=== PATIENT | female | born 1985 | race Caucasian/White ===

== ENCOUNTER 2023-04-22 10:44 | Emergency (ER) | payer SELFPAY ==
[2023-04-22 10:52] VITALS: BP 156/99; PULSE 72; RESP 20; TEMP 37.3; O2SAT 95; BMI 54.8
--- NOTE | 2023-04-22 13:04 | ED_ITS ---
HPI - General Adult General Chief complaint: Extremity Problem, Nontraumatic Stated complaint: SWELLING UPPER EXTREMITY Time Seen by Provider: 04/22/23 12:03 Source: patient Mode of arrival: walk-in History of Present Illness HPI narrative: Patient is a 37-year-old female who is presenting to the Emergency Room today with chief complaint of a small sore to her left distal forearm that is soft, fluctuant, sliightly tender to touch and she is concerned about deep vein thrombosis. Thhis is over the distal/lateral/posterior aspect of her left forearm. Patient has no unilateral swelling. Patient has no pain to the entire posterior aspect of her left upper extremity. Patient says that she accidentally hit her arm agaainst a hard object last week exactly where the swelling and pain is. Patient has a history of superficial thrombophlebitis to her left arm over and approximately close to the left radial artery were IV was placed previously. Patient some well-developed superficial thrombophlebitis from IV placement that progressed to the deep vein thrombosis system and patient was on blood thinners for 6 months. Patient also has a patient's that from blood clots. Patient has no chest pain or shortness of breath, no redness to the area, no red streaking, no signs of infection, no other acute complaints. Patient is here to rule out deep vein thrombosis. All systems are negative except as noted/marked. All systems reviewed and otherwise negative. Nurses note and vital signs reviewed and patient is not hypoxic. General: The patient appears well and in no apparent distress. Patient is resting comfortably on cart. Patient is not toxic, lethargic, or listless Skin: Warm, dry, no pallor noted. There is no rash noted. No petechiae, purpura. Head: Normocephalic, atraumatic Eye: Normal conjunctiva, no drainage, EOMI. PERRL Ears, Nose, Mouth, and Throat: oral mucosa is moist. Nares patent. Mouth without vesicles. Cardiovascular: Regular Rate and Rhythm, no murmur, gallop, rub Respiratory: Patient is in no distress, no accessory muscle use, lungs are clear to auscultation, no wheezing, rales or rhonchi Musculoskeletal: Patient has full range of motion of all of the extremities, no motor, sensory, or focal neurological deficits. Patient has no pain to the posterior aspectOf her left posterior upper extremityy from the shoulder to the wrist. Patient does have a 3 x 2 area that is soft, fluctuant, boggy, not mobile, mild tenderness to palpation, not red, no lymphangitis signs and not to the posterior aspect of the abdomen was suggest a deep vein thrombosis. No other pain to the posterior aspect of the left upper extremity. No signs of infection. Neurological: A&O x4, normal speech Psychiatric: Cooperative Related Data Home Medications Medication Instructions Recorded Confirmed sertraline 100 mg tablet mg 04/22/23 Allergies Allergy/AdvReac Type Severity Reaction Status Date / Time amoxicillin AdvReac Unknown Verified 04/22/23 10:52 hydromorphone [From Dilaudid] AdvReac Unknown Verified 04/22/23 10:52 Exam Constitutional Vital Signs, click to edit/add: Last Vital Signs Temp 99.1 F 04/22/23 10:52 Pulse 72 04/22/23 10:52 Resp 20 04/22/23 10:52 BP 156/99 H 04/22/23 10:52 Pulse Ox 95 04/22/23 10:52 Course Vital Signs Vital signs: Vital Signs Temperature 99.1 F 04/22/23 10:52 Pulse Rate 72 04/22/23 10:52 Respiratory Rate 20 04/22/23 10:52 Blood Pressure 156/99 H 04/22/23 10:52 Pulse Oximetry 95 04/22/23 10:52 Temperature 99.1 F 04/22/23 10:52 Pulse Rate 72 04/22/23 10:52 Respiratory Rate 20 04/22/23 10:52 Blood Pressure 156/99 H 04/22/23 10:52 Pulse Oximetry 95 04/22/23 10:52 Medical Decision Making [facility] Narrative Medical decision making narrative: Education was done at bedside for 10 minutes the patient. Patient has no signs or symptoms of deep vein thrombosis. I do understand patient's sensitivity to deep vein thrombosis secondary to her past of a superficial thrombophlebitis leading to deep vein thrombosis and on blood thinners for 6 months. Education reasons why to return to the Emergency Room for ultrasound discussed along with following up with PCP. Patient is given deep vein thrombosis education at discharge for education purposess only. Patient has no other acute concerns at this time, patient understands why this is most likely not a deep vein thrombosis and understands education at bedside and we did discuss. Discharge Plan Discharge Chief Complaint: Extremity Problem, Nontraumatic Clinical Impression: Hematoma, Deep venous thrombosis of upper extremity Patient Disposition: Home, Self-Care Time of Disposition Decision: 13:01 Condition: Fair Prescriptions / Home Meds: No Action sertraline 100 mg tablet Instructions: Contusion in Adults (ED), Bone Bruise (ED) Additional Instructions: Continue ice, use anti-inflammatories as needed. Education on DVT was given to you for educational purposes only; which I understand you have already had a DVT in the past and probably know this information as well. :) Follow-up with PCP if any other acute complaints Stand Alone Forms: Portal Instructions Referrals: Shaikh Mark MD [Primary Care Provider] - 1 week Discharge Date/Time: 04/22/23 13:07
== END 2023-04-22 13:07 | disposition home or self-care (01) ==
PROVIDERS: Emergency Provider Emergency Medicine; PCP Internal Medicine
DX: I82.622 Acute embolism and thrombosis of deep veins of left upper extremity (principal); Z86.72 Personal history of thrombophlebitis; S40.022A Contusion of left upper arm, initial encounter; W22.8XXA Striking against or struck by other objects, initial encounter
CPT/HCPCS: 99281

== ENCOUNTER 2023-07-16 11:03 | Outpatient (OUT) | payer BC, SELFPAY ==
--- OUTSIDE RECORDS SUMMARY | 2023-07-16 11:15 | XMS_ITS | CCD ---
Author Organization [facility] CliniSyor Care Team Providers Care Cereal Miller Name Role Phone DR STELLA LAN Consulting Unavailable EDYTA, DR STELLA Beal Attending Unavailable EDYTA, DR STELLA Beal Admitting Unavailable ROSS, RACHID LONNIE Primary Care Unavailable MAGDALENE, DR SINGH Consulting Unavailable CLEMENTINE JACK Consulting Unavailable ARIELLA FISCHER Consulting Unavailable ALBERTO FISCHER Consulting Unavailable RENATO, DR ISRAEL Hamm Consulting Unavailable FAWPAULA, HSU H Attending Unavailable FAWWAD, HSU H Admitting Unavailable ROSS, RACHID LONNIE Primary Care Unavailable CR REYES Consulting Unavailable MAGDALENE, DR SINGH Consulting Unavailable VINCENT, HSU H Consulting Unavailable HUSAM GARSIA Consulting Unavailable KAREN, DR NATHANIEL Loza Consulting Unavailable ROSS, RACHID LONNIE Primary Care Unavailable ROSS, RACHID LONNIE Attending Unavailable ROSS, RACHID LONNIE Admitting Unavailable ROSS, RACHID LONNIE Consulting Unavailable RENATO, DR ISRAEL Hamm Consulting Unavailable ROSS, RACHID LONNIE Primary Care Unavailable FAWWAD, HSU H Attending Unavailable FAWWAD, HSU H Admitting Unavailable FAWWAD, HSU H Consulting Unavailable ROSS, RACHID LONNIE Primary Care Unavailable FAWWAD, HSU H Attending Unavailable FAWWAD, HSU H Admitting Unavailable ROSS, RACHID LONNIE Primary Care Unavailable ROSS, RACHID LONNIE Attending Unavailable ROSS, RACHID LONNIE Admitting Unavailable DR ISRAEL GROSS Consulting Unavailable ALBERTO FISCHER Attending Unavailable ALBERTO FISCHER Admitting Unavailable ROSS, RACHID LONNIE Primary Care Unavailable ALBERTO FISCHER Consulting Unavailable CR CARIAS Consulting Unavailable ALBERTO FISCHER Attending Unavailable AMADO, ALBERTO Admitting Unavailable ROSS, RACHID LONNIE Primary Care Unavailable ROSALINO TRAN Consulting Unavailable Ross, Rachid E Primary Care Unavailable Ross, Rachid E Referring Unavailable Dewayne Calderon Admitting Unavailable Dewayne Calderon Attending Unavailable Unavailable Unavailable Unavailable Allergies Allergy Classification Reported Allergen(s) Allergy Type Date of Onset Reaction(s) Facility (3 sources) HYDROmorphone; Translations: [hydromorphone] Drug Allergy 1 Difficulty Breathing [facility] (3 sources) Penicillins; Translations: [Penicillins] Allergy to substance 1 Rash [facility] (2 sources) Amoxicillin Drug Allergy 7 [facility] (2 sources) HYDROmorphone Drug Allergy 7 [facility] Medications Current Medications Medication Drug Class(es) Dates Sig (Normalized) Sig (Original) cholecalciferol 400 unt oral capsule (2 sources) Vitamin D Start: 05-12-2020 take 1 capsule by mouth once daily Cholecalciferol (Vitamin D3) (Vitamin D3) 10 mcg (400 unit) Capsule Active 10 MCG PO Daily May 12, 2020 8:08am Multivitamin (Multiple Vitamin) Tablet (2 sources) Start: 05-12-2020 take 1 tablet by mouth once daily Multivitamin (Multiple Vitamin) Tablet Active 1 TAB PO Daily May 12, 2020 8:08am Start: 05-12-2020 take 1 tablet by jose th once daily Multivitamin (Multiple Vitamin) Tablet Active 1 TAB PO Daily May 12, 2020 12:00am omeprazole 40 mg delayed release oral capsule (2 sources) Proton Pump Inhibitor Start: 04-27-2020 take 40 mg by mouth once daily Omeprazole Active 40 MG PO Daily April 27, 2020 5:01pm valsartan 320 mg oral tablet (2 sources) Angiotensin 2 Receptor Dori Start: 04-27-2020 take 320 mg by mouth once daily Valsartan Active 320 MG PO Daily April 27, 2020 5:01pm Problems Active Problems Problem Classification Problem Date Documented Da te Episodic/Chronic Diseases of white blood cells (2 sources) Leukocytosis; Translations: [Elevated white blood cell count, unspecified] Onset: 1 05-12-2020 Chronic Essential hypertension (1 source) Essential (primary) hypertension; Translations: [ESSENTIAL PRIMARY HYPERTENSION] Onset: 1 Chronic Osteoarthritis (1 source) Unilateral primary osteoarthritis, left knee; Translations: [UNI PRIM OSTEOARTHRITIS LT KNEE] Onset: 2 Chronic Other connective tissue disease (4 sources) Pain in left leg; Translations: [PAIN IN LEFT LEG] Onset: 2 Episodic Other non-traumatic joint disorders (5 sources) Pain in left knee; Translations: [PAIN IN LEFT KNEE] Onset: 2 Episodic Other nutritional; endocrine; and metabolic disorders (1 source) Body mass index (BMI) 50.0-59.9, adult; Translations: [BODY MASS INDEX BMI 50.0-59.9 ADULT] Onset: 2 Chronic Other nutritional; endocrine; and metabolic disorders (1 source) Morbid (severe) obesity due to excess calories; Translations: [MORBID SEVERE OBES D/T EXCESS MANSI] Onset: 2 Chronic Phlebitis; thrombophlebitis and thromboembolism (3 sources) Phlebitis and thrombophlebitis of superficial vessels of left lower extremity; Translations: [Acute embolism and thrombosis of deep veins of left upper extremity] Onset: 2 Episodic Pneumonia (except that caused by tuberculosis or sexually transmitted disease) (1 source) Pneumonia (except that caused by tuberculosis or sexually transmitted disease); Translations: [PNEUMONIA D/T CORONAVIRUS DIS 2019] Onset: 1 Respiratory failure; insufficiency; arrest (adult) (1 source) Dependence on supplemental oxygen; Translations: [DEPENDENCE ON SUPPLEMENTAL OXYGEN] Onset: 1 Chronic Unclassified (1 source) PERSONAL HISTORY OF COVID-19; Translations: [PERSONAL HISTORY OF COVID-19] Onset: 1 Unclassified (1 source) CONTACT W/AND (SUSP) EXPOS COVID-19; Translations: [CONTACT W/AND (SUSP) EXPOS COVID-19] Onset: 1 Unclassified (2 sources) COUGH, UNSPECIFIED; Translations: [COUGH, UNSPECIFIED] Onset: 1 Viral infection (3 sources) COVID-19; Translations: [COVID-19] Onset: 1 Past or Other Problems Problem Classification Problem Date Documented Da te Episodic/Chronic Cardiac dysrhythmias (1 source) Bradycardia, unspecified; Translations: [BRADYCARDIA UNSPECIFIED] Onset: 02-12-2021 Episodic E Codes: Unspecified (1 source) Nosocomial condition; Translations: [NOSOCOMIAL CONDITION] Onset: 12-29-2021 Episodic Other aftercare (1 source) Other halfway (current) drug therapy; Translations: [OTH PARK GUIDE CURRENT DRUG THERAPY] Onset: 03-05-2021 Episodic Other connective tissue disease (3 sources) Other specified soft tissue disorders; Translations: [OTHER SPEC SOFT TISSUE DISORDERS] Onset: 03-02-2021 Episodic Other lower respiratory disease (1 source) Personal history of pneumonia (recurrent); Translations: [PERSONAL HX OF PNEUMONIA RECURRENT] Onset: 03-05-2021 Episodic Other lower respiratory disease (1 source) Shortness of breath; Translations: [SHORTNESS OF BREATH] Onset: 01-23-2021 Episodic Pneumonia (except that caused by tuberculosis or sexually transmitted disease) (5 sources) Pneumonia, unspecified organism; Translations: [Unspecified bacterial pneumonia] Onset: 02-12-2021 Episodic Residual codes; unclassified (1 source) Acquired absence of other specified parts of digestive tract; Translations: [ACQ ABSENCE OTH PART DIGESTV TRACT] Onset: 02-12-2021 Episodic Respiratory failure; insufficiency; arrest (adult) (1 source) Acute respiratory failure with hypoxia; Translations: [ACUTE RESPIRATORY FAIL W/HYPOXIA] Onset: 02-21-2021 Episodic Unclassified (1 source) COUGH, UNSPECIFIED; Translations: [COUGH, UNSPECIFIED] Onset: 01-21-2021 Results Test Name Value Interpretation Reference Range Facility LALY DOP LEG LTon 10-13-19 22 LALY DOP LEG LT EXAMINATION: LALY DOP LEG LT HISTORY: Pain in left leg ; left calf pain COMPARISON: No relevant comparison available. FINDINGS: REGION: Left lower extremity THROMBI: None. COMPRESSIBILITY: Normal compressibility. FLOW: Normal waveform and antegrade flow between 5 and 20 cm/s. OTHER: Thrombosis of a superficial varicose vein within the medial calf. IMPRESSION: 1. No deep vein thrombus within the lower extremity. 2. Focal area of superficial thrombophlebitis involving medial calf. Electronically authenticated by: ISRAEL GROSS Date: 2021-10-12 14:41 Normal [facility] CBC AUTO DIFFon 03-02-2021 BASO # 0.0 103/ul Normal 0.0-0.1 [facility] Comment on above: Performed By: #### C MP, HSTROPN #### [facility] [address] [address] [address] Carmel Tillman Basophils/100 WBC (Bld) 0.3 % Normal 0.2-2.0 [facility] Comment on above: Performed By: #### C MP, HSTROPN #### [facility] [address] [place] [address] Dr. Careml Tillman EO # 0.1 103/ul Normal 0.0-0.7 [facility] Comment on above: Performed By: #### C MP, HSTROPN #### [facility] [address] [place] [address] Dr. Carmel Tillman Eosinophils/100 WBC (Bld) 0.9 % Normal 0.9-7.0 [facility] Comment on above: Performed By: #### C FARAZ, HSTROPN #### [facility] [address] [place] [address] Dr. Carmel Tillman Erythrocyte distribution width (RBC) [Ratio] 19.7 % Critically high 11.0-15.0 [facility] Comment on above: Performed By: #### C FARAZ, HSTROPN #### [facility] [address] [place] [address] Dr. Carmel Tillman Hematocrit (Bld) [Volume fraction] 40.9 % Normal 36.0-48.0 [facility] Comment on above: Performed By: #### C FARAZ, HSTROPN #### [facility] [address] [place] [address] Dr. Carmel Tillman Hemoglobin (Bld) [Mass/Vol] 12.7 g/dL Normal 12.0-16.0 [facility] Comment on above: Performed By: #### C MP, HSTROPN #### [facility] [address] [place] [address] Dr. Carmel Tillman IG # 0.18 10e3/ul Critically high 0.00-0.03 [facility] Comment on above: Performed By: #### C MP, HSTROPN #### [facility] [address] [place] [address] Dr. Carmel Tillman IG % 1.7 % Critically high 0.0-0.5 [facility] Comment on above: Performed By: #### C MP, HSTROPN #### [facility] [address] [place] [address] Dr. Carmel Tillman LYMPH # 2.8 103/ul Normal 1.2-3.8 [facility] Comment on above: Performed By: #### C MP, HSTROPN #### [facility] [address] [place] [address] Dr. Carmel Tillman Lymphocytes/100 WBC (Bld) 25.6 % Normal 20.5-60.0 [facility] Comment on above: Performed By: #### C MP, HSTROPN #### [facility] [address] [place] [address] Dr. Carmel Tillman MANUAL DIFF REQ NO Normal [facility] Comment on above: Performed By: #### C MP, HSTROPN #### [facility] [address] [place] [address] Dr. Carmel Tillman MCH (RBC) [Entitic mass] 25.2 pg Critically low 26.7-34.0 [facility] Comment on above: Performed By: #### C MP, HSTROPN #### [facility] [address] [place] [address] Dr. Carmel Tillman MCHC (RBC) [Mass/Vol] 31.1 g/dL Normal 29.9-35.2 [facility] Comment on above: Performed By: #### C MP, HSTROPN #### [facility] [address] [place] [address] Dr. Carmel Tillman MCV (RBC) [Entitic vol] 81.2 fL Normal 81.0-99.0 [facility] Comment on above: Performed By: #### C MP, HSTROPN #### [facility] [address] [place] [address] Dr. Carmel Tillman MONO # 0.9 103/ul Critically high 0.3-0.8 [facility] Comment on above: Performed By: #### C MP, HSTROPN #### [facility] [address] [address] [address] Carmel Tillman Monocytes/100 WBC (Bld) 7.9 % Normal 1.7-12.0 [facility] Comment on above: Performed By: #### C MP, HSTROPN #### [facility] [address] [place] [address] Dr. Carmel Tillman NEUT # 6.9 103/ul Critically high 1.4-6.5 [facility] Comment on above: Performed By: #### C MP, HSTROPN #### [facility] [address] [place] [address] Dr. Carmel Tillman Neutrophils/100 WBC (Bld) 63.6 % Normal 43.0-75.0 [facility] Comment on above: Performed By: #### C MP, HSTROPN #### [facility] [address] [place] [address] Dr. Carmel Tillman Platelet mean volume (Bld) [Entitic vol] 9.5 fL Normal 9.5-13.5 [facility] Comment on above: Performed By: #### C MP, HSTROPN #### [facility] [address] [place] [address] Dr. Carmel Tillman PLT 350 103/ul Normal 150-450 [facility] Comment on above: Performed By: #### C MP, HSTROPN #### [facility] [address] [place] [address] Dr. Carmel Tillman RBC 5.04 106/ul Normal 4.20-5.40 [facility] Comment on above: Performed By: #### C MP, HSTROPN #### [facility] [address] [place] [address] Dr. Carmel Tillman WBC 10.8 103/ul Normal 4.0-11.0 [facility] Comment on above: Performed By: #### C MP, HSTROPN #### [facility] [address] [place] [address] Dr. Carmel Tillman PROF 14(COMP METB)on 022 Albumin [Mass/Vol] 2.9 g/dL Critically low 3.5-5.0 [facility] Comment on above: Performed By: #### C MP #### [facility] [address] [address] [address] Carmel Tillman Albumin/Globulin [Mass ratio] 0.7 {ratio} Normal [facility] Comment on above: Performed By: #### C MP #### [facility] [address] [address] [address] Carmel Tillman ALP [Catalytic activity/Vol] 50 U/L Normal 38-126 [facility] Comment on above: Performed By: #### C MP #### [facility] [address] [address] [address] Carmel Tillman ALT [Catalytic activity/Vol] 25 U/L Normal 9-52 [facility] Comment on above: Performed By: #### C MP #### [facility] [address] [place] [address] Dr. Carmel Tillman Anion gap [Moles/Vol] 11.3 mmol/L Normal [facility] Comment on above: Performed By: #### C MP #### [facility] [address] [place] [address] Dr. Carmel Tillman AST [Catalytic activity/Vol] 13 U/L Critically low 14-36 [facility] Comment on above: Performed By: #### C MP #### [facility] [address] [place] [address] Dr. Carmel Tillman Bilirubin [Mass/Vol] 0.6 mg/dL Normal 0.2-1.3 [facility] Comment on above: Performed By: #### C MP #### [facility] [address] [place] [address] Dr. Carmel Tillman Calcium [Mass/Vol] 9.3 mg/dL Normal 8.4-10.2 [facility] Comment on above: Performed By: #### C MP #### [facility] [address] [address] [address] Carmel Tillman Chloride [Moles/Vol] 106 mmol/L Normal 98-107 [facility] Comment on above: Performed By: #### C MP #### [facility] [address] [address] [address] Carmel Tillman CO2 [Moles/Vol] 27.0 mmol/L Normal 22.0-30.0 [facility] Comment on above: Performed By: #### C MP #### [facility] [address] [address] [address] Carmel Tillman Creatinine [Mass/Vol] 0.72 mg/dL Normal 0.52-1.04 [facility] Comment on above: Performed By: #### C MP #### [facility] [address] [address] [address] Carmel Tillman EGFR-AF BRAZILIAN >60 Normal >=60 [facility] Comment on above: Performed By: #### C MP #### [facility] [address] [place] [address] Dr. Carmel Tillman EGFR-NON AF BRAZILIAN >60 Normal >=60 [facility] Comment on above: Performed By: #### C MP #### [facility] [address] [place] [address] Dr. Carmel Tillman Globulin (S) [Mass/Vol] 4.0 g/dL Normal [facility] Comment on above: Performed By: #### C MP #### [facility] [address] [place] [address] Dr. Carmel Tillman Glucose [Mass/Vol] 112 mg/dL Critically high 74-106 T [facility] Comment on above: Performed By: #### C MP #### [facility] [address] [address] [address] Carmel Tillman Potassium [Moles/Vol] 4.3 mmol/L Normal 3.4-5.0 [facility] Comment on above: Performed By: #### C MP #### [facility] [address] [place] [address] Dr. Carmel Tillman Protein [Mass/Vol] 6.9 g/dL Normal 6.1-8.2 [facility] Comment on above: Performed By: #### C MP #### [facility] [address] [place] [address] Dr. Carmel Tillman Sodium [Moles/Vol] 140 mmol/L Normal 137-145 [facility] Comment on above: Performed By: #### C MP #### [facility] [address] [place] [address] Dr. Carmel Tillman Urea nitrogen [Mass/Vol] 20.0 mg/dL Critically high 7.0-17.0 [facility] Comment on above: Performed By: #### C MP #### [facility] [address] [place] [address] Dr. Carmel Tillman Urea nitrogen/Creatinin e [Mass ratio] 27.8 mg/mg Normal [facility] Comment on above: Performed By: #### C MP #### [facility] [address] [place] [address] Dr. Carmel Tillman PROTIMEon 03-02-2021 INR Coag (PPP) [Relative time] 0.95 {INR} Normal [facility] Comment on above: Performed By: #### P T, PTT #### [facility] [address] [place] [address] Dr. Carmel Tillman INR GUIDELINES SEE BELOW Normal [facility] Comment on above: Result Comment: CHRIS RED INR: 2.0 - 3.0 CONDITIONS NOT LISTED BELOW 2.5 - 3.5 FOR PROSTHETIC HEART VALVE REPLACEMENT 2.5 - 3.5 RECURRENT THROMBOSIS Performed By: #### P T, PTT #### [facility] [address] [place] [address] Dr. Carmel Tillman PT Coag (PPP) [Time] 10.3 s Normal 9.0-11.6 [facility] Comment on above: Performed By: #### P T, PTT #### [facility] [address] [place] [address] Dr. Carmel Tillman PTTon 03-02-2021 aPTT Coag (Bld) [Time] 22.8 s Normal 22.3-36.2 [facility] Comment on above: Performed By: #### P T, PTT #### [facility] [address] [place] [address] Dr. Carmel Tillman US VENOUS DOPPLER L Latrice US VENOUS DOPPLER L ARM EXAMINATION: US VENOUS DOPPLER L ARM HISTORY: Swelling , left arm pain COMPARISON: No relevant comparison available. FINDINGS: REGION: Left upper extremity THROMBI: Occlusive thrombus within the basilic vein. A varicose Vein off of the basilic which extends to the wrist is thrombosed. A short segment of the brachial vein is thrombosed. COMPRESSIBILITY: Noncompressible segments. FLOW: No flow within thrombosed segments. OTHER: None. IMPRESSION: 1. Deep vein thrombus within the left upper extremity involving the brachial vein. 2. The extent of thrombus within the basilic and its closeness to the deep system should also be considered for deep vein thrombus treatment. Electronically authenticated by: ISRAEL GROSS Date: 2021-03-02 12:07 Normal [facility] XR CHEST 2 Von 02-21-2021 XR CHEST 2 V EXAMINATION: XR CHES T 2 V HISTORY: Pneumonia COMPARISON: 02/12/2021 TECHNIQUE: PA and lateral FINDINGS: LUNGS: Low lung volumes. Moderate bilateral patchy parenchymal infiltrates, stable from the prior exam. VASCULATURE: No increased pulmonary vasculature. PLEURA: No pneumothorax. Slight elevation the right hemidiaphragm CARDIAC: No cardiomegaly or cardiac silhouette abnormality. MEDIASTINUM: No visible mass or adenopathy. BONES: No fracture or visible bone lesion. OTHER: Negative. IMPRESSION: Moderate bilateral patchy parenchymal infiltrates, grossly stable unknown etiology Electronically authenticated by: NATHANIEL JONES Date: 2021-02-21 07:51 Normal [facility] CBC AUTO DIFFon 02-15-2021 BASO # 0.0 103/ul Normal 0.0-0.1 [facility] Comment on above: Performed By: #### C MP #### [facility] [address] [address] [address] Carmel Tillman Basophils/100 WBC (Bld) 0.2 % Normal 0.2-2.0 [facility] Comment on above: Performed By: #### C MP #### [facility] [address] [address] [address] Carmel Tillman EO # 0.0 103/ul Normal 0.0-0.7 [facility] Comment on above: Performed By: #### C MP #### [facility] [address] [address] [address] Carmel Tillman Eosinophils/100 WBC (Bld) 0.2 % Critically low 0.9-7.0 [facility] Comment on above: Performed By: #### C MP #### [facility] [address] [place] [address] Dr. Carmel Tillman Erythrocyte distribution width (RBC) [Ratio] 18.1 % Critically high 11.0-15.0 [facility] Comment on above: Performed By: #### C MP #### [facility] [address] [place] [address] Dr. Carmel Tillman Hematocrit (Bld) [Volume fraction] 39.4 % Normal 36.0-48.0 [facility] Comment on above: Performed By: #### C MP #### [facility] [address] [place] [address] Dr. Carmel Tillman Hemoglobin (Bld) [Mass/Vol] 12.2 g/dL Normal 12.0-16.0 [facility] Comment on above: Performed By: #### C MP #### [facility] [address] [place] [address] Dr. Carmel Tillman IG # 0.35 10e3/ul Critically high 0.00-0.03 [facility] Comment on above: Performed By: #### C MP #### [facility] [address] [place] [address] Dr. Carmel Tillman IG % 2.3 % Critically high 0.0-0.5 [facility] Comment on above: Performed By: #### C MP #### [facility] [address] [place] [address] Dr. Carmel Tillman LYMPH # 3.7 103/ul Normal 1.2-3.8 [facility] Comment on above: Performed By: #### C MP #### [facility] [address] [place] [address] Dr. Carmel Tillman Lymphocytes/100 WBC (Bld) 24.4 % Normal 20.5-60.0 [facility] Comment on above: Performed By: #### C MP #### [facility] [address] [address] [address] Carmel Tillman MANUAL DIFF REQ NO Normal [facility] Comment on above: Performed By: #### C MP #### [facility] [address] [address] [address] Carmel Tillman MCH (RBC) [Entitic mass] 24.6 pg Critically low 26.7-34.0 [facility] Comment on above: Performed By: #### C MP #### [facility] [address] [place] [address] Dr. Carmel Tillman MCHC (RBC) [Mass/Vol] 31.0 g/dL Normal 29.9-35.2 [facility] Comment on above: Performed By: #### C MP #### [facility] [address] [place] [address] Dr. Carmel Tillman MCV (RBC) [Entitic vol] 79.6 fL Critically low 81.0-99.0 [facility] [facility] Comment on above: Performed By: #### C MP #### [facility] [address] [place] [address] Dr. Carmel Tillman MONO # 0.7 103/ul Normal 0.3-0.8 [facility] Comment on above: Performed By: #### C MP #### [facility] [address] [place] [address] Dr. Carmel Tillman Monocytes/100 WBC (Bld) 4.9 % Normal 1.7-12.0 [facility] Comment on above: Performed By: #### C MP #### [facility] [address] [place] [address] Dr. Carmel Tillman NEUT # 10.3 103/ul Critically high 1.4-6.5 [facility] Comment on above: Performed By: #### C MP #### [facility] [address] [place] [address] Dr. Carmel Tillman Neutrophils/100 WBC (Bld) 68.0 % Normal 43.0-75.0 [facility] Comment on above: Performed By: #### C MP #### [facility] [address] [address] [address] Carmel Tillman Platelet mean volume (Bld) [Entitic vol] 9.6 fL Normal 9.5-13.5 [facility] Comment on above: Performed By: #### C MP #### [facility] [address] [address] [address] Carmel Tillman PLT 151 103/ul Normal 150-450 [facility] Comment on above: Performed By: #### C MP #### [facility] [address] [address] [address] Carmel Tillman RBC 4.95 106/ul Normal 4.20-5.40 [facility] Comment on above: Performed By: #### C MP #### [facility] [address] [address] [address] Carmel Tillman WBC 15.2 103/ul Critically high 4.0-11.0 [facility] Comment on above: Performed By: #### C MP #### [facility] [address] [address] [address] Carmel Tillman POINT OF CARE GLUCOSEon 01-25 Glucose [Mass/Vol] 104 mg/dL Normal 74-106 [facility] Comment on above: Performed By: #### C FARAZ, HSTROPN #### [facility] [address] [address] [address] Carmel Tillman Glucose [Mass/Vol] 81 mg/dL Normal 74-106 [facility] Comment on above: Performed By: #### C MP #### [facility] [address] [place] [address] Dr. Carmel Tillman PROF CHEM 8 (BAS METB)on Anion gap [Moles/Vol] 13.7 mmol/L Normal [facility] Comment on above: Performed By: #### B MP #### [facility] [address] [place] [address] Dr. Carmel Tillman Calcium [Mass/Vol] 8.5 mg/dL Normal 8.4-10.2 [facility] Comment on above: Performed By: #### B MP #### [facility] [address] [address] [address] Carmel Tillman Chloride [Moles/Vol] 102 mmol/L Normal 98-107 [facility] Comment on above: Performed By: #### B MP #### [facility] [address] [address] [address] Carmel Tillman CO2 [Moles/Vol] 25.8 mmol/L Normal 22.0-30.0 [facility] Comment on above: Performed By: #### B MP #### [facility] [address] [address] [address] Carmel Tillman Creatinine [Mass/Vol] 1.06 mg/dL Critically high 0.52-1.04 [facility] Comment on above: Performed By: #### B MP #### [facility] [address] [address] [address] Carmel Tillman EGFR-AF BRAZILIAN >60 Normal >=60 [facility] Comment on above: Performed By: #### B MP #### [facility] [address] [address] [address] Carmel Tillman EGFR-NON AF BRAZILIAN 58 mL/min/1.73m2 Critically low >=60 [facility] Comment on above: Performed By: #### B MP #### [facility] [address] [address] [address] Carmel Tillman Glucose [Mass/Vol] 93 mg/dL Normal 74-106 [facility] Comment on above: Performed By: #### B MP #### [facility] [address] [address] [address] Carmel Tillman Potassium [Moles/Vol] 3.5 mmol/L Normal 3.4-5.0 [facility] Comment on above: Performed By: #### B MP #### [facility] [address] [address] [address] Carmel Tillman Sodium [Moles/Vol] 138 mmol/L Normal 137-145 [facility] Comment on above: Performed By: #### B MP #### [facility] [address] [address] [address] Carmel Tillman Urea nitrogen [Mass/Vol] 24.0 mg/dL Critically high 7.0-17.0 [facility] Comment on above: Performed By: #### B MP #### [facility] [address] [place] [address] Dr. Carmel Tillman Urea nitrogen/Creatinin e [Mass ratio] 22.6 mg/mg Normal [facility] Comment on above: Performed By: #### B MP #### [facility] [address] [address] [address] Carmel Tillman CBC W MANUAL DIFFon 02-15-20 21 ATYPICAL LYMPH # Normal [facility] Comment on above: Performed By: #### C MP #### [facility] [address] [place] [address] Dr. Carmel Tillman ATYPICAL LYMPH % Normal [facility] Comment on above: Performed By: #### C MP #### [facility] [address] [place] [address] Dr. Carmel Tillman BAND # 1.0 103/ul Critically high 0.0-0.3 [facility] Comment on above: Performed By: #### C MP #### [facility] [address] [place] [address] Dr. Carmel Tillman BAND % 6 % Critically high 0-5 [facility] Comment on above: Performed By: #### C MP #### [facility] [address] [place] [address] Dr. Carmel Tillman BASOM # 0.00 103/ul Normal 0.00-0.10 [facility] Comment on above: Performed By: #### C MP #### [facility] [address] [place] [address] Dr. Carmel Tillman BASOM % 0.0 % Critically low 0.2-2.[address] [facility] Comment on above: Performed By: #### C MP #### [facility] [address] [place] [address] Dr. Carmel Tillman BLAST # Normal [facility] Comment on above: Performed By: #### C MP #### [facility] [address] [address] [address] Carmel Tillman BLAST % Normal [facility] Comment on above: Performed By: #### C MP #### [facility] [address] [place] [address] Dr. Carmel Tillman CORRECTED WBC Normal 4.0-11.0 [facility] Comment on above: Performed By: #### C MP #### [facility] [address] [place] [address] Dr. Carmel Tillman EOS # 0.00 103/ul Normal 0.00-0.70 [facility] Comment on above: Performed By: #### C MP #### [facility] [address] [place] [address] Dr. Carmel Tillman EOS% 0.0 % Critically low 0.9-7.0 [facility] Comment on above: Performed By: #### C MP #### [facility] [address] [place] [address] Dr. Carmel Tillman HCT 39.5 % Normal 36.0-48.0 [facility] Comment on above: Performed By: #### C MP #### [facility] [address] [place] [address] Dr. Carmel Tillman HGB 12.4 g/dl Normal 12.0-16.0 [facility] Comment on above: Performed By: #### C MP #### [facility] [address] [place] [address] Dr. Carmel Tillman LYMPHM # 1.56 103/ul Normal 1.20-3.80 [facility] Comment on above: Performed By: #### C MP #### [facility] [address] [place] [address] Dr. Carmel Tillman LYMPHM% 9.0 % Critically low 20.5-60.[address] [facility] Comment on above: Performed By: #### C MP #### [facility] [address] [place] [address] Dr. Carmel Tillman MCH 24.8 pg Critically low 26.7-34.[address] [facility] Comment on above: Performed By: #### C MP #### [facility] [address] [address] [address] Carmel Tillman MCHC 31.4 g/dl Normal 29.9-35.2 [facility] Comment on above: Performed By: #### C MP #### [facility] [address] [place] [address] Dr. Carmel Tillman MCV 79.2 fL Critically low 81.0-99.0 [facility] Comment on above: Performed By: #### C MP #### [facility] [address] [place] [address] Dr. Carmel Tillman METAMYELOCYTE # Normal [facility] Comment on above: Performed By: #### C MP #### [facility] [address] [place] [address] Dr. Carmel Tillman METAMYELOCYTE % Normal [facility] Comment on above: Performed By: #### C MP #### [facility] [address] [place] [address] Dr. Carmel Tillman MONOM# 0.69 103/ul Normal 0.30-0.80 [facility] Comment on above: Performed By: #### C MP #### [facility] [address] [place] [address] Dr. Carmel Tillman MONOM% 4.0 % Normal 1.7-12.0 [facility] Comment on above: Performed By: #### C MP #### [facility] [address] [place] [address] Dr. Carmel Tillman MPV 9.7 fL Normal 9.5-13.5 [facility] Comment on above: Performed By: #### C MP #### [facility] [address] [place] [address] Dr. Carmel Tillman MYELOCYTE # Normal [facility] Comment on above: Performed By: #### C MP #### [facility] [address] [place] [address] Dr. Carmel Tillman MYELOCYTE % Normal [facility] Comment on above: Performed By: #### C MP #### [facility] [address] [place] [address] Dr. Carmel Tillman NRBC Normal [facility] Comment on above: Performed By: #### C MP #### [facility] [address] [address] [address] Carmel Tillman PLT 167 103/ul Normal 150-450 [facility] Comment on above: Performed By: #### C MP #### [facility] [address] [address] [address] Carmel Tillman RBC 4.99 106/ul Normal 4.20-5.40 [facility] Comment on above: Performed By: #### C MP #### [facility] [address] [address] [address] Carmel Tillman RDW 17.7 % Critically high 11.0-15.0 [facility] Comment on above: Performed By: #### C MP #### [facility] [address] [address] [address] Carmel Tillman SEG # 14.01 103/ul Critically high 1.40-6.50 [facility] Comment on above: Performed By: #### C MP #### [facility] [address] [address] [address] Carmel Tillman SEG % 81.0 % Critically high 43.0-75.0 [facility] Comment on above: Performed By: #### C MP #### [facility] [address] [address] [address] Carmel Tillman WBC 17.3 103/ul Critically high 4.0-11.0 [facility] Comment on above: Performed By: #### C MP #### [facility] [address] [address] [address] Carmel Tillman CULTURE SPUTUMon 02-14-2021 CULTURE SPUTUM Culture Observations : NORMAL RESPIRATORY OSWALD. Normal [facility] Comment on above: Performed By: #### P T, PTT #### [facility] [address] [address] [address] Carmel Tillman ECHOCARDIO M/2D COMPLETEon 1 04-17-2020 ECHOCARDIO M/2D COMPLETE Patient: MARTA MELGAR. Exam Date: 02/14/2021 : 1985 Gender:F Ordering : SHAIKH Eva KAUR . Admission #: [id number] Family : DR. RACHID SELLERS . Order #: [id number] CLICK HERE TO VIEW EXAM ECHOCARDIOGRAM REPORT PROCEDURE: CARDIO PULMONARY ECHOCARDIO M/2D COMP INDICATIONS: Shortness of breath, pneumonia, H/O covid (12/2020), hypertension COMPARISON: None. DESCRIPTION: COMPLETE ECHOCARDIOGRAM Real-time transthoracic echocardiography with 2D, M-mode, spectral and color flow Doppler performed. QUALITY: Technically difficult due to patient's condition. LEFT VENTRICLE: Normal chamber size. Thickened septal wall. No regional wall motion abnormalities. LV EF: Normal left ventricular ejection fraction, (>55%). DIASTOLIC: Normal diastolic function. ATRIAL SEPTUM: Visually appears intact. LEFT ATRIUM: Normal chamber size. RIGHT ATRIUM: Normal chamber size. RIGHT VENTRICLE: Normal chamber size. Normal systolic function. TRICUSPID VALVE: Normal mobility and thickness. No stenosis with no regurgitation. No evidence of pulmonary hypertension. MITRAL VALVE: Normal mobility and thickness. No evidence of mitral valve stenosis. There is no mitral annular calcification. No mitral regurgitation. AORTIC VALVE: Normal trileaflet appearance. Normal leaflet mobility. No evidence of aortic valve stenosis. No aortic regurgitation. AORTIC ROOT: Normal diameter and appearance. PULMONIC VALVE: Normal thickness and mobility. No stenosis. Trivial regurgitation. PERICARDIUM: No evidence of pericardial effusion. IVC: Not well visualized. PLEURA: CONCLUSION: 1. Normal ventricular function. 2. No valvular dysfunction. 3. No pericardial effusion. Adult Echocardiography Procedure Report Left Ventricle LVEDD (3.7 - 5.6 cm): 4.89 cm LVESD (2.2 - 4.0 cm): 3.23 cm LVIVS thickness (0.6 - 1.2 cm): 1.40 cm LVPW thickness (0.5 - 1.0 cm): 9.32 mm e': 7.35 cm/s E - e': 8.70 LVOT Area (cm2): 4.52 cm2 LVOT Diameter 2.40 cm Left Ventricular Ejection Fraction: 62.60 % Left Atrium LA Volume Index (2D A2C): 17.80 ml/m2 Left Atrium Systolic Dimension: 4.40 cm Left Atrium Systolic Area(A2C): 15.80 cm2 Left Atrium Systolic Area(A4C): 19.00 cm2 Left Atrium Systolic Volume(A2C): 39725 mm3 Left Atrium Systolic Volume(A4C): 10162 mm3 Mitral Valve MV E to A Ratio: 1.10 Mitral Valve A-Wave Peak Velocity: 59.20 cm/s Mitral Valve E-Wave Peak Velocity: 64.20 cm/s Deceleration Time: 254 ms Right Ventricle Aorta AO Root Diam: 3.70 cm Aortic Valve AoV Area (Peak Berto): 2.71 cm2 Peak Velocity(Antegrade Flow): 136.00 cm/s Peak Gradient(Antegrade Flow): 7 mm[Hg] Tricuspid Valve Pulmonic Valve Peak Velocity: 127.00 cm/s Peak Gradient: 6 mm[Hg] Right Atrium Dictated by: Milan Rios M.D. on 02/14/2021 at 18:36 Approved by: Milan Rios M.D. on 02/14/2021 at 18:38 Normal [facility] POINT OF CARE GLUCOSEon 01-25 Glucose [Mass/Vol] 105 mg/dL Normal 74-106 [facility] Comment on above: Performed By: #### P T, PTT #### [facility] [address] [address] [address] Carmel Tillman Glucose [Mass/Vol] 125 mg/dL Critically high 74-106 [facility] Comment on above: Performed By: #### P T, PTT #### [facility] [address] [address] [address] Carmel Tillman Glucose [Mass/Vol] 104 mg/dL Normal 74-106 [facility] Comment on above: Performed By: #### P T, PTT #### [facility] [address] [address] [address] Carmel Tillman Glucose [Mass/Vol] 109 mg/dL Critically high 74-106 [facility] Comment on above: Performed By: #### P T, PTT #### [facility] [address] [address] [address] Carmel Tillman PROF CHEM 8 (BAS METB)on Anion gap [Moles/Vol] 13.8 mmol/L [facility] Comment on above: Performed By: #### C MP, HSTROPN #### [facility] [address] [address] [address] Carmel Tillman Calcium [Mass/Vol] 8.6 mg/dL Normal 8.4-10.2 [facility] Comment on above: Performed By: #### C MP, HSTROPN #### [facility] [address] [address] [address] Carmel Tillman Chloride [Moles/Vol] 104 mmol/L Normal 98-107 [facility] Comment on above: Performed By: #### C MP, HSTROPN #### [facility] [address] [place] [address] Dr. Carmel Tillman CO2 [Moles/Vol] 24.3 mmol/L Normal 22.0-30.0 [facility] Comment on above: Performed By: #### C MP, HSTROPN #### [facility] [address] [place] [address] Dr. Carmel Tillman Creatinine [Mass/Vol] 0.84 mg/dL Normal 0.52-1.04 [facility] Comment on above: Performed By: #### C MP, HSTROPN #### [facility] [address] [place] [address] Dr. Carmel Tillman EGFR-AF BRAZILIAN >60 Normal >=60 [facility] Comment on above: Performed By: #### C MP, HSTROPN #### [facility] [address] [place] [address] Dr. Carmel Tillman EGFR-NON AF BRAZILIAN >60 Normal >=60 [facility] Comment on above: Performed By: #### C MP, HSTROPN #### [facility] [address] [address] [address] Carmel Tillman Glucose [Mass/Vol] 124 mg/dL Critically high 74-106 [facility] Comment on above: Performed By: #### C MP, HSTROPN #### [facility] [address] [address] [address] Carmel Tillman Potassium [Moles/Vol] 4.1 mmol/L Normal 3.4-5.0 [facility] Comment on above: Performed By: #### C MP, HSTROPN #### [facility] [address] [address] [address] Carmel Tillman Sodium [Moles/Vol] 138 mmol/L Normal 137-145 [facility] Comment on above: Performed By: #### C MP, HSTROPN #### [facility] [address] [address] [address] Carmel Tillman Urea nitrogen [Mass/Vol] 15.0 mg/dL Normal 7.0-17.0 [facility] Comment on above: Performed By: #### C FARAZ, HSTROPN #### [facility] [address] [place] [address] Dr. Carmel Tillman Urea nitrogen/Creatinin e [Mass ratio] 17.9 mg/mg Normal [facility] Comment on above: Performed By: #### C MP, HSTROPN #### [facility] [address] [place] [address] Dr. Carmel Tillman SPUTUM GRAM STAINon 02-15-20 COMMENTS NO ORGANISMS OBSERVED Normal [facility] Comment on above: Performed By: #### C FARAZ, HSTROPN #### [facility] [address] [place] [address] Dr. Carmel Tillman DIPHTHEROIDS Normal [facility] Comment on above: Performed By: #### C MP, HSTROPN #### [facility] [address] [address] [address] Carmel Tillman EPITHELIALS <25 Normal [facility] Comment on above: Performed By: #### C MP, HSTROPN #### [facility] [address] [address] [address] Carmel Tillman FUNGAL ELEMENTS Normal [facility] Comment on above: Performed By: #### C MP, HSTROPN #### [facility] [address] [place] [address] Dr. Carmel Tillman GRAM NEG BACILLI Normal [facility] Comment on above: Performed By: #### C MP, HSTROPN #### [facility] [address] [address] [address] Carmel Tillman GRAM NEG DIPPLOCOCCI Normal [facility] Comment on above: Performed By: #### C MP, HSTROPN #### [facility] [address] [address] [address] Carmel Tillman GRAM POS BACILLI Normal [facility] Comment on above: Performed By: #### C MP, HSTROPN #### [facility] [address] [address] [address] Carmel Tillman GRAM POSITIVE COCCI Normal [facility] Comment on above: Performed By: #### C MP, HSTROPN #### [facility] [address] [address] [address] Carmel Tillman WBC (Bld) [#/Vol] 10*3/uL Normal [facility] Comment on above: Performed By: #### C MP, HSTROPN #### [facility] [address] [address] [address] Carmel Tillman XR CHEST 2 Von 02-14-2021 XR CHEST 2 V EXAMINATION: XR CHES T 2 V HISTORY: SHORTNESS OF BREATH COMPARISON: CTA chest 02/11/2021, XR chest 01/13/2019 FINDINGS: LUNGS: Dense patchy opacities scattered throughout the lungs. VASCULATURE: No increased pulmonary vasculature. PLEURA: No pneumothorax, effusion, or pleural thickening. CARDIAC: No cardiomegaly or cardiac silhouette abnormality. MEDIASTINUM: No visible mass or adenopathy. BONES: No fracture or visible bone lesion. OTHER: Negative. IMPRESSION: 1. Marked bilateral pulmonary infiltrates suggestive of pneumonia; grossly stable compared to 02/11/2021 CTA chest allowing for differences in technique. Electronically authenticated by: ISRAEL GROSS Date: 2021-02-14 08:57 Normal [facility] CBC W MANUAL DIFFon 02-14-20 21 ATYPICAL LYMPH # Normal [facility] Comment on above: Performed By: #### P T, PTT #### [facility] [address] [address] [address] Carmel Tillman ATYPICAL LYMPH % Normal [facility] Comment on above: Performed By: #### P T, PTT #### [facility] [address] [address] [address] Carmel Tillman BAND # 0.4 103/ul Critically high 0.0-0.3 [facility] Comment on above: Performed By: #### P T, PTT #### [facility] [address] [place] [address] Dr. Carmel Tillman BAND % 2 % Normal 0-5 [facility] Comment on above: Performed By: #### P T, PTT #### [facility] [address] [place] [address] Dr. Carmel Tillman BASOM # 0.00 103/ul Normal 0.00-0.10 [facility] Comment on above: Performed By: #### P T, PTT #### [facility] [address] [place] [address] Dr. Carmel Tillman BASOM % 0.0 % Critically low 0.2-2.0 [facility] Comment on above: Performed By: #### P T, PTT #### [facility] [address] [place] [address] Dr. Carmel Tillman BLAST # Normal [facility] Comment on above: Performed By: #### P T, PTT #### [facility] [address] [place] [address] Dr. Carmel Tillman BLAST % Normal [facility] Comment on above: Performed By: #### P T, PTT #### [facility] [address] [place] [address] Dr. Carmel Tillman CORRECTED WBC Normal 4.0-11.0 [facility] Comment on above: Performed By: #### P T, PTT #### [facility] [address] [place] [address] Dr. Carmel Tillman EOS # 0.00 103/ul Normal 0.00-0.70 [facility] Comment on above: Performed By: #### P T, PTT #### [facility] [address] [place] [address] Dr. Carmel Tillman EOS% 0.0 % Critically low 0.9-7.0 [facility] Comment on above: Performed By: #### P T, PTT #### [facility] [address] [place] [address] Dr. Carmel Tillman HCT 37.9 % Normal 36.0-48.0 [facility] Comment on above: Performed By: #### P T, PTT #### [facility] [address] [address] [address] Carmel Tillman HGB 11.9 g/dl Critically low 12.0-16.0 [facility] [facility] Comment on above: Performed By: #### P T, PTT #### [facility] [address] [place] [address] Dr. Carmel Tillman LYMPHM # 1.23 103/ul Normal 1.20-3.80 [facility] Comment on above: Performed By: #### P T, PTT #### [facility] [address] [place] [address] Dr. Carmel Tillman LYMPHM% 7.0 % Critically low 20.5-60.0 [facility] Comment on above: Performed By: #### P T, PTT #### [facility] [address] [place] [address] Dr. Carmel Tillman MCH 25.0 pg Critically low 26.7-34.0 [facility] Comment on above: Performed By: #### P T, PTT #### [facility] [address] [place] [address] Dr. Carmel Tillman MCHC 31.4 g/dl Normal 29.9-35.2 [facility] Comment on above: Performed By: #### P T, PTT #### [facility] [address] [place] [address] Dr. Carmel Tillman MCV 79.6 fL Critically low 81.0-99.0 [facility] Comment on above: Performed By: #### P T, PTT #### [facility] [address] [place] [address] Dr. Carmel Tillman METAMYELOCYTE # Normal [facility] Comment on above: Performed By: #### P T, PTT #### [facility] [address] [place] [address] Dr. Carmel Tillman METAMYELOCYTE % Normal [facility] Comment on above: Performed By: #### P T, PTT #### [facility] [address] [place] [address] Dr. Carmel Tillman MONOM# 0.35 103/ul Normal 0.30-0.80 [facility] Comment on above: Performed By: #### P T, PTT #### [facility] [address] [place] [address] Dr. Carmel Tillman MONOM% 2.0 % Normal 1.7-12.0 [facility] Comment on above: Performed By: #### P T, PTT #### [facility] [address] [place] [address] Dr. Carmel Tillman MPV 10.2 fL Normal 9.5-13.5 [facility] Comment on above: Performed By: #### P T, PTT #### [facility] [address] [place] [address] Dr. Carmel Tillman MYELOCYTE # Normal [facility] Comment on above: Performed By: #### P T, PTT #### [facility] [address] [place] [address] Dr. Carmel Tillman MYELOCYTE % Normal [facility] Comment on above: Performed By: #### P T, PTT #### [facility] [address] [place] [address] Dr. Carmel Tillman NRBC Normal [facility] Comment on above: Performed By: #### P T, PTT #### [facility] [address] [place] [address] Dr. Carmel Tillman PLT 174 103/ul Normal 150-450 [facility] Comment on above: Performed By: #### P T, PTT #### [facility] [address] [place] [address] Dr. Carmel Tillman RBC 4.76 106/ul Normal 4.20-5.40 [facility] Comment on above: Performed By: #### P T, PTT #### [facility] [address] [address] [address] Carmel Tillman RDW 17.5 % Critically high 11.0-15.0 [facility] Comment on above: Performed By: #### P T, PTT #### [facility] [address] [address] [address] Carmel Tillman SEG # 15.66 103/ul Critically high 1.40-6.50 [facility] Comment on above: Performed By: #### P T, PTT #### [facility] [address] [address] [address] Carmel Tillman SEG % 89.0 % Critically high 43.0-75.0 [facility] Comment on above: Performed By: #### P T, PTT #### [facility] [address] [address] [address] Carmel Tillman WBC 17.6 103/ul Critically high 4.0-11.0 [facility] Comment on above: Performed By: #### P T, PTT #### [facility] [address] [address] [address] Carmel Tillman POINT OF CARE GLUCOSEon 01-25 Glucose [Mass/Vol] 104 mg/dL Normal 74-106 [facility] Comment on above: Performed By: #### P T, PTT #### [facility] [address] [address] [address] Carmel Tillman Glucose [Mass/Vol] 122 mg/dL Critically high 74-106 [facility] Comment on above: Performed By: #### C MP #### [facility] [address] [address] [address] Carmel Tillman Glucose [Mass/Vol] 122 mg/dL Critically high 74-106 [facility] Comment on above: Performed By: #### P T, PTT #### [facility] [address] [address] [address] Carmel Tillman PROF CHEM 8 (BAS METB)on Anion gap [Moles/Vol] 13.8 mmol/L Normal [facility] Comment on above: Performed By: #### B MP #### [facility] [address] [address] [address] Carmel Tillman Calcium [Mass/Vol] 8.2 mg/dL Critically low 8.4-10.2 [facility] Comment on above: Performed By: #### B MP #### [facility] [address] [address] [address] Carmel Tillman Chloride [Moles/Vol] 105 mmol/L Normal 98-107 [facility] Comment on above: Performed By: #### B MP #### [facility] [address] [address] [address] Carmel Tillman CO2 [Moles/Vol] 22.5 mmol/L Normal 22.0-30.0 [facility] Comment on above: Performed By: #### B MP #### [facility] [address] [place] [address] Dr. Carmel Tillman Creatinine [Mass/Vol] 0.81 mg/dL Normal 0.52-1.04 [facility] Comment on above: Performed By: #### B MP #### [facility] [address] [address] [address] Carmel Tillman EGFR-AF BRAZILIAN >60 Normal >=60 [facility] Comment on above: Performed By: #### B MP #### [facility] [address] [place] [address] Dr. Carmel Tillman EGFR-NON AF BRAZILIAN >60 Normal >=60 [facility] Comment on above: Performed By: #### B MP #### [facility] [address] [address] [address] Carmel Tillman Glucose [Mass/Vol] 128 mg/dL Critically high 74-106 [facility] Comment on above: Performed By: #### B MP #### [facility] [address] [address] [address] Carmel Tillman Potassium [Moles/Vol] 4.3 mmol/L Normal 3.4-5.0 [facility] Comment on above: Performed By: #### B MP #### [facility] [address] [place] [address] Dr. Carmel Tillman Sodium [Moles/Vol] 137 mmol/L Normal 137-145 [facility] Comment on above: Performed By: #### B MP #### [facility] [address] [place] [address] Dr. Carmel Tillman Urea nitrogen [Mass/Vol] 14.0 mg/dL Normal 7.0-17.0 [facility] Comment on above: Performed By: #### B MP #### [facility] [address] [place] [address] Dr. Carmel Tillman Urea nitrogen/Creatinin e [Mass ratio] 17.3 mg/mg Normal [facility] Comment on above: Performed By: #### B MP #### [facility] [address] [place] [address] Dr. Carmel Tillman CBC AUTO DIFFon 02-12-2021 BASO # 0.1 103/ul Normal 0.0-0.1 [facility] Comment on above: Performed By: #### P T, PTT #### [facility] [address] [place] [address] Dr. Carmel Tillman Basophils/100 WBC (Bld) 0.3 % Normal 0.2-2.0 [facility] Comment on above: Performed By: #### P T, PTT #### [facility] [address] [place] [address] Dr. Carmel Tillman EO # 0.0 103/ul Normal 0.0-0.7 [facility] Comment on above: Performed By: #### P T, PTT #### [facility] [address] [place] [address] Dr. Carmel Tillman Eosinophils/100 WBC (Bld) 0.0 % Critically low 0.9-7.0 [facility] Comment on above: Performed By: #### P T, PTT #### [facility] [address] [place] [address] Dr. Carmel Tillman Erythrocyte distribution width (RBC) [Ratio] 16.5 % Critically high 11.0-15.0 [facility] Comment on above: Performed By: #### P T, PTT #### [facility] [address] [place] [address] Dr. Carmel Tillman Hematocrit (Bld) [Volume fraction] 39.9 % Normal 36.0-48.0 [facility] Comment on above: Performed By: #### P T, PTT #### [facility] [address] [place] [address] Dr. Carmel Tillman Hemoglobin (Bld) [Mass/Vol] 12.7 g/dL Normal 12.0-16.0 [facility] Comment on above: Performed By: #### P T, PTT #### [facility] [address] [place] [address] Dr. Carmle Tillman IG # 0.42 10e3/ul Critically high 0.00-0.03 [facility] Comment on above: Performed By: #### P T, PTT #### [facility] [address] [place] [address] Dr. Carmel Tillman IG % 2.2 % Critically high 0.0-0.5 [facility] Comment on above: Performed By: #### P T, PTT #### [facility] [address] [place] [address] Dr. Carmel Tillman LYMPH # 1.4 103/ul Normal 1.2-3.8 [facility] Comment on above: Performed By: #### P T, PTT #### [facility] [address] [place] [address] Dr. Carmel Tillman Lymphocytes/100 WBC (Bld) 7.4 % Critically low 20.5-60.0 [facility] Comment on above: Performed By: #### P T, PTT #### [facility] [address] [place] [address] Dr. Carmel Tillman MANUAL DIFF REQ NO Normal [facility] Comment on above: Performed By: #### P T, PTT #### [facility] [address] [place] [address] Dr. Carmel Tillman MCH (RBC) [Entitic mass] 24.7 pg Critically low 26.7-34.0 [facility] Comment on above: Performed By: #### P T, PTT #### [facility] [address] [address] [address] Carmel Tillman MCHC (RBC) [Mass/Vol] 31.8 g/dL Normal 29.9-35.2 [facility] Comment on above: Performed By: #### P T, PTT #### [facility] [address] [place] [address] Dr. Carmel Tillman MCV (RBC) [Entitic vol] 77.5 fL Critically low 81.0-99.0 [facility] Comment on above: Performed By: #### P T, PTT #### [facility] [address] [place] [address] Dr. Carmel Tillman MONO # 0.4 103/ul Normal 0.3-0.8 [facility] Comment on above: Performed By: #### P T, PTT #### [facility] [address] [place] [address] Dr. Carmel Tillman Monocytes/100 WBC (Bld) 2.1 % Normal 1.7-12.0 [facility] Comment on above: Performed By: #### P T, PTT #### [facility] [address] [place] [address] Dr. Carmel Tillman NEUT # 16.8 103/ul Critically high 1.4-6.5 [facility] Comment on above: Performed By: #### P T, PTT #### [facility] [address] [place] [address] Dr. Carmel Tillman Neutrophils/100 WBC (Bld) 88.0 % Critically high 43.0-75.0 [facility] Comment on above: Performed By: #### P T, PTT #### [facility] [address] [place] [address] Dr. Carmel Tillman Platelet mean volume (Bld) [Entitic vol] 9.5 fL Normal 9.5-13.5 [facility] Comment on above: Performed By: #### P T, PTT #### [facility] [address] [place] [address] Dr. Carmel Tillman PLT 174 103/ul Normal 150-450 [facility] Comment on above: Performed By: #### P T, PTT #### [facility] [address] [address] [address] Carmel Tillman RBC 5.15 106/ul Normal 4.20-5.40 [facility] Comment on above: Performed By: #### P T, PTT #### [facility] [address] [address] [address] Carmel Tillman WBC 19.1 103/ul Critically high 4.0-11.0 [facility] Comment on above: Performed By: #### P T, PTT #### [facility] [address] [address] [address] Carmel Tillman POINT OF CARE GLUCOSEon 01-25 Glucose [Mass/Vol] 110 mg/dL Critically high 74-106 [facility] Comment on above: Performed By: #### C FARAZ, HSTROPN #### [facility] [address] [address] [address] Carmel Tillman Glucose [Mass/Vol] 99 mg/dL Normal 74-106 [facility] Comment on above: Performed By: #### C MP #### [facility] [address] [place] [address] Dr. Carmel Tillman Glucose [Mass/Vol] 97 mg/dL Normal 74-106 [facility] Comment on above: Performed By: #### P T, PTT #### [facility] [address] [address] [address] Carmel Tillman Glucose [Mass/Vol] 88 mg/dL Normal 74-106 [facility] Comment on above: Performed By: #### C MP, HSTROPN #### [facility] [address] [place] [address] Dr. Carmel Tillman PROF CHEM 8 (BAS METB)on Anion gap [Moles/Vol] 15.4 mmol/L Normal [facility] Comment on above: Performed By: #### B MP #### [facility] [address] [place] [address] Dr. Carmel Tillman Calcium [Mass/Vol] 8.0 mg/dL Critically low 8.4-10.2 [facility] Comment on above: Performed By: #### B MP #### [facility] [address] [place] [address] Dr. Carmel Tillman Chloride [Moles/Vol] 105 mmol/L Normal 98-107 [facility] Comment on above: Performed By: #### B MP #### [facility] [address] [place] [address] Dr. Carmel Tillman CO2 [Moles/Vol] 21.3 mmol/L Critically low 22.0-30.0 [facility] Comment on above: Performed By: #### B MP #### [facility] [address] [place] [address] Dr. Carmel Tillman Creatinine [Mass/Vol] 0.90 mg/dL Normal 0.52-1.04 [facility] Comment on above: Performed By: #### B MP #### [facility] [address] [place] [address] Dr. Carmel Tillman EGFR-AF BRAZILIAN >60 Normal >=60 [facility] Comment on above: Performed By: #### B MP #### [facility] [address] [place] [address] Dr. Carmel Tillman EGFR-NON AF BRAZILIAN >60 Normal >=60 [facility] Comment on above: Performed By: #### B MP #### [facility] [address] [address] [address] Carmel Tillman Glucose [Mass/Vol] 128 mg/dL Critically high 74-106 [facility] Comment on above: Performed By: #### B MP #### [facility] [address] [place] [address] Dr. Carmel Tillman Potassium [Moles/Vol] 3.7 mmol/L Normal 3.4-5.0 [facility] Comment on above: Performed By: #### B MP #### [facility] [address] [place] [address] Dr. Carmel Tillman Sodium [Moles/Vol] 138 mmol/L Normal 137-145 [facility] Comment on above: Performed By: #### B MP #### [facility] [address] [address] [address] Carmel Tillman Urea nitrogen [Mass/Vol] 17.0 mg/dL Normal 7.0-17.0 [facility] Comment on above: Performed By: #### B MP #### [facility] [address] [address] [address] Carmel Tillman Urea nitrogen/Creatinin e [Mass ratio] 18.9 mg/mg Normal [facility] Comment on above: Performed By: #### B MP #### [facility] [address] [address] [address] Carmel Tillman CBC W MANUAL DIFFon 02-12-20 ATYPICAL LYMPH # 0.18 103/ul Normal [facility] Comment on above: Performed By: #### C MP, HSTROPN #### [facility] [address] [place] [address] Dr. Carmel Tillman ATYPICAL LYMPH % 1 % Normal [facility] Comment on above: Performed By: #### C MP, HSTROPN #### [facility] [address] [place] [address] Dr. Carmel Tillman BAND # 0.0 103/ul Normal 0.0-0.3 [facility] Comment on above: Performed By: #### C MP, HSTROPN #### [facility] [address] [place] [address] Dr. Carmel Tillman BAND % 0 % Normal 0-5 [facility] Comment on above: Performed By: #### C MP, HSTROPN #### [facility] [address] [address] [address] Carmel Tillman BASOM # 0.00 103/ul Normal 0.00-0.10 [facility] Comment on above: Performed By: #### C MP, HSTROPN #### [facility] [address] [address] [address] Carmel Tillman BASOM % 0.0 % Critically low 0.2-2.[address] [facility] Comment on above: Performed By: #### C MP, HSTROPN #### [facility] [address] [place] [address] Dr. Carmel Tillman BLAST # Normal [facility] Comment on above: Performed By: #### C MP, HSTROPN #### [facility] [address] [place] [address] Dr. Carmel Tillman BLAST % Normal [facility] Comment on above: Performed By: #### C MP, HSTROPN #### [facility] [address] [address] [address] Carmel Tillman CORRECTED WBC Normal 4.0-11.0 [facility] Comment on above: Performed By: #### C FARAZ, HSTROPN #### [facility] [address] [place] [address] Dr. Carmel Tillman EOS # 0.00 103/ul Normal 0.00-0.70 [facility] Comment on above: Performed By: #### C FARAZ, HSTROPN #### [facility] [address] [place] [address] Dr. Carmel Tillman EOS% 0.0 % Critically low 0.9-7.0 [facility] Comment on above: Performed By: #### C FARAZ, HSTROPN #### [facility] [address] [place] [address] Dr. Carmel Tillman HCT 43.4 % Normal 36.0-48.0 [facility] Comment on above: Performed By: #### C FARAZ, HSTROPN #### [facility] [address] [place] [address] Dr. Carmel Tillman HGB 13.7 g/dl Normal 12.0-16.0 [facility] Comment on above: Performed By: #### C MP, HSTROPN #### [facility] [address] [place] [address] Dr. Carmel Tillman LYMPHM # 1.06 103/ul Critically low 1.20-3.80 [facility] Comment on above: Performed By: #### C MP, HSTROPN #### [facility] [address] [address] [address] Carmel Tillman LYMPHM% 6.0 % Critically low 20.5-60.0 [facility] Comment on above: Performed By: #### C MP, HSTROPN #### [facility] [address] [place] [address] Dr. Carmel Tillman MCH 24.6 pg Critically low 26.7-34.0 [facility] Comment on above: Performed By: #### C MP, HSTROPN #### [facility] [address] [place] [address] Dr. Carmel Tillman MCHC 31.6 g/dl Normal 29.9-35.2 [facility] Comment on above: Performed By: #### C MP, HSTROPN #### [facility] [address] [place] [address] Dr. Carmel Tillman MCV 77.9 fL Critically low 81.0-99.0 [facility] Comment on above: Performed By: #### C MP, HSTROPN #### [facility] [address] [place] [address] Dr. Carmel Tillman METAMYELOCYTE # Normal [facility] Comment on above: Performed By: #### C FARAZ, HSTROPN #### [facility] [address] [place] [address] Dr. Carmel Tillman METAMYELOCYTE % Normal [facility] Comment on above: Performed By: #### C MP, HSTROPN #### [facility] [address] [place] [address] Dr. Carmel Tillman MONOM# 0.53 103/ul Normal 0.30-0.80 [facility] Comment on above: Performed By: #### C MP, HSTROPN #### [facility] [address] [place] [address] Dr. Carmel Tillman MONOM% 3.0 % Normal 1.7-12.0 [facility] Comment on above: Performed By: #### C MP, HSTROPN #### [facility] [address] [place] [address] Dr. Yilan Tillman MPV 10.2 fL Normal 9.5-13.5 [facility] Comment on above: Performed By: #### C MP, HSTROPN #### [facility] [address] [address] [address] Carmel Tillman MYELOCYTE # Normal [facility] Comment on above: Performed By: #### C MP, HSTROPN #### [facility] [address] [address] [address] Carmel Tillman MYELOCYTE % Normal [facility] Comment on above: Performed By: #### C MP, HSTROPN #### [facility] [address] [address] [address] Carmel Tillman NRBC Normal [facility] Comment on above: Performed By: #### C MP, HSTROPN #### [facility] [address] [place] [address] Dr. Carmel Tillman PLT 213 103/ul Normal 150-450 [facility] Comment on above: Performed By: #### C MP, HSTROPN #### [facility] [address] [address] [address] Carmel Tillman RBC 5.57 106/ul Critically high 4.20-5.40 [facility] Comment on above: Performed By: #### C MP, HSTROPN #### [facility] [address] [place] [address] Dr. Carmel Tillman RDW 17.2 % Critically high 11.0-15.0 [facility] Comment on above: Performed By: #### C MP, HSTROPN #### [facility] [address] [address] [address] Carmel Tillman SEG # 15.84 103/ul Critically high 1.40-6.50 [facility] Comment on above: Performed By: #### C MP, HSTROPN #### [facility] [address] [address] [address] Carmel Tillman SEG % 90.0 % Critically high 43.0-75.0 [facility] Comment on above: Performed By: #### C MP, HSTROPN #### [facility] [address] [place], [place] [address] Dr. Carmel Tillman WBC 17.6 103/ul Critically high 4.0-11.0 [facility] Comment on above: Performed By: #### C FARAZ, HSTROPN #### [facility] [address] [place], [place] [address] Dr. Carmel Tillman CTA CHEST WO W CONon 021 CTA CHEST WO W CON EXAMINATION: CTA CHEST WO W CON HISTORY: Shortness of breath. COMPARISON: 01/27/2021. TECHNIQUE: CT angiography of the pulmonary arteries following the administration of intravenous contrast. Coronal and sagittal MIP (maximum intensity projection) images were performed. Dose reduction techniques were achieved by using automated exposure control and/or adjustment of mA and/or kV according to patient size and/or use of iterative reconstruction technique. FINDINGS: The heart size is within normal limits. There is no pericardial fluid or thickening. There is opacification of the pulmonary arteries. There is no pulmonary embolus. The thoracic and proximal abdominal aorta are unremarkable. The great vessels off the aortic arch are unremarkable. There are irregular patchy nodular densities suggesting infiltrates scattered throughout both lung eden and consolidation containing air bronchograms within the posterior medial aspect of the right lower chest and at both posterior costophrenic angles. There is no pleural effusion. There is no pneumothorax. Lung nodules cannot be assessed for on this examination. There are no pathologically enlarged axillary, mediastinal or hilar lymph nodes. The trachea is unremarkable. The esophagus is unremarkable. The visualized portions of the thyroid gland are unremarkable. There are no suspicious findings within the upper abdomen. There are endplate spurs throughout the visualized portions of the spine. IMPRESSION: There is no pulmonary embolus. There are irregular patchy nodular densities suggesting infiltrates scattered throughout both lung eden and consolidation containing air bronchograms within the posterior medial aspect of the right lower chest and at both posterior costophrenic angles. Follow-up chest radiographs are recommended to confirm complete resolution. Electronically authenticated by: HUSAM GARSIA Date: 2021-02-11 19:14 Normal [facility] CULTURE BLOODon 02-11-2021 Microscopic examination of blood, culture Culture Observations: NO GROWTH AT 5 DAYS. Normal [facility] Comment on above: Performed By: #### P T, PTT #### [facility] [address] [address] [address] Carmel Tillman Microscopic examination of blood, culture Culture Observations: NO GROWTH AT 5 DAYS. Normal [facility] Comment on above: Performed By: #### P T, PTT #### [facility] [address] [address] [address] Carmel Tillman [facility] SARS-CoV-2 (COVID-19) RNA EDILBERTO+probe Ql (Unsp spec) Not detected Normal NOT DETECTED [facility] Comment on above: Result Comment: This test is not yet approved or cleared by the [place] FDA. When there are no FDA-approved or cleared tests available, and other criteria are met, FDA can make tests available under an emergency access mechanism called an Emergency Use Authorization (EUA). The EUA for this test is supported by the [place] of Health and Human Service's (HHS's) declaration that circumstances exist to justify the emergency use of in vitro diagnostics for the detection and/or diagnosis of the virus that causes COVID-19. This EUA will remain in effect (meaning this test can be used) for the duration of the COVID-19 declaration justifying emergency of IVDs, unless it is terminated or revoked by FDA (after which the test may no longer be used). When diagnostic testing is negative, the possibility of a false negative should be considered in the context of a patient's recent exposures and the presence of clinical signs and symptoms consistent with SARS-CoV-2. Performed By: #### C MP #### [facility] [address] [address] [address] Carmel Tillman PROF 14(COMP METB)on 021 Albumin [Mass/Vol] 2.6 g/dL Critically low 3.5-5.0 Th [facility] Comment on above: Performed By: #### C JONNIE RUTHTROPN #### [facility] [address] [place] [address] Dr. Carmel Tillman Albumin/Globulin [Mass ratio] 0.7 {ratio} Normal [facility] Comment on above: Performed By: #### C MP, HSTROPN #### [facility] [address] [address] [address] Carmel Tillman ALP [Catalytic activity/Vol] 40 U/L Normal 38-126 [facility] Comment on above: Performed By: #### C MP, HSTROPN #### [facility] [address] [address] [address] Carmel Tillman ALT [Catalytic activity/Vol] 73 U/L Critically high 9-52 [facility] Comment on above: Performed By: #### C MP, HSTROPN #### [facility] [address] [address] [address] Carmel Tillman Anion gap [Moles/Vol] 14.4 mmol/L Normal [facility] Comment on above: Performed By: #### C MP, HSTROPN #### [facility] [address] [address] [address] Carmel Tillman AST [Catalytic activity/Vol] 19 U/L Normal 14-36 [facility] Comment on above: Performed By: #### C MP, HSTROPN #### [facility] [address] [address] [address] Carmel Tillman Bilirubin [Mass/Vol] 0.7 mg/dL Normal 0.2-1.3 [facility] Comment on above: Performed By: #### C MP, HSTROPN #### [facility] [address] [address] [address] Carmel Tillman Calcium [Mass/Vol] 8.3 mg/dL Critically low 8.4-10.2 Th [facility] Comment on above: Performed By: #### C MP, HSTROPN #### [facility] [address] [address] [address] Carmel Tillman Chloride [Moles/Vol] 106 mmol/L Normal 98-107 [facility] Comment on above: Performed By: #### C MP, HSTROPN #### [facility] [address] [address] [address] Carmel Tillman CO2 [Moles/Vol] 22.9 mmol/L Normal 22.0-30.0 [facility] Comment on above: Performed By: #### C MP, HSTROPN #### [facility] [address] [address] [address] Carmel Tillman Creatinine [Mass/Vol] 0.70 mg/dL Normal 0.52-1.04 [facility] Comment on above: Performed By: #### C MP, HSTROPN #### [facility] [address] [address] [address] Carmel Tillman EGFR-AF BRAZILIAN >60 Normal >=60 [facility] Comment on above: Performed By: #### C MP, HSTROPN #### [facility] [address] [address] [address] Carmel Tillman EGFR-NON AF BRAZILIAN >60 Normal >=60 [facility] Comment on above: Performed By: #### C MP, HSTROPN #### [facility] [address] [address] [address] Carmel Tillman Globulin (S) [Mass/Vol] 3.5 g/dL Normal [facility] Comment on above: Performed By: #### C MP, HSTROPN #### [facility] [address] [place] [address] Dr. Carmel Tillman Glucose [Mass/Vol] 98 mg/dL Normal 74-106 [facility] Comment on above: Performed By: #### C MP, HSTROPN #### [facility] [address] [address] [address] Carmel Tillman Potassium [Moles/Vol] 4.3 mmol/L Normal 3.4-5.0 [facility] Comment on above: Performed By: #### C MP, HSTROPN #### [facility] [address] [address] [address] Carmel Tillman Protein [Mass/Vol] 6.1 g/dL Normal 6.1-8.2 [facility] Comment on above: Performed By: #### C MP, HSTROPN #### [facility] [address] [place] [address] Dr. Carmel Tillman Sodium [Moles/Vol] 139 mmol/L Normal 137-145 [facility] Comment on above: Performed By: #### C FARAZ HSTROPN #### [facility] [address] [place] [address] Dr. Carmel Tillman Urea nitrogen [Mass/Vol] 21.0 mg/dL Critically high 7.0-17.0 [facility] Comment on above: Performed By: #### C FARAZ, HSTROPN #### [facility] [address] [place] [address] Dr. Carmel Tillman Urea nitrogen/Creatinin e [Mass ratio] 30.0 mg/mg Normal [facility] Comment on above: Performed By: #### C FARAZ HSTROPN #### [facility] [address] [place] [address] Dr. Carmel Tillman TROPONIN, HIGH SENSITIVITYon 02-11-2021 HSTROP 8.3 pg/mL Normal 4.0-35.5 [facility] Comment on above: Result Comment: CUT- OFF POINTS HAVE BEEN ESTABLISHED BASED ON THE FOURTH UNIVERSAL DEFINITIONS OF MYOCARDIAL INFARCTION. THE UPPER REFERENCE LIMIT (URL) OF TROPONIN, DEFINED THE 99TH PERCENTILE OF cTnI DISTRIBUTION IN A REFERENCE POPULATION, HAS BEEN CONFIRMED THE DECISION THRESHOLD FOR [place] DIAGNOSIS. Performed By: #### C FARAZ HSTROPN #### [facility] [address] [place] [address] Dr. Carmel Tillman CBC W MANUAL DIFFon 02-01-20 ATYPICAL LYMPH # 0.13 103/ul Normal [facility] Comment on above: Performed By: #### C MP #### [facility] [address] [place] [address] Dr. Carmel Tillman ATYPICAL LYMPH % 1 % Normal [facility] Comment on above: Performed By: #### C MP #### [facility] [address] [place] [address] Dr. Carmel Tillman BAND # 0.3 103/ul Normal 0.0-0.3 [facility] Comment on above: Performed By: #### C MP #### [facility] [address] [place] [address] Dr. Carmel Tillman BAND % 2 % Normal 0-5 [facility] Comment on above: Performed By: #### C MP #### [facility] [address] [place] [address] Dr. Carmel MENAOM # 0.00 103/ul Normal 0.00-0.10 [facility] Comment on above: Performed By: #### C MP #### [facility] [address] [place] [address] Dr. Carmel Tillman BASOM % 0.0 % Critically low 0.2-2.0 [facility] Comment on above: Performed By: #### C MP #### [facility] [address] [place] [address] Dr. Carmel Tillman BLAST # Normal [facility] Comment on above: Performed By: #### C MP #### [facility] [address] [place] [address] Dr. Carmel Tillman BLAST % Normal [facility] Comment on above: Performed By: #### C MP #### [facility] [address] [place] [address] Dr. Carmel Tillman CORRECTED WBC Normal 4.0-11.0 [facility] Comment on above: Performed By: #### C MP #### [facility] [address] [place] [address] Dr. Carmel Tillman EOS # 0.00 103/ul Normal 0.00-0.70 [facility] Comment on above: Performed By: #### C MP #### [facility] [address] [place] [address] Dr. Carmel Tillman EOS% 0.0 % Critically low 0.9-7.0 [facility] Comment on above: Performed By: #### C MP #### [facility] [address] [place] [address] Dr. Carmel Tillman HCT 41.0 % Normal 36.0-48.0 [facility] Comment on above: Performed By: #### C MP #### [facility] [address] [place] [address] Dr. Carmel Tillman HGB 12.8 g/dl Normal 12.0-16.0 [facility] Comment on above: Performed By: #### C MP #### [facility] [address] [address] [address] Carmel Tillman LYMPHM # 1.88 103/ul Normal 1.20-3.80 [facility] Comment on above: Performed By: #### C MP #### [facility] [address] [address] [address] Carmel Tillman LYMPHM% 15.0 % Critically low 20.5-60.0 [facility] Comment on above: Performed By: #### C MP #### [facility] [address] [place] [address] Dr. Carmel Tillman MCH 25.0 pg Critically low 26.7-34.0 [facility] Comment on above: Performed By: #### C MP #### [facility] [address] [place] [address] Dr. Carmel Tillman MCHC 31.2 g/dl Normal 29.9-35.2 [facility] Comment on above: Performed By: #### C MP #### [facility] [address] [place] [address] Dr. Carmel Tillman MCV 80.2 fL Critically low 81.0-99.0 [facility] Comment on above: Performed By: #### C MP #### [facility] [address] [place] [address] Dr. Carmel Tillman METAMYELOCYTE # Normal [facility] Comment on above: Performed By: #### C MP #### [facility] [address] [place] [address] Dr. Carmel Tillman METAMYELOCYTE % Normal [facility] Comment on above: Performed By: #### C MP #### [facility] [address] [place] [address] Dr. Carmel Tillman MONOM# 0.25 103/ul Critically low 0.30-0.80 [facility] Comment on above: Performed By: #### C MP #### [facility] [address] [place] [address] Dr. Carmel Tillman MONOM% 2.0 % Normal 1.7-12.0 [facility] Comment on above: Performed By: #### C MP #### [facility] [address] [address] [address] Carmel Tillman MPV 12.4 fL Normal 9.5-13.5 [facility] Comment on above: Performed By: #### C MP #### [facility] [address] [place] [address] Dr. Carmel Tillman MYELOCYTE # Normal [facility] Comment on above: Performed By: #### C MP #### [facility] [address] [address] [address] Carmel Tillman MYELOCYTE % Normal [facility] Comment on above: Performed By: #### C MP #### [facility] [address] [place] [address] Dr. Carmel Tillman NRBC Normal [facility] Comment on above: Performed By: #### C MP #### [facility] [address] [place] [address] Dr. Carmel Tillman PLT 209 103/ul Normal 150-450 [facility] Comment on above: Performed By: #### C MP #### [facility] [address] [place] [address] Dr. Carmel Tillman RBC 5.11 106/ul Normal 4.20-5.40 [facility] Comment on above: Performed By: #### C MP #### [facility] [address] [place] [address] Dr. Carmel Tillman RDW 16.9 % Critically high 11.0-15.0 [facility] Comment on above: Performed By: #### C MP #### [facility] [address] [place] [address] Dr. Carmel Tillman SEG # 10.00 103/ul Critically high 1.40-6.50 [facility] Comment on above: Performed By: #### C MP #### [facility] [address] [place] [address] Dr. Carmel Tillman SEG % 80.0 % Critically high 43.0-75.0 [facility] Comment on above: Performed By: #### C MP #### [facility] [address] [place] [address] Dr. Carmel Tillman WBC 12.5 103/ul Critically high 4.0-11.0 [facility] Comment on above: Performed By: #### C MP #### [facility] [address] [place] [address] Dr. Carmel Tillman MAGNESIUMon 01-31-2021 Magnesium [Mass/Vol] 2.7 mg/dL Critically high 1.6-2.3 [facility] Comment on above: Performed By: #### C MP #### [facility] [address] [place] [address] Dr. Carmel Tillman PROF CHEM 8 (BAS METB)on Anion gap [Moles/Vol] 16.6 mmol/L Normal [facility] Comment on above: Performed By: #### C MP #### [facility] [address] [place] [address] Dr. Carmel Tillman Calcium [Mass/Vol] 8.4 mg/dL Normal 8.4-10.2 [facility] Comment on above: Performed By: #### C MP #### [facility] [address] [place] [address] Dr. Carmel Tillman Chloride [Moles/Vol] 108 mmol/L Critically high 98-107 [facility] Comment on above: Performed By: #### C MP #### [facility] [address] [place] [address] Dr. Carmel Tillman CO2 [Moles/Vol] 20.9 mmol/L Critically low 22.0-30.0 [facility] Comment on above: Performed By: #### C MP #### [facility] [address] [place] [address] Dr. Carmel Tillman Creatinine [Mass/Vol] 0.91 mg/dL Normal 0.52-1.04 [facility] Comment on above: Performed By: #### C MP #### [facility] [address] [place] [address] Dr. Carmel Tillman EGFR-AF BRAZILIAN >60 Normal >=60 [facility] Comment on above: Performed By: #### C MP #### [facility] [address] [place] [address] Dr. Carmel Tillman EGFR-NON AF BRAZILIAN >60 Normal >=60 [facility] Comment on above: Performed By: #### C MP #### [facility] [address] [address] [address] Carmel Tillman Glucose [Mass/Vol] 132 mg/dL Critically high 74-106 [facility] Comment on above: Performed By: #### C MP #### [facility] [address] [place] [address] Dr. Carmel Tillman Potassium [Moles/Vol] 4.5 mmol/L Normal 3.4-5.0 [facility] Comment on above: Performed By: #### C MP #### [facility] [address] [place] [address] Dr. Carmel Tillman Sodium [Moles/Vol] 141 mmol/L Normal 137-145 [facility] Comment on above: Performed By: #### C MP #### [facility] [address] [place] [address] Dr. Carmel Tillman Urea nitrogen [Mass/Vol] 30.0 mg/dL Critically high 7.0-17.0 [facility] Comment on above: Performed By: #### C MP #### [facility] [address] [place] [address] Dr. Carmel Tillman Urea nitrogen/Creatinin e [Mass ratio] 33.0 mg/mg Normal [facility] Comment on above: Performed By: #### C MP #### [facility] [address] [place] [address] Dr. Carmel Tillman BNPon 01-27-2021 Natriuretic peptide B (Bld) [Mass/Vol] 38.0 pg/mL Normal <=450.0 [facility] Comment on above: Performed By: #### P T, PTT #### [facility] [address] [place] [address] Dr. Carmel Tillman CBC AUTO DIFFon 01-27-2021 BASO # 0.0 103/ul Normal 0.0-0.1 [facility] Comment on above: Performed By: #### C FARAZ, HSTROPN #### [facility] [address] [place] [address] Dr. Carmel Tillman Basophils/100 WBC (Bld) 0.3 % Normal 0.2-2.0 [facility] Comment on above: Performed By: #### C MP, HSTROPN #### [facility] [address] [place] [address] Dr. Carmel Tillman EO # 0.0 103/ul Normal 0.0-0.7 [facility] Comment on above: Performed By: #### C FARAZ, HSTROPN #### [facility] [address] [place] [address] Dr. Carmel Tillman Eosinophils/100 WBC (Bld) 0.0 % Critically low 0.9-7.0 [facility] Comment on above: Performed By: #### C FARAZ, HSTROPN #### [facility] [address] [place] [address] Dr. Carmel Tillman Erythrocyte distribution width (RBC) [Ratio] 17.3 % Critically high 11.0-15.0 [facility] Comment on above: Performed By: #### C FARAZ, HSTROPN #### [facility] [address] [place] [address] Dr. Carmel Tillman Hematocrit (Bld) [Volume fraction] 45.4 % Normal 36.0-48.0 [facility] Comment on above: Performed By: #### C MP, HSTROPN #### [facility] [address] [place] [address] Dr. Carmel Tillman Hemoglobin (Bld) [Mass/Vol] 14.3 g/dL Normal 12.0-16.0 [facility] Comment on above: Performed By: #### C MP, HSTROPN #### [facility] [address] [place] [address] Dr. Carmel Tillman IG # 0.07 10e3/ul Critically high 0.00-0.03 [facility] Comment on above: Performed By: #### C MP, HSTROPN #### [facility] [address] [address] [address] Carmel Tillman IG % 0.8 % Critically high 0.0-0.5 [facility] Comment on above: Performed By: #### C MP, HSTROPN #### [facility] [address] [place] [address] Dr. Carmel Tillman LYMPH # 2.2 103/ul Normal 1.2-3.8 [facility] Comment on above: Performed By: #### C MP, HSTROPN #### [facility] [address] [place] [address] Dr. Carmel Tillman Lymphocytes/100 WBC (Bld) 25.4 % Normal 20.5-60.0 [facility] Comment on above: Performed By: #### C MP, HSTROPN #### [facility] [address] [place] [address] Dr. Carmel Tillman MANUAL DIFF REQ NO Normal [facility] Comment on above: Performed By: #### C MP, HSTROPN #### [facility] [address] [place] [address] Dr. Carmel Tillman MCH (RBC) [Entitic mass] 24.7 pg Critically low 26.7-34.0 [facility] Comment on above: Performed By: #### C MP, HSTROPN #### [facility] [address] [place] [address] Dr. Carmel Tillman MCHC (RBC) [Mass/Vol] 31.5 g/dL Normal 29.9-35.2 [facility] Comment on above: Performed By: #### C MP, HSTROPN #### [facility] [address] [place] [address] Dr. Carmel Tillman MCV (RBC) [Entitic vol] 78.3 fL Critically low 81.0-99.0 [facility] Comment on above: Performed By: #### C MP, HSTROPN #### [facility] [address] [place], [place] [id number] Dr. Carmel Tillman MONO # 0.2 103/ul Critically low 0.3-0.[address] [facility] Comment on above: Performed By: #### C MP, HSTROPN #### [facility] [address] [place] [address] Dr. Carmel Tillman Monocytes/100 WBC (Bld) 2.6 % Normal 1.7-12.0 [facility] Comment on above: Performed By: #### C MP, HSTROPN #### [facility] [address] [place] [address] Dr. Carmel Tillman NEUT # 6.2 103/ul Normal 1.4-6.5 [facility] Comment on above: Performed By: #### C MP, HSTROPN #### [facility] [address] [place] [address] Dr. Carmel Tillman Neutrophils/100 WBC (Bld) 70.9 % Normal 43.0-75.0 [facility] Comment on above: Performed By: #### C MP, HSTROPN #### [facility] [address] [place] [address] Dr. Carmel Tillman Platelet mean volume (Bld) [Entitic vol] 10.2 fL Normal 9.5-13.5 [facility] Comment on above: Performed By: #### C MP, HSTROPN #### [facility] [address] [place] [address] Dr. Carmel Tillman PLT 219 103/ul Normal 150-450 [facility] Comment on above: Performed By: #### C MP, HSTROPN #### [facility] [address] [place] [address] Dr. Carmel Tillman RBC 5.80 106/ul Critically high 4.20-5.40 [facility] Comment on above: Performed By: #### C MP, HSTROPN #### [facility] [address] [place] [address] Dr. Carmel Tillman WBC 8.7 103/ul Normal 4.0-11.0 [facility] Comment on above: Performed By: #### C MP, HSTRN #### [facility] [address] [address] [address] Carmel Tillman CTA CHEST WO W CONon 021 CTA CHEST WO W CON EXAMINATION: CTA CHEST WO W CON HISTORY: Shortness of breath, Covid positive COMPARISON: 01/21/2021 TECHNIQUE: CT angiography of the pulmonary arteries following the administration of intravenous contrast. Coronal and sagittal MIP (maximum intensity projection) images were performed. Dose reduction techniques were achieved by using automated exposure control and/or adjustment of mA and/or kV according to patient size and/or use of iterative reconstruction technique. FINDINGS: Patient respiratory motion decreasing sensitivity of this examination. This limits segmental and subsegmental pulmonary artery assessment. Adequate opacification of pulmonary arterial system is noted. More central embolic disease is not evident. No right ventricular strain is evident. No pericardial effusion. Significant coronary calcification is not evident. Acute thoracic aortic pathology is not suspected. Hepatic steatosis is favored. No acute upper abdominal pathology is evident. A small hiatal hernia is considered. Esophagus unremarkable. There is pulmonary lymphadenopathy; 2.2 x 1.5 cm upper right paratracheal 1.8 x 1.1 cm lower right paratracheal 2.6 x 1.4 cm right hilar 2.2 x 1.3 cm subcarinal Additional subcentimeter mediastinal and hilar lymph nodes are noted. The thoracic inlet, chest wall, axillary regions are unremarkable. Lung volumes are decreased. Bronchial wall thickening is noted. There is progression of multifocal nodular areas of ground-glass and consolidative opacities throughout the chest. More confluent consolidation is present within the right lower lobe. Large pleural effusion or pneumothorax is not evident. No acute osseous abnormality is seen. Mild multilevel disc degeneration spondylosis is seen. Acute osseous pathology is not evident. IMPRESSION: 1. Severe patient motion, associated artifact renders assessment of distal segmental and subsegmental pulmonary arteries nondiagnostic for evaluation of embolic disease. More central pulmonary thromboembolic disease is not confirmed. No right ventricular strain. 2. No acute aortic pathology 3. Decreased lung volumes, progression of multisegmental nodular ground-glass and consolidative opacities throughout the chest. There is more confluent consolidation the right lower lobe. Imaging features can be seen with COVID-19 pneumonia, though are nonspecific and can occur with a variety of infectious and noninfectious processes. 4. No pleural effusion or pneumothorax 5. Worsening of pulmonary lymphadenopathy. Reactive lymph node prominence is favored. 6. Hepatic steatosis 7. Small hiatal hernia Electronically authenticated by: ARIELLA FISCHER Date: 2021-01-27 19:01 Normal [facility] Covid-19 PCR (CVDTB)on SARS-CoV-2 (COVID-19) RNA EDILBERTO+probe Ql (Unsp spec) Detected Critically abnormal NOT DETECTED [facility] Comment on above: Result Comment: This test is not yet approved or cleared by the [place] FDA. When there are no FDA-approved or cleared tests available, and other criteria are met, FDA can make tests available under an emergency access mechanism called an Emergency Use Authorization (EUA). The EUA for this test is supported by the Mail List Librarian of Health and Human Service's declaration that circumstances exist to justify the emergency use of in vitro diagnostics for the detection and/or diagnosis of the virus that causes COVID-19. This EUA will remain in effect for the duration of the COVID-19 declaration justifying emergency of IVDs, unless it is terminated or revoked by the FDA (after which the test may no longer be used). Performed By: #### C VDTBH #### [facility] [address] [place] [address] Dr. Carmel Tillman PROF 14(COMP METB)on 021 Albumin [Mass/Vol] 2.8 g/dL Critically low 3.5-5.0 Th e [facility] Comment on above: Performed By: #### P T, PTT #### [facility] [address] [place] [address] Dr. Carmel Tillman Albumin/Globulin [Mass ratio] 0.6 {ratio} Normal [facility] Comment on above: Performed By: #### P T, PTT #### [facility] [address] [place] [address] Dr. Carmel Tillman ALP [Catalytic activity/Vol] 55 U/L Normal 38-126 [facility] Comment on above: Performed By: #### P T, PTT #### [facility] [address] [place] [address] Dr. Carmel Tillman ALT [Catalytic activity/Vol] 69 U/L Critically high 9-52 [facility] Comment on above: Performed By: #### P T, PTT #### [facility] [address] [place] [address] Dr. Carmel Tillman Anion gap [Moles/Vol] 12.7 mmol/L Normal [facility] Comment on above: Performed By: #### P T, PTT #### [facility] [address] [place] [address] Dr. Carmel Tillman AST [Catalytic activity/Vol] 39 U/L Critically high 14-36 [facility] Comment on above: Performed By: #### P T, PTT #### [facility] [address] [place] [address] Dr. Carmel Tillman Bilirubin [Mass/Vol] 0.6 mg/dL Normal 0.2-1.3 [facility] Comment on above: Performed By: #### P T, PTT #### [facility] [address] [place] [address] Dr. Carmel Tillman Calcium [Mass/Vol] 8.5 mg/dL Normal 8.4-10.2 [facility] Comment on above: Performed By: #### P T, PTT #### [facility] [address] [place] [address] Dr. Carmel Tillman Chloride [Moles/Vol] 101 mmol/L Normal 98-107 [facility] Comment on above: Performed By: #### P T, PTT #### [facility] [address] [place] [address] Dr. Carmel Tillman CO2 [Moles/Vol] 26.9 mmol/L Normal 22.0-30.0 [facility] Comment on above: Performed By: #### P T, PTT #### [facility] [address] [place] [address] Dr. Carmel Tillman Creatinine [Mass/Vol] 1.05 mg/dL Critically high 0.52-1.04 [facility] Comment on above: Performed By: #### P T, PTT #### [facility] [address] [place] [address] Dr. Carmel Tillman EGFR-AF BRAZILIAN >60 Normal >=60 [facility] Comment on above: Performed By: #### P T, PTT #### [facility] [address] [place] [address] Dr. Carmel Tillman EGFR-NON AF BRAZILIAN 59 mL/min/1.73m2 Critically low >=60 [facility] Comment on above: Performed By: #### P T, PTT #### [facility] [address] [address] [address] Carmel Tillman Globulin (S) [Mass/Vol] 4.5 g/dL Normal [facility] Comment on above: Performed By: #### P T, PTT #### [facility] [address] [place] [address] Dr. Carmel Tillman Glucose [Mass/Vol] 90 mg/dL Normal 74-106 [facility] Comment on above: Performed By: #### P T, PTT #### [facility] [address] [place] [address] Dr. Carmel Tillman Potassium [Moles/Vol] 3.6 mmol/L Normal 3.4-5.0 [facility] Comment on above: Performed By: #### P T, PTT #### [facility] [address] [place] [address] Dr. Carmel Tillman Protein [Mass/Vol] 7.3 g/dL Normal 6.1-8.2 [facility] Comment on above: Performed By: #### P T, PTT #### [facility] [address] [place] [address] Dr. Carmel Tillman Sodium [Moles/Vol] 137 mmol/L Normal 137-145 [facility] Comment on above: Performed By: #### P T, PTT #### [facility] [address] [place] [address] Dr. Carmel Tillman Urea nitrogen [Mass/Vol] 14.0 mg/dL Normal 7.0-17.0 [facility] Comment on above: Performed By: #### P T, PTT #### [facility] [address] [place] [address] Dr. Carmel Tillman Urea nitrogen/Creatinin e [Mass ratio] 13.3 mg/mg Normal [facility] Comment on above: Performed By: #### P T, PTT #### [facility] [address] [place] [address] Dr. Carmel Tillman PROTIMEon 01-27-2021 INR Coag (PPP) [Relative time] 0.96 {INR} Normal [facility] Comment on above: Performed By: #### P T, PTT #### [facility] [address] [place] [address] Dr. Carmel Tillman INR GUIDELINES SEE BELOW Normal [facility] Comment on above: Result Comment: CHRIS RED INR: 2.0 - 3.0 CONDITIONS NOT LISTED BELOW 2.5 - 3.5 FOR PROSTHETIC HEART VALVE REPLACEMENT 2.5 - 3.5 RECURRENT THROMBOSIS Performed By: #### P T, PTT #### [facility] [address] [place] [address] Dr. Carmel Tillman PT Coag (PPP) [Time] 10.4 s Normal 9.0-11.6 [facility] Comment on above: Performed By: #### P T, PTT #### [facility] [address] [place] [address] Dr. Carmel Tillman PTTon 01-27-2021 aPTT Coag (Bld) [Time] 25.0 s Normal 22.3-36.2 [facility] Comment on above: Performed By: #### P T, PTT #### [facility] [address] [place] [address] Dr. Carmel Tillman TROPONIN, HIGH SENSITIVITYon 01-27-2021 HSTROP 6.6 pg/mL Normal 4.0-35.5 [facility] Comment on above: Result Comment: CUT- OFF POINTS HAVE BEEN ESTABLISHED BASED ON THE FOURTH UNIVERSAL DEFINITIONS OF MYOCARDIAL INFARCTION. THE UPPER REFERENCE LIMIT (URL) OF TROPONIN, DEFINED THE 99TH PERCENTILE OF cTnI DISTRIBUTION IN A REFERENCE POPULATION, HAS BEEN CONFIRMED THE DECISION THRESHOLD FOR [place] DIAGNOSIS. Performed By: #### P T, PTT #### [facility] [address] [place] [address] Dr. Carmel Tillman BNPon 01-21-2021 Natriuretic peptide B (Bld) [Mass/Vol] 50.0 pg/mL Normal <=450.0 [facility] Comment on above: Performed By: #### C MP, HSTROPN #### [facility] [address] [place] [address] Dr. Carmel Tillman CBC AUTO DIFFon 01-21-2021 BASO # 0.1 103/ul Normal 0.0-0.1 [facility] Comment on above: Performed By: #### C BC #### [facility] [address] [place] [address] Dr. Carmel Tillman Basophils/100 WBC (Bld) 0.4 % Normal 0.2-2.0 [facility] Comment on above: Performed By: #### C BC #### [facility] [address] [place] [address] Dr. Carmel Tillman EO # 0.1 103/ul Normal 0.0-0.7 [facility] Comment on above: Performed By: #### C BC #### [facility] [address] [place] [address] Dr. Carmel Tillman Eosinophils/100 WBC (Bld) 0.9 % Normal 0.9-7.0 [facility] Comment on above: Performed By: #### C BC #### [facility] [address] [place] [address] Dr. Carmel Tillman Erythrocyte distribution width (RBC) [Ratio] 16.5 % Critically high 11.0-15.0 [facility] Comment on above: Performed By: #### C BC #### [facility] [address] [place] [address] Dr. Carmel Tillman Hematocrit (Bld) [Volume fraction] 41.4 % Normal 36.0-48.0 [facility] Comment on above: Performed By: #### C BC #### [facility] [address] [place] [address] Dr. Carmel Tillman Hemoglobin (Bld) [Mass/Vol] 13.1 g/dL Normal 12.0-16.0 [facility] Comment on above: Performed By: #### C BC #### [facility] [address] [address] [address] Carmel Tillman IG # 0.23 10e3/ul Critically high 0.00-0.03 [facility] Comment on above: Performed By: #### C BC #### [facility] [address] [address] [address] Carmel Tillman IG % 2.0 % Critically high 0.0-0.5 [facility] Comment on above: Performed By: #### C BC #### [facility] [address] [address] [address] Carmel Tillman LYMPH # 3.6 103/ul Normal 1.2-3.8 [facility] Comment on above: Performed By: #### C BC #### [facility] [address] [place] [address] Dr. Carmel Tillman Lymphocytes/100 WBC (Bld) 30.8 % Normal 20.5-60.0 [facility] Comment on above: Performed By: #### C BC #### [facility] [address] [place] [address] Dr. Carmel Tillman MANUAL DIFF REQ NO Normal [facility] Comment on above: Performed By: #### C BC #### [facility] [address] [address] [address] Carmel Tillman MCH (RBC) [Entitic mass] 24.7 pg Critically low 26.7-34.0 [facility] Comment on above: Performed By: #### C BC #### [facility] [address] [address] [address] Carmel Tillman MCHC (RBC) [Mass/Vol] 31.6 g/dL Normal 29.9-35.2 [facility] Comment on above: Performed By: #### C BC #### [facility] [address] [address] [address] Carmel Tillman MCV (RBC) [Entitic vol] 78.1 fL Critically low 81.0-99.0 [facility] Comment on above: Performed By: #### C BC #### [facility] [address] [address] [address] Carmel Tillman MONO # 1.1 103/ul Critically high 0.3-0.8 [facility] Comment on above: Performed By: #### C BC #### [facility] [address] [place] [address] Dr. Carmel Tlilman Monocytes/100 WBC (Bld) 9.3 % Normal 1.7-12.0 [facility] Comment on above: Performed By: #### C BC #### [facility] [address] [place] [address] Dr. Carmel Tillman NEUT # 6.6 103/ul Critically high 1.4-6.5 [facility] Comment on above: Performed By: #### C BC #### [facility] [address] [place] [address] Dr. Carmel Tillman Neutrophils/100 WBC (Bld) 56.6 % Normal 43.0-75.0 [facility] Comment on above: Performed By: #### C BC #### [facility] [address] [place] [address] Dr. Carmel Tillman Platelet mean volume (Bld) [Entitic vol] 9.8 fL Normal 9.5-13.5 [facility] Comment on above: Performed By: #### C BC #### [facility] [address] [place] [address] Dr. Carmel Tillman PLT 319 103/ul Normal 150-450 [facility] Comment on above: Performed By: #### C BC #### [facility] [address] [place] [address] Dr. Carmel Tillman RBC 5.30 106/ul Normal 4.20-5.40 [facility] Comment on above: Performed By: #### C BC #### [facility] [address] [place] [address] Dr. Carmel Tillman WBC 11.6 103/ul Critically high 4.0-11.0 [facility] Comment on above: Performed By: #### C BC #### [facility] [address] [place] [address] Dr. Carmel Tillman CTA CHEST WO W CONon 11-28-2 021 CTA CHEST WO W CON EXAM: CTA CHEST WO W CON COMPARISON: None available. CLINICAL INDICATION: Pulmonary embolism TECHNIQUE: CT angiography of the pulmonary arteries following the administration of intravenous contrast. MIP (maximum intensity projection) images or 3D post processing was performed. Dose reduction techniques were achieved by using automated exposure control and/or adjustment of mA and/or kV according to patient size and/or use of iterative reconstruction technique. FINDINGS: LOWER NECK AND CHEST WALL: Unremarkable. MEDIASTINUM AND HERBERT: No mediastinal or hilar pathologic lymphadenopathy by CT size criteria. CARDIOVASCULAR: No definite evidence of acute pulmonary embolism. No evidence of pulmonary embolism from the level of the main pulmonary artery to the level of the lobar pulmonary arteries. Evaluation of the peripheral pulmonary arteries is limited by artifact. No pathologic dilatation of the main pulmonary artery. Normal heart size. No evidence of right heart strain. No pericardial effusion. No thoracic aortic aneurysm or evidence of dissection. LUNGS: There is a moderately sized focal consolidation within the right lower lobe as well as right peribronchial thickening. Otherwise the lungs appear clear. Respiratory motion noted. AIRWAYS: The central airways are patent. PLEURA: No pleural effusion or pneumothorax is seen. UPPER ABDOMEN: Hepatic steatosis. BONES: No suspicious or aggressive bone lesions are seen. No acute fractures are seen. IMPRESSION: Moderately sized focal consolidation within the right lower lobe with peribronchial thickening. Although the patient is Covid positive, imaging findings may favor a more typical and probable bacterial pneumonia although recommend clinical correlation. No evidence of pulmonary embolism from the level of the main pulmonary artery to the level of the lobar pulmonary arteries. Evaluation of the peripheral pulmonary arteries is limited by artifact. Electronically authenticated by: ROSALINO TRAN Date: 2021-01-21 20:49 Normal [facility] LACTATE/LACTIC ACIDon 2020 Lactate [Moles/Vol] 1.1 mmol/L Normal 0.7-2.0 [facility] Comment on above: Performed By: #### C MP #### [facility] [address] [address] [address] Carmel Tillman PH VENOUS BLOODon 01-21-2021 PCO2 VENOUS 35.9 mmHg Critically low 40.0-52.0 [facility] Comment on above: Performed By: #### P HVEN #### [facility] [address] [address] [address] Carmel Tillman pH VENOUS 7.46 Critically high 7.33-7.43 [facility] Comment on above: Performed By: #### P HVEN #### [facility] [address] [address] [address] Carmel Tillman PREG HCG QUALon 01-21-2021 , QUAL Negative Normal NEGATIVE [facility] Comment on above: Performed By: #### C MP, HSTROPN #### [facility] [address] [address] [address] Carmel Tillman PROF 14(COMP METB)on 021 Albumin [Mass/Vol] 2.8 g/dL Critically low 3.5-5.0 [facility] Comment on above: Performed By: #### C MP, HSTROPN #### [facility] [address] [address] [address] Carmel Tillman Albumin/Globulin [Mass ratio] 0.7 {ratio} Normal [facility] Comment on above: Performed By: #### C MP, HSTROPN #### [facility] [address] [address] [address] Carmel Tillman ALP [Catalytic activity/Vol] 58 U/L Normal 38-126 [facility] Comment on above: Performed By: #### C MP, HSTROPN #### [facility] [address] [address] [address] Carmel Tillman ALT [Catalytic activity/Vol] 39 U/L Normal 9-52 [facility] Comment on above: Performed By: #### C MP, HSTROPN #### [facility] [address] [address] [address] Carmel Tillman Anion gap [Moles/Vol] 13.8 mmol/L Normal [facility] Comment on above: Performed By: #### C MP, HSTROPN #### [facility] [address] [address] [address] Carmel Tillman AST [Catalytic activity/Vol] 34 U/L Normal 14-36 [facility] Comment on above: Performed By: #### C MP, HSTROPN #### [facility] [address] [address] [address] Carmel Tillman Bilirubin [Mass/Vol] 0.3 mg/dL Normal 0.2-1.3 [facility] Comment on above: Performed By: #### C MP, HSTROPN #### [facility] [address] [place] [address] Dr. Carmel Tillman Calcium [Mass/Vol] 8.0 mg/dL Critically low 8.4-10.2 [facility] Comment on above: Performed By: #### C MP, HSTROPN #### [facility] [address] [place] [address] Dr. Carmel Tillman Chloride [Moles/Vol] 103 mmol/L Normal 98-107 [facility] Comment on above: Performed By: #### C MP, HSTROPN #### [facility] [address] [place] [address] Dr. Carmel Tillman CO2 [Moles/Vol] 23.9 mmol/L Normal 22.0-30.0 [facility] Comment on above: Performed By: #### C MP, HSTROPN #### [facility] [address] [place] [address] Dr. Carmel Tillman Creatinine [Mass/Vol] 1.01 mg/dL Normal 0.52-1.04 [facility] Comment on above: Performed By: #### C MP, HSTROPN #### [facility] [address] [place] [address] Dr. Carmel Tillman EGFR-AF BRAZILIAN >60 Normal >=60 [facility] Comment on above: Performed By: #### C MP, HSTROPN #### [facility] [address] [place] [address] Dr. Carmel Tillman EGFR-NON AF BRAZILIAN >60 Normal >=60 [facility] Comment on above: Performed By: #### C MP, HSTROPN #### [facility] [address] [place] [address] Dr. Carmel Tillman Globulin (S) [Mass/Vol] 4.1 g/dL Normal [facility] Comment on above: Performed By: #### C FARAZ, HSTROPN #### [facility] [address] [address] [address] Carmel Tillman Glucose [Mass/Vol] 89 mg/dL Normal 74-106 [facility] Comment on above: Performed By: #### C FARAZ, HSTROPN #### [facility] [address] [place] [address] Dr. Carmel Tillman Potassium [Moles/Vol] 3.7 mmol/L Normal 3.4-5.0 [facility] Comment on above: Performed By: #### C FARAZ, HSTROPN #### [facility] [address] [place] [address] Dr. Carmel Tillman Protein [Mass/Vol] 6.9 g/dL Normal 6.1-8.2 [facility] Comment on above: Performed By: #### C FARAZ, HSTROPN #### [facility] [address] [place] [address] Dr. Carmel Tillman Sodium [Moles/Vol] 137 mmol/L Normal 137-145 [facility] Comment on above: Performed By: #### C FARAZ, HSTROPN #### [facility] [address] [place] [address] Dr. Carmel Tillman Urea nitrogen [Mass/Vol] 21.0 mg/dL Critically high 7.0-17.0 [facility] Comment on above: Performed By: #### C FARAZ, HSTROPN #### [facility] [address] [place] [address] Dr. Carmel Tillman Urea nitrogen/Creatinin e [Mass ratio] 20.8 mg/mg Normal [facility] Comment on above: Performed By: #### C FARAZ, HSTROPN #### [facility] [address] [place] [address] Dr. Carmel Tillman PROTIMEon 01-21-2021 INR Coag (PPP) [Relative time] 1.00 {INR} Normal [facility] Comment on above: Performed By: #### P T, PTT #### [facility] [address] [place] [address] Dr. Carmel Tillman INR GUIDELINES SEE BELOW Normal [facility] Comment on above: Result Comment: CHRIS RED INR: 2.0 - 3.0 CONDITIONS NOT LISTED BELOW 2.5 - 3.5 FOR PROSTHETIC HEART VALVE REPLACEMENT 2.5 - 3.5 RECURRENT THROMBOSIS Performed By: #### P T, PTT #### [facility] [address] [address] [address] Carmel Tillman PT Coag (PPP) [Time] 10.8 s Normal 9.0-11.6 [facility] Comment on above: Performed By: #### P T, PTT #### [facility] [address] [place] [address] Dr. Carmel Tillman PTTon 01-21-2021 aPTT Coag (Bld) [Time] 25.4 s Normal 22.3-36.2 [facility] Comment on above: Performed By: #### P T, PTT #### [facility] [address] [place] [address] Dr. Carmel Tillman TROPONIN, HIGH SENSITIVITYon 01-21-2021 HSTROP 4.7 pg/mL Normal 4.0-35.5 [facility] Comment on above: Result Comment: CUT- OFF POINTS HAVE BEEN ESTABLISHED BASED ON THE FOURTH UNIVERSAL DEFINITIONS OF MYOCARDIAL INFARCTION. THE UPPER REFERENCE LIMIT (URL) OF TROPONIN, DEFINED THE 99TH PERCENTILE OF cTnI DISTRIBUTION IN A REFERENCE POPULATION, HAS BEEN CONFIRMED THE DECISION THRESHOLD FOR VT DIAGNOSIS. Performed By: #### C MP, HSTROPN #### [facility] [address] [place] [address] Dr. Carmel Tillman Encounters Encounter Date Encounter Type Care Provider Facility Start: 10-26-2021 End: 11-01-2021 ambulatory RACHID SELLERS Facility:[facility] Start: 10-12-2021 End: 10-13-[address] ISRAEL GROSS Facility:[facility] Start: 03-02-2021 End: 03-02-[address] ISRAEL GROSS Facility:[facility] Start: 02-26-2021 ambulatory RACHID SELLERS Facilit y:[facility] Start: 02-21-2021 End: 02-22-[address] NATHANIEL JONES Facility:[facility] Start: 02-12-2021 End: 02-15-2021 Evaluation and management of inpatient DR ISRAEL GROSS Facility:[facility] Start: 01-27-2021 End: 02-07-2021 Evaluation and management of inpatient DR STELLA LAN Facility:[facility] Start: 01-21-2021 End: 01-21-2021 ambulatory CR CARIAS Facility:[facility] Start: 05-12-2020 End: 05-13-2020 ambulatory Rachid Candace Sellers Facility:[facility] Payers Date Payer Category Payer Unknown [id number] 2019 Unknown [id number] 1985 Unknown [id number] 2.16.84 [id number] 1983 Unknown [id number] 2.16.84 [id number] 1983 Unknown [id number] 2.16.84 [id number] 1983 Unknown [id number] 2.16.84 [id number] 1983 Unknown [id number] 2.16.84 [id number] 1983 Unknown [id number] 2.16.84 [id number] 1983 Unknown [id number] 2.16.84 [id number] 1983 Unknown [id number] 2.16.84 [id number] 1961 Self-pay [id number] 1961 Unknown [id number] Unknown [id number] 2.16.8 [id number] Social History Date Type Detail Facility Start: 05-12-2020 Tobacco smoking stat us NHIS Never smoked tobacco (finding) [facility] Start: 1985 Sex Assigned At Female F [facility] Goals Date Patient Goal Desired Activity /State Clinical Note 10-12-2021 Note Date & Type Note Facility 10-12-2021 Note PROCEDURE: XR KNEE L T 3V HISTORY: Pain of left knee joint , chronic COMPARISON: XR knee left 12/22/2013 FINDINGS: BONES:Mild narrowing medial joint space. Large degenerative osteophytes along the articular margins of all 3 compartments. Prominent degenerative osteophyte at the anterior margin of the tibial intercondylar spines. SOFT TISSUES:No visible soft tissue swelling. EFFUSION:None visible. OTHER: Negative. IMPRESSION: 1. No acute bone abnormality. 2. Moderate-marked degenerative joint disease, advanced for patient's age. Electronically authenticated by: ISRAEL GROSS Date: 2021-10-12 14:44 [facility] Evaluation note Note Date & Type Note Facility Evaluation note No assessment information availa ble [facility] Work Phone: Advance Directives No Advanced Directives Records Found Advance Directive Response Recorded Date/ Time Advance Directives No March 3:28pm Assessments No Assessments Information Available Family History No Family History Records Found Relationship Condition Age at Onset Recorded Date/T kamryn grandparent Malignant neoplasm Unknown grandparent Hypertension Unknown Summary Purpose Additional Source Comments INFORMATION SOURCE (unrecogn ized section and content) DATE CREATED AUTHOR 12/05/2021 [facility] DATE CREATED AUTHOR AUTHOR'S ORGANIZ ATION 10/26/2022 [facility] Goals (unrecognized section and content) Goals may be documented in a n alternate section FOR RECORDS PERTAINING TO PATIENTS WHO ARE OR HAVE BEEN ENROLLED IN A CHEMICAL DEPENDENCY/SUBSTANCEABUSE PROGRAM, SOME INFORMATION MAY BE OMITTED. This clinical summary was aggregated from multiple sources. Caution should be exercised in using it in the provision of clinical care. This summary normalizes information from multiple sources, and as a consequence, information in this document may materially change the coding, format and clinical context of patient data. In addition, data may be omitted in some cases. CLINICAL DECISIONS SHOULD BE BASED ON THE PRIMARY CLINICAL RECORDS. [employer] [facility]. provides no warranty or guarantee of the accuracy or completeness of information in this document.
[2023-07-16 11:32] LABS: Basophils Absolute Auto 0.1 10^3/uL (0.0-0.1); Basophils Percent Auto 0.5 % (0.2-2.0); Eosinophils Absolute Auto 0.3 10^3/uL (0.0-0.7); Eosinophils Percent Auto 1.9 % (0.9-7.0); Hematocrit 40.1 % (36.0-48.0); Hemoglobin 12.5 g/dL (12.0-16.0); Immature Granulocytes Abs Auto 0.05 10^3/uL (0.00-0.03); Immature Granulocytes Pct Auto 0.4 % (0.0-0.5); Lymphocytes Absolute Auto 4.4 10^3/uL (1.2-3.8); Lymphocytes Percent Auto 31.3 % (20.5-60.0); Mean Corpuscular HGB Conc 31.2 g/dL (29.9-35.2); Mean Corpuscular Hemoglobin 23.8 pg (26.7-34.0); Mean Corpuscular Volume 76.2 fL (81.0-99.0); Mean Platelet Volume 9.7 fL (9.5-13.5); Monocytes Absolute Auto 0.7 10^3/uL (0.3-0.8); Monocytes Percent Auto 5.2 % (1.7-12.0); Neutrophils Absolute Auto 8.5 10^3/uL (1.4-6.5); Neutrophils Percent Auto 60.7 % (43.0-75.0); Platelet Count 410 10^3/uL (150-450); Red Blood Count 5.26 10^6/uL (4.20-5.40); Red Cell Distribution Width 16.2 % (11.0-15.0)
[2023-07-16 12:01] LABS: Estimated Average Glucose 131 mg/dL; Glycohemoglobin A1C 6.2 % (4.5-6.2)
[2023-07-16 13:36] LABS: Alanine Aminotransferase 17 U/L (14-59); Albumin Globulin Ratio 0.8; Albumin Level 3.2 g/dL (3.4-5.0); Alkaline Phosphatase 64 U/L (46-116); Anion Gap 14.1; Aspartate Amino Transferase 16 U/L (15-37); BUN Creatinine Ratio 19.3; Bilirubin Total 0.6 mg/dL (0.2-1.0); Calcium 9.1 mg/dL (8.5-10.1); Carbon Dioxide 24.7 mmol/L (21.0-32.0); Chloride 103 mmol/L (98-107); Chol HDL Ratio 3.8; Cholesterol 189 mg/dL (<=200); Estimated GFR (African America >60 (>=60); Estimated GFR (Non-African Ame >60 (>=60); Globulin 4.1 g/dL; Glucose 91 mg/dL (74-106); HDL Cholesterol 50 mg/dL (40-60); Potassium 3.8 mmol/L (3.5-5.1); Sodium 138 mmol/L (136-145); TSH W/ REFLEX FT4 2.645 uIU/mL (0.358-3.740); Total Protein 7.3 g/dL (6.4-8.2); Triglycerides 164 mg/dL (<=150); VLDL CHOLESTEROL 32.8 mg/dL
== END 2023-07-16 11:04 | disposition home or self-care (01) ==
PROVIDERS: PCP Internal Medicine; Visit Provider Internal Medicine
DX: I10 Essential (primary) hypertension (principal); Z13.220 Encounter for screening for lipoid disorders; Z13.1 Encounter for screening for diabetes mellitus; F41.8 Other specified anxiety disorders
CPT/HCPCS: 36415; 80053; 80061; 83036; 84443; 85025

== ENCOUNTER 2023-12-18 19:52 | Emergency (ER) | payer BC, SELFPAY ==
--- OUTSIDE RECORDS SUMMARY | 2023-12-18 20:01 | XMS_ITS | CCD ---
Author Organization [facility] Care Team Providers Care Lecturer Of Portuguese Name Role Phone DR GILES LAN Consulting Unavailable EDYTA, DR GILES Beal Attending Unavailable EDYTA, DR GILES Beal Admitting Unavailable MARLO, RACHIDALESIA FLEMING Primary Care Unavailable AMGDALENE, DR SINGH Consulting Unavailable CLEMENTINE JACK Consulting Unavailable ARIELLA FISCHER Consulting Unavailable ALBERTO FISCHER Consulting Unavailable RENATO, DR ISRAEL Hamm Consulting Unavailable FAWWAD, HSU H Attending Unavailable VINCENT, HSU H Admitting Unavailable MARLO, RACHID LONNIE Primary Care Unavailable CR REYES Consulting Unavailable MAGDALENE, DR SINGH Consulting Unavailable FAAsaWAEdie, HSU H Consulting Unavailable HUSAM GARSIA Consulting Unavailable KAREN, DR NATHANIEL Loza Consulting Unavailable MARLO, RACHID LONNIE Primary Care Unavailable MARLO RACHID LONNIE Attending Unavailable MARLO, RACHID LONNIE Admitting Unavailable ROSS, RACHID LONNIE Consulting Unavailable DR ISRAEL GROSS Consulting Unavailable ROSS, RACHID LONNIE Primary Care Unavailable FAWWAD, HSU H Attending Unavailable FAWWAD, HSU H Admitting Unavailable FAWWAD, HSU H Consulting Unavailable ROSS, RACHID LONNIE Primary Care Unavailable FAWWAD, HSU H Attending Unavailable FAWWAD, HSU H Admitting Unavailable ROSS, RACHID LONNIE Primary Care Unavailable MARLO, RACHID LONNIE Attending Unavailable MARLO, RACHID LONNIE Admitting Unavailable DR ISRAEL GROSS Consulting Unavailable ALBERTO FISCHER Attending Unavailable ALBERTO FISCHER Admitting Unavailable ROSS, RACHID LONNIE Primary Care Unavailable ALBERTO FISCHER Consulting Unavailable CR CARIAS Consulting Unavailable ALBERTO FISCHER Attending Unavailable ALBERTO FISCHER Admitting Unavailable MARLO, RACHID LONNIE Primary Care Unavailable ROSALINO TRAN Consulting Unavailable Marlo Rachid E Primary Care Unavailable Rachid Sellers E Referring Unavailable Dewayne Calderon Admitting Unavailable Dewayne Calderon Attending Unavailable Giles Lan MD Primary Care Provider Geno BURRER MACHINE, Larissa Unavailable [phone] Unavailable Unavailable Unavailable Allergies Allergy Classification Reported Allergen(s) Allergy Type Date of Onset Reaction(s) Facility (6 sources) HYDROmorphone; Translations: [hydromorphone] Drug Allergy 0 Other, Shortness of breath [facility] (6 sources) Penicillins; Translations: [Penicillins] Allergy to substance 9 Hives, Itching, Rash [facility] (2 sources) Amoxicillin Drug Allergy 7 [facility] (2 sources) HYDROmorphone Drug Allergy 7 [facility] Medications Current Medications Medication Drug Class(es) Dates Sig (Normalized) Sig (Original) [id number] 200 actuat albuterol 0.09 mg/actuat metered dose inhaler (2 sources) beta2-Adrenergi c Agonist Start: 12-02-2023 End: 12-01-2024 take 2 puff(s) by inhalation every four hours for wheezing albuterol HFA (Ventolin HFA) 90 mcg/act inhaler Indications: Dyspnea on exertion Inhale 2 puffs every 4 (four) hours if needed for wheezing 18 g 11 12/02/2023 12/01/2024 Active cholecalciferol 400 unt oral capsule (2 sources) Vitamin D Start: 05-12-2020 take 1 capsule by mouth once daily Cholecalciferol (Vitamin D3) (Vitamin D3) 10 mcg (400 unit) Capsule Active 10 MCG PO Daily May 12, 2020 8:08am 24 hr metFORMIN hydrochloride 500 mg extended release oral tablet (2 sources) Biguanide Start: 12-02-2023 End: 12-01-2024 take 1 tablet by mouth every twenty-four hours at mealtime metFORMIN XR (Glucophage-XR) 500 MG 24 hr tablet Indications: Prediabetes Take 1 tablet (500 mg) by mouth in the evening. Take with meals Do not crush, chew, or split. 30 tablet 3 12/02/2023 12/01/2024 Active Multivitamin (Multiple Vitamin) Tablet (2 sources) Start: 05-12-2020 take 1 tablet by mouth once daily Multivitamin (Multiple Vitamin) Tablet Active 1 TAB PO Daily May 12, 2020 8:08am Start: 05-12-2020 take 1 tablet by jose th once daily Multivitamin (Multiple Vitamin) Tablet Active 1 TAB PO Daily May 12, 2020 12:00am omeprazole 40 mg delayed release oral capsule (5 sources) Proton Pump Inhibitor Start: 09-02-2023 End: 02-29-2024 take 1 capsule by mouth once daily omeprazole (PriLOSEC) [address] capsule Indications: Gastro-esophageal reflux disease without esophagitis , Esophageal reflux Take 1 capsule (40 mg) by mouth Daily 90 capsule 1 09/02/2023 02/29/2024 Active Start: 04-27-2020 take 40 mg by mouth once daily Omeprazole Active 40 MG PO Daily April 27, 2020 5:01pm sertraline 50 mg oral tablet (5 sources) Serotonin Reuptake Inhibitor Start: 12-02-2023 End: 12-30-2023 take 1 tablet by mouth once daily, then take 0.5 tablet by mouth once daily, then take 0.5 tablet by mouth every other day sertraline (Zoloft) 50 MG tablet Indications: Depression with anxiety Take 1 tablet (50 mg) by mouth Daily for 14 days, THEN 0.5 tablets (25 mg) Daily for 7 days, THEN 0.5 tablets (25 mg) every other day for 7 days. 25 tablet 12/02/2023 12/30/2023 Active Start: 09-02-2023 take 1 tablet by jose th in the morning sertraline (Zoloft) 100 MG tablet Indications: Recurrent major depressive disorder, in full remission (CMS/HCC) Take 1 tablet (100 mg) by mouth in the morning. 90 tablet 1 09/02/2023 Active valsartan 320 mg oral tablet (5 sources) Angiotensin 2 Receptor Dori Start: 09-02-2023 End: 02-29-2024 take 1 tablet by mouth once daily valsartan (Diovan) 320 MG tablet Indications: Primary hypertension (CMS/HCC) Take 1 tablet (320 mg) by mouth Daily 90 tablet 1 09/02/2023 02/29/2024 Active Start: 04-27-2020 take 320 mg by mouth once jon y Valsartan Active 320 MG PO Daily April 27, 2020 5:01pm Problems Active Problems Problem Classification Problem Date Documented Da te Episodic/Chronic Administrative/social admission (2 sources) First encounter by subject; Translations: [Persons encountering health services in other specified circumstances] Onset: 4 12-02-2023 Episodic Anxiety disorders (5 sources) Mixed anxiety and depressive disorder; Translations: [Other specified anxiety disorders] Onset: 4 07-15-2023 Chronic Diabetes mellitus without complication (5 sources) Prediabetes; Translations: [Prediabetes] Onset: 4 09-02-2023 Episodic Diseases of white blood cells (2 sources) Leukocytosis; Translations: [Elevated white blood cell count, unspecified] Onset: 1 05-12-2020 Chronic Essential hypertension (6 sources) Essential (primary) hypertension; Translations: [Essential hypertension] Onset: 1 07-15-2023 Chronic Osteoarthritis (1 source) Unilateral primary osteoarthritis, left knee; Translations: [UNI PRIM OSTEOARTHRITIS LT KNEE] Onset: 2 Chronic Other connective tissue disease (4 sources) Pain in left leg; Translations: [PAIN IN LEFT LEG] Onset: 2 Episodic Other lower respiratory disease (4 sources) Dyspnea on exertion; Translations: [Other forms of dyspnea] Onset: 4 12-02-2023 Episodic Other non-traumatic joint disorders (5 sources) [...] calories; Translations: [MORBID SEVERE OBES D/T EXCESS MANIS] Onset: 2 Chronic Other nutritional; endocrine; and metabolic disorders (5 sources) Morbid obesity; Translations: [Morbid (severe) obesity due to excess calories] Onset: 4 07-15-2023 Chronic Other nutritional; endocrine; and metabolic disorders (5 sources) Metabolic syndrome X; Translations: [Metabolic syndrome] Onset: 4 09-02-2023 Chronic Other screening for suspected conditions (not mental disorders or infectious disease) (14 sources) Patient encounter status; Translations: [Encounter for screening for lipoid disorders] Onset: 4 07-15-2023 Episodic Phlebitis; thrombophlebitis and thromboembolism (3 sources) Phlebitis [...] COUGH, UNSPECIFIED; Translations: [COUGH, UNSPECIFIED] Onset: 1 Unclassified (2 sources) Patient on antidepressant monitoring plan Onset: 4 12-02-2023 Viral infection (3 sources) COVID-19; Translations: [COVID-19] Onset: 1 Past or Other Problems Problem Classification Problem Date Documented Da te Episodic/Chronic Cardiac dysrhythmias (1 source) Bradycardia, unspecified; Translations: [BRADYCARDIA UNSPECIFIED] Onset: 02-12-2021 Episodic Disorders of teeth and jaw (3 sources) Torus palatinus; 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] Onset: 07-15-2023 07-15-2023 Episodic E Codes: Unspecified (1 source) Nosocomial condition; Translations: [NOSOCOMIAL CONDITION] Onset: 02-21-2021 Episodic Mood disorders (3 sources) Mood disorders Onset: 07-15-2023 07-15-2023 Other aftercare (1 source) Other senior living (current) drug therapy; Translations: [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 Carmel Tillman Basophils/100 WBC (Bld) 0.3 % Normal 0.2-2.0 [facility] Comment on above: Performed By: #### C MP, HSTROPN #### [facility] [address] [place] [address] Dr. Carmel Tillman EO # 0.1 103/ul Normal 0.0-0.7 [facility] Comment on above: Performed By: #### C MP, HSTROPN #### [facility] [address] [place] [address] Dr. Carmel Tillman Eosinophils/100 WBC (Bld) 0.9 % Normal 0.9-7.0 [facility] Comment on above: Performed By: #### C MP, HSTROPN #### [facility] [address] [place] [address] Dr. Carmel Tillman Erythrocyte distribution width (RBC) [Ratio] 19.7 % Critically high 11.0-15.0 [facility] Comment on above: Performed By: #### C MP, HSTROPN #### [facility] [address] [place] [address] Dr. Carmel Tillman Hematocrit (Bld) [Volume fraction] 40.9 % Normal 36.0-48.0 [facility] Comment on above: Performed By: #### C MP, HSTROPN #### [facility] [address] [place] [address] Dr. Carmel Tillman Hemoglobin (Bld) [Mass/Vol] 12.7 g/dL Normal 12.0-16.0 [facility] Comment on above: Performed By: #### C MP, HSTROPN #### [facility] [address] [place] [address] Dr. Carmel Tillman IG # 0.18 10e3/ul Critically high 0.00-0.03 [facility] Comment on above: Performed By: #### C MP, HSTROPN #### [facility] [address] [place] [address] Dr. Carmel Tillman IG % 1.7 % Critically high 0.0-0.5 [facility] Comment on above: Performed By: #### C MP, HSTROPN #### [facility] [address] [place] [address] Dr. Carmel Tillman LYMPH # 2.8 103/ul Normal 1.2-3.8 [facility] Comment on above: Performed By: #### C MP, HSTROPN #### [facility] [address] [place] [address] Dr. Carmel Tillman Lymphocytes/100 WBC (Bld) 25.6 % Normal 20.5-60.0 [facility] Comment on above: Performed By: #### C MP, HSTROPN #### [facility] [address] [place] [address] Dr. Carmel Tillman MANUAL DIFF REQ NO Normal [facility] Comment on above: Performed By: #### C MP, HSTROPN #### [facility] [address] [place] [address] Dr. Carmel Tillman MCH (RBC) [Entitic mass] 25.2 pg Critically low 26.7-34.0 [facility] Comment on above: Performed By: #### C MP, HSTROPN #### [facility] [address] [place] [address] Dr. Carmel Tillman MCHC (RBC) [Mass/Vol] 31.1 g/dL Normal 29.9-35.2 [facility] Comment on above: Performed By: #### C MP, HSTROPN #### [facility] [address] [place] [address] Dr. Carmel Tillman MCV (RBC) [Entitic vol] 81.2 fL Normal 81.0-99.0 [facility] Comment on above: Performed By: #### C MP, HSTROPN #### [facility] [address] [place] [address] Dr. Carmel Tillman MONO # 0.9 103/ul Critically high 0.3-0.8 [facility] Comment on above: Performed By: #### C MP, HSTROPN #### [facility] [address] [address] [address] Carmel Tillman Monocytes/100 WBC (Bld) 7.9 % Normal 1.7-12.0 [facility] Comment on above: Performed By: #### C MP, HSTROPN #### [facility] [address] [address] [address] Carmel Tillman NEUT # 6.9 103/ul Critically high 1.4-6.5 [facility] Comment on above: Performed By: #### C MP, HSTROPN #### [facility] [address] [address] [address] Carmel Tillman Neutrophils/100 WBC (Bld) 63.6 % Normal 43.0-75.0 [facility] Comment on above: Performed By: #### C MP, HSTROPN #### [facility] [address] [place] [address] Dr. Carmel Tillman Platelet mean volume (Bld) [Entitic vol] 9.5 fL Normal 9.5-13.5 [facility] Comment on above: Performed By: #### C MP, HSTROPN #### [facility] [address] [place] [address] Dr. Carmel Tillman PLT 350 103/ul Normal 150-450 [facility] Comment on above: Performed By: #### C MP, HSTROPN #### [facility] [address] [place] [address] Dr. Carmel Tillman RBC 5.04 106/ul Normal 4.20-5.40 [facility] Comment on above: Performed By: #### C MP, HSTROPN #### [facility] [address] [place] [address] Dr. Carmel Tillman WBC 10.8 103/ul Normal 4.0-11.0 [facility] Comment on above: Performed By: #### C MP, HSTROPN #### [facility] [address] [place] [address] Dr. Carmel Tillman PROF 14(COMP METB)on 022 Albumin [Mass/Vol] 2.9 g/dL Critically low 3.5-5.0 [facility] Comment on above: Performed By: #### C MP #### [facility] [address] [place] [address] Dr. Carmel Tillman Albumin/Globulin [Mass ratio] 0.7 {ratio} Normal [facility] Comment on above: Performed By: #### C MP #### [facility] [address] [address] [address] Carmel Tillman ALP [Catalytic activity/Vol] 50 U/L Normal 38-126 [facility] Comment on above: Performed By: #### C MP #### [facility] [address] [address] [address] Carmel Tillman ALT [Catalytic activity/Vol] 25 U/L Normal 9-52 [facility] Comment on above: Performed By: #### C MP #### [facility] [address] [place] [address] Dr. Carmel Tillman Anion gap [Moles/Vol] 11.3 mmol/L Normal [facility] Comment on above: Performed By: #### C MP #### [facility] [address] [place] [address] Dr. Carmel Tillman AST [Catalytic activity/Vol] 13 U/L Critically low 14-36 [facility] Comment on above: Performed By: #### C MP #### [facility] [address] [place] [address] Dr. Carmel Tillman Bilirubin [Mass/Vol] 0.6 mg/dL Normal 0.2-1.3 [facility] Comment on above: Performed By: #### C MP #### [facility] [address] [place] [address] Dr. Carmel Tillman Calcium [Mass/Vol] 9.3 mg/dL Normal 8.4-10.2 [facility] Comment on above: Performed By: #### C MP #### [facility] [address] [place] [address] Dr. Carmel Tillman Chloride [Moles/Vol] 106 mmol/L Normal 98-107 [facility] Comment on above: Performed By: #### C MP #### [facility] [address] [address] [address] Carmel Tillman CO2 [Moles/Vol] 27.0 mmol/L Normal 22.0-30.0 [facility] Comment on above: Performed By: #### C MP #### [facility] [address] [address] [address] Carmel Tillman Creatinine [Mass/Vol] 0.72 mg/dL Normal 0.52-1.04 [facility] Comment on above: Performed By: #### C MP #### [facility] [address] [place] [address] Dr. Carmel Tillman EGFR-AF SENEGALESE >60 Normal >=60 [facility] Comment on above: Performed By: #### C MP #### [facility] [address] [place] [address] Dr. Carmel Tillman EGFR-NON AF SENEGALESE >60 Normal >=60 [facility] Comment on above: Performed By: #### C MP #### [facility] [address] [place] [address] Dr. Carmel Tillman Globulin (S) [Mass/Vol] 4.0 g/dL Normal [facility] Comment on above: Performed By: #### C MP #### [facility] [address] [place] [address] Dr. Carmel Tillman Glucose [Mass/Vol] 112 mg/dL Critically high 74-106 [facility] Comment on above: Performed By: #### C MP #### [facility] [address] [place] [address] Dr. Carmel Tillman Potassium [Moles/Vol] 4.3 mmol/L Normal 3.4-5.0 [facility] Comment on above: Performed By: #### C MP #### [facility] [address] [place] [address] Dr. Carmel Tillman Protein [Mass/Vol] 6.9 g/dL Normal 6.1-8.2 [facility] Comment on above: Performed By: #### C MP #### [facility] [address] [place] [address] Dr. Carmel Tillman Sodium [Moles/Vol] 140 mmol/L Normal 137-145 [facility] Comment on above: Performed By: #### C MP #### [facility] [address] [address] [address] Carmel Tillman Urea nitrogen [Mass/Vol] 20.0 mg/dL Critically high 7.0-17.0 [facility] Comment on above: Performed By: #### C MP #### [facility] [address] [place] [address] Dr. Carmel Tillman Urea nitrogen/Creatinin e [Mass ratio] 27.8 mg/mg Normal [facility] Comment on above: Performed By: #### C MP #### [facility] [address] [place] [address] Dr. Carmel Tillman PROTIMEon 03-02-2021 INR Coag (PPP) [Relative time] 0.95 {INR} Normal [facility] Comment on above: Performed By: #### P T, PTT #### [facility] [address] [place] [address] Dr. Carmel Tillman INR GUIDELINES SEE BELOW Normal [facility] Comment on above: Result Comment: CHRIS RED INR: 2.0 - 3.0 CONDITIONS NOT LISTED BELOW 2.5 - 3.5 FOR PROSTHETIC HEART VALVE REPLACEMENT 2.5 - 3.5 RECURRENT THROMBOSIS Performed By: #### P T, PTT #### [facility] [address] [place] [address] Dr. Carmel Tillman PT Coag (PPP) [Time] 10.3 s Normal 9.0-11.6 [facility] Comment on above: Performed By: #### P T, PTT #### [facility] [address] [place] [address] Dr. Carmel Tillman PTTon 03-02-2021 aPTT Coag (Bld) [Time] 22.8 s Normal 22.3-36.2 [facility] Comment on above: Performed By: #### P T, PTT #### [facility] [address] [place] [address] Dr. Carmel Tillman US VENOUS DOPPLER L [...] ISRAEL GROSS Date: 2021-03-02 12:07 Normal [facility] XR CHEST 2 Von 02-21-2021 XR [...] NATHANIEL JONES Date: 2021-02-21 07:51 Normal [facility] CBC AUTO DIFFon 02-15-2021 BASO # 0.0 103/ul Normal 0.0-0.1 [facility] Comment on above: Performed By: #### C MP #### [facility] [address] [address] [address] Carmel Tillman Basophils/100 WBC (Bld) 0.2 % Normal 0.2-2.0 [facility] Comment on above: Performed By: #### C MP #### [facility] [address] [address] [address] Carmel Tillman EO # 0.0 103/ul Normal 0.0-0.7 [facility] Comment on above: Performed By: #### C MP #### [facility] [address] [address] [address] Carmel Tillman Eosinophils/100 WBC (Bld) 0.2 % Critically low 0.9-7.0 [facility] Comment on above: Performed By: #### C MP #### [facility] [address] [address] [address] Carmel Tillman Erythrocyte distribution width (RBC) [Ratio] 18.1 % Critically high 11.0-15.0 [facility] Comment on above: Performed By: #### C MP #### [facility] [address] [place] [address] Dr. Carmel Tillman Hematocrit (Bld) [Volume fraction] 39.4 % Normal 36.0-48.0 [facility] Comment on above: Performed By: #### C MP #### [facility] [address] [place] [address] Dr. Camrel Tillman Hemoglobin (Bld) [Mass/Vol] 12.2 g/dL Normal 12.0-16.0 [facility] Comment on above: Performed By: #### C MP #### [facility] [address] [place] [address] Dr. Carmel Tillman IG # 0.35 10e3/ul Critically high 0.00-0.03 [facility] Comment on above: Performed By: #### C MP #### [facility] [address] [place] [address] Dr. Carmel Tillman IG % 2.3 % Critically high 0.0-0.5 [facility] Comment on above: Performed By: #### C MP #### [facility] [address] [place] [address] Dr. Carmel Tillman LYMPH # 3.7 103/ul Normal 1.2-3.8 [facility] Comment on above: Performed By: #### C MP #### [facility] [address] [place] [address] Dr. Carmel Tillman Lymphocytes/100 WBC (Bld) 24.4 % Normal 20.5-60.0 [facility] Comment on above: Performed By: #### C MP #### [facility] [address] [address] [address] Carmel Tillman MANUAL DIFF REQ NO Normal [facility] Comment on above: Performed By: #### C MP #### [facility] [address] [place] [address] Dr. Carmel Tillman MCH (RBC) [Entitic mass] 24.6 pg Critically low 26.7-34.0 [facility] Comment on above: Performed By: #### C MP #### [facility] [address] [place] [address] Dr. Carmel Tillman MCHC (RBC) [Mass/Vol] 31.0 g/dL Normal 29.9-35.2 [facility] Comment on above: Performed By: #### C MP #### [facility] [address] [place] [address] Dr. Carmel Tillman MCV (RBC) [Entitic vol] 79.6 fL Critically low 81.0-99.0 [facility] Comment on above: Performed By: #### C MP #### [facility] [address] [place] [address] Dr. Carmel Tillman MONO # 0.7 103/ul Normal 0.3-0.8 [facility] Comment on above: Performed By: #### C MP #### [facility] [address] [place] [address] Dr. Carmel Tillman Monocytes/100 WBC (Bld) 4.9 % Normal 1.7-12.0 [facility] Comment on above: Performed By: #### C MP #### [facility] [address] [place] [address] Dr. Carmel Tillman NEUT # 10.3 103/ul Critically high 1.4-6.5 [facility] Comment on above: Performed By: #### C MP #### [facility] [address] [place] [address] Dr. Carmel Tillman Neutrophils/100 WBC (Bld) 68.0 % Normal 43.0-75.0 [facility] Comment on above: Performed By: #### C MP #### [facility] [address] [address] [address] Carmel Tillman Platelet mean volume (Bld) [Entitic vol] 9.6 fL Normal 9.5-13.5 [facility] Comment on above: Performed By: #### C MP #### [facility] [address] [address] [address] Carmel Tillman PLT 151 103/ul Normal 150-450 [facility] Comment on above: Performed By: #### C MP #### [facility] [address] [address] [address] Carmel Tillman RBC 4.95 106/ul Normal 4.20-5.40 [facility] Comment on above: Performed By: #### C MP #### [facility] [address] [address] [address] Carmel Tillman WBC 15.2 103/ul Critically high 4.0-11.0 [facility] Comment on above: Performed By: #### C MP #### [facility] [address] [address] [address] Carmel Tillman POINT OF CARE GLUCOSEon 01-25 Glucose [Mass/Vol] 104 mg/dL Normal 74-106 [facility] Comment on above: Performed By: #### C FARAZ, HSTROPN #### [facility] [address] [address] [address] Carmel Tillman Glucose [Mass/Vol] 81 mg/dL Normal 74-106 [facility] Comment on above: Performed By: #### C MP #### [facility] [address] [address] [address] Carmel Tillman PROF CHEM 8 (BAS METB)on Anion gap [Moles/Vol] 13.7 mmol/L Normal [facility] Comment on above: Performed By: #### B MP #### [facility] [address] [place] [address] Dr. Carmel Tillman Calcium [Mass/Vol] 8.5 mg/dL Normal 8.4-10.2 [facility] Comment on above: Performed By: #### B MP #### [facility] [address] [address] [address] Carmel Tillman Chloride [Moles/Vol] 102 mmol/L Normal 98-107 [facility] Comment on above: Performed By: #### B MP #### [facility] [address] [address] [address] Carmel Tillman CO2 [Moles/Vol] 25.8 mmol/L Normal 22.0-30.0 [facility] Comment on above: Performed By: #### B MP #### [facility] [address] [address] [address] Carmel Tillman Creatinine [Mass/Vol] 1.06 mg/dL Critically high 0.52-1.04 [facility] Comment on above: Performed By: #### B MP #### [facility] [address] [address] [address] Carmel Tillman EGFR-AF SENEGALESE >60 Normal >=60 [facility] Comment on above: Performed By: #### B MP #### [facility] [address] [address] [address] Carmel Tillman EGFR-NON AF SENEGALESE 58 mL/min/1.73m2 Critically low >=60 [facility] Comment on above: Performed By: #### B MP #### [facility] [address] [address] [address] Carmel Tillman Glucose [Mass/Vol] 93 mg/dL Normal 74-106 [facility] Comment on above: Performed By: #### B MP #### [facility] [address] [address] [address] Carmel Tillman Potassium [Moles/Vol] 3.5 mmol/L Normal 3.4-5.0 [facility] Comment on above: Performed By: #### B MP #### [facility] [address] [address] [address] Carmel Tillman Sodium [Moles/Vol] 138 mmol/L Normal 137-145 [facility] Comment on above: Performed By: #### B MP #### [facility] [address] [address] [address] Carmel Tillman Urea nitrogen [Mass/Vol] 24.0 mg/dL Critically high 7.0-17.0 [facility] Comment on above: Performed By: #### B MP #### [facility] [address] [place] [address] Dr. Carmel Tillman Urea nitrogen/Creatinin e [Mass ratio] 22.6 mg/mg Normal [facility] Comment on above: Performed By: #### B MP #### [facility] [address] [address] [address] Carmel Tillman CBC W MANUAL DIFFon 02-15-20 21 ATYPICAL LYMPH # Normal [facility] Comment on above: Performed By: #### C MP #### [facility] [address] [place] [address] Dr. Carmel Tillman ATYPICAL LYMPH % Normal [facility] Comment on above: Performed By: #### C MP #### [facility] [address] [place] [address] Dr. Carmel Tillman BAND # 1.0 103/ul Critically high 0.0-0.3 [facility] Comment on above: Performed By: #### C MP #### [facility] [address] [place] [address] Dr. Carmel Tillman BAND % 6 % Critically high 0-5 [facility] Comment on above: Performed By: #### C MP #### [facility] [address] [place] [address] Dr. Carmel Tillman BASOM # 0.00 103/ul Normal 0.00-0.10 [facility] Comment on above: Performed By: #### C MP #### [facility] [address] [place] [address] Dr. Carmel Tillman BASOM % 0.0 % Critically low 0.2-2.0 [facility] Comment on above: Performed By: #### C MP #### [facility] [address] [place] [address] Dr. Carmel Tillman BLAST # Normal [facility] Comment on above: Performed By: #### C MP #### [facility] [address] [place] [address] Dr. Carmel Tillman BLAST % Normal [facility] Comment on above: Performed By: #### C MP #### [facility] [address] [place] [address] Dr. Carmel Tillman CORRECTED WBC Normal 4.0-11.0 [facility] Comment on above: Performed By: #### C MP #### [facility] [address] [place] [address] Dr. Carmel Tillman EOS # 0.00 103/ul Normal 0.00-0.70 [facility] Comment on above: Performed By: #### C MP #### [facility] [address] [place] [address] Dr. Carmel Tillman EOS% 0.0 % Critically low 0.9-7.0 [facility] Comment on above: Performed By: #### C MP #### [facility] [address] [place] [address] Dr. Carmel Tillman HCT 39.5 % Normal 36.0-48.0 [facility] Comment on above: Performed By: #### C MP #### [facility] [address] [place] [address] Dr. Carmel Tillman HGB 12.4 g/dl Normal 12.0-16.0 [facility] Comment on above: Performed By: #### C MP #### [facility] [address] [place] [address] Dr. Carmel Tillman LYMPHM # 1.56 103/ul Normal 1.20-3.80 [facility] Comment on above: Performed By: #### C MP #### [facility] [address] [place] [address] Dr. Carmel Tillman LYMPHM% 9.0 % Critically low 20.5-60.0 [facility] Comment on above: Performed By: #### C MP #### [facility] [address] [place] [address] Dr. Carmel Tillman MCH 24.8 pg Critically low 26.7-34.0 [facility] Comment on above: Performed By: #### C MP #### [facility] [address] [address] [address] Carmel Tillman MCHC 31.4 g/dl Normal 29.9-35.2 [facility] Comment on above: Performed By: #### C MP #### [facility] [address] [address] [address] Carmel Tillman MCV 79.2 fL Critically low 81.0-99.0 [facility] Comment on above: Performed By: #### C MP #### [facility] [address] [place] [address] Dr. Carmel Tillman METAMYELOCYTE # Normal [facility] Comment on above: Performed By: #### C MP #### [facility] [address] [place] [address] Dr. Carmel Tillman METAMYELOCYTE % Normal [facility] Comment on above: Performed By: #### C MP #### [facility] [address] [place] [address] Dr. Carmel Tillman MONOM# 0.69 103/ul Normal 0.30-0.80 [facility] Comment on above: Performed By: #### C MP #### [facility] [address] [place] [address] Dr. Carmel Tillman MONOM% 4.0 % Normal 1.7-12.0 [facility] Comment on above: Performed By: #### C MP #### [facility] [address] [place] [address] Dr. Carmel Tillman MPV 9.7 fL Normal 9.5-13.5 [facility] Comment on above: Performed By: #### C MP #### [facility] [address] [place] [address] Dr. Carmel Tillman MYELOCYTE # Normal [facility] Comment on above: Performed By: #### C MP #### [facility] [address] [place] [address] Dr. Carmel Tillman MYELOCYTE % Normal [facility] Comment on above: Performed By: #### C MP #### [facility] [address] [place], [place] [id number] Dr. Carmel Tillman NRBC Normal [facility] Comment on above: Performed By: #### C MP #### [facility] [address] [address] [address] Carmel Tillman PLT 167 103/ul Normal 150-450 [facility] Comment on above: Performed By: #### C MP #### [facility] [address] [address] [address] Carmel Tillman RBC 4.99 106/ul Normal 4.20-5.40 [facility] Comment on above: Performed By: #### C MP #### [facility] [address] [address] [address] Carmel Tillman RDW 17.7 % Critically high 11.0-15.0 [facility] Comment on above: Performed By: #### C MP #### [facility] [address] [place] [address] Dr. Carmel Tillman SEG # 14.01 103/ul Critically high 1.40-6.50 [facility] Comment on above: Performed By: #### C MP #### [facility] [address] [address] [address] Carmel Tillman SEG % 81.0 % Critically high 43.0-75.0 [facility] Comment on above: Performed By: #### C MP #### [facility] [address] [address] [address] Carmel iTllman WBC 17.3 103/ul Critically high 4.0-11.0 [facility] Comment on above: Performed By: #### C MP #### [facility] [address] [address] [address] Carmel Tillman CULTURE SPUTUMon 02-14-2021 CULTURE SPUTUM Culture Observations : NORMAL RESPIRATORY OSWALD. Normal [facility] Comment on above: Performed By: #### P T, PTT #### [facility] [address] [address] [address] Carmel Tillman ECHOCARDIO M/2D COMPLETEon 1 04-17-2020 ECHOCARDIO M/2D COMPLETE Patient: MARTA MELGARHaris Exam Date: 02/14/2021 : 1985 Gender:F Ordering : SHAIKH Eva KAUR . Admission #: [id number] Family : DR. RACHID SELLERS . Order #: [id number] CLICK HERE TO VIEW EXAM ECHOCARDIOGRAM REPORT [...] Area(A4C): 19.00 cm2 Left Atrium Systolic Volume(A2C): 60451 mm3 Left Atrium Systolic Volume(A4C): 73138 mm3 Mitral Valve MV E to A [...] Rios M.D. on 02/14/2021 at 18:38 Normal [facility] POINT OF CARE GLUCOSEon 01-25 Glucose [Mass/Vol] 105 mg/dL Normal 74-106 [facility] Comment on above: Performed By: #### P T, PTT #### [facility] [address] [address] [address] Carmel Tillman Glucose [Mass/Vol] 125 mg/dL Critically high 74-106 [facility] Comment on above: Performed By: #### P T, PTT #### [facility] [address] [address] [address] Carmel Tillman Glucose [Mass/Vol] 104 mg/dL Normal 74-106 [facility] Comment on above: Performed By: #### P T, PTT #### [facility] [address] [address] [address] Carmel Tillman Glucose [Mass/Vol] 109 mg/dL Critically high 74-106 [facility] Comment on above: Performed By: #### P T, PTT #### [facility] [address] [address] [address] Carmel Tillman PROF CHEM 8 (BAS METB)on Anion gap [Moles/Vol] 13.8 mmol/L Normal [facility] Comment on above: Performed By: #### C MP, HSTROPN #### [facility] [address] [address] [address] Carmel Tillman Calcium [Mass/Vol] 8.6 mg/dL Normal 8.4-10.2 [facility] Comment on above: Performed By: #### C MP, HSTROPN #### [facility] [address] [place] [address] Dr. Carmel Tillman Chloride [Moles/Vol] 104 mmol/L Normal 98-107 [facility] Comment on above: Performed By: #### C MP, HSTROPN #### [facility] [address] [place] [address] Dr. Carmel Tillman CO2 [Moles/Vol] 24.3 mmol/L Normal 22.0-30.0 [facility] Comment on above: Performed By: #### C MP, HSTROPN #### [facility] [address] [place] [address] Dr. Carmel Tillman Creatinine [Mass/Vol] 0.84 mg/dL Normal 0.52-1.04 [facility] Comment on above: Performed By: #### C MP, HSTROPN #### [facility] [address] [place] [address] Dr. Carmel Tillman EGFR-AF SENEGALESE >60 Normal >=60 [facility] Comment on above: Performed By: #### C MP, HSTROPN #### [facility] [address] [place] [address] Dr. Carmel Tillman EGFR-NON AF SENEGALESE >60 Normal >=60 [facility] Comment on above: Performed By: #### C MP, HSTROPN #### [facility] [address] [place] [address] Dr. Carmel Tillman Glucose [Mass/Vol] 124 mg/dL Critically high 74-106 [facility] Comment on above: Performed By: #### C MP, HSTROPN #### [facility] [address] [place] [address] Dr. Carmel Tillman Potassium [Moles/Vol] 4.1 mmol/L Normal 3.4-5.0 [facility] Comment on above: Performed By: #### C FARAZ, HSTROPN #### [facility] [address] [address] [address] Carmel Tillman Sodium [Moles/Vol] 138 mmol/L Normal 137-145 [facility] Comment on above: Performed By: #### C FARAZ, HSTROPN #### [facility] [address] [address] [address] Carmel Tillman Urea nitrogen [Mass/Vol] 15.0 mg/dL Normal 7.0-17.0 [facility] Comment on above: Performed By: #### C FARAZ, HSTROPN #### [facility] [address] [place] [address] Dr. Carmel Tillman Urea nitrogen/Creatinin e [Mass ratio] 17.9 mg/mg Normal [facility] Comment on above: Performed By: #### C FARAZ HSTROPN #### [facility] [address] [place] [address] Dr. Carmel Tillman SPUTUM GRAM STAINon 02-15-20 COMMENTS NO ORGANISMS OBSERVED Normal [facility] Comment on above: Performed By: #### C FARAZ HSTROPN #### [facility] [address] [place] [address] Dr. Carmel Tillman DIPHTHEROIDS Normal [facility] Comment on above: Performed By: #### C FARAZ, HSTROPN #### [facility] [address] [address] [address] Carmel Tillman EPITHELIALS <25 Normal [facility] Comment on above: Performed By: #### C FARAZ, HSTROPN #### [facility] [address] [place] [address] Dr. Carmel Tillman FUNGAL ELEMENTS Normal [facility] Comment on above: Performed By: #### C FARAZ, HSTROPN #### [facility] [address] [place] [address] Dr. Carmel Tillman GRAM NEG BACILLI Normal [facility] Comment on above: Performed By: #### C MP, HSTROPN #### [facility] [address] [address] [address] Carmel Tillman GRAM NEG DIPPLOCOCCI Normal [facility] Comment on above: Performed By: #### C MP, HSTROPN #### [facility] [address] [address] [address] Carmel Tillman GRAM POS BACILLI Normal [facility] Comment on above: Performed By: #### C MP, HSTROPN #### [facility] [address] [address] [address] Carmel Tillman GRAM POSITIVE COCCI Normal [facility] Comment on above: Performed By: #### C MP, HSTROPN #### [facility] [address] [address] [address] Carmel Tillman WBC (Bld) [#/Vol] 10*3/uL Normal [facility] Comment on above: Performed By: #### C MP, HSTROPN #### [facility] [address] [address] [address] Carmel Tillman XR CHEST 2 Von [...] ISRAEL GROSS Date: 2021-02-14 08:57 Normal [facility] CBC W MANUAL DIFFon 02-14-20 21 ATYPICAL LYMPH # Normal [facility] Comment on above: Performed By: #### P T, PTT #### [facility] [address] [address] [address] Carmel Tillman ATYPICAL LYMPH % Normal [facility] Comment on above: Performed By: #### P T, PTT #### [facility] [address] [place] [address] Dr. Carmel Tillman BAND # 0.4 103/ul Critically high 0.0-0.3 [facility] Comment on above: Performed By: #### P T, PTT #### [facility] [address] [place] [address] Dr. Carmel Tillman BAND % 2 % Normal 0-5 [facility] Comment on above: Performed By: #### P T, PTT #### [facility] [address] [place] [address] Dr. Carmel Tillman BASOM # 0.00 103/ul Normal 0.00-0.10 [facility] Comment on above: Performed By: #### P T, PTT #### [facility] [address] [place] [address] Dr. Carmel Tillman BASOM % 0.0 % Critically low 0.2-2.0 [facility] Comment on above: Performed By: #### P T, PTT #### [facility] [address] [place] [address] Dr. Carmel Tillman BLAST # Normal [facility] Comment on above: Performed By: #### P T, PTT #### [facility] [address] [place] [address] Dr. Carmel Tillman BLAST % Normal [facility] Comment on above: Performed By: #### P T, PTT #### [facility] [address] [place] [address] Dr. Carmel Tillman CORRECTED WBC Normal 4.0-11.0 [facility] Comment on above: Performed By: #### P T, PTT #### [facility] [address] [place] [address] Dr. Carmel Tillman EOS # 0.00 103/ul Normal 0.00-0.70 [facility] Comment on above: Performed By: #### P T, PTT #### [facility] [address] [place] [address] Dr. Carmel Tillman EOS% 0.0 % Critically low 0.9-7.0 [facility] Comment on above: Performed By: #### P T, PTT #### [facility] [address] [place] [address] Dr. Carmel Tillman HCT 37.9 % Normal 36.0-48.0 [facility] Comment on above: Performed By: #### P T, PTT #### [facility] [address] [address] [address] Carmel Tillman HGB 11.9 g/dl Critically low 12.0-16.0 [facility] Comment on above: Performed By: #### P T, PTT #### [facility] [address] [place] [address] Dr. Carmel Tillman LYMPHM # 1.23 103/ul Normal 1.20-3.80 [facility] Comment on above: Performed By: #### P T, PTT #### [facility] [address] [place] [address] Dr. Carmel Tillman LYMPHM% 7.0 % Critically low 20.5-60.0 [facility] Comment on above: Performed By: #### P T, PTT #### [facility] [address] [place] [address] Dr. Camrel Tillman MCH 25.0 pg Critically low 26.7-34.0 [facility] Comment on above: Performed By: #### P T, PTT #### [facility] [address] [place] [address] Dr. Carmel Tillman MCHC 31.4 g/dl Normal 29.9-35.2 [facility] Comment on above: Performed By: #### P T, PTT #### [facility] [address] [place] [address] Dr. Carmel Tillman MCV 79.6 fL Critically low 81.0-99.0 [facility] Comment on above: Performed By: #### P T, PTT #### [facility] [address] [place] [address] Dr. Carmel Tillman METAMYELOCYTE # Normal [facility] Comment on above: Performed By: #### P T, PTT #### [facility] [address] [place] [address] Dr. Carmel Tillman METAMYELOCYTE % Normal [facility] Comment on above: Performed By: #### P T, PTT #### [facility] [address] [place] [address] Dr. Carmel Tillman MONOM# 0.35 103/ul Normal 0.30-0.80 [facility] Comment on above: Performed By: #### P T, PTT #### [facility] [address] [place] [address] Dr. Carmel Tillman MONOM% 2.0 % Normal 1.7-12.0 [facility] Comment on above: Performed By: #### P T, PTT #### [facility] [address] [place] [address] Dr. Carmel Tillman MPV 10.2 fL Normal 9.5-13.5 [facility] Comment on above: Performed By: #### P T, PTT #### [facility] [address] [place] [address] Dr. Carmel Tillman MYELOCYTE # Normal [facility] Comment on above: Performed By: #### P T, PTT #### [facility] [address] [place] [address] Dr. Carmel Tillman MYELOCYTE % Normal [facility] Comment on above: Performed By: #### P T, PTT #### [facility] [address] [place] [address] Dr. Carmel Tillman NRBC Normal [facility] Comment on above: Performed By: #### P T, PTT #### [facility] [address] [place] [address] Dr. Carmel Tillman PLT 174 103/ul Normal 150-450 [facility] Comment on above: Performed By: #### P T, PTT #### [facility] [address] [place] [address] Dr. Carmel Tillman RBC 4.76 106/ul Normal 4.20-5.40 [facility] Comment on above: Performed By: #### P T, PTT #### [facility] [address] [address] [address] Carmel Tillman RDW 17.5 % Critically high 11.0-15.0 [facility] Comment on above: Performed By: #### P T, PTT #### [facility] [address] [address] [address] Carmel Tillman SEG # 15.66 103/ul Critically high 1.40-6.50 [facility] Comment on above: Performed By: #### P T, PTT #### [facility] [address] [address] [address] Carmel Tillman SEG % 89.0 % Critically high 43.0-75.0 [facility] Comment on above: Performed By: #### P T, PTT #### [facility] [address] [address] [address] Carmel Tillman WBC 17.6 103/ul Critically high 4.0-11.0 [facility] Comment on above: Performed By: #### P T, PTT #### [facility] [address] [address] [address] Camrel Tillman POINT OF CARE GLUCOSEon 01-25 Glucose [Mass/Vol] 104 mg/dL Normal 74-106 [facility] Comment on above: Performed By: #### P T, PTT #### [facility] [address] [address] [address] Carmel Tillman Glucose [Mass/Vol] 122 mg/dL Critically high 74-106 [facility] Comment on above: Performed By: #### C MP #### [facility] [address] [address] [address] Carmel Tillman Glucose [Mass/Vol] 122 mg/dL Critically high 74-106 [facility] Comment on above: Performed By: #### P T, PTT #### [facility] [address] [address] [address] Carmel Tillman PROF CHEM 8 (BAS METB)on Anion gap [Moles/Vol] 13.8 mmol/L Normal [facility] Comment on above: Performed By: #### B MP #### [facility] [address] [address] [address] Carmel Tillman Calcium [Mass/Vol] 8.2 mg/dL Critically low 8.4-10.2 [facility] Comment on above: Performed By: #### B MP #### [facility] [address] [address] [address] Carmel Tillman Chloride [Moles/Vol] 105 mmol/L Normal 98-107 [facility] Comment on above: Performed By: #### B MP #### [facility] [address] [address] [address] Carmel Tillman CO2 [Moles/Vol] 22.5 mmol/L Normal 22.0-30.0 [facility] Comment on above: Performed By: #### B MP #### [facility] [address] [address] [address] Carmel Tillman Creatinine [Mass/Vol] 0.81 mg/dL Normal 0.52-1.04 [facility] Comment on above: Performed By: #### B MP #### [facility] [address] [address] [address] Carmel Tillman EGFR-AF SENEGALESE >60 Normal >=60 [facility] Comment on above: Performed By: #### B MP #### [facility] [address] [address] [address] Carmel Tillman EGFR-NON AF SENEGALESE >60 Normal >=60 [facility] Comment on above: Performed By: #### B MP #### [facility] [address] [address] [address] Carmel Tillman Glucose [Mass/Vol] 128 mg/dL Critically high 74-106 [facility] Comment on above: Performed By: #### B MP #### [facility] [address] [address] [address] Carmel Tillman Potassium [Moles/Vol] 4.3 mmol/L Normal 3.4-5.0 [facility] Comment on above: Performed By: #### B MP #### [facility] [address] [place] [address] Dr. Carmel Tillman Sodium [Moles/Vol] 137 mmol/L Normal 137-145 [facility] Comment on above: Performed By: #### B MP #### [facility] [address] [place] [address] Dr. Carmel Tillman Urea nitrogen [Mass/Vol] 14.0 mg/dL Normal 7.0-17.0 [facility] Comment on above: Performed By: #### B MP #### [facility] [address] [place] [address] Dr. Carmel Tillman Urea nitrogen/Creatinin e [Mass ratio] 17.3 mg/mg Normal [facility] Comment on above: Performed By: #### B MP #### [facility] [address] [place] [address] Dr. Carmel Tillman CBC AUTO DIFFon 02-12-2021 BASO # 0.1 103/ul Normal 0.0-0.1 [facility] Comment on above: Performed By: #### P T, PTT #### [facility] [address] [place] [address] Dr. Carmel Tillman Basophils/100 WBC (Bld) 0.3 % Normal 0.2-2.0 [facility] Comment on above: Performed By: #### P T, PTT #### [facility] [address] [place] [address] Dr. Carmel Tillman EO # 0.0 103/ul Normal 0.0-0.7 [facility] Comment on above: Performed By: #### P T, PTT #### [facility] [address] [place] [address] Dr. Carmel Tillman Eosinophils/100 WBC (Bld) 0.0 % Critically low 0.9-7.0 [facility] Comment on above: Performed By: #### P T, PTT #### [facility] [address] [place] [address] Dr. Carmel Tillman Erythrocyte distribution width (RBC) [Ratio] 16.5 % Critically high 11.0-15.0 [facility] Comment on above: Performed By: #### P T, PTT #### [facility] [address] [address] [address] Carmel Tillman Hematocrit (Bld) [Volume fraction] 39.9 % Normal 36.0-48.0 [facility] Comment on above: Performed By: #### P T, PTT #### [facility] [address] [place] [address] Dr. Carmel Tillman Hemoglobin (Bld) [Mass/Vol] 12.7 g/dL Normal 12.0-16.0 [facility] Comment on above: Performed By: #### P T, PTT #### [facility] [address] [place] [address] Dr. Carmel Tillman IG # 0.42 10e3/ul Critically high 0.00-0.03 [facility] Comment on above: Performed By: #### P T, PTT #### [facility] [address] [place] [address] Dr. Carmel Tillman IG % 2.2 % Critically high 0.0-0.5 [facility] Comment on above: Performed By: #### P T, PTT #### [facility] [address] [address] [address] Carmel Tillman LYMPH # 1.4 103/ul Normal 1.2-3.8 [facility] Comment on above: Performed By: #### P T, PTT #### [facility] [address] [place] [address] Dr. Carmel Tillman Lymphocytes/100 WBC (Bld) 7.4 % Critically low 20.5-60.0 [facility] Comment on above: Performed By: #### P T, PTT #### [facility] [address] [place] [address] Dr. Carmel Tillman MANUAL DIFF REQ NO Normal [facility] Comment on above: Performed By: #### P T, PTT #### [facility] [address] [place] [address] Dr. Carmel Tillman MCH (RBC) [Entitic mass] 24.7 pg Critically low 26.7-34.0 [facility] Comment on above: Performed By: #### P T, PTT #### [facility] [address] [place] [address] Dr. Carmel Tillman MCHC (RBC) [Mass/Vol] 31.8 g/dL Normal 29.9-35.2 [facility] Comment on above: Performed By: #### P T, PTT #### [facility] [address] [place] [address] Dr. Carmel Tillman MCV (RBC) [Entitic vol] 77.5 fL Critically low 81.0-99.0 [facility] Comment on above: Performed By: #### P T, PTT #### [facility] [address] [place] [address] Dr. Carmel Tillman MONO # 0.4 103/ul Normal 0.3-0.8 [facility] Comment on above: Performed By: #### P T, PTT #### [facility] [address] [place] [address] Dr. Carmel Tillman Monocytes/100 WBC (Bld) 2.1 % Normal 1.7-12.0 [facility] Comment on above: Performed By: #### P T, PTT #### [facility] [address] [place] [address] Dr. Carmel Tillman NEUT # 16.8 103/ul Critically high 1.4-6.5 [facility] Comment on above: Performed By: #### P T, PTT #### [facility] [address] [place] [address] Dr. Carmel Tillman Neutrophils/100 WBC (Bld) 88.0 % Critically high 43.0-75.0 [facility] Comment on above: Performed By: #### P T, PTT #### [facility] [address] [place] [address] Dr. Carmel Tillman Platelet mean volume (Bld) [Entitic vol] 9.5 fL Normal 9.5-13.5 [facility] Comment on above: Performed By: #### P T, PTT #### [facility] [address] [place] [address] Dr. Carmel Tillman PLT 174 103/ul Normal 150-450 [facility] Comment on above: Performed By: #### P T, PTT #### [facility] [address] [address] [address] Carmel Tillman RBC 5.15 106/ul Normal 4.20-5.40 [facility] Comment on above: Performed By: #### P T, PTT #### [facility] [address] [address] [address] Carmel Tillman WBC 19.1 103/ul Critically high 4.0-11.0 [facility] Comment on above: Performed By: #### P T, PTT #### [facility] [address] [address] [address] Carmel Tillman POINT OF CARE GLUCOSEon 01-25 Glucose [Mass/Vol] 110 mg/dL Critically high 74-106 [facility] Comment on above: Performed By: #### C FARAZ HSTROPN #### [facility] [address] [place] [address] Dr. Carmel Tillman Glucose [Mass/Vol] 99 mg/dL Normal 74-106 [facility] Comment on above: Performed By: #### C MP #### [facility] [address] [place] [address] Dr. Carmel Tillman Glucose [Mass/Vol] 97 mg/dL Normal 74-106 [facility] Comment on above: Performed By: #### P T, PTT #### [facility] [address] [address] [address] Carmel Tillman Glucose [Mass/Vol] 88 mg/dL Normal 74-106 [facility] Comment on above: Performed By: #### C FARAZ, HSTROPN #### [facility] [address] [address] [address] Carmel Tillman PROF CHEM 8 (BAS METB)on Anion gap [Moles/Vol] 15.4 mmol/L Normal [facility] Comment on above: Performed By: #### B MP #### [facility] [address] [place] [address] Dr. Carmel Tillman Calcium [Mass/Vol] 8.0 mg/dL Critically low 8.4-10.2 [facility] Comment on above: Performed By: #### B MP #### [facility] [address] [place] [address] Dr. Carmel Tillman Chloride [Moles/Vol] 105 mmol/L Normal 98-107 [facility] Comment on above: Performed By: #### B MP #### [facility] [address] [address] [address] Carmel Tillman CO2 [Moles/Vol] 21.3 mmol/L Critically low 22.0-30.0 [facility] Comment on above: Performed By: #### B MP #### [facility] [address] [place] [address] Dr. Carmel Tillman Creatinine [Mass/Vol] 0.90 mg/dL Normal 0.52-1.04 [facility] Comment on above: Performed By: #### B MP #### [facility] [address] [address] [address] Carmel Tillman EGFR-AF SENEGALESE >60 Normal >=60 [facility] Comment on above: Performed By: #### B MP #### [facility] [address] [place] [address] Dr. Carmel Tillman EGFR-NON AF SENEGALESE >60 Normal >=60 [facility] Comment on above: Performed By: #### B MP #### [facility] [address] [address] [address] Carmel Tillman Glucose [Mass/Vol] 128 mg/dL Critically high 74-106 [facility] Comment on above: Performed By: #### B MP #### [facility] [address] [address] [address] Carmel Tillman Potassium [Moles/Vol] 3.7 mmol/L Normal 3.4-5.0 [facility] Comment on above: Performed By: #### B MP #### [facility] [address] [place] [address] Dr. Carmel Tillman Sodium [Moles/Vol] 138 mmol/L Normal 137-145 [facility] Comment on above: Performed By: #### B MP #### [facility] [address] [address] [address] Carmel Tillman Urea nitrogen [Mass/Vol] 17.0 mg/dL Normal 7.0-17.0 [facility] Comment on above: Performed By: #### B MP #### [facility] [address] [address] [address] Carmel Tillman Urea nitrogen/Creatinin e [Mass ratio] 18.9 mg/mg Normal [facility] Comment on above: Performed By: #### B MP #### [facility] [address] [address] [address] Carmel Tillman CBC W MANUAL DIFFon 02-12-20 ATYPICAL LYMPH # 0.18 103/ul Normal [facility] Comment on above: Performed By: #### C MP, HSTROPN #### [facility] [address] [address] [address] Carmel Tillman ATYPICAL LYMPH % 1 % Normal [facility] Comment on above: Performed By: #### C MP, HSTROPN #### [facility] [address] [address] [address] Carmel Tillman BAND # 0.0 103/ul Normal 0.0-0.3 [facility] Comment on above: Performed By: #### C MP, HSTROPN #### [facility] [address] [address] [address] Carmel Tillman BAND % 0 % Normal 0-5 [facility] Comment on above: Performed By: #### C MP, HSTROPN #### [facility] [address] [address] [address] Carmel Tillman BASOM # 0.00 103/ul Normal 0.00-0.10 [facility] Comment on above: Performed By: #### C MP, HSTROPN #### [facility] [address] [address] [address] Carmel Tillman BASOM % 0.0 % Critically low 0.2-2.0 [facility] Comment on above: Performed By: #### C MP, HSTROPN #### [facility] [address] [place] [address] Dr. Carmel Tillman BLAST # Normal [facility] Comment on above: Performed By: #### C FARAZ, HSTROPN #### [facility] [address] [address] [address] Carmel Tillman BLAST % Normal [facility] Comment on above: Performed By: #### C MP, HSTROPN #### [facility] [address] [address] [address] Carmel Tillman CORRECTED WBC Normal 4.0-11.0 [facility] Comment on above: Performed By: #### C FARAZ, HSTROPN #### [facility] [address] [place] [address] Dr. Carmel Tillman EOS # 0.00 103/ul Normal 0.00-0.70 [facility] Comment on above: Performed By: #### C FARAZ, HSTROPN #### [facility] [address] [place] [address] Dr. Carmel Tillman EOS% 0.0 % Critically low 0.9-7.0 [facility] Comment on above: Performed By: #### C FARAZ, HSTROPN #### [facility] [address] [place] [address] Dr. Carmel Tillman HCT 43.4 % Normal 36.0-48.0 [facility] Comment on above: Performed By: #### C FARAZ, HSTROPN #### [facility] [address] [place] [address] Dr. Carmel Tillman HGB 13.7 g/dl Normal 12.0-16.0 [facility] Comment on above: Performed By: #### C MP, HSTROPN #### [facility] [address] [place] [address] Dr. Carmel Tillman LYMPHM # 1.06 103/ul Critically low 1.20-3.80 [facility] Comment on above: Performed By: #### C FARAZ, HSTROPN #### [facility] [address] [address] [address] Carmel Tillman LYMPHM% 6.0 % Critically low 20.5-60.0 [facility] Comment on above: Performed By: #### C MP, HSTROPN #### [facility] [address] [place] [address] Dr. Carmel Tillman MCH 24.6 pg Critically low 26.7-34.0 [facility] Comment on above: Performed By: #### C MP, HSTROPN #### [facility] [address] [place] [address] Dr. Carmel Tillman MCHC 31.6 g/dl Normal 29.9-35.2 [facility] Comment on above: Performed By: #### C MP, HSTROPN #### [facility] [address] [place] [address] Dr. Carmel Tillman MCV 77.9 fL Critically low 81.0-99.0 [facility] Comment on above: Performed By: #### C MP, HSTROPN #### [facility] [address] [place] [address] Dr. Carmel Tillman METAMYELOCYTE # Normal [facility] Comment on above: Performed By: #### C MP, HSTROPN #### [facility] [address] [place] [address] Dr. Carmel Tillman METAMYELOCYTE % Normal [facility] Comment on above: Performed By: #### C MP, HSTROPN #### [facility] [address] [address] [address] Carmel Tillman MONOM# 0.53 103/ul Normal 0.30-0.80 [facility] Comment on above: Performed By: #### C MP, HSTROPN #### [facility] [address] [place] [address] Dr. Carmel Tillman MONOM% 3.0 % Normal 1.7-12.0 [facility] Comment on above: Performed By: #### C MP, HSTROPN #### [facility] [address] [place] [address] Dr. Carmel Tillman MPV 10.2 fL Normal 9.5-13.5 [facility] Comment on above: Performed By: #### C MP, HSTROPN #### [facility] [address] [address] [address] Carmel Tillman MYELOCYTE # Normal [facility] Comment on above: Performed By: #### C MP, HSTROPN #### [facility] [address] [address] [address] Carmel Tillman MYELOCYTE % Normal [facility] Comment on above: Performed By: #### C MP, HSTROPN #### [facility] [address] [address] [address] Carmel Tillman NRBC Normal [facility] Comment on above: Performed By: #### C MP, HSTROPN #### [facility] [address] [place] [address] Dr. Carmel Tillman PLT 213 103/ul Normal 150-450 [facility] Comment on above: Performed By: #### C MP, HSTROPN #### [facility] [address] [address] [address] Carmel Tillman RBC 5.57 106/ul Critically high 4.20-5.40 [facility] Comment on above: Performed By: #### C MP, HSTROPN #### [facility] [address] [place] [address] Dr. Carmel Tillman RDW 17.2 % Critically high 11.0-15.0 [facility] Comment on above: Performed By: #### C MP, HSTROPN #### [facility] [address] [address] [address] Carmel Tillman SEG # 15.84 103/ul Critically high 1.40-6.50 [facility] Comment on above: Performed By: #### C MP, HSTROPN #### [facility] [address] [address] [address] Carmel Tillman SEG % 90.0 % Critically high 43.0-75.0 [facility] Comment on above: Performed By: #### C FARAZ HSTROPN #### [facility] [address] [place], [place] [address] Dr. Carmel Tillman WBC 17.6 103/ul Critically high 4.0-11.0 [facility] Comment on above: Performed By: #### C FARAZ HSTROPN #### [facility] [address] [place], [place] [address] Dr. Carmel Tillman CTA CHEST WO W [...] HUSAM GARSIA Date: 2021-02-11 19:14 Normal [facility] CULTURE BLOODon 02-11-2021 Microscopic examination of blood, culture Culture Observations: NO GROWTH AT 5 DAYS. Normal [facility] Comment on above: Performed By: #### P T, PTT #### [facility] [address] [address] [address] Cramel Tillman Microscopic examination of blood, culture Culture Observations: NO GROWTH AT 5 DAYS. Normal [facility] Comment on above: Performed By: #### P T, PTT #### [facility] [address] [address] [address] Carmel Tillman [facility]24 SARS-CoV-2 (COVID-19) RNA EDILBERTO+probe Ql (Unsp spec) Not detected Normal NOT DETECTED [facility] Comment on above: Result Comment: This test is not yet approved or cleared by the [place] FDA. When there are no FDA-approved or cleared tests available, and other criteria are met, FDA can make tests available under an emergency access mechanism called an Emergency Use Authorization (EUA). The EUA for this test is supported by the Safety And Skill Based Pay Manager of Health and Human Service's (HHS's) declaration [...] SARS-CoV-2. Performed By: #### C MP #### [facility] [address] [place] [address] Dr. Carmel Tillman PROF 14(COMP METB)on 021 Albumin [Mass/Vol] 2.6 g/dL Critically low 3.5-5.0 [facility] Comment on above: Performed By: #### C FARAZ HSTROPN #### [facility] [address] [place] [address] Dr. Carmel Tillman Albumin/Globulin [Mass ratio] 0.7 {ratio} Normal [facility] Comment on above: Performed By: #### C FARAZ HSTROPN #### [facility] [address] [address] [address] Carmel Tillman ALP [Catalytic activity/Vol] 40 U/L Normal 38-126 [facility] Comment on above: Performed By: #### C MP, HSTROPN #### [facility] [address] [address] [address] Carmel Tillman ALT [Catalytic activity/Vol] 73 U/L Critically high 9-52 [facility] Comment on above: Performed By: #### C MP, HSTROPN #### [facility] [address] [address] [address] Carmel Tillman Anion gap [Moles/Vol] 14.4 mmol/L Normal [facility] Comment on above: Performed By: #### C MP, HSTROPN #### [facility] [address] [place] [address] Dr. Carmel Tillman AST [Catalytic activity/Vol] 19 U/L Normal 14-36 [facility] Comment on above: Performed By: #### C MP, HSTROPN #### [facility] [address] [address] [address] Carmel Tillman Bilirubin [Mass/Vol] 0.7 mg/dL Normal 0.2-1.3 [facility] Comment on above: Performed By: #### C MP, HSTROPN #### [facility] [address] [address] [address] Carmel Tillman Calcium [Mass/Vol] 8.3 mg/dL Critically low 8.4-10.2 [facility] Comment on above: Performed By: #### C MP, HSTROPN #### [facility] [address] [address] [address] Carmel Tillman Chloride [Moles/Vol] 106 mmol/L Normal 98-107 [facility] Comment on above: Performed By: #### C MP, HSTROPN #### [facility] [address] [address] [address] Carmel Tillman CO2 [Moles/Vol] 22.9 mmol/L Normal 22.0-30.0 [facility] Comment on above: Performed By: #### C MP, HSTROPN #### [facility] [address] [address] [address] Carmel Tillman Creatinine [Mass/Vol] 0.70 mg/dL Normal 0.52-1.04 [facility] Comment on above: Performed By: #### C MP, HSTROPN #### [facility] [address] [place] [address] Dr. Carmel Tillman EGFR-AF SENEGALESE >60 Normal >=60 [facility] Comment on above: Performed By: #### C MP, HSTROPN #### [facility] [address] [place] [address] Dr. Carmel Tillman EGFR-NON AF SENEGALESE >60 Normal >=60 [facility] Comment on above: Performed By: #### C MP, HSTROPN #### [facility] [address] [place] [address] Dr. Carmel Tillman Globulin (S) [Mass/Vol] 3.5 g/dL Normal [facility] Comment on above: Performed By: #### C MP, HSTROPN #### [facility] [address] [place] [address] Dr. Carmel Tillman Glucose [Mass/Vol] 98 mg/dL Normal 74-106 [facility] Comment on above: Performed By: #### C MP, HSTROPN #### [facility] [address] [place] [address] Dr. Carmel Tillman Potassium [Moles/Vol] 4.3 mmol/L Normal 3.4-5.0 [facility] Comment on above: Performed By: #### C MP, HSTROPN #### [facility] [address] [place] [address] Dr. Carmel Tillman Protein [Mass/Vol] 6.1 g/dL Normal 6.1-8.2 [facility] Comment on above: Performed By: #### C MP, HSTROPN #### [facility] [address] [place] [address] Dr. Carmel Tillman Sodium [Moles/Vol] 139 mmol/L Normal 137-145 [facility] Comment on above: Performed By: #### C FARAZ HSTROPN #### [facility] [address] [place] [address] Dr. Carmel Tillman Urea nitrogen [Mass/Vol] 21.0 mg/dL Critically high 7.0-17.0 [facility] Comment on above: Performed By: #### C FARAZ, HSTROPN #### [facility] [address] [place] [address] Dr. Carmel Tillman Urea nitrogen/Creatinin e [Mass ratio] 30.0 mg/mg Normal [facility] Comment on above: Performed By: #### C FARAZ HSTROPN #### [facility] [address] [place] [address] Dr. Carmel Tillman TROPONIN, HIGH SENSITIVITYon 02-11-2021 HSTROP 8.3 pg/mL Normal 4.0-35.5 [facility] Comment on above: Result Comment: CUT- OFF POINTS HAVE BEEN ESTABLISHED BASED ON THE FOURTH UNIVERSAL DEFINITIONS OF MYOCARDIAL INFARCTION. THE UPPER REFERENCE LIMIT (URL) OF TROPONIN, DEFINED THE 99TH PERCENTILE OF cTnI DISTRIBUTION IN A REFERENCE POPULATION, HAS BEEN CONFIRMED THE DECISION THRESHOLD FOR [place] DIAGNOSIS. Performed By: #### C FARAZ HSTROPN #### [facility] [address] [place] [address] Dr. Carmel Tillman CBC W MANUAL DIFFon 02-01-20 ATYPICAL LYMPH # 0.13 103/ul Normal [facility] Comment on above: Performed By: #### C MP #### [facility] [address] [place] [address] Dr. Carmel Tillman ATYPICAL LYMPH % 1 % Normal [facility] Comment on above: Performed By: #### C MP #### [facility] [address] [place] [address] Dr. Carmel Tillman BAND # 0.3 103/ul Normal 0.0-0.3 [facility] Comment on above: Performed By: #### C MP #### [facility] [address] [place] [address] Dr. Carmel Tillman BAND % 2 % Normal 0-5 [facility] Comment on above: Performed By: #### C MP #### [facility] [address] [place] [address] Dr. Carmel Tillman BASOM # 0.00 103/ul Normal 0.00-0.10 [facility] Comment on above: Performed By: #### C MP #### [facility] [address] [place] [address] Dr. Carmel Tillman BASOM % 0.0 % Critically low 0.2-2.0 [facility] Comment on above: Performed By: #### C MP #### [facility] [address] [place] [address] Dr. Carmel Tillman BLAST # Normal [facility] Comment on above: Performed By: #### C MP #### [facility] [address] [place] [address] Dr. Carmel Tillman BLAST % Normal [facility] Comment on above: Performed By: #### C MP #### [facility] [address] [place] [address] Dr. Carmel Tillman CORRECTED WBC Normal 4.0-11.0 [facility] Comment on above: Performed By: #### C MP #### [facility] [address] [place] [address] Dr. Carmel Tillman EOS # 0.00 103/ul Normal 0.00-0.70 [facility] Comment on above: Performed By: #### C MP #### [facility] [address] [place] [address] Dr. Carmel Tillman EOS% 0.0 % Critically low 0.9-7.0 [facility] Comment on above: Performed By: #### C MP #### [facility] [address] [place] [address] Dr. Carmel Tillman HCT 41.0 % Normal 36.0-48.0 [facility] Comment on above: Performed By: #### C MP #### [facility] [address] [place] [address] Dr. Carmel Tillman HGB 12.8 g/dl Normal 12.0-16.0 [facility] Comment on above: Performed By: #### C MP #### [facility] [address] [place] [address] Dr. Carmel Tillman LYMPHM # 1.88 103/ul Normal 1.20-3.80 [facility] Comment on above: Performed By: #### C MP #### [facility] [address] [place] [address] Dr. Carmel Tillman LYMPHM% 15.0 % Critically low 20.5-60.0 [facility] Comment on above: Performed By: #### C MP #### [facility] [address] [place] [address] Dr. Carmel Tillman MCH 25.0 pg Critically low 26.7-34.0 [facility] Comment on above: Performed By: #### C MP #### [facility] [address] [place] [address] Dr. Carmel Tillman MCHC 31.2 g/dl Normal 29.9-35.2 [facility] Comment on above: Performed By: #### C MP #### [facility] [address] [place] [address] Dr. Carmel Tillman MCV 80.2 fL Critically low 81.0-99.0 [facility] Comment on above: Performed By: #### C MP #### [facility] [address] [place] [address] Dr. Carmel Tillman METAMYELOCYTE # Normal [facility] Comment on above: Performed By: #### C MP #### [facility] [address] [place] [address] Dr. Carmel Tillman METAMYELOCYTE % Normal [facility] Comment on above: Performed By: #### C MP #### [facility] [address] [place] [address] Dr. Carmel Tillman MONOM# 0.25 103/ul Critically low 0.30-0.80 [facility] Comment on above: Performed By: #### C MP #### [facility] [address] [place] [address] Dr. Carmel Tillman MONOM% 2.0 % Normal 1.7-12.0 [facility] Comment on above: Performed By: #### C MP #### [facility] [address] [address] [address] Carmel Tillman MPV 12.4 fL Normal 9.5-13.5 [facility] Comment on above: Performed By: #### C MP #### [facility] [address] [place] [address] Dr. Carmel Tillman MYELOCYTE # Normal [facility] Comment on above: Performed By: #### C MP #### [facility] [address] [place] [address] Dr. Carmel Tillman MYELOCYTE % Normal [facility] Comment on above: Performed By: #### C MP #### [facility] [address] [place] [address] Dr. Carmel Tillman NRBC Normal [facility] Comment on above: Performed By: #### C MP #### [facility] [address] [place] [address] Dr. Carmel Tillman PLT 209 103/ul Normal 150-450 [facility] Comment on above: Performed By: #### C MP #### [facility] [address] [place] [address] Dr. Carmel Tillman RBC 5.11 106/ul Normal 4.20-5.40 [facility] Comment on above: Performed By: #### C MP #### [facility] [address] [place] [address] Dr. Carmel Tillman RDW 16.9 % Critically high 11.0-15.0 [facility] Comment on above: Performed By: #### C MP #### [facility] [address] [place] [address] Dr. Carmel Tillman SEG # 10.00 103/ul Critically high 1.40-6.50 [facility] Comment on above: Performed By: #### C MP #### [facility] [address] [place] [address] Dr. Carmel Tillman SEG % 80.0 % Critically high 43.0-75.0 [facility] Comment on above: Performed By: #### C MP #### [facility] [address] [place] [address] Dr. Carmel Tillman WBC 12.5 103/ul Critically high 4.0-11.0 [facility] Comment on above: Performed By: #### C MP #### [facility] [address] [place] [address] Dr. Carmel Tillman MAGNESIUMon 01-31-2021 Magnesium [Mass/Vol] 2.7 mg/dL Critically high 1.6-2.3 [facility] Comment on above: Performed By: #### C MP #### [facility] [address] [place] [address] Dr. Carmel Tillman PROF CHEM 8 (BAS METB)on Anion gap [Moles/Vol] 16.6 mmol/L Normal [facility] Comment on above: Performed By: #### C MP #### [facility] [address] [place] [address] Dr. Carmel Tillman Calcium [Mass/Vol] 8.4 mg/dL Normal 8.4-10.2 [facility] Comment on above: Performed By: #### C MP #### [facility] [address] [place] [address] Dr. Carmel Tillman Chloride [Moles/Vol] 108 mmol/L Critically high 98-107 [facility] Comment on above: Performed By: #### C MP #### [facility] [address] [place] [address] Dr. Carmel Tillman CO2 [Moles/Vol] 20.9 mmol/L Critically low 22.0-30.0 [facility] Comment on above: Performed By: #### C MP #### [facility] [address] [place] [address] Dr. Carmel Tillman Creatinine [Mass/Vol] 0.91 mg/dL Normal 0.52-1.04 [facility] Comment on above: Performed By: #### C MP #### [facility] [address] [place] [address] Dr. Carmel Tillman EGFR-AF SENEGALESE >60 Normal >=60 [facility] Comment on above: Performed By: #### C MP #### [facility] [address] [place] [address] Dr. Carmel Tillman EGFR-NON AF SENEGALESE >60 Normal >=60 [facility] Comment on above: Performed By: #### C MP #### [facility] [address] [address] [address] Carmel Tillman Glucose [Mass/Vol] 132 mg/dL Critically high 74-106 [facility] Comment on above: Performed By: #### C MP #### [facility] [address] [place] [address] Dr. Carmel Tillman Potassium [Moles/Vol] 4.5 mmol/L Normal 3.4-5.0 [facility] Comment on above: Performed By: #### C MP #### [facility] [address] [place] [address] Dr. Carmel Tillman Sodium [Moles/Vol] 141 mmol/L Normal 137-145 [facility] Comment on above: Performed By: #### C MP #### [facility] [address] [place] [address] Dr. Carmel Tillman Urea nitrogen [Mass/Vol] 30.0 mg/dL Critically high 7.0-17.0 [facility] Comment on above: Performed By: #### C MP #### [facility] [address] [place] [address] Dr. Carmel Tillman Urea nitrogen/Creatinin e [Mass ratio] 33.0 mg/mg Normal [facility] Comment on above: Performed By: #### C MP #### [facility] [address] [place] [address] Dr. Carmel Tillman BNPon 01-27-2021 Natriuretic peptide B (Bld) [Mass/Vol] 38.0 pg/mL Normal <=450.0 [facility] Comment on above: Performed By: #### P T, PTT #### [facility] [address] [place] [address] Dr. Carmel Tillman CBC AUTO DIFFon 01-27-2021 BASO # 0.0 103/ul Normal 0.0-0.1 [facility] Comment on above: Performed By: #### C FARAZ, HSTROPN #### [facility] [address] [place] [address] Dr. Carmel Tillman Basophils/100 WBC (Bld) 0.3 % Normal 0.2-2.0 [facility] Comment on above: Performed By: #### C MP, HSTROPN #### [facility] [address] [place] [address] Dr. Carmel Tillman EO # 0.0 103/ul Normal 0.0-0.7 [facility] Comment on above: Performed By: #### C FARAZ, HSTROPN #### [facility] [address] [place] [address] Dr. Carmel Tillman Eosinophils/100 WBC (Bld) 0.0 % Critically low 0.9-7.0 [facility] Comment on above: Performed By: #### C FARAZ, HSTROPN #### [facility] [address] [place] [address] Dr. Carmel Tillman Erythrocyte distribution width (RBC) [Ratio] 17.3 % Critically high 11.0-15.0 [facility] Comment on above: Performed By: #### C FARAZ, HSTROPN #### [facility] [address] [place] [address] Dr. Carmel Tillman Hematocrit (Bld) [Volume fraction] 45.4 % Normal 36.0-48.0 [facility] Comment on above: Performed By: #### C MP, HSTROPN #### [facility] [address] [place] [address] Dr. Carmel Tillman Hemoglobin (Bld) [Mass/Vol] 14.3 g/dL Normal 12.0-16.0 [facility] Comment on above: Performed By: #### C MP, HSTROPN #### [facility] [address] [place] [address] Dr. Carmel Tillman IG # 0.07 10e3/ul Critically high 0.00-0.03 [facility] Comment on above: Performed By: #### C MP, HSTROPN #### [facility] [address] [place] [address] Dr. Carmel Tillman IG % 0.8 % Critically high 0.0-0.5 [facility] Comment on above: Performed By: #### C MP, HSTROPN #### [facility] [address] [place] [address] Dr. Carmel Tillman LYMPH # 2.2 103/ul Normal 1.2-3.8 [facility] Comment on above: Performed By: #### C MP, HSTROPN #### [facility] [address] [place] [address] Dr. Carmel Tillman Lymphocytes/100 WBC (Bld) 25.4 % Normal 20.5-60.0 [facility] Comment on above: Performed By: #### C MP, HSTROPN #### [facility] [address] [place] [address] Dr. Carmel Tillman MANUAL DIFF REQ NO Normal [facility] Comment on above: Performed By: #### C MP, HSTROPN #### [facility] [address] [place] [address] Dr. Carmel Tillman MCH (RBC) [Entitic mass] 24.7 pg Critically low 26.7-34.0 [facility] Comment on above: Performed By: #### C MP, HSTROPN #### [facility] [address] [place] [address] Dr. Carmel Tillman MCHC (RBC) [Mass/Vol] 31.5 g/dL Normal 29.9-35.2 [facility] Comment on above: Performed By: #### C MP, HSTROPN #### [facility] [address] [place] [address] Dr. Carmel Tillman MCV (RBC) [Entitic vol] 78.3 fL Critically low 81.0-99.0 [facility] Comment on above: Performed By: #### C MP, HSTROPN #### [facility] [address] [place] [address] Dr. Carmel Tillman MONO # 0.2 103/ul Critically low 0.3-0.8 [facility] Comment on above: Performed By: #### C MP, HSTROPN #### [facility] [address] [place] [address] Dr. Carmel Tillman Monocytes/100 WBC (Bld) 2.6 % Normal 1.7-12.0 [facility] Comment on above: Performed By: #### C MP, HSTROPN #### [facility] [address] [place] [address] Dr. Carmel Tillman NEUT # 6.2 103/ul Normal 1.4-6.5 [facility] Comment on above: Performed By: #### C MP, HSTROPN #### [facility] [address] [place] [address] Dr. Carmel Tillman Neutrophils/100 WBC (Bld) 70.9 % Normal 43.0-75.0 [facility] Comment on above: Performed By: #### C MP, HSTROPN #### [facility] [address] [place] [address] Dr. Carmel Tillman Platelet mean volume (Bld) [Entitic vol] 10.2 fL Normal 9.5-13.5 [facility] Comment on above: Performed By: #### C MP, HSTROPN #### [facility] [address] [place] [address] Dr. Carmel Tillman PLT 219 103/ul Normal 150-450 [facility] Comment on above: Performed By: #### C MP, HSTROPN #### [facility] [address] [place] [address] Dr. Carmel Tillman RBC 5.80 106/ul Critically high 4.20-5.40 [facility] Comment on above: Performed By: #### C MP, HSTROPN #### [facility] [address] [place] [address] Dr. Carmel Tillman WBC 8.7 103/ul Normal 4.0-11.0 [facility] Comment on above: Performed By: #### C MP, TROPN #### [facility] [address] [address] [address] Carmel Tillman CTA CHEST WO W [...] ARIELLA FISCHER Date: 2021-01-27 19:01 Normal [facility] Covid-19 PCR (CVDTB)on SARS-CoV-2 (COVID-19) RNA EDILBERTO+probe Ql (Unsp spec) Detected Critically abnormal NOT DETECTED [facility] Comment on above: Result Comment: This test is not yet approved or cleared by the [place] FDA. When there are no FDA-approved or cleared tests available, and other criteria are met, FDA can make tests available under an emergency access mechanism called an Emergency Use Authorization (EUA). The EUA for this test is supported by the [place] of Health and Human Service's declaration that [...] used). Performed By: #### C VDTBH #### [facility] [address] [place] [address] Dr. Carmel Tillman PROF 14(COMP METB)on 021 Albumin [Mass/Vol] 2.8 g/dL Critically low 3.5-5.0 [facility] Comment on above: Performed By: #### P T, PTT #### [facility] [address] [place] [address] Dr. Carmel Tillman Albumin/Globulin [Mass ratio] 0.6 {ratio} Normal [facility] Comment on above: Performed By: #### P T, PTT #### [facility] [address] [place] [address] Dr. Carmel Tillman ALP [Catalytic activity/Vol] 55 U/L Normal 38-126 [facility] Comment on above: Performed By: #### P T, PTT #### [facility] [address] [place] [address] Dr. Carmel Tillman ALT [Catalytic activity/Vol] 69 U/L Critically high 9-52 [facility] Comment on above: Performed By: #### P T, PTT #### [facility] [address] [address] [address] Carmel Tillman Anion gap [Moles/Vol] 12.7 mmol/L Normal [facility] Comment on above: Performed By: #### P T, PTT #### [facility] [address] [address] [address] Carmel Tillman AST [Catalytic activity/Vol] 39 U/L Critically high 14-36 [facility] Comment on above: Performed By: #### P T, PTT #### [facility] [address] [place] [address] Dr. Carmel Tillman Bilirubin [Mass/Vol] 0.6 mg/dL Normal 0.2-1.3 [facility] Comment on above: Performed By: #### P T, PTT #### [facility] [address] [place] [address] Dr. Carmel Tillman Calcium [Mass/Vol] 8.5 mg/dL Normal 8.4-10.2 [facility] Comment on above: Performed By: #### P T, PTT #### [facility] [address] [place] [address] Dr. Carmel Tillman Chloride [Moles/Vol] 101 mmol/L Normal 98-107 [facility] Comment on above: Performed By: #### P T, PTT #### [facility] [address] [place] [address] Dr. Carmel Tillman CO2 [Moles/Vol] 26.9 mmol/L Normal 22.0-30.0 [facility] Comment on above: Performed By: #### P T, PTT #### [facility] [address] [place] [address] Dr. Carmel Tillman Creatinine [Mass/Vol] 1.05 mg/dL Critically high 0.52-1.04 [facility] Comment on above: Performed By: #### P T, PTT #### [facility] [address] [place] [address] Dr. Carmel Tillman EGFR-AF SENEGALESE >60 Normal >=60 [facility] Comment on above: Performed By: #### P T, PTT #### [facility] [address] [address] [address] Carmel Tillman EGFR-NON AF SENEGALESE 59 mL/min/1.73m2 Critically low >=60 [facility] Comment on above: Performed By: #### P T, PTT #### [facility] [address] [address] [address] Carmel Tillman Globulin (S) [Mass/Vol] 4.5 g/dL Normal [facility] Comment on above: Performed By: #### P T, PTT #### [facility] [address] [place] [address] Dr. Carmel Tillman Glucose [Mass/Vol] 90 mg/dL Normal 74-106 [facility] Comment on above: Performed By: #### P T, PTT #### [facility] [address] [place] [address] Dr. Carmel Tillman Potassium [Moles/Vol] 3.6 mmol/L Normal 3.4-5.0 [facility] Comment on above: Performed By: #### P T, PTT #### [facility] [address] [place] [address] Dr. Carmel Tillman Protein [Mass/Vol] 7.3 g/dL Normal 6.1-8.2 [facility] Comment on above: Performed By: #### P T, PTT #### [facility] [address] [place] [address] Dr. Carmel Tillman Sodium [Moles/Vol] 137 mmol/L Normal 137-145 [facility] Comment on above: Performed By: #### P T, PTT #### [facility] [address] [place] [address] Dr. Carmel Tillman Urea nitrogen [Mass/Vol] 14.0 mg/dL Normal 7.0-17.0 [facility] Comment on above: Performed By: #### P T, PTT #### [facility] [address] [place] [address] Dr. Carmel Tillman Urea nitrogen/Creatinin e [Mass ratio] 13.3 mg/mg Normal [facility] Comment on above: Performed By: #### P T, PTT #### [facility] [address] [place] [address] Dr. Carmel Tillman PROTIMEon 01-27-2021 INR Coag (PPP) [Relative time] 0.96 {INR} Normal [facility] Comment on above: Performed By: #### P T, PTT #### [facility] [address] [place] [address] Dr. Carmel Tillman INR GUIDELINES SEE BELOW Normal [facility] Comment on above: Result Comment: CHRIS RED INR: 2.0 - 3.0 CONDITIONS NOT LISTED BELOW 2.5 - 3.5 FOR PROSTHETIC HEART VALVE REPLACEMENT 2.5 - 3.5 RECURRENT THROMBOSIS Performed By: #### P T, PTT #### [facility] [address] [place] [address] Dr. Carmel Tillman PT Coag (PPP) [Time] 10.4 s Normal 9.0-11.6 [facility] Comment on above: Performed By: #### P T, PTT #### [facility] [address] [place] [address] Dr. Carmel Tillman PTTon 01-27-2021 aPTT Coag (Bld) [Time] 25.0 s Normal 22.3-36.2 [facility] Comment on above: Performed By: #### P T, PTT #### [facility] [address] [place] [address] Dr. Carmel Tillman TROPONIN, HIGH SENSITIVITYon 01-27-2021 HSTROP 6.6 pg/mL Normal 4.0-35.5 [facility] Comment on above: Result Comment: CUT- OFF POINTS HAVE BEEN ESTABLISHED BASED ON THE FOURTH UNIVERSAL DEFINITIONS OF MYOCARDIAL INFARCTION. THE UPPER REFERENCE LIMIT (URL) OF TROPONIN, DEFINED THE 99TH PERCENTILE OF cTnI DISTRIBUTION IN A REFERENCE POPULATION, HAS BEEN CONFIRMED THE DECISION THRESHOLD FOR [place] DIAGNOSIS. Performed By: #### P T, PTT #### [facility] [address] [place] [address] Dr. Carmel Tillman BNPon 01-21-2021 Natriuretic peptide B (Bld) [Mass/Vol] 50.0 pg/mL Normal <=450.0 [facility] Comment on above: Performed By: #### C MP, HSTROPN #### [facility] [address] [place] [address] Dr. Carmel Tillman CBC AUTO DIFFon 01-21-2021 BASO # 0.1 103/ul Normal 0.0-0.1 [facility] Comment on above: Performed By: #### C BC #### [facility] [address] [place] [address] Dr. Carmel Tillman Basophils/100 WBC (Bld) 0.4 % Normal 0.2-2.0 [facility] Comment on above: Performed By: #### C BC #### [facility] [address] [place] [address] Dr. Carmel Tillman EO # 0.1 103/ul Normal 0.0-0.7 [facility] Comment on above: Performed By: #### C BC #### [facility] [address] [place] [address] Dr. Carmel Tillman Eosinophils/100 WBC (Bld) 0.9 % Normal 0.9-7.0 [facility] Comment on above: Performed By: #### C BC #### [facility] [address] [place] [address] Dr. Carmel Tillman Erythrocyte distribution width (RBC) [Ratio] 16.5 % Critically high 11.0-15.0 [facility] Comment on above: Performed By: #### C BC #### [facility] [address] [place] [address] Dr. Carmel Tillman Hematocrit (Bld) [Volume fraction] 41.4 % Normal 36.0-48.0 [facility] Comment on above: Performed By: #### C BC #### [facility] [address] [place] [address] Dr. Carmel Tillman Hemoglobin (Bld) [Mass/Vol] 13.1 g/dL Normal 12.0-16.0 [facility] Comment on above: Performed By: #### C BC #### [facility] [address] [address] [address] Carmel Tillman IG # 0.23 10e3/ul Critically high 0.00-0.03 [facility] Comment on above: Performed By: #### C BC #### [facility] [address] [address] [address] Carmel Tillman IG % 2.0 % Critically high 0.0-0.5 [facility] Comment on above: Performed By: #### C BC #### [facility] [address] [address] [address] Carmel Tillman LYMPH # 3.6 103/ul Normal 1.2-3.8 [facility] Comment on above: Performed By: #### C BC #### [facility] [address] [place] [address] Dr. Carmel Tillman Lymphocytes/100 WBC (Bld) 30.8 % Normal 20.5-60.0 [facility] Comment on above: Performed By: #### C BC #### [facility] [address] [place] [address] Dr. aCrmel Tillman MANUAL DIFF REQ NO Normal [facility] Comment on above: Performed By: #### C BC #### [facility] [address] [place] [address] Dr. Carmel Tillman MCH (RBC) [Entitic mass] 24.7 pg Critically low 26.7-34.0 [facility] Comment on above: Performed By: #### C BC #### [facility] [address] [place] [address] Dr. Carmel Tillman MCHC (RBC) [Mass/Vol] 31.6 g/dL Normal 29.9-35.2 [facility] Comment on above: Performed By: #### C BC #### [facility] [address] [place] [address] Dr. Carmel Tillman MCV (RBC) [Entitic vol] 78.1 fL Critically low 81.0-99.0 [facility] Comment on above: Performed By: #### C BC #### [facility] [address] [place] [address] Dr. Carmel Tillman MONO # 1.1 103/ul Critically high 0.3-0.8 [facility] Comment on above: Performed By: #### C BC #### [facility] [address] [place] [address] Dr. Carmel Tillman Monocytes/100 WBC (Bld) 9.3 % Normal 1.7-12.0 [facility] Comment on above: Performed By: #### C BC #### [facility] [address] [place] [address] Dr. Carmel Tillman NEUT # 6.6 103/ul Critically high 1.4-6.5 [facility] Comment on above: Performed By: #### C BC #### [facility] [address] [place] [address] Dr. Carmel Tillman Neutrophils/100 WBC (Bld) 56.6 % Normal 43.0-75.0 [facility] Comment on above: Performed By: #### C BC #### [facility] [address] [place] [address] Dr. Carmel Tillman Platelet mean volume (Bld) [Entitic vol] 9.8 fL Normal 9.5-13.5 [facility] Comment on above: Performed By: #### C BC #### [facility] [address] [place] [address] Dr. Carmel Tillman PLT 319 103/ul Normal 150-450 [facility] Comment on above: Performed By: #### C BC #### [facility] [address] [place] [address] Dr. Carmel Tillman RBC 5.30 106/ul Normal 4.20-5.40 [facility] Comment on above: Performed By: #### C BC #### [facility] [address] [place], [place] [id number] Dr. Carmel Tillman WBC 11.6 103/ul Critically high 4.0-11.0 [facility] Comment on above: Performed By: #### C BC #### [facility] [address] [place] [address] Dr. Carmel Tillman CTA CHEST WO W CONon 021 CTA CHEST WO W CON EXAM: [...] ROSALINO TRAN Date: 2021-01-21 20:49 Normal [facility] LACTATE/LACTIC ACIDon 2020 Lactate [Moles/Vol] 1.1 mmol/L Normal 0.7-2.0 [facility] Comment on above: Performed By: #### C MP #### [facility] [address] [address] [address] Carmel Tillman PH VENOUS BLOODon 01-21-2021 PCO2 VENOUS 35.9 mmHg Critically low 40.0-52.0 [facility] Comment on above: Performed By: #### P HVEN #### [facility] [address] [address] [address] Carmel Tillman pH VENOUS 7.46 Critically high 7.33-7.43 [facility] Comment on above: Performed By: #### P HVEN #### [facility] [address] [place] [address] Dr[address] Carmel Tillman PREG HCG QUALon 01-21-2021 , QUAL Negative Normal NEGATIVE [facility] Comment on above: Performed By: #### C MP, HSTROPN #### [facility] [address] [place] [address] Dr. Carmel Tillman PROF 14(COMP METB)on 021 Albumin [Mass/Vol] 2.8 g/dL Critically low 3.5-5.0 [facility] Comment on above: Performed By: #### C MP, HSTROPN #### [facility] [address] [place] [address] Dr. Carmel Tillman Albumin/Globulin [Mass ratio] 0.7 {ratio} Normal [facility] Comment on above: Performed By: #### C MP, HSTROPN #### [facility] [address] [address] [address] Carmel Tillman ALP [Catalytic activity/Vol] 58 U/L Normal 38-126 [facility] Comment on above: Performed By: #### C MP, HSTROPN #### [facility] [address] [address] [address] Carmel Tillman ALT [Catalytic activity/Vol] 39 U/L Normal 9-52 [facility] Comment on above: Performed By: #### C MP, HSTROPN #### [facility] [address] [address] [address] Carmel Tillman Anion gap [Moles/Vol] 13.8 mmol/L Normal [facility] Comment on above: Performed By: #### C MP, HSTROPN #### [facility] [address] [address] [address] Carmel Tillman AST [Catalytic activity/Vol] 34 U/L Normal 14-36 [facility] Comment on above: Performed By: #### C MP, HSTROPN #### [facility] [address] [address] [address] Carmel Tillman Bilirubin [Mass/Vol] 0.3 mg/dL Normal 0.2-1.3 [facility] Comment on above: Performed By: #### C MP, HSTROPN #### [facility] [address] [place] [address] Dr. Carmel Tillman Calcium [Mass/Vol] 8.0 mg/dL Critically low 8.4-10.2 Th [facility] Comment on above: Performed By: #### C MP, HSTROPN #### [facility] [address] [place] [address] Dr. Carmel Tillman Chloride [Moles/Vol] 103 mmol/L Normal 98-107 [facility] Comment on above: Performed By: #### C MP, HSTROPN #### [facility] [address] [place] [address] Dr. Carmel Tillman CO2 [Moles/Vol] 23.9 mmol/L Normal 22.0-30.0 [facility] Comment on above: Performed By: #### C MP, HSTROPN #### [facility] [address] [place] [address] Dr. Carmel Tillman Creatinine [Mass/Vol] 1.01 mg/dL Normal 0.52-1.04 [facility] Comment on above: Performed By: #### C MP, HSTROPN #### [facility] [address] [place] [address] Dr. Carmel Tillman EGFR-AF SENEGALESE >60 Normal >=60 [facility] Comment on above: Performed By: #### C MP, HSTROPN #### [facility] [address] [place] [address] Dr. Carmel Tillman EGFR-NON AF SENEGALESE >60 Normal >=60 [facility] Comment on above: Performed By: #### C MP, HSTROPN #### [facility] [address] [place] [address] Dr. Carmel Tillman Globulin (S) [Mass/Vol] 4.1 g/dL Normal [facility] Comment on above: Performed By: #### C FARAZ, HSTROPN #### [facility] [address] [address] [address] Carmel Tillman Glucose [Mass/Vol] 89 mg/dL Normal 74-106 [facility] Comment on above: Performed By: #### C FARAZ, HSTROPN #### [facility] [address] [place] [address] Dr. Carmel Tillman Potassium [Moles/Vol] 3.7 mmol/L Normal 3.4-5.0 [facility] Comment on above: Performed By: #### C FARAZ, HSTROPN #### [facility] [address] [place] [address] Dr. Carmel Tillman Protein [Mass/Vol] 6.9 g/dL Normal 6.1-8.2 [facility] Comment on above: Performed By: #### C FARAZ, HSTROPN #### [facility] [address] [place] [address] Dr. Carmel Tillman Sodium [Moles/Vol] 137 mmol/L Normal 137-145 [facility] Comment on above: Performed By: #### C FARAZ, HSTROPN #### [facility] [address] [place] [address] Dr. Carmel Tillman Urea nitrogen [Mass/Vol] 21.0 mg/dL Critically high 7.0-17.0 [facility] Comment on above: Performed By: #### C FARAZ, HSTROPN #### [facility] [address] [place] [address] Dr. Carmel Tillman Urea nitrogen/Creatinin e [Mass ratio] 20.8 mg/mg Normal [facility] Comment on above: Performed By: #### C FARAZ, HSTROPN #### [facility] [address] [place] [address] Dr. Carmel Tillman PROTIMEon 01-21-2021 INR Coag (PPP) [Relative time] 1.00 {INR} Normal [facility] Comment on above: Performed By: #### P T, PTT #### [facility] [address] [place] [address] Dr. Carmel Tillman INR GUIDELINES SEE BELOW Normal [facility] Comment on above: Result Comment: CHRIS RED INR: 2.0 - 3.0 CONDITIONS NOT LISTED BELOW 2.5 - 3.5 FOR PROSTHETIC HEART VALVE REPLACEMENT 2.5 - 3.5 RECURRENT THROMBOSIS Performed By: #### P T, PTT #### [facility] [address] [place] [address] Dr. Carmel Tillman PT Coag (PPP) [Time] 10.8 s Normal 9.0-11.6 [facility] Comment on above: Performed By: #### P T, PTT #### [facility] [address] [place] [address] Dr. Carmel Tillman PTTon 01-21-2021 aPTT Coag (Bld) [Time] 25.4 s Normal 22.3-36.2 [facility] Comment on above: Performed By: #### P T, PTT #### [facility] [address] [place] [address] Dr. Carmel Tillman TROPONIN, HIGH SENSITIVITYon 01-21-2021 HSTROP 4.7 pg/mL Normal 4.0-35.5 [facility] Comment on above: Result Comment: CUT- OFF POINTS HAVE BEEN ESTABLISHED BASED ON THE FOURTH UNIVERSAL DEFINITIONS OF MYOCARDIAL INFARCTION. THE UPPER REFERENCE LIMIT (URL) OF TROPONIN, DEFINED THE 99TH PERCENTILE OF cTnI DISTRIBUTION IN A REFERENCE POPULATION, HAS BEEN CONFIRMED THE DECISION THRESHOLD FOR [place] DIAGNOSIS. Performed By: #### C MP, HSTROPN #### [facility] [address] [place] [address] Dr. Carmel Tillman Vital Signs Date Time Vital Sign Value Performing Clinician Marthai lity 12-02-2023 14:03-0400 Body mass index (BMI) [Ratio] 58.11 kg/m2 Larissa Lora [employer] MACHINE Work Phone: [facility] 12-02-2023 14:03-0400 Body temperature 97.3 [degF] Larissa Lora [employer] MACHINE Work Phone: [facility] 12-02-2023 14:03-0400 Body weight 168.28 kg Larissa Sosak [employer]ACHINE Work Phone: [facility] 12-02-2023 14:03-0400 Diastolic blood pressure 72 mm[Hg] Larissa Vogttrick [employer] MACHINE Work Phone: [facility] 12-02-2023 14:03-0400 Heart rate 74 /min Larissa Sosak [employer] MACHINE Work Phone: [facility] 12-02-2023 14:03-0400 SaO2% (BldA) [Mass fraction] 95 % Larissa Sosak [employer] MACHINE Work Phone: [facility] 12-02-2023 14:03-0400 Systolic blood pressure 128 mm[Hg] Larissa Vogttrick BURRER MACHINE Work Phone: [facility] Healthcare Encounters Encounter Date Encounter Type Care Provider Facility Start: 12-02-2023 End: 12-02-2023 Bamboo flowsheet Larissa Ssoak [employer] MACHINE Work Phone: [facility] Start: 12-02-2023 End: 12-02-2023 Bamboo flowsheet Larissa Vogttrick BURRER MACHINE Work Phone: [facility] Start: 12-02-2023 End: 12-02-2023 Office outpatient visit 15 minutes Larissa Sosak B[employer]RER MACHINE Work Phone: [facility] Comment on above: Primary hypertension (CMS/HCC) (Primary Dx); Morbid obesity (CMS/HCC); Depression with anxiety; Prediabetes; Metabolic syndrome; Screening for cervical cancer; Encounter for screening mammogram for malignant neoplasm of breast; Dyspnea on exertion Start: 10-26-2021 End: 11-01-2021 ambulatory RACHID SELLERS Facility:[facility] Start: 10-12-2021 End: 10-13-[address] IRSAEL GROSS Facility:[facility] Start: 03-02-2021 End: 01-07-[address] ISRAEL GROSS Facility:[facility] Start: 02-26-2021 ambulatory RACHID Johns y:[facility] Start: 02-21-2021 End: 02-22-[address] NATHANIEL JONES Facility:[facility] Start: 02-12-2021 End: 02-15-2021 Evaluation and management of inpatient DR ISRAEL GROSS Facility:[facility] Start: 01-27-2021 End: 02-07-2021 Evaluation and management of inpatient DR GILES LAN Facility:[facility] Start: 01-21-2021 End: 01-21-2021 ambulatory CR CARIAS Facility:[facility] Start: 05-12-2020 End: 05-13-2020 ambulatory Rachid Sellers Facility:[facility] Plan of Treatment Date Care Activity Detail Author Start: 01-01-2024 End: 01-01-2024 Patient encounter procedure 01/01/2024 2:30 PM EST Office Visit [facility] [address] [place] [id number] Larissa Lora NP [address] [place] [phone] [facility] Start: 12-02-2023 End: 01-31-2025 MG Breast - bilateral Screening Bilateral screening mammogram Imaging Routine Encounter for screening mammogram for malignant neoplasm of breast Expected: 12/02/2023, Expires: [facility]: Comment on above: Expected: 12/02/2023 , Expires: 01/31/2025 Start: 12-02-2023 End: 12-02-2023 Patient encounter procedure 12/02/2023 2:00 PM EDT Office Visit [facility] [address] [place] [id number] Larissa Lora NP [address] [place] [phone] Arrived [facility] Comment on above: Arrived Start: 12-02-2023 End: 12-01-2024 Pulmonary function report Pulmonary Function Test Imaging Routine Dyspnea on exertion Expected: 12/02/2023, Expires: 12/01/2024 [facility] Comment on above: Expected: 12/02/2023 , Expires: 12/01/2024 Start: 10-26-2023 Influenza vaccination Influenz a Vaccine (#1) [facility] Start: 2023 Screening for malign ant neoplasm of breast Mammogram [facility] Start: 08-21-2013 Screening for malign ant neoplasm of cervix [facility] Start: 08-21-2004 Screening for malign ant neoplasm of cervix Pap Smear [facility] Immunizations Immunization Date Immunization Notes Care Provider Best steven 11-24-2020 influenza virus vaccine, unspecified formulation Larissa Lora NP Work Phone: [facility] Payers Date Payer Category Payer Unknown BCBS BCBS [id number] [id number] 2023-Present [phone] [address] [place] [address] [id number] 2020 Unknown [id number] 2019 Unknown [id number] 1985 Unknown [id number] 1985 Unknown [id number] 1983 Unknown [id number] 1983 Unknown [id number] 1983 Unknown [id number] 1983 Unknown [id number] 1983 Unknown [id number] 1983 Unknown [id number] 1961 Self-pay [id number] 1961 Unknown [id number] Unknown [id number] Social History Date Type Detail Facility Start: 05-12-2020 End: 07-15-2023 Tobacco smoking status OKIS Never smoked tobacco (finding) [facility] Start: 1985 Sex Assigned At Female F [facility] Start: 07-15-2023 Tobacco use and exposure Smokeless tobacco non-user [facility] Start: 10-01-2023 Alcoholic beverage intake Lifetime non-drinker (finding) [facility] Start: 09-02-2023 End: 12-01-2023 History of Social function [facility] Start: 09-02-2023 End: 12-01-2023 [id number] Health Literacy [facility] How often do you nee d to have someone help you when you read instructions, pamphlets, or other written material from your doctor or pharmacy [SILS] Never [facility] Do you belong to any clubs or organizations such as sabianism groups, unions, fraternal or athletic groups, or school groups? No [facility] Are you now , , , , never or living with a partner? [facility] How often to you hav e a drink containing alcohol? Never [facility] How hard is it for y ou to pay for the very basics like food, housing, medical care, and heating Somewhat hard [facility] Do you feel stress - tense, restless, nervous, or anxious, or unable to sleep at night because your mind is troubled all the time - these days [OSQ] Very much [facility] (I/We) worried wheth er (my/our) food would run out before (I/we) got money to buy more. Never true [facility] In the past 12 month s, was there a time when you were not able to pay the mortgage or rent on time? Yes [facility] Start: 07-15-2023 Gender identity Identifies as female gender (finding) [facility] NEGATED: Highlighted rowStart: TICOF History of tobacco use Passive smoker [facility] Goals Date Patient Goal Desired Activity /State Personal health goal History of Present illness Narrative 12-02-2023 Larissa Lora NP - 12/02/2023 3:19 PM EDMarjorie Lora, LINDSEY - 12/02/2023 3:18 PM Ramon Lora, LINDSEY - 12/02/2023 3:18 PM Ramon Lora NP - 12/02/2023 2:00 PM EDT Note Date & Type Note Facility 12-02-2023 History of Presen t illness Narrative Associated Problem(s): Depression with anxiety Currently taking Sertraline 100mg; Would like to wean off medication. Feels she no longer needs medication. Life stressors have improved./ Will order sertraline taper today. Associated Problem(s): Morbid obesity (CMS/HCC) Is interested in weight loss. Initiated metformin today based on A1C. Discussed with patient their BMI (actual, verses recommended). We have also discussed lifestyle modifications: attempts to perform physical activity as chronic conditions allow, also to monitor dietary intake: increasing protein/fruits/veggies and lowering carb intake (unless contraindicated). Limit sodas, juices, and sugary drinks. Also discussed oral medications that can be utilized for weight loss, as well as surgical options for weight loss. Associated Problem(s): Prediabetes 6.2 last A1C Insurance denied Wegovy 3 months ago. Prt is agreeable today to trial Metformin 500 XL; Subjective Patient ID: Marta Melgar is a 38 y.o. female who presents for Follow-up (Wants to wean off her anti depressants and wants to talk about weight loss). HPI HTN: Currently taking Valsartan 320mg Does not check BP at home. Denies orthostatic changes, dizziness, cough, shortness of breath, swelling in extremities. Continue current regimen. Given BP log, advised pt to record BP and bring log back with them to next visit.] Depression and Anxiety: Currently taking Sertraline 100mg; Would like to wean off medication. Feels she no longer needs medication. Life stressors have improved./ Will order sertraline taper today. Prediabetes: 6.2 last A1C Insurance denied Wegovy 3 months ago. Prt is agreeable today to trial Metformin 500 XL; Morbid Obesity: Is interested in weight loss. Initiated metformin today, will discuss Adipex at next OV. Pending on how pt tolerates metformin. Review of Systems Constitutional: Negative for activity change, appetite change, chills, diaphoresis, fatigue, fever and unexpected weight change. HENT: Negative for congestion, ear pain, rhinorrhea, sinus pressure, sinus pain, sneezing, sore throat, trouble swallowing and voice change. Eyes: Negative for visual disturbance. Respiratory: Negative for cough, chest tightness, shortness of breath and wheezing. Cardiovascular: Negative for chest pain, palpitations and leg swelling. Gastrointestinal: Negative for abdominal distention, abdominal pain, blood in stool, constipation, diarrhea and vomiting. Genitourinary: Negative for decreased urine volume, dysuria, flank pain, frequency, hematuria and urgency. Musculoskeletal: Negative for arthralgias, gait problem, joint swelling and myalgias. Skin: Negative for rash. Neurological: Negative for dizziness, tremors, syncope, weakness, light-headedness and headaches. Psychiatric/Behavioral: Negative for decreased concentration and suicidal ideas. The patient is not nervous/anxious. Hematological: Does not bruise/bleed easily. Endocrine: Negative for cold intolerance, heat intolerance, polydipsia, polyphagia and polyuria. Objective Physical Exam Vitals reviewed. Constitutional: Appearance: Normal appearance. HENT: Head: Normocephalic and atraumatic. Right Ear: Tympanic membrane normal. Left Ear: Tympanic membrane normal. Nose: Nose normal. Mouth/Throat: Mouth: Mucous membranes are moist. Pharynx: Oropharynx is clear. Eyes: Pupils: Pupils are equal, round, and reactive to light. Cardiovascular: Rate and Rhythm: Normal rate and regular rhythm. Pulses: Normal pulses. Heart sounds: Normal heart sounds. Pulmonary: Effort: Pulmonary effort is normal. Breath sounds: Normal breath sounds. Abdominal: General: Abdomen is flat. Bowel sounds are normal. Palpations: Abdomen is soft. Musculoskeletal: General: Normal range of motion. Cervical back: Normal range of motion. Skin: General: Skin is warm and dry. Capillary Refill: Capillary refill takes less than 2 seconds. Neurological: General: No focal deficit present. Mental Status: She is alert and oriented to person, place, and time. Psychiatric: Mood and Affect: Mood normal. Behavior: Behavior normal. Assessment/Plan Problem List Items Addressed This Visit Primary hypertension ([facility]/HCC) - Primary Morbid obesity ([facility]) Is interested in weight loss. Initiated metformin today based on A1C. Discussed with patient their BMI (actual, verses recommended). We have also discussed lifestyle modifications: attempts to perform physical activity as chronic conditions allow, also to monitor dietary intake: increasing protein/fruits/veggies and lowering carb intake (unless contraindicated). Limit sodas, juices, and sugary drinks. Also discussed oral medications that can be utilized for weight loss, as well as surgical options for weight loss. Depression with anxiety Currently taking Sertraline 100mg; Would like to wean off medication. Feels she no longer needs medication. Life stressors have improved./ Will order sertraline taper today. Relevant Medications sertraline (Zoloft) 50 MG tablet Prediabetes 6.2 last A1C Insurance denied Wegovy 3 months ago. Prt is agreeable today to trial Metformin 500 XL; Relevant Medications metFORMIN XR (Glucophage-XR) 500 MG 24 hr tablet Metabolic syndrome Screening for cervical cancer Relevant Orders Ambulatory referral to Obstetrics / Gynecology Encounter for screening mammogram for malignant neoplasm of breast Relevant Orders Ambulatory referral to Obstetrics / Gynecology Bilateral screening mammogram Dyspnea on exertion Relevant Medications albuterol HFA (Ventolin HFA) 90 mcg/act inhaler Other Relevant Orders Pulmonary Function Test documented in this encounter [facility] Instructions 12-02-2023 Patient Instructions Note Date & Type Note Facility 12-02-2023 Instructions Larissa Lora NP - 12/02/2023 2:00 PM EDT Start metformin once daily. Have mammogram and pulmonary function testing completed. I will call with results. Referral sent to [facility] to establish care. If you do not hear from them by next week call my office for contact info. documented in this encounter [facility] Clinical Note 10-12-2021 Note Date & Type [...] by: ISRAEL GROSS Date: 2021-10-12 14:44 [facility] Evaluation note Note Date & Type Note Facility Evaluation note [facility] Evaluation note Note Date & Type Note Facility Evaluation note Diagnosis Primary hypertension (CMS/HCC)- Primary Unspecified essential hypertension Morbid obesity (CMS/HCC) Morbid obesity Depression with anxiety Dysthymic disorder Prediabetes Other abnormal glucose Metabolic syndrome Dysmetabolic Syndrome X Screening for cervical cancer Screening for malignant neoplasm of the cervix Encounter for screening mammogram for malignant neoplasm of breast Dyspnea on exertion Other dyspnea and respiratory abnormality documented in this encounter [facility] Advance Directives Advance Directive Response Recorded Date/ Time Advance Directives No March 3:28pm Assessments No Assessments Information Available Family History Relationship Condition Age at Onset Recorded Date/T kamryn grandparent Malignant neoplasm Unknown grandparent Hypertension Unknown Summary Purpose Reason for Referral Specialty Diagnoses / Procedures Referred By Contac t Referred To Contact Diagnoses Dyspnea on exertion Larissa Lora NP [address] [place] [address] Referral ID Status Reason Start Date Expiration Date V isits Requested Visits Authorized [id number] Pending Review 12/02/2023 05/30/2024 1 1 Specialty Diagnoses / Procedures Referred By Contac t Referred To Contact Obstetrics and Gynecology Diagnoses Screening for cervical cancer Encounter for screening mammogram for malignant neoplasm of breast Procedures ID OFFICE/OUTPATIENT NEW HIGH MDM 60 MINUTES Larissa Lora NP [address] [place] [address] Chata Chavez, DO [address] [place] [address] Referral ID Status Reason Start Date Expiration Date Visits Requested Visits Authorized [id number] Pending Review Specialty Services Required 12/02/2023 05/30/2024 1 1 Additional Source Comments INFORMATION SOURCE (unrecogn ized section and content) DATE CREATED AUTHOR 12/05/2021 [facility] DATE CREATED AUTHOR AUTHOR'S ORGANIZ ATION 10/26/2022 [facility] Goals (unrecognized section and content) Goals may be documented in a n alternate section Care Teams (unrecognized sec tion and content) Lecturer Of Portuguese Relationship Specialty Start Date End Date Giles Lan MD [address] [place] [phone] PCP - General Family Medicine 10/07/23 Larissa Lora NP [address] [place] [address] Nurse Practitioner Family Medicine 10/07/23 Lecturer Of Portuguese Relationship Specialty Start Date End Date Giles Lan MD [address] [place] [address] PCP - General Family Medicine 10/07/23 Larissa Lora NP [address] [address] Nurse Practitioner Family Medicine 10/07/23 Reason for Visit (unrecogniz ed section and content) Reason Comments Follow-up Wants to wean off he r anti depressants and wants to talk about weight loss FOR RECORDS PERTAINING TO PATIENTS WHO ARE [...] BE BASED ON THE PRIMARY CLINICAL RECORDS. [employer] provides no warranty or guarantee of the accuracy or completeness of information in this document.
[2023-12-18 20:06] VITALS: BP 148/98; PULSE 90; TEMP 36.7; O2SAT 97; BMI 57.9
[2023-12-18 20:39] LABS: Influenza Virus A Antigen Negative; Influenza Virus B Antigen Negative; Internal Control Within Normal Limits; SARS-CoV-2 Ag NEGATIVE (NEGATIVE)
--- NOTE | 2023-12-18 21:33 | XR_ITS ---
The [address] [address] Patient Name: MJ SHAH MRN: [id number] date: 1985 Sex: F Assigned Patient Location: ER Current Patient Location: ED.MAIN Accession/Order Number: [id number] Exam Date: 12/18/2023 21:45 Report Date: 12/18/2023 22:56 At the request of: JIM OVALLES Procedure: XR chest 2V CHEST X-RAY. INDICATION: Cough. COMPARISON: There are no previous studies available for comparison. TECHNIQUE: Frontal and lateral chest radiographs. FINDINGS: TUBES AND LINES: None. LUNGS: There are mild opacities in the inferior lingula. PLEURA: No effusions or pneumothorax. HEART AND MEDIASTINUM: Within normal limits. OSSEOUS STRUCTURES: No acute abnormality. XR/XR chest 2V IMPRESSION: Mild opacities in the inferior lingula. Correlate for pneumonia. Electronically authenticated by: OLIVIA MAURO Date: 12/18/2023 22:56
--- NOTE | 2023-12-18 21:35 | ED_ITS ---
HPI - URI/Sore Throat General Chief Complaint: Upper Respiratory Infection Stated Complaint: DIFF BREATHING, FEELS LIKE PASSING OUT Time Seen by Provider: 12/18/23 21:29 Source: patient History of Present Illness HPI Narrative: cough past 3 days. Describes injury to her lungs from COVID19 in the past. Whenever she get URI she is concerned about her lungs and comes in. Mild dyspnea. Today dizzy episode with room spinning. Mild headache. No fever or chills . No chest or abdominal pain states she is borderline diabetic Related Data Home Medications ?Medication ?Instructions ?Recorded ?Confirmed sertraline 100 mg tablet mg 04/22/23 Allergies Allergy/AdvReac Type Severity Reaction Status Date / Time amoxicillin AdvReac Unknown Verified 04/22/23 10:52 hydromorphone (From Dilaudid) AdvReac Unknown Verified 04/22/23 10:52 Review of Systems ROS Status of ROS 10 or more systems reviewed and unremark able except as noted in history and below PFSH PFSH Social History Little interest or pleasure in doing things: not at all Feeling down, depressed, or hopeless: not at all Exam Constitutional Vital Signs, click to edit/add: Last Vital Signs Temp 98.1 F 12/18/23 20:06 Pulse 90 12/18/23 20:06 Resp 20 12/18/23 21:34 BP 148/98 H 12/18/23 20:06 Pulse Ox 97 12/18/23 20:06 O2 Del Method Room Air 12/18/23 21:34 Common normals: no apparent distress, oriented x3, healthy appearing, alert and well nourished [facility] Common normals: normocephalic and head/scalp atraumatic Eye Common normals: PERRL and EOMs intact bilaterally Respiratory Common normals: normal respiratory effort, no retractions, no use of accessory muscles and clear to auscultation bilaterally Cardio Common normals: regular rate, regular rhythm, S1 normal heart sound and S2 normal heart sound GI Common normals: Normal to inspection, nondistended, normoactive bowel sounds present and soft to palpation Extremity Common normals: normal to inspection and full ROM Neuro Common normals: oriented x3, CN's II-XII intact bilaterally, moves all extremities and no focal motor deficits Psych Appearance: grossly normal Course Vital Signs Vital signs: Vital Signs Temperature 98.1 F 12/18/23 20:06 Pulse Rate 90 12/18/23 20:06 Respiratory Rate 18 12/18/23 20:06 Blood Pressure 148/98 H 12/18/23 20:06 Pulse Oximetry 97 12/18/23 20:06 Oxygen Delivery Method Room Air 12/18/23 20:06 Temperature 98.1 F 12/18/23 20:06 Pulse Rate 90 12/18/23 20:06 Respiratory Rate 20 12/18/23 21:34 Blood Pressure 148/98 H 12/18/23 20:06 Pulse Oximetry 97 12/18/23 20:06 Oxygen Delivery Method Room Air 12/18/23 21:34 MDM - URI/Sore Throat MDM Narrative Medical decision making narrative: patient presents complaining of cough and sensation of shortness of breath that is mild. RA pulse ox 97% and RR 20 also complaining of dizziness and mild headache. dizziness described as room spinning. TMs clear. No nystagmus. WBC elevated at 21.5. Patient states she has a known history of leukocytosis without clear cause despite workup at [facility]. States 21,000 WBC is not unusual for her. She is afebrile. Treated for her vertigo with solumedrol and antivert and this improved. Cxray with possible left lingular infiltrate. Patient discharged home with zpak and antivert and advised to follow up with her doctor for recheck early next week Lab Data Labs: Lab Results 12/18/23 12/18/23 12/18/23 Range/Units 20:11 22:06 22:43 WBC 21.5 H (4.0-11.0) 10^3/uL RBC 5.52 H (4.20-5.40) 10^6/uL Hgb 13.1 (12.0-16.0) g/dL Hct 42.3 (36.0-48.0) % MCV 76.6 L (81.0-99.0) fL MCH 23.7 L (26.7-34.0) pg MCHC 31.0 (29.9-35.2) g/dL RDW 15.8 H (11.0-15.0) % Plt Count 410 (150-450) 10^3/uL MPV 9.8 (9.5-13.5) fL Neut % (Auto) 71.7 (43.0-75.0) % Lymph % (Auto) 21.1 (20.5-60.0) % [place] % (Auto) 4.8 (1.7-12.0) % Eos % (Auto) 1.5 (0.9-7.0) % Baso % (Auto) 0.4 (0.2-2.0) % Neut # (Auto) 15.4 H (1.4-6.5) 10^3/uL Lymph # (Auto) 4.6 H (1.2-3.8) 10^3/uL [place] # (Auto) 1.0 H (0.3-0.8) 10^3/uL Eos # (Auto) 0.3 (0.0-0.7) 10^3/uL Baso # (Auto) 0.1 (0.0-0.1) 10^3/uL Abs Immat Gran (auto) 0.11 H (0.00-0.03) 10^3/uL Imm/Tot Granulo (auto) 0.5 (0.0-0.5) % Sodium 137 (136-145) mmol/L Potassium 5.1 (3.5-5.1) mmol/L Chloride 103 (98-107) mmol/L Carbon Dioxide 24.7 (21.0-32.0) mmol/L Anion Gap 14.4 BUN 14.0 (7.0-18.0) mg/dL Creatinine 0.81 (0.55-1.02) mg/dL Est GFR ( Amer) >60 (>=60 mL/min/1.73m^2) Est GFR (Non-Af Amer) >60 (>=60 mL/min/1.73m^2) BUN/Creatinine Ratio 17.3 Glucose 87 (74-106) mg/dL Calcium 9.4 (8.5-10.1) mg/dL Influenza Type A Ag Negative Influenza Type B Ag Negative SARS-CoV-2 Ag (CV2AG) Negative (NEGATIVE) Discharge Plan Discharge Chief Complaint: Upper Respiratory Infection Clinical Impression: Vertigo, Leukocytosis, Pneumonia involving left lung Patient Disposition: Home, Self-Care Prescriptions / Home Meds: No Action sertraline 100 mg tablet Print Language: [place] Instructions: Vertigo (ED), Community Acquired Pneumonia (ED), Leukocytosis (ED) Additional Instructions: follow up with your doctor next week for recheck Referrals: Physician,Non-Staff, MD [Primary Care Provider] - 1 week
[2023-12-18] MEDS: METHYLPREDNISOLONE SOD SUCC PF 125 MG/2 ML VIAL IM (22:08)
[2023-12-18] MEDS: MECLIZINE HCL 12.5 MG TABLET 25 MG PO ×2 (22:08→23:47)
[2023-12-18 22:44] LABS: Anion Gap 14.4; BUN Creatinine Ratio 17.3; Calcium 9.4 mg/dL (8.5-10.1); Carbon Dioxide 24.7 mmol/L (21.0-32.0); Chloride 103 mmol/L (98-107); Estimated GFR (African America >60 (>=60 mL/min/1.73m^2); Estimated GFR (Non-African Ame >60 (>=60 mL/min/1.73m^2); Glucose 87 mg/dL (74-106); Potassium 5.1 mmol/L (3.5-5.1); Sodium 137 mmol/L (136-145)
[2023-12-18 22:50] LABS: Basophils Absolute Auto 0.1 10^3/uL (0.0-0.1); Basophils Percent Auto 0.4 % (0.2-2.0); Eosinophils Absolute Auto 0.3 10^3/uL (0.0-0.7); Eosinophils Percent Auto 1.5 % (0.9-7.0); Hematocrit 42.3 % (36.0-48.0); Hemoglobin 13.1 g/dL (12.0-16.0); Immature Granulocytes Abs Auto 0.11 10^3/uL (0.00-0.03); Immature Granulocytes Pct Auto 0.5 % (0.0-0.5); Lymphocytes Absolute Auto 4.6 10^3/uL (1.2-3.8); Lymphocytes Percent Auto 21.1 % (20.5-60.0); Mean Corpuscular Hemoglobin 23.7 pg (26.7-34.0); Mean Corpuscular Volume 76.6 fL (81.0-99.0); Mean Platelet Volume 9.8 fL (9.5-13.5); Monocytes Percent Auto 4.8 % (1.7-12.0); Neutrophils Absolute Auto 15.4 10^3/uL (1.4-6.5); Neutrophils Percent Auto 71.7 % (43.0-75.0); Platelet Count 410 10^3/uL (150-450); Red Blood Count 5.52 10^6/uL (4.20-5.40); Red Cell Distribution Width 15.8 % (11.0-15.0); White Blood Count 21.5 10^3/uL (4.0-11.0)
[2023-12-18] MEDS: AZITHROMYCIN 250 MG TABLET 500 MG PO (23:48)
[2023-12-18 23:52] VITALS: BP 142/88; PULSE 88; O2SAT 98
== END 2023-12-18 23:53 | disposition home or self-care (01) ==
PROVIDERS: Emergency Provider Internal Medicine
DX: J18.9 Pneumonia, unspecified organism (principal); R42 Dizziness and giddiness; D72.829 Elevated white blood cell count, unspecified; Z20.822 Contact with and (suspected) exposure to COVID-19
CPT/HCPCS: 36415; 71046; 80048; 85025; 87804; 87811; 96372; 99284; J2919

== ENCOUNTER 2024-01-06 11:33 | Outpatient (OUT) | payer BC, SELFPAY ==
--- OUTSIDE RECORDS SUMMARY | 2024-01-06 11:38 | XMS_ITS | CCD ---
Author Organization [facility] [place] [facility] Care Team Providers Care Orchestrator Name Role Phone DR GILES LAN Consulting Unavailable EDYTA, DR GILES Beal Attending Unavailable EDYTA, DR GILES Beal Admitting Unavailable MARLO, RACHIDALESIA FLEMING Primary Care Unavailable MAGDALENE, DR SINGH Consulting Unavailable CLEMENTINE JACK Consulting Unavailable ARIELLA FISCHER Consulting Unavailable ALBERTO FISCHER Consulting Unavailable RENATO, DR ISRAEL Hamm Consulting Unavailable FAWWAD, HSU H Attending Unavailable VINCENT, HSU H Admitting Unavailable MARLO, RACHID LONNIE Primary Care Unavailable CR REYES Consulting Unavailable MAGDALENE, DR SINGH Consulting Unavailable KATHYWAEdie, HSU H Consulting Unavailable HUSAM GARSIA Consulting [...] Giles Lan MD Primary Care Provider Geno CELL OPERATOR, Larissa Unavailable Unavailable Unavailable Unavailable Allergies Allergy Classification Reported Allergen(s) Allergy Type Date of Onset Reaction(s) Facility (7 sources) HYDROmorphone; Translations: [hydromorphone] Drug Allergy 0 Other, Shortness of breath [facility] (7 sources) Penicillins; Translations: [Penicillins] Allergy to substance 9 Hives, Itching, Rash [facility] (2 sources) Amoxicillin Drug Allergy 7 [facility] (2 sources) HYDROmorphone Drug Allergy 7 [facility] Medications Current Medications Medication Drug Class(es) Dates Sig (Normalized) Sig (Original) [id number] 200 actuat albuterol 0.09 mg/actuat metered dose inhaler (3 sources) beta2-Adrenergi c Agonist Start: 12-02-2023 End: [...] hydrochloride 500 mg extended release oral tablet (3 sources) Biguanide Start: 12-02-2023 End: 12-01-2024 take [...] omeprazole 40 mg delayed release oral capsule (6 sources) Proton Pump Inhibitor Start: 09-02-2023 End: [...] 2020 5:01pm sertraline 50 mg oral tablet (7 sources) Serotonin Reuptake Inhibitor Start: 12-02-2023 End: [...] day for 7 days. 25 tablet 12/02/2023 Active Start: 09-02-2023 take 1 tablet by jose th in the morning sertraline (Zoloft) 100 MG tablet Indications: Recurrent major depressive disorder, in full remission (CMS/HCC) Take 1 tablet (100 mg) by mouth in the morning. 90 tablet 1 09/02/2023 Active valsartan 320 mg oral tablet (6 sources) Angiotensin 2 Receptor Dori Start: 09-02-2023 [...] Date Documented Da te Episodic/Chronic Administrative/social admission (3 sources) First encounter by subject; Translations: [Persons encountering health services in other specified circumstances] Onset: 4 12-02-2023 Episodic Anxiety disorders (6 sources) Mixed anxiety and depressive disorder; Translations: [Other specified anxiety disorders] Onset: 4 07-15-2023 Chronic Diseases of white blood cells (2 sources) Leukocytosis; Translations: [Elevated white blood cell count, unspecified] Onset: 1 05-12-2020 Chronic Essential hypertension (7 sources) Essential (primary) hypertension; Translations: [Essential hypertension] Onset: 1 07-15-2023 Chronic Osteoarthritis (1 source) Unilateral primary osteoarthritis, left knee; Translations: [UNI PRIM OSTEOARTHRITIS LT KNEE] Onset: 2 Chronic Other connective tissue disease (4 sources) Pain in left leg; Translations: [PAIN IN LEFT LEG] Onset: 2 Episodic Other lower respiratory disease (5 sources) Dyspnea on exertion; Translations: [Other forms [...] OBES D/T EXCESS MANSI] Onset: 2 Chronic Other nutritional; endocrine; and metabolic disorders (6 sources) Morbid obesity; Translations: [Morbid (severe) obesity due to excess calories] Onset: 4 07-15-2023 Chronic Other nutritional; endocrine; and metabolic disorders (6 sources) Metabolic syndrome X; Translations: [Metabolic syndrome] Onset: 4 09-02-2023 Chronic Other screening for suspected conditions (not mental disorders or infectious disease) (18 sources) Patient encounter status; Translations: [Encounter for [...] UNSPECIFIED; Translations: [COUGH, UNSPECIFIED] Onset: 1 Unclassified (3 sources) Patient on antidepressant monitoring plan Onset: 4 12-02-2023 Viral infection (3 sources) COVID-19; Translations: [COVID-19] Onset: 1 Past or Other Problems Problem Classification Problem Date Documented Da te Episodic/Chronic Cardiac dysrhythmias (1 source) Bradycardia, unspecified; Translations: [BRADYCARDIA UNSPECIFIED] Onset: 02-12-2021 Episodic Diabetes mellitus without complication (6 sources) Prediabetes; Translations: [Prediabetes] Onset: 09-02-2023 09-02-2023 Episodic Disorders of teeth and jaw (4 sources) Torus palatinus; 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] Onset: 07-15-2023 07-15-2023 Episodic E Codes: Unspecified (1 source) Nosocomial condition; Translations: [NOSOCOMIAL CONDITION] Onset: 02-21-2021 Episodic Mood disorders (4 sources) Mood disorders Onset: 07-15-2023 07-15-2023 Other aftercare (1 source) Other exterminator termite (current) drug therapy; Translations: [OTH INSTRUMENT TESTER CURRENT DRUG THERAPY] Onset: 03-05-2021 Episodic Other [...] ISRAEL GROSS Date: 2021-10-12 14:41 Normal [facility] CBC AUTO DIFFon 03-02-2021 BASO # 0.0 103/ul Normal 0.0-0.1 [facility] Comment on above: Performed By: #### C FARAZ, HSTROPN #### [facility] [address] [place] [address] Dr. Carmel Tillman Basophils/100 WBC (Bld) 0.3 % Normal 0.2-2.0 [facility] Comment on above: Performed By: #### C MP, HSTROPN #### [facility] [address] [place] [address] Dr. Carmel Tillman EO # 0.1 103/ul Normal 0.0-0.7 [facility] Comment on above: Performed By: #### C MP, HSTROPN #### [facility] [address] [place] [address] Dr. Carmel Tillman Eosinophils/100 WBC (Bld) 0.9 % Normal 0.9-7.0 [facility] Comment on above: Performed By: #### C FARAZ, HSTROPN #### [facility] [address] [place] [address] Dr. Carmel Tillman Erythrocyte distribution width (RBC) [Ratio] 19.7 % Critically high 11.0-15.0 [facility] Comment on above: Performed By: #### C MP, HSTROPN #### [facility] [address] [place] [address] Dr. Carmel Tillman Hematocrit (Bld) [Volume fraction] 40.9 % Normal 36.0-48.0 [facility] Comment on above: Performed By: #### C MP, HSTROPN #### [facility] [address] [place] [address] Dr. Carmel Tillman Hemoglobin (Bld) [Mass/Vol] 12.7 g/dL Normal 12.0-16.0 [facility] Comment on above: Performed By: #### C MP, HSTROPN #### [facility] [address] [address] [address] Carmel Tillmna IG # 0.18 10e3/ul Critically high 0.00-0.03 [facility] Comment on above: Performed By: #### C MP, HSTROPN #### [facility] [address] [place] [address] Dr. Carmel Tillman IG % 1.7 % Critically high 0.0-0.5 [facility] Comment on above: Performed By: #### C MP, HSTROPN #### [facility] [address] [place] [address] Dr. Carmel Tillman LYMPH # 2.8 103/ul Normal 1.2-3.8 [facility] Comment on above: Performed By: #### C MP, HSTROPN #### [facility] [address] [place] [address] Dr. Carmel Tillman Lymphocytes/100 WBC (Bld) 25.6 % Normal 20.5-60.0 [facility] Comment on above: Performed By: #### C MP, HSTROPN #### [facility] [address] [place] [address] Dr. Carmel Tillman MANUAL DIFF REQ NO Normal [facility] Comment on above: Performed By: #### C MP, HSTROPN #### [facility] [address] [place] [address] Dr. Carmel Tillman MCH (RBC) [Entitic mass] 25.2 pg Critically low 26.7-34.0 [facility] Comment on above: Performed By: #### C MP, HSTROPN #### [facility] [address] [place] [address] Dr. Carmel Tillman MCHC (RBC) [Mass/Vol] 31.1 g/dL Normal 29.9-35.2 [facility] Comment on above: Performed By: #### C MP, HSTROPN #### [facility] [address] [place] [address] Dr. Carmel Tillman MCV (RBC) [Entitic vol] 81.2 fL Normal 81.0-99.0 [facility] Comment on above: Performed By: #### C MP, HSTROPN #### [facility] [address] [place] [address] Dr. Carmel Tillman MONO # 0.9 103/ul Critically high 0.3-0.8 [facility] Comment on above: Performed By: #### C MP, HSTROPN #### [facility] [address] [address] [address] Carmel Tillman Monocytes/100 WBC (Bld) 7.9 % Normal 1.7-12.0 [facility] Comment on above: Performed By: #### C MP, HSTROPN #### [facility] [address] [place] [address] Dr. Carmel Tillman NEUT # 6.9 103/ul Critically high 1.4-6.5 [facility] Comment on above: Performed By: #### C MP, HSTROPN #### [facility] [address] [place] [address] Dr. Carmel Tillman Neutrophils/100 WBC (Bld) 63.6 % Normal 43.0-75.0 [facility] Comment on above: Performed By: #### C MP, HSTROPN #### [facility] [address] [place] [address] Dr. Carmel Tillman Platelet mean volume (Bld) [Entitic vol] 9.5 fL Normal 9.5-13.5 [facility] Comment on above: Performed By: #### C MP, HSTROPN #### [facility] [address] [place] [address] Dr. Carmel Tillman PLT 350 103/ul Normal 150-450 [facility] Comment on above: Performed By: #### C MP, HSTROPN #### [facility] [address] [place] [address] Dr. Carmel Tillman RBC 5.04 106/ul Normal 4.20-5.40 [facility] Comment on above: Performed By: #### C MP, HSTROPN #### [facility] [address] [place] [address] Dr. Carmel Tillman WBC 10.8 103/ul Normal 4.0-11.0 [facility] Comment on above: Performed By: #### C MP, HSTROPN #### [facility] [address] [place] [address] Dr. Carmel Tillman PROF 14(COMP METB)on 022 Albumin [Mass/Vol] 2.9 g/dL Critically low 3.5-5.0 [facility] Comment on above: Performed By: #### C MP #### [facility] [address] [address] [address] Carmel Tillman Albumin/Globulin [Mass ratio] 0.7 {ratio} Normal [facility] Comment on above: Performed By: #### C MP #### [facility] [address] [address] [address] Carmel Tillman ALP [Catalytic activity/Vol] 50 U/L Normal 38-126 [facility] Comment on above: Performed By: #### C MP #### [facility] [address] [address] [address] Carmel Tillman ALT [Catalytic activity/Vol] 25 U/L Normal 9-52 [facility] Comment on above: Performed By: #### C MP #### [facility] [address] [place] [address] Dr. Carmel Tillman Anion gap [Moles/Vol] 11.3 mmol/L Normal [facility] Comment on above: Performed By: #### C MP #### [facility] [address] [place] [address] Dr. Carmel Tillman AST [Catalytic activity/Vol] 13 U/L Critically low 14-36 [facility] Comment on above: Performed By: #### C MP #### [facility] [address] [place] [address] Dr. Carmel Tillman Bilirubin [Mass/Vol] 0.6 mg/dL Normal 0.2-1.3 [facility] Comment on above: Performed By: #### C MP #### [facility] [address] [place] [address] Dr. Carmel Tillman Calcium [Mass/Vol] 9.3 mg/dL Normal 8.4-10.2 [facility] Comment on above: Performed By: #### C MP #### [facility] [address] [place] [address] Dr. Carmel Tillman Chloride [Moles/Vol] 106 mmol/L Normal 98-107 [facility] Comment on above: Performed By: #### C MP #### [facility] [address] [address] [address] Carmel Tillman CO2 [Moles/Vol] 27.0 mmol/L Normal 22.0-30.0 [facility] Comment on above: Performed By: #### C MP #### [facility] [address] [address] [address] Carmel Tillman Creatinine [Mass/Vol] 0.72 mg/dL Normal 0.52-1.04 [facility] Comment on above: Performed By: #### C MP #### [facility] [address] [address] [address] Carmel Tillman EGFR-AF [place]IZ[place] >60 Normal >=60 [facility] Comment on above: Performed By: #### C MP #### [facility] [address] [place] [address] Dr. Carmel Tillman EGFR-NON AF CITIZ[place] >60 Normal >=60 [facility] Comment on above: Performed By: #### C MP #### [facility] [address] [place] [address] Dr. Carmel Tillman Globulin (S) [Mass/Vol] 4.0 g/dL Normal [facility] Comment on above: Performed By: #### C MP #### [facility] [address] [place] [address] Dr. Carmel Tillman Glucose [Mass/Vol] 112 mg/dL Critically high 74-106 [facility] Comment on above: Performed By: #### C MP #### [facility] [address] [address] [address] Carmel Tillman Potassium [Moles/Vol] 4.3 mmol/L Normal 3.4-5.0 [facility] Comment on above: Performed By: #### C MP #### [facility] [address] [place] [address] Dr. Carmel Tillman Protein [Mass/Vol] 6.9 g/dL Normal 6.1-8.2 [facility] Comment on above: Performed By: #### C MP #### [facility] [address] [place] [address] Dr. Carmel Tillman Sodium [Moles/Vol] 140 mmol/L Normal 137-145 [facility] Comment on above: Performed By: #### C MP #### [facility] [address] [place] [address] Dr. Carmel Tillman Urea nitrogen [Mass/Vol] 20.0 mg/dL Critically high 7.0-17.0 [facility] Comment on above: Performed By: #### C MP #### [facility] [address] [place] [address] Dr. Carmel Tillman Urea nitrogen/Creatinin e [Mass ratio] 27.8 mg/mg Normal [facility] Comment on above: Performed By: #### C MP #### [facility] [address] [place] [address] Dr. Carmel Tillman PROTIMEon 03-02-2021 INR Coag (PPP) [Relative time] 0.95 {INR} Normal [facility] Comment on above: Performed By: #### P T, PTT #### [facility] [address] [place] [address] Dr. Carmel Tillman INR GUIDELINES SEE BELOW Normal [facility] Comment on above: Result Comment: CHRIS RED INR: 2.0 - 3.0 CONDITIONS NOT LISTED BELOW 2.5 - 3.5 FOR PROSTHETIC HEART VALVE REPLACEMENT 2.5 - 3.5 RECURRENT THROMBOSIS Performed By: #### P T, PTT #### [facility] [address] [place] [address] Dr. Carmel Tillman PT Coag (PPP) [Time] 10.3 s Normal 9.0-11.6 [facility] Comment on above: Performed By: #### P T, PTT #### [facility] [address] [place] [address] Dr. Carmel Tillman PTTon 03-02-2021 aPTT Coag (Bld) [Time] 22.8 s Normal 22.3-36.2 [facility] Comment on above: Performed By: #### P T, PTT #### [facility] [address] [place] [address] Dr. Carmel Tillman US VENOUS DOPPLER L [...] ISRAEL GROSS Date: 2021-03-02 12:07 Normal [facility] XR CHEST 2 Von 02-21-2021 XR [...] NATHANIEL JONES Date: 2021-02-21 07:51 Normal [facility] CBC AUTO DIFFon 02-15-2021 BASO # 0.0 103/ul Normal 0.0-0.1 [facility] Comment on above: Performed By: #### C MP #### [facility] [address] [address] [address] Carmel Tillman Basophils/100 WBC (Bld) 0.2 % Normal 0.2-2.0 [facility] Comment on above: Performed By: #### C MP #### [facility] [address] [address] [address] Carmel Tillman EO # 0.0 103/ul Normal 0.0-0.7 [facility] Comment on above: Performed By: #### C MP #### [facility] [address] [address] [address] Carmel Tillman Eosinophils/100 WBC (Bld) 0.2 % Critically low 0.9-7.0 [facility] Comment on above: Performed By: #### C MP #### [facility] [address] [address] [address] Carmel Tillman Erythrocyte distribution width (RBC) [Ratio] 18.1 % Critically high 11.0-15.0 [facility] Comment on above: Performed By: #### C MP #### [facility] [address] [place] [address] Dr. Carmel Tillman Hematocrit (Bld) [Volume fraction] 39.4 % Normal 36.0-48.0 [facility] Comment on above: Performed By: #### C MP #### [facility] [address] [place] [address] Dr. Carmel Tillman Hemoglobin (Bld) [Mass/Vol] 12.2 g/dL Normal 12.0-16.0 [facility] Comment on above: Performed By: #### C MP #### [facility] [address] [place] [address] Dr. Carmel Tillman IG # 0.35 10e3/ul Critically high 0.00-0.03 [facility] Comment on above: Performed By: #### C MP #### [facility] [address] [place] [address] Dr. Carmel Tillman IG % 2.3 % Critically high 0.0-0.5 [facility] Comment on above: Performed By: #### C MP #### [facility] [address] [place] [address] Dr. Carmel Tillman LYMPH # 3.7 103/ul Normal 1.2-3.8 [facility] Comment on above: Performed By: #### C MP #### [facility] [address] [place] [address] Dr. Carmel Tillman Lymphocytes/100 WBC (Bld) 24.4 % Normal 20.5-60.0 [facility] Comment on above: Performed By: #### C MP #### [facility] [address] [address] [address] Carmel Tillman MANUAL DIFF REQ NO Normal [facility] Comment on above: Performed By: #### C MP #### [facility] [address] [address] [address] Carmel Tillman MCH (RBC) [Entitic mass] 24.6 pg Critically low 26.7-34.0 [facility] Comment on above: Performed By: #### C MP #### [facility] [address] [address] [address] Carmel Tillman MCHC (RBC) [Mass/Vol] 31.0 g/dL Normal 29.9-35.2 [facility] Comment on above: Performed By: #### C MP #### [facility] [address] [place] [address] Dr. Carmel Tillman MCV (RBC) [Entitic vol] 79.6 fL Critically low 81.0-99.0 [facility] Comment on above: Performed By: #### C MP #### [facility] [address] [place] [address] Dr. Carmel Tillman MONO # 0.7 103/ul Normal 0.3-0.8 [facility] Comment on above: Performed By: #### C MP #### [facility] [address] [place] [address] Dr. Carmel Tillman Monocytes/100 WBC (Bld) 4.9 % Normal 1.7-12.0 [facility] Comment on above: Performed By: #### C MP #### [facility] [address] [place] [address] Dr. Carmel Tillman NEUT # 10.3 103/ul Critically high 1.4-6.5 [facility] Comment on above: Performed By: #### C MP #### [facility] [address] [place] [address] Dr. Carmel Tillman Neutrophils/100 WBC (Bld) 68.0 % Normal 43.0-75.0 [facility] Comment on above: Performed By: #### C MP #### [facility] [address] [address] [address] Carmel Tillman Platelet mean volume (Bld) [Entitic vol] 9.6 fL Normal 9.5-13.5 [facility] Comment on above: Performed By: #### C MP #### [facility] [address] [place] [address] Dr. Carmel Tillman PLT 151 103/ul Normal 150-450 [facility] Comment on above: Performed By: #### C MP #### [facility] [address] [address] [address] Carmel Tillman RBC 4.95 106/ul Normal 4.20-5.40 [facility] Comment on above: Performed By: #### C MP #### [facility] [address] [place] [address] Dr. Carmel Tillman WBC 15.2 103/ul Critically high 4.0-11.0 [facility] Comment on above: Performed By: #### C MP #### [facility] [address] [place] [address] Dr. Carmel Tillman POINT OF CARE GLUCOSEon 01-25 Glucose [Mass/Vol] 104 mg/dL Normal 74-106 [facility] Comment on above: Performed By: #### C FARAZ, HSTROPN #### [facility] [address] [place] [address] Dr. Carmel Tillman Glucose [Mass/Vol] 81 mg/dL Normal 74-106 [facility] Comment on above: Performed By: #### C MP #### [facility] [address] [place] [address] Dr. Carmel Tillman PROF CHEM 8 (BAS METB)on Anion gap [Moles/Vol] 13.7 mmol/L Normal [facility] Comment on above: Performed By: #### B MP #### [facility] [address] [place] [address] Dr. Carmel Tillman Calcium [Mass/Vol] 8.5 mg/dL Normal 8.4-10.2 [facility] Comment on above: Performed By: #### B MP #### [facility] [address] [address] [address] Carmel Tillman Chloride [Moles/Vol] 102 mmol/L Normal 98-107 [facility] Comment on above: Performed By: #### B MP #### [facility] [address] [address] [address] Carmel Tillman CO2 [Moles/Vol] 25.8 mmol/L Normal 22.0-30.0 [facility] Comment on above: Performed By: #### B MP #### [facility] [address] [address] [address] Carmel Tillman Creatinine [Mass/Vol] 1.06 mg/dL Critically high 0.52-1.04 [facility] Comment on above: Performed By: #### B MP #### [facility] [address] [address] [address] Carmel Tillman EGFR-AF [place]IZ[place] >60 Normal >=60 [facility] Comment on above: Performed By: #### B MP #### [facility] [address] [address] [address] Carmel Tillman EGFR-NON AF [place]IZ[place] 58 mL/min/1.73m2 Critically low >=60 [facility] Comment on above: Performed By: #### B MP #### [facility] [address] [address] [address] Carmel Tillman Glucose [Mass/Vol] 93 mg/dL Normal 74-106 [facility] Comment on above: Performed By: #### B MP #### [facility] [address] [address] [address] Carmel Tillman Potassium [Moles/Vol] 3.5 mmol/L Normal 3.4-5.0 [facility] Comment on above: Performed By: #### B MP #### [facility] [address] [address] [address] Carmel Tillman Sodium [Moles/Vol] 138 mmol/L Normal 137-145 [facility] Comment on above: Performed By: #### B MP #### [facility] [address] [address] [address] Carmel Tillman Urea nitrogen [Mass/Vol] 24.0 mg/dL Critically high 7.0-17.0 [facility] Comment on above: Performed By: #### B MP #### [facility] [address] [address] [address] Carmel Tillman Urea nitrogen/Creatinin e [Mass ratio] 22.6 mg/mg Normal [facility] Comment on above: Performed By: #### B MP #### [facility] [address] [address] [address] Carmel Tillman CBC W MANUAL DIFFon 02-15-20 21 ATYPICAL LYMPH # Normal [facility] Comment on above: Performed By: #### C MP #### [facility] [address] [place] [address] Dr. Carmel Tillman ATYPICAL LYMPH % Normal [facility] Comment on above: Performed By: #### C MP #### [facility] [address] [address] [address] Carmel Tillman BAND # 1.0 103/ul Critically high 0.0-0.3 [facility] Comment on above: Performed By: #### C MP #### [facility] [address] [address] [address] Carmel Tillman BAND % 6 % Critically high 0-5 [facility] Comment on above: Performed By: #### C MP #### [facility] [address] [place] [address] Dr. Carmel Tillman BASOM # 0.00 103/ul Normal 0.00-0.10 [facility] [facility] Comment on above: Performed By: #### C MP #### [facility] [address] [place] [address] Dr. Carmel Tillman BASOM % 0.0 % Critically low 0.2-2.0 [facility] Comment on above: Performed By: #### C MP #### [facility] [address] [place] [address] Dr. Carmel Tillman BLAST # Normal [facility] Comment on above: Performed By: #### C MP #### [facility] [address] [place] [address] Dr. Carmel Tillman BLAST % Normal [facility] Comment on above: Performed By: #### C MP #### [facility] [address] [address] [address] Carmel Tillman CORRECTED WBC Normal 4.0-11.0 [facility] Comment on above: Performed By: #### C MP #### [facility] [address] [address] [address] Carmel Tillman EOS # 0.00 103/ul Normal 0.00-0.70 [facility] Comment on above: Performed By: #### C MP #### [facility] [address] [address] [address] Carmel Tillman EOS% 0.0 % Critically low 0.9-7.0 [facility] Comment on above: Performed By: #### C MP #### [facility] [address] [address] [address] Carmel Tillman HCT 39.5 % Normal 36.0-48.0 [facility] Comment on above: Performed By: #### C MP #### [facility] [address] [address] [address] Carmel Tillman HGB 12.4 g/dl Normal 12.0-16.0 [facility] Comment on above: Performed By: #### C MP #### [facility] [address] [address] [address] Carmel Tillman LYMPHM # 1.56 103/ul Normal 1.20-3.80 [facility] Comment on above: Performed By: #### C MP #### [facility] [address] [address] [address] Carmel Tillman LYMPHM% 9.0 % Critically low 20.5-60.0 [facility] Comment on above: Performed By: #### C MP #### [facility] [address] [address] [address] Carmel Tillman MCH 24.8 pg Critically low 26.7-34.0 [facility] Comment on above: Performed By: #### C MP #### [facility] [address] [place] [address] Dr. Carmel Tillman MCHC 31.4 g/dl Normal 29.9-35.2 [facility] Comment on above: Performed By: #### C MP #### [facility] [address] [place] [address] Dr. Carmel Tillman MCV 79.2 fL Critically low 81.0-99.0 [facility] Comment on above: Performed By: #### C MP #### [facility] [address] [place] [address] Dr. Carmel Tillman METAMYELOCYTE # Normal [facility] Comment on above: Performed By: #### C MP #### [facility] [address] [place] [address] Dr. Carmel Tillman METAMYELOCYTE % Normal [facility] Comment on above: Performed By: #### C MP #### [facility] [address] [place] [address] Dr. Carmel Tillman MONOM# 0.69 103/ul Normal 0.30-0.80 [facility] Comment on above: Performed By: #### C MP #### [facility] [address] [place] [address] Dr. Carmel Tillman MONOM% 4.0 % Normal 1.7-12.0 [facility] Comment on above: Performed By: #### C MP #### [facility] [address] [place] [address] Dr. Carmel Tillman MPV 9.7 fL Normal 9.5-13.5 [facility] Comment on above: Performed By: #### C MP #### [facility] [address] [place] [address] Dr. Carmel Tillman MYELOCYTE # Normal [facility] Comment on above: Performed By: #### C MP #### [facility] [address] [place] [address] Dr. Carmel Tillman MYELOCYTE % Normal [facility] Comment on above: Performed By: #### C MP #### [facility] [address] [place] [address] Dr. Carmel Tillman NR Normal [facility] Comment on above: Performed By: #### C MP #### [facility] [address] [address] [address] Carmel Tillman PLT 167 103/ul Normal 150-450 [facility] Comment on above: Performed By: #### C MP #### [facility] [address] [address] [address] Carmel Tillman RBC 4.99 106/ul Normal 4.20-5.40 [facility] Comment on above: Performed By: #### C MP #### [facility] [address] [address] [address] Carmel Tillman RDW 17.7 % Critically high 11.0-15.0 [facility] Comment on above: Performed By: #### C MP #### [facility] [address] [address] [address] Carmel Tillman SEG # 14.01 103/ul Critically high 1.40-6.50 [facility] Comment on above: Performed By: #### C MP #### [facility] [address] [address] [address] Carmel Tillman SEG % 81.0 % Critically high 43.0-75.0 [facility] Comment on above: Performed By: #### C MP #### [facility] [address] [address] [address] Carmel Tillman WBC 17.3 103/ul Critically high 4.0-11.0 [facility] Comment on above: Performed By: #### C MP #### [facility] [address] [address] [address] Carmel Tillman CULTURE SPUTUMon 02-14-2021 CULTURE SPUTUM Culture Observations : NORMAL RESPIRATORY OSWALD. Normal [facility] Comment on above: Performed By: #### P T, PTT #### [facility] [address] [address] [address] Carmel Tillman ECHOCARDIO M/2D COMPLETEon 1 04-17-2020 ECHOCARDIO M/2D COMPLETE Patient: MARTA MELGAR Exam Date: 02/14/2021 : 1985 Gender:F Ordering : SHAIKH Eva KAUR . Admission #: [id number] Family : DR. RACHID Camarena MARLO . Order #: [id number] CLICK HERE TO VIEW EXAM ECHOCARDIOGRAM REPORT [...] Area(A4C): 19.00 cm2 Left Atrium Systolic Volume(A2C): 84659 mm3 Left Atrium Systolic Volume(A4C): 23481 mm3 Mitral Valve MV E to A [...] M.D. on 02/14/2021 at 18:38 Normal [facility] POINT OF CARE GLUCOSEon 01-25 Glucose [Mass/Vol] 105 mg/dL Normal 74-106 [facility] Comment on above: Performed By: #### P T, PTT #### [facility] [address] [address] [address] Carmel Tillman Glucose [Mass/Vol] 125 mg/dL Critically high 74-106 [facility] Comment on above: Performed By: #### P T, PTT #### [facility] [address] [address] [address] Carmel Tillman Glucose [Mass/Vol] 104 mg/dL Normal 74-106 [facility] Comment on above: Performed By: #### P T, PTT #### [facility] [address] [address] [address] Carmel Tillman Glucose [Mass/Vol] 109 mg/dL Critically high 74-106 [facility] Comment on above: Performed By: #### P T, PTT #### [facility] [address] [address] [address] Carmel Tillman PROF CHEM 8 (BAS METB)on Anion gap [Moles/Vol] 13.8 mmol/L [facility] Comment on above: Performed By: #### C MP, HSTROPN #### [facility] [address] [address] [address] Carmel Tillman Calcium [Mass/Vol] 8.6 mg/dL Normal 8.4-10.2 [facility] Comment on above: Performed By: #### C MP, HSTROPN #### [facility] [address] [address] [address] Carmel Tillman Chloride [Moles/Vol] 104 mmol/L Normal 98-107 [facility] Comment on above: Performed By: #### C MP, HSTROPN #### [facility] [address] [address] [address] Carmel Tillman CO2 [Moles/Vol] 24.3 mmol/L Normal 22.0-30.0 [facility] Comment on above: Performed By: #### C MP, HSTROPN #### [facility] [address] [address] [address] Carmel Tillman Creatinine [Mass/Vol] 0.84 mg/dL Normal 0.52-1.04 [facility] Comment on above: Performed By: #### C MP, HSTROPN #### [facility] [address] [address] [address] Carmel Tillman EGFR-AF [place]IZ[place] >60 Normal >=60 [facility] Comment on above: Performed By: #### C MP, HSTROPN #### [facility] [address] [address] [address] Carmel Tillman EGFR-NON AF CITIZEN [place] >60 Normal >=60 [facility] Comment on above: Performed By: #### C MP, HSTROPN #### [facility] [address] [address] [address] Carmel Tillman Glucose [Mass/Vol] 124 mg/dL Critically high 74-106 [facility] Comment on above: Performed By: #### C MP, HSTROPN #### [facility] [address] [address] [address] Carmel Tillman Potassium [Moles/Vol] 4.1 mmol/L Normal 3.4-5.0 [facility] Comment on above: Performed By: #### C MP, HSTROPN #### [facility] [address] [address] [address] Carmel Tillman Sodium [Moles/Vol] 138 mmol/L Normal 137-145 [facility] Comment on above: Performed By: #### C MP, HSTROPN #### [facility] [address] [address] [address] Carmel Tillman Urea nitrogen [Mass/Vol] 15.0 mg/dL Normal 7.0-17.0 [facility] Comment on above: Performed By: #### C MP, HSTROPN #### [facility] [address] [place] [address] Dr. Carmel Tillman Urea nitrogen/Creatinin e [Mass ratio] 17.9 mg/mg Normal [facility] Comment on above: Performed By: #### C MP, HSTROPN #### [facility] [address] [place] [address] Dr. Carmel Tillman SPUTUM GRAM STAINon 02-15-20 COMMENTS NO ORGANISMS OBSERVED Normal [facility] Comment on above: Performed By: #### C MP, HSTROPN #### [facility] [address] [place] [address] Dr. Carmel Tillman DIPHTHEROIDS Normal [facility] Comment on above: Performed By: #### C MP, HSTROPN #### [facility] [address] [address] [address] Carmel Tillman EPITHELIALS <25 Normal [facility] Comment on above: Performed By: #### C MP, HSTROPN #### [facility] [address] [address] [address] Carmel Tillman FUNGAL ELEMENTS Normal [facility] Comment on above: Performed By: #### C MP, HSTROPN #### [facility] [address] [place] [address] Dr. Carmel Tillman GRAM NEG BACILLI Normal [facility] Comment on above: Performed By: #### C MP, HSTROPN #### [facility] [address] [address] [address] Carmel Tillman GRAM NEG DIPPLOCOCCI Normal [facility] Comment on above: Performed By: #### C MP, HSTROPN #### [facility] [address] [address] [address] Carmel Tillman GRAM POS BACILLI Normal [facility] Comment on above: Performed By: #### C MP, HSTROPN #### [facility] [address] [address] [address] Carmel Tillman GRAM POSITIVE COCCI Normal [facility] Comment on above: Performed By: #### C MP, HSTROPN #### [facility] [address] [address] [address] Carmel Tillman WBC (Bld) [#/Vol] 10*3/uL Normal [facility] Comment on above: Performed By: #### C MP, HSTROPN #### [facility] [address] [address] [address] Carmel Tillman XR CHEST 2 Von [...] ISRAEL GROSS Date: 2021-02-14 08:57 Normal [facility] CBC W MANUAL DIFFon 02-14-20 21 ATYPICAL LYMPH # Normal [facility] Comment on above: Performed By: #### P T, PTT #### [facility] [address] [address] [address] Carmel Tillman ATYPICAL LYMPH % Normal [facility] Comment on above: Performed By: #### P T, PTT #### [facility] [address] [place] [address] Dr. Carmel Tillman BAND # 0.4 103/ul Critically high 0.0-0.3 [facility] Comment on above: Performed By: #### P T, PTT #### [facility] [address] [place] [address] Dr. Carmel Tillman BAND % 2 % Normal 0-5 [facility] Comment on above: Performed By: #### P T, PTT #### [facility] [address] [place] [address] Dr. Carmel Tillmna BASOM # 0.00 103/ul Normal 0.00-0.10 [facility] Comment on above: Performed By: #### P T, PTT #### [facility] [address] [place] [address] Dr. Carmel Tillmna BASOM % 0.0 % Critically low 0.2-2.0 [facility] Comment on above: Performed By: #### P T, PTT #### [facility] [address] [place] [address] Dr. Carmel Tillman BLAST # Normal [facility] Comment on above: Performed By: #### P T, PTT #### [facility] [address] [place] [address] Dr. Carmel Tillman BLAST % Normal [facility] Comment on above: Performed By: #### P T, PTT #### [facility] [address] [place] [address] Dr. Carmel Tillman CORRECTED WBC Normal 4.0-11.0 [facility] Comment on above: Performed By: #### P T, PTT #### [facility] [address] [place] [address] Dr. Carmel Tillman EOS # 0.00 103/ul Normal 0.00-0.70 [facility] Comment on above: Performed By: #### P T, PTT #### [facility] [address] [place] [address] Dr. Carmel Tillman EOS% 0.0 % Critically low 0.9-7.0 [facility] Comment on above: Performed By: #### P T, PTT #### [facility] [address] [address] [address] Carmel Tillman HCT 37.9 % Normal 36.0-48.0 [facility] Comment on above: Performed By: #### P T, PTT #### [facility] [address] [address] [address] Carmel Tillman HGB 11.9 g/dl Critically low 12.0-16.0 [facility] Comment on above: Performed By: #### P T, PTT #### [facility] [address] [address] [address] Carmel Tillman LYMPHM # 1.23 103/ul Normal 1.20-3.80 [facility] Comment on above: Performed By: #### P T, PTT #### [facility] [address] [address] [address] Carmel Tillman LYMPHM% 7.0 % Critically low 20.5-60.0 [facility] Comment on above: Performed By: #### P T, PTT #### [facility] [address] [address] [address] Carmel Tillman MCH 25.0 pg Critically low 26.7-34.0 [facility] Comment on above: Performed By: #### P T, PTT #### [facility] [address] [address] [address] Carmel Tillman MCHC 31.4 g/dl Normal 29.9-35.2 [facility] Comment on above: Performed By: #### P T, PTT #### [facility] [address] [address] [address] Carmel Tillman MCV 79.6 fL Critically low 81.0-99.0 [facility] Comment on above: Performed By: #### P T, PTT #### [facility] [address] [address] [address] Carmel Tillman METAMYELOCYTE # Normal [facility] Comment on above: Performed By: #### P T, PTT #### [facility] [address] [place] [address] Dr. Carmel Tillman METAMYELOCYTE % Normal [facility] Comment on above: Performed By: #### P T, PTT #### [facility] [address] [place] [address] Dr. Carmel Tillman MONOM# 0.35 103/ul Normal 0.30-0.80 [facility] Comment on above: Performed By: #### P T, PTT #### [facility] [address] [place] [address] Dr. Carmel Tillman MONOM% 2.0 % Normal 1.7-12.0 [facility] Comment on above: Performed By: #### P T, PTT #### [facility] [address] [place] [address] Dr. Carmel Tillman MPV 10.2 fL Normal 9.5-13.5 [facility] Comment on above: Performed By: #### P T, PTT #### [facility] [address] [place] [address] Dr. Carmel Tillman MYELOCYTE # Normal [facility] Comment on above: Performed By: #### P T, PTT #### [facility] [address] [place] [address] Dr. Carmel Tillman MYELOCYTE % Normal [facility] Comment on above: Performed By: #### P T, PTT #### [facility] [address] [place] [address] Dr. Carmel Tillman NRBC Normal [facility] Comment on above: Performed By: #### P T, PTT #### [facility] [address] [place] [address] Dr. Carmel Tillman PLT 174 103/ul Normal 150-450 [facility] Comment on above: Performed By: #### P T, PTT #### [facility] [address] [place] [address] Dr. Carmel Tillman RBC 4.76 106/ul Normal 4.20-5.40 [facility] Comment on above: Performed By: #### P T, PTT #### [facility] [address] [address] [address] Carmel Tillman RDW 17.5 % Critically high 11.0-15.0 [facility] Comment on above: Performed By: #### P T, PTT #### [facility] [address] [address] [address] Carmel Tillman SEG # 15.66 103/ul Critically high 1.40-6.50 [facility] Comment on above: Performed By: #### P T, PTT #### [facility] [address] [address] [address] Carmel Tillman SEG % 89.0 % Critically high 43.0-75.0 [facility] Comment on above: Performed By: #### P T, PTT #### [facility] [address] [address] [address] Carmel Tillman WBC 17.6 103/ul Critically high 4.0-11.0 [facility] Comment on above: Performed By: #### P T, PTT #### [facility] [address] [address] [address] Carmel Tillman POINT OF CARE GLUCOSEon 01-25 Glucose [Mass/Vol] 104 mg/dL Normal 74-106 [facility] Comment on above: Performed By: #### P T, PTT #### [facility] [address] [address] [address] Carmel Tillman Glucose [Mass/Vol] 122 mg/dL Critically high 74-106 [facility] Comment on above: Performed By: #### C MP #### [facility] [address] [address] [address] Carmel Tillman Glucose [Mass/Vol] 122 mg/dL Critically high 74-106 [facility] Comment on above: Performed By: #### P T, PTT #### [facility] [address] [address] [address] Carmel Tillman PROF CHEM 8 (BAS METB)on Anion gap [Moles/Vol] 13.8 mmol/L Normal [facility] Comment on above: Performed By: #### B MP #### [facility] [address] [address] [address] Carmel Tillman Calcium [Mass/Vol] 8.2 mg/dL Critically low 8.4-10.2 [facility] Comment on above: Performed By: #### B MP #### [facility] [address] [address] [address] Carmel Tlilman Chloride [Moles/Vol] 105 mmol/L Normal 98-107 [facility] Comment on above: Performed By: #### B MP #### [facility] [address] [address] [address] Carmel Tillman CO2 [Moles/Vol] 22.5 mmol/L Normal 22.0-30.0 [facility] Comment on above: Performed By: #### B MP #### [facility] [address] [address] [address] Carmel Tillman Creatinine [Mass/Vol] 0.81 mg/dL Normal 0.52-1.04 [facility] Comment on above: Performed By: #### B MP #### [facility] [address] [address] [address] Carmel Tillman EGFR-AF [place]IZ[place] >60 Normal >=60 [facility] Comment on above: Performed By: #### B MP #### [facility] [address] [address] [address] Carmel Tillman EGFR-NON AF [place]IZ[place] >60 Normal >=60 [facility] Comment on above: Performed By: #### B MP #### [facility] [address] [address] [address] Carmel Tillman Glucose [Mass/Vol] 128 mg/dL Critically high 74-106 [facility] Comment on above: Performed By: #### B MP #### [facility] [address] [address] [address] Carmel Tillman Potassium [Moles/Vol] 4.3 mmol/L Normal 3.4-5.0 [facility] Comment on above: Performed By: #### B MP #### [facility] [address] [address] [address] Carmel Tillman Sodium [Moles/Vol] 137 mmol/L Normal 137-145 [facility] Comment on above: Performed By: #### B MP #### [facility] [address] [place] [address] Dr. Carmel Tillman Urea nitrogen [Mass/Vol] 14.0 mg/dL Normal 7.0-17.0 [facility] Comment on above: Performed By: #### B MP #### [facility] [address] [place] [address] Dr. Carmel Tillman Urea nitrogen/Creatinin e [Mass ratio] 17.3 mg/mg Normal [facility] Comment on above: Performed By: #### B MP #### [facility] [address] [place] [address] Dr. Carmel Tillman CBC AUTO DIFFon 02-12-2021 BASO # 0.1 103/ul Normal 0.0-0.1 [facility] Comment on above: Performed By: #### P T, PTT #### [facility] [address] [place] [address] Dr. Carmel Tillman Basophils/100 WBC (Bld) 0.3 % Normal 0.2-2.0 [facility] Comment on above: Performed By: #### P T, PTT #### [facility] [address] [place] [address] Dr. Carmel Tillman EO # 0.0 103/ul Normal 0.0-0.7 [facility] Comment on above: Performed By: #### P T, PTT #### [facility] [address] [place] [address] Dr. Carmel Tillman Eosinophils/100 WBC (Bld) 0.0 % Critically low 0.9-7.0 [facility] Comment on above: Performed By: #### P T, PTT #### [facility] [address] [place] [address] Dr. Carmel Tillman Erythrocyte distribution width (RBC) [Ratio] 16.5 % Critically high 11.0-15.0 [facility] Comment on above: Performed By: #### P T, PTT #### [facility] [address] [place] [address] Dr. Carmel Tillman Hematocrit (Bld) [Volume fraction] 39.9 % Normal 36.0-48.0 [facility] Comment on above: Performed By: #### P T, PTT #### [facility] [address] [place] [address] Dr. Carmel Tillman Hemoglobin (Bld) [Mass/Vol] 12.7 g/dL Normal 12.0-16.0 [facility] Comment on above: Performed By: #### P T, PTT #### [facility] [address] [place] [address] Dr. Carmel Tillman IG # 0.42 10e3/ul Critically high 0.00-0.03 [facility] Comment on above: Performed By: #### P T, PTT #### [facility] [address] [place] [address] Dr. Carmel Tillman IG % 2.2 % Critically high 0.0-0.5 [facility] Comment on above: Performed By: #### P T, PTT #### [facility] [address] [place] [address] Dr. Carmel Tillman LYMPH # 1.4 103/ul Normal 1.2-3.8 [facility] Comment on above: Performed By: #### P T, PTT #### [facility] [address] [place] [address] Dr. Carmel Tillman Lymphocytes/100 WBC (Bld) 7.4 % Critically low 20.5-60.0 [facility] Comment on above: Performed By: #### P T, PTT #### [facility] [address] [place] [address] Dr. Carmel Tillman MANUAL DIFF REQ NO Normal [facility] Comment on above: Performed By: #### P T, PTT #### [facility] [address] [place] [address] Dr. Carmel Tillman MCH (RBC) [Entitic mass] 24.7 pg Critically low 26.7-34.0 [facility] Comment on above: Performed By: #### P T, PTT #### [facility] [address] [address] [address] Carmel Tillman MCHC (RBC) [Mass/Vol] 31.8 g/dL Normal 29.9-35.2 [facility] Comment on above: Performed By: #### P T, PTT #### [facility] [address] [place] [address] Dr. Carmel Tillman MCV (RBC) [Entitic vol] 77.5 fL Critically low 81.0-99.0 [facility] Comment on above: Performed By: #### P T, PTT #### [facility] [address] [place] [address] Dr. Carmel Tillman MONO # 0.4 103/ul Normal 0.3-0.8 [facility] Comment on above: Performed By: #### P T, PTT #### [facility] [address] [place] [address] Dr. Carmel Tillman Monocytes/100 WBC (Bld) 2.1 % Normal 1.7-12.0 [facility] Comment on above: Performed By: #### P T, PTT #### [facility] [address] [place] [address] Dr. Carmel Tillman NEUT # 16.8 103/ul Critically high 1.4-6.5 [facility] Comment on above: Performed By: #### P T, PTT #### [facility] [address] [place] [address] Dr. Carmel Tillman Neutrophils/100 WBC (Bld) 88.0 % Critically high 43.0-75.0 [facility] Comment on above: Performed By: #### P T, PTT #### [facility] [address] [place] [address] Dr. Carmel Tillman Platelet mean volume (Bld) [Entitic vol] 9.5 fL Normal 9.5-13.5 [facility] Comment on above: Performed By: #### P T, PTT #### [facility] [address] [place] [address] Dr. Carmel Tillman PLT 174 103/ul Normal 150-450 [facility] Comment on above: Performed By: #### P T, PTT #### [facility] [address] [address] [address] Carmel Tillman RBC 5.15 106/ul Normal 4.20-5.40 [facility] Comment on above: Performed By: #### P T, PTT #### [facility] [address] [address] [address] Carmel Tillman WBC 19.1 103/ul Critically high 4.0-11.0 [facility] Comment on above: Performed By: #### P T, PTT #### [facility] [address] [address] [address] Carmel Tillman POINT OF CARE GLUCOSEon 01-25 Glucose [Mass/Vol] 110 mg/dL Critically high 74-106 [facility] Comment on above: Performed By: #### C FARAZ, HSTROPN #### [facility] [address] [address] [address] Carmel Tillman Glucose [Mass/Vol] 99 mg/dL Normal 74-106 [facility] Comment on above: Performed By: #### C MP #### [facility] [address] [address] [address] Carmel Tillman Glucose [Mass/Vol] 97 mg/dL Normal 74-106 [facility] Comment on above: Performed By: #### P T, PTT #### [facility] [address] [address] [address] Carmel Tillman Glucose [Mass/Vol] 88 mg/dL Normal 74-106 [facility] Comment on above: Performed By: #### C MP, HSTROPN #### [facility] [address] [address] [address] Carmel Tillman PROF CHEM 8 (BAS METB)on Anion gap [Moles/Vol] 15.4 mmol/L Normal [facility] Comment on above: Performed By: #### B MP #### [facility] [address] [place] [address] Dr. Carmel Tillman Calcium [Mass/Vol] 8.0 mg/dL Critically low 8.4-10.2 [facility] Comment on above: Performed By: #### B MP #### [facility] [address] [place] [address] Dr. Carmel Tillman Chloride [Moles/Vol] 105 mmol/L Normal 98-107 [facility] Comment on above: Performed By: #### B MP #### [facility] [address] [address] [address] Carmel Tillman CO2 [Moles/Vol] 21.3 mmol/L Critically low 22.0-30.0 [facility] Comment on above: Performed By: #### B MP #### [facility] [address] [place] [address] Dr. Carmel Tillman Creatinine [Mass/Vol] 0.90 mg/dL Normal 0.52-1.04 [facility] Comment on above: Performed By: #### B MP #### [facility] [address] [place] [address] Dr. Carmel Tillman EGFR-AF [place]IZ[place] >60 Normal >=60 [facility] Comment on above: Performed By: #### B MP #### [facility] [address] [place] [address] Dr. Carmel Tillman EGFR-NON AF CITIZEN OF [place] >60 Normal >=60 [facility] Comment on above: Performed By: #### B MP #### [facility] [address] [place] [address] Dr. Carmel Tillman Glucose [Mass/Vol] 128 mg/dL Critically high 74-106 [facility] Comment on above: Performed By: #### B MP #### [facility] [address] [place] [address] Dr. Carmel Tillman Potassium [Moles/Vol] 3.7 mmol/L Normal 3.4-5.0 [facility] Comment on above: Performed By: #### B MP #### [facility] [address] [place] [address] Dr. Carmel Tillman Sodium [Moles/Vol] 138 mmol/L Normal 137-145 [facility] Comment on above: Performed By: #### B MP #### [facility] [address] [address] [address] Carmel Tillman Urea nitrogen [Mass/Vol] 17.0 mg/dL Normal 7.0-17.0 [facility] Comment on above: Performed By: #### B MP #### [facility] [address] [place] [address] Dr. Carmel Tillman Urea nitrogen/Creatinin e [Mass ratio] 18.9 mg/mg Normal [facility] Comment on above: Performed By: #### B MP #### [facility] [address] [place] [address] Dr. Carmel Tillman CBC W MANUAL DIFFon 02-12-20 ATYPICAL LYMPH # 0.18 103/ul Normal [facility] Comment on above: Performed By: #### C FARAZ, HSTROPN #### [facility] [address] [place] [address] Dr. Carmel Tillman ATYPICAL LYMPH % 1 % Normal [facility] [place] [facility] Comment on above: Performed By: #### C MP, HSTROPN #### [facility] [address] [place] [address] Dr. Carmel Tillman BAND # 0.0 103/ul Normal 0.0-0.3 [facility] Comment on above: Performed By: #### C MP, HSTROPN #### [facility] [address] [place] [address] Dr. Carmel Tillman BAND % 0 % Normal 0-5 [facility] Comment on above: Performed By: #### C MP, HSTROPN #### [facility] [address] [place] [address] Dr. Carmel Tillman BASOM # 0.00 103/ul Normal 0.00-0.10 [facility] Comment on above: Performed By: #### C MP, HSTROPN #### [facility] [address] [place] [address] Dr. Carmel Tillman BASOM % 0.0 % Critically low 0.2-2.0 [facility] Comment on above: Performed By: #### C MP, HSTROPN #### [facility] [address] [place] [address] Dr. Carmel Tillman BLAST # Normal [facility] Comment on above: Performed By: #### C MP, HSTROPN #### [facility] [address] [place] [address] Dr. Carmel Tillman BLAST % Normal [facility] Comment on above: Performed By: #### C MP, HSTROPN #### [facility] [address] [address] [address] Carmel Tillman CORRECTED WBC Normal 4.0-11.0 [facility] Comment on above: Performed By: #### C FARAZ, HSTROPN #### [facility] [address] [place] [address] Dr. Carmel Tillman EOS # 0.00 103/ul Normal 0.00-0.70 [facility] Comment on above: Performed By: #### C FARAZ, HSTROPN #### [facility] [address] [place] [address] Dr. Carmel Tillman EOS% 0.0 % Critically low 0.9-7.0 [facility] Comment on above: Performed By: #### C FARAZ, HSTROPN #### [facility] [address] [place] [address] Dr. Carmel Tillman HCT 43.4 % Normal 36.0-48.0 [facility] Comment on above: Performed By: #### C FARAZ, HSTROPN #### [facility] [address] [place] [address] Dr. Carmel Tillman HGB 13.7 g/dl Normal 12.0-16.0 [facility] Comment on above: Performed By: #### C MP, HSTROPN #### [facility] [address] [place] [address] Dr. Carmel Tillman LYMPHM # 1.06 103/ul Critically low 1.20-3.80 [facility] Comment on above: Performed By: #### C MP, HSTROPN #### [facility] [address] [place] [address] Dr. Carmel Tillman LYMPHM% 6.0 % Critically low 20.5-60.0 [facility] Comment on above: Performed By: #### C MP, HSTROPN #### [facility] [address] [place] [address] Dr. Carmel Tillman MCH 24.6 pg Critically low 26.7-34.0 [facility] Comment on above: Performed By: #### C MP, HSTROPN #### [facility] [address] [place] [address] Dr. Carmel Tillman MCHC 31.6 g/dl Normal 29.9-35.2 [facility] Comment on above: Performed By: #### C FARAZ, HSTROPN #### [facility] [address] [place] [address] Dr. Carmel Tillman MCV 77.9 fL Critically low 81.0-99.0 [facility] Comment on above: Performed By: #### C MP, HSTROPN #### [facility] [address] [place] [address] Dr. Carmel Tillman METAMYELOCYTE # Normal [facility] Comment on above: Performed By: #### C FARAZ, HSTROPN #### [facility] [address] [place] [address] Dr. Carmel Tillman METAMYELOCYTE % Normal [facility] Comment on above: Performed By: #### C MP, HSTROPN #### [facility] [address] [place] [address] Dr. Carmel Tillman MONOM# 0.53 103/ul Normal 0.30-0.80 [facility] Comment on above: Performed By: #### C MP, HSTROPN #### [facility] [address] [place] [address] Dr. Carmel Tillman MONOM% 3.0 % Normal 1.7-12.0 [facility] Comment on above: Performed By: #### C MP, HSTROPN #### [facility] [address] [place] [address] Dr. Carmel Tillman MPV 10.2 fL Normal 9.5-13.5 [facility] Comment on above: Performed By: #### C MP, HSTROPN #### [facility] [address] [address] [address] Carmel Tillman MYELOCYTE # Normal [facility] Comment on above: Performed By: #### C MP, HSTROPN #### [facility] [address] [address] [address] Carmel Tillman MYELOCYTE % Normal [facility] Comment on above: Performed By: #### C MP, HSTROPN #### [facility] [address] [address] [address] Carmel Tillman NRBC Normal [facility] Comment on above: Performed By: #### C MP, HSTROPN #### [facility] [address] [place] [address] Dr. Carmel Tillman PLT 213 103/ul Normal 150-450 [facility] Comment on above: Performed By: #### C MP, HSTROPN #### [facility] [address] [address] [address] Carmel Tillman RBC 5.57 106/ul Critically high 4.20-5.40 [facility] Comment on above: Performed By: #### C MP, HSTROPN #### [facility] [address] [address] [address] Carmel Tillman RDW 17.2 % Critically high 11.0-15.0 [facility] Comment on above: Performed By: #### C MP, HSTROPN #### [facility] [address] [address] [address] Carmel Tillman SEG # 15.84 103/ul Critically high 1.40-6.50 [facility] Comment on above: Performed By: #### C MP, HSTROPN #### [facility] [address] [address] [address] Carmel Tillman SEG % 90.0 % Critically high 43.0-75.0 [facility] Comment on above: Performed By: #### C MP, HSTROPN #### [facility] [address] [place], [place] [address] Dr. Carmel Tillman WBC 17.6 103/ul Critically high 4.0-11.0 [facility] Comment on above: Performed By: #### C MP, HSTROPN #### [facility] [address] [place], [place] [address] Dr. Carmel Tillman CTA CHEST WO W [...] HUSAM GARSIA Date: 2021-02-11 19:14 Normal [facility] CULTURE BLOODon 02-11-2021 Microscopic examination of blood, culture Culture Observations: NO GROWTH AT 5 DAYS. Normal [facility] Comment on above: Performed By: #### P T, PTT #### [facility] [address] [address] [address] Carmel Tillman Microscopic examination of blood, culture Culture Observations: NO GROWTH AT 5 DAYS. Normal [facility] Comment on above: Performed By: #### P T, PTT #### [facility] [address] [place], [place] [address] Dr. Carmel Tillman Covid-19 PCR ([facility])on 01-24 SARS-CoV-2 (COVID-19) RNA EDILBERTO+probe Ql (Unsp spec) Not detected Normal NOT DETECTED [facility] Comment on above: Result Comment: This test is not yet approved or cleared by the [place] FDA. When there are no FDA-approved or cleared tests available, and other criteria are met, FDA can make tests available under an emergency access mechanism called an Emergency Use Authorization (EUA). The EUA for this test is supported by the Radiographer Technologist of Health and Human Service's (HHS's) declaration [...] SARS-CoV-2. Performed By: #### C MP #### [facility] [address] [place] [address] Dr. Carmel Tillman PROF 14(COMP METB)on 021 Albumin [Mass/Vol] 2.6 g/dL Critically low 3.5-5.0 Th [facility] Comment on above: Performed By: #### C FARAZ HSTROPN #### [facility] [address] [address] [address] Carmel Tillman Albumin/Globulin [Mass ratio] 0.7 {ratio} Normal [facility] Comment on above: Performed By: #### C FARAZ HSTROPN #### [facility] [address] [address] [address] Carmel Tillman ALP [Catalytic activity/Vol] 40 U/L Normal 38-126 [facility] Comment on above: Performed By: #### C MP, HSTROPN #### [facility] [address] [address] [address] Carmel Tillman ALT [Catalytic activity/Vol] 73 U/L Critically high 9-52 [facility] Comment on above: Performed By: #### C MP, HSTROPN #### [facility] [address] [place] [address] Dr. Carmel Tillman Anion gap [Moles/Vol] 14.4 mmol/L Normal [facility] Comment on above: Performed By: #### C MP, HSTROPN #### [facility] [address] [place] [address] Dr. Carmel Tillman AST [Catalytic activity/Vol] 19 U/L Normal 14-36 [facility] Comment on above: Performed By: #### C MP, HSTROPN #### [facility] [address] [place] [address] Dr. Carmel Tillman Bilirubin [Mass/Vol] 0.7 mg/dL Normal 0.2-1.3 [facility] Comment on above: Performed By: #### C MP, HSTROPN #### [facility] [address] [place] [address] Dr. Carmel Tillman Calcium [Mass/Vol] 8.3 mg/dL Critically low 8.4-10.2 Th [facility] Comment on above: Performed By: #### C MP, HSTROPN #### [facility] [address] [place] [address] Dr. Carmel Tillman Chloride [Moles/Vol] 106 mmol/L Normal 98-107 [facility] Comment on above: Performed By: #### C MP, HSTROPN #### [facility] [address] [place] [address] Dr. Carmel Tillman CO2 [Moles/Vol] 22.9 mmol/L Normal 22.0-30.0 [facility] Comment on above: Performed By: #### C MP, HSTROPN #### [facility] [address] [address] [address] Carmel Tillman Creatinine [Mass/Vol] 0.70 mg/dL Normal 0.52-1.04 [facility] Comment on above: Performed By: #### C MP, HSTROPN #### [facility] [address] [address] [address] Carmel Tillman EGFR-AF [place]IZ[place] >60 Normal >=60 [facility] Comment on above: Performed By: #### C MP, HSTROPN #### [facility] [address] [address] [address] Carmel Tillman EGFR-NON AF [place]IZ[place] >60 Normal >=60 [facility] Comment on above: Performed By: #### C MP, HSTROPN #### [facility] [address] [address] [address] Carmel Tillman Globulin (S) [Mass/Vol] 3.5 g/dL Normal [facility] Comment on above: Performed By: #### C MP, HSTROPN #### [facility] [address] [address] [address] Carmel Tillman Glucose [Mass/Vol] 98 mg/dL Normal 74-106 [facility] Comment on above: Performed By: #### C MP, HSTROPN #### [facility] [address] [address] [address] Cramel Tillman Potassium [Moles/Vol] 4.3 mmol/L Normal 3.4-5.0 [facility] Comment on above: Performed By: #### C MP, HSTROPN #### [facility] [address] [address] [address] Carmel Tillman Protein [Mass/Vol] 6.1 g/dL Normal 6.1-8.2 [facility] Comment on above: Performed By: #### C MP, HSTROPN #### [facility] [address] [address] [address] Carmel Tillman Sodium [Moles/Vol] 139 mmol/L Normal 137-145 [facility] Comment on above: Performed By: #### C FARAZ HSTROPN #### [facility] [address] [place] [address] Dr. Carmel Tillman Urea nitrogen [Mass/Vol] 21.0 mg/dL Critically high 7.0-17.0 [facility] Comment on above: Performed By: #### C FARAZ HSTROPN #### [facility] [address] [place] [address] Dr. Carmel Tillman Urea nitrogen/Creatinin e [Mass ratio] 30.0 mg/mg Normal [facility] Comment on above: Performed By: #### C FARAZ HSTROPN #### [facility] [address] [place] [address] Dr. Carmel Tillman TROPONIN, HIGH SENSITIVITYon 02-11-2021 HSTROP 8.3 pg/mL Normal 4.0-35.5 [facility] Comment on above: Result Comment: CUT- OFF POINTS HAVE BEEN ESTABLISHED BASED ON THE FOURTH UNIVERSAL DEFINITIONS OF MYOCARDIAL INFARCTION. THE UPPER REFERENCE LIMIT (URL) OF TROPONIN, DEFINED THE 99TH PERCENTILE OF cTnI DISTRIBUTION IN A REFERENCE POPULATION, HAS BEEN CONFIRMED THE DECISION THRESHOLD FOR DC DIAGNOSIS. Performed By: #### C FARAZ HSTROPN #### [facility] [address] [place] [address] Dr. Carmel Tillman CBC W MANUAL DIFFon 02-01-20 ATYPICAL LYMPH # 0.13 103/ul Normal [facility] Comment on above: Performed By: #### C MP #### [facility] [address] [place] [address] Dr. Carmel Tillman ATYPICAL LYMPH % 1 % Normal [facility] Comment on above: Performed By: #### C MP #### [facility] [address] [place] [address] Dr. Carmel Tillman BAND # 0.3 103/ul Normal 0.0-0.3 [facility] Comment on above: Performed By: #### C MP #### [facility] [address] [place] [address] Dr. Carmel Tillman BAND % 2 % Normal 0-5 [facility] Comment on above: Performed By: #### C MP #### [facility] [address] [address] [address] Carmel Tillman BASOM # 0.00 103/ul Normal 0.00-0.10 [facility] Comment on above: Performed By: #### C MP #### [facility] [address] [place] [address] Dr. Carmel Tillman BASOM % 0.0 % Critically low 0.2-2.0 [facility] Comment on above: Performed By: #### C MP #### [facility] [address] [place] [address] Dr. Carmel Tillman BLAST # Normal [facility] Comment on above: Performed By: #### C MP #### [facility] [address] [place] [address] Dr. Carmel Tillman BLAST % Normal [facility] Comment on above: Performed By: #### C MP #### [facility] [address] [place] [address] Dr. Carmel Tillman CORRECTED WBC Normal 4.0-11.0 [facility] Comment on above: Performed By: #### C MP #### [facility] [address] [place] [address] Dr. Carmel Tillman EOS # 0.00 103/ul Normal 0.00-0.70 [facility] Comment on above: Performed By: #### C MP #### [facility] [address] [place] [address] Dr. Carmel Tillman EOS% 0.0 % Critically low 0.9-7.0 [facility] Comment on above: Performed By: #### C MP #### [facility] [address] [place] [address] Dr. Carmel Tillman HCT 41.0 % Normal 36.0-48.0 [facility] Comment on above: Performed By: #### C MP #### [facility] [address] [place] [address] Dr. Carmel Tillman HGB 12.8 g/dl Normal 12.0-16.0 [facility] Comment on above: Performed By: #### C MP #### [facility] [address] [address] [address] Carmel Tillman LYMPHM # 1.88 103/ul Normal 1.20-3.80 [facility] Comment on above: Performed By: #### C MP #### [facility] [address] [address] [address] Carmel Tillman LYMPHM% 15.0 % Critically low 20.5-60.0 [facility] Comment on above: Performed By: #### C MP #### [facility] [address] [place] [address] Dr. Carmel Tillman MCH 25.0 pg Critically low 26.7-34.0 [facility] Comment on above: Performed By: #### C MP #### [facility] [address] [place] [address] Dr. Carmel Tillman MCHC 31.2 g/dl Normal 29.9-35.2 [facility] Comment on above: Performed By: #### C MP #### [facility] [address] [place] [address] Dr. Carmel Tillman MCV 80.2 fL Critically low 81.0-99.0 [facility] Comment on above: Performed By: #### C MP #### [facility] [address] [place] [address] Dr. Carmel Tillman METAMYELOCYTE # Normal [facility] Comment on above: Performed By: #### C MP #### [facility] [address] [place] [address] Dr. Carmel Tillman METAMYELOCYTE % Normal [facility] Comment on above: Performed By: #### C MP #### [facility] [address] [place] [address] Dr. Carmel Tillman MONOM# 0.25 103/ul Critically low 0.30-0.80 [facility] Comment on above: Performed By: #### C MP #### [facility] [address] [place] [address] Dr. Carmel Tillman MONOM% 2.0 % Normal 1.7-12.0 [facility] Comment on above: Performed By: #### C MP #### [facility] [address] [place] [address] Dr. Carmel Tillman MPV 12.4 fL Normal 9.5-13.5 [facility] Comment on above: Performed By: #### C MP #### [facility] [address] [place] [address] Dr. Carmel Tillman MYELOCYTE # Normal [facility] Comment on above: Performed By: #### C MP #### [facility] [address] [place] [address] Dr. Carmel Tillman MYELOCYTE % Normal [facility] Comment on above: Performed By: #### C MP #### [facility] [address] [place] [address] Dr. Carmel Tillman NRBC Normal [facility] Comment on above: Performed By: #### C MP #### [facility] [address] [place] [address] Dr. Carmel Tillman PLT 209 103/ul Normal 150-450 [facility] Comment on above: Performed By: #### C MP #### [facility] [address] [place] [address] Dr. Carmel Tillman RBC 5.11 106/ul Normal 4.20-5.40 [facility] Comment on above: Performed By: #### C MP #### [facility] [address] [place] [address] Dr. Carmel Tillman RDW 16.9 % Critically high 11.0-15.0 [facility] Comment on above: Performed By: #### C MP #### [facility] [address] [place] [address] Dr. Carmel Tillman SEG # 10.00 103/ul Critically high 1.40-6.50 [facility] Comment on above: Performed By: #### C MP #### [facility] [address] [place] [address] Dr. Carmel Tillman SEG % 80.0 % Critically high 43.0-75.0 [facility] Comment on above: Performed By: #### C MP #### [facility] [address] [address] [address] Carmel Tillman WBC 12.5 103/ul Critically high 4.0-11.0 [facility] Comment on above: Performed By: #### C MP #### [facility] [address] [place] [address] Dr. Carmel Tillman MAGNESIUMon 01-31-2021 Magnesium [Mass/Vol] 2.7 mg/dL Critically high 1.6-2.3 [facility] Comment on above: Performed By: #### C MP #### [facility] [address] [place] [address] Dr. Carmel Tillman PROF CHEM 8 (BAS METB)on Anion gap [Moles/Vol] 16.6 mmol/L Normal [facility] Comment on above: Performed By: #### C MP #### [facility] [address] [place] [address] Dr. Carmel Tillman Calcium [Mass/Vol] 8.4 mg/dL Normal 8.4-10.2 [facility] Comment on above: Performed By: #### C MP #### [facility] [address] [place] [address] Dr. Carmel Tillman Chloride [Moles/Vol] 108 mmol/L Critically high 98-107 [facility] Comment on above: Performed By: #### C MP #### [facility] [address] [place] [address] Dr. Carmel Tillman CO2 [Moles/Vol] 20.9 mmol/L Critically low 22.0-30.0 [facility] Comment on above: Performed By: #### C MP #### [facility] [address] [place] [address] Dr. Carmel Tillman Creatinine [Mass/Vol] 0.91 mg/dL Normal 0.52-1.04 [facility] Comment on above: Performed By: #### C MP #### [facility] [address] [place] [address] Dr. Carmel Tillman EGFR-AF [place]IZ[place] >60 Normal >=60 [facility] Comment on above: Performed By: #### C MP #### [facility] [address] [place] [address] Dr. Carmel Tillman EGFR-NON AF CITIZEN [place] >60 Normal >=60 [facility] Comment on above: Performed By: #### C MP #### [facility] [address] [address] [address] Carmel Tillman Glucose [Mass/Vol] 132 mg/dL Critically high 74-106 [facility] Comment on above: Performed By: #### C MP #### [facility] [address] [address] [address] Carmel Tillman Potassium [Moles/Vol] 4.5 mmol/L Normal 3.4-5.0 [facility] Comment on above: Performed By: #### C MP #### [facility] [address] [address] [address] Carmel Tillman Sodium [Moles/Vol] 141 mmol/L Normal 137-145 [facility] Comment on above: Performed By: #### C MP #### [facility] [address] [address] [address] Carmel Tillman Urea nitrogen [Mass/Vol] 30.0 mg/dL Critically high 7.0-17.0 [facility] Comment on above: Performed By: #### C MP #### [facility] [address] [address] [address] Carmel Tillman Urea nitrogen/Creatinin e [Mass ratio] 33.0 mg/mg Normal [facility] Comment on above: Performed By: #### C MP #### [facility] [address] [address] [address] Carmel Tillman BNPon 01-27-2021 Natriuretic peptide B (Bld) [Mass/Vol] 38.0 pg/mL Normal <=450.0 [facility] Comment on above: Performed By: #### P T, PTT #### [facility] [address] [address] [address] Carmel Tillman CBC AUTO DIFFon 01-27-2021 BASO # 0.0 103/ul Normal 0.0-0.1 [facility] Comment on above: Performed By: #### C FARAZ, HSTROPN #### [facility] [address] [place] [address] Dr. Carmel Tillman Basophils/100 WBC (Bld) 0.3 % Normal 0.2-2.0 [facility] Comment on above: Performed By: #### C MP, HSTROPN #### [facility] [address] [place] [address] Dr. Carmel Tillman EO # 0.0 103/ul Normal 0.0-0.7 [facility] Comment on above: Performed By: #### C FARAZ, HSTROPN #### [facility] [address] [place] [address] Dr. Carmel Tillman Eosinophils/100 WBC (Bld) 0.0 % Critically low 0.9-7.0 [facility] Comment on above: Performed By: #### C FARAZ, HSTROPN #### [facility] [address] [place] [address] Dr. Carmel Tillman Erythrocyte distribution width (RBC) [Ratio] 17.3 % Critically high 11.0-15.0 [facility] Comment on above: Performed By: #### C FARAZ, HSTROPN #### [facility] [address] [place] [address] Dr. Carmel Tillman Hematocrit (Bld) [Volume fraction] 45.4 % Normal 36.0-48.0 [facility] Comment on above: Performed By: #### C FARAZ, HSTROPN #### [facility] [address] [place] [address] Dr. Carmel Tillman Hemoglobin (Bld) [Mass/Vol] 14.3 g/dL Normal 12.0-16.0 [facility] Comment on above: Performed By: #### C MP, HSTROPN #### [facility] [address] [place] [address] Dr. Carmel Tillman IG # 0.07 10e3/ul Critically high 0.00-0.03 [facility] Comment on above: Performed By: #### C MP, HSTROPN #### [facility] [address] [address] [address] Carmel Tillman IG % 0.8 % Critically high 0.0-0.5 [facility] Comment on above: Performed By: #### C MP, HSTROPN #### [facility] [address] [place] [address] Dr. Carmel Tillman LYMPH # 2.2 103/ul Normal 1.2-3.8 [facility] Comment on above: Performed By: #### C MP, HSTROPN #### [facility] [address] [place] [address] Dr. Carmel Tillman Lymphocytes/100 WBC (Bld) 25.4 % Normal 20.5-60.0 [facility] Comment on above: Performed By: #### C MP, HSTROPN #### [facility] [address] [place] [address] Dr. Carmel Tillman MANUAL DIFF REQ NO Normal [facility] Comment on above: Performed By: #### C MP, HSTROPN #### [facility] [address] [place] [address] Dr. Carmel Tillman MCH (RBC) [Entitic mass] 24.7 pg Critically low 26.7-34.0 [facility] Comment on above: Performed By: #### C MP, HSTROPN #### [facility] [address] [place] [address] Dr. Carmel Tillman MCHC (RBC) [Mass/Vol] 31.5 g/dL Normal 29.9-35.2 [facility] Comment on above: Performed By: #### C MP, HSTROPN #### [facility] [address] [place] [address] Dr. Carmel Tillman MCV (RBC) [Entitic vol] 78.3 fL Critically low 81.0-99.0 [facility] Comment on above: Performed By: #### C MP, HSTROPN #### [facility] [address] [place] [address] Dr. Carmel Tillman MONO # 0.2 103/ul Critically low 0.3-0.8 [facility] Comment on above: Performed By: #### C MP, HSTROPN #### [facility] [address] [place] [address] Dr. Carmel Tillman Monocytes/100 WBC (Bld) 2.6 % Normal 1.7-12.0 [facility] Comment on above: Performed By: #### C MP, HSTROPN #### [facility] [address] [place] [address] Dr. Carmel Tillman NEUT # 6.2 103/ul Normal 1.4-6.5 [facility] Comment on above: Performed By: #### C FARAZ, HSTROPN #### [facility] [address] [place] [address] Dr. Carmel Tillman Neutrophils/100 WBC (Bld) 70.9 % Normal 43.0-75.0 [facility] Comment on above: Performed By: #### C FARAZ, HSTROPN #### [facility] [address] [place] [address] Dr. Carmel Tillman Platelet mean volume (Bld) [Entitic vol] 10.2 fL Normal 9.5-13.5 [facility] Comment on above: Performed By: #### C FARAZ, HSTROPN #### [facility] [address] [place] [address] Dr. Carmel Tillman PLT 219 103/ul Normal 150-450 [facility] Comment on above: Performed By: #### C MP, HSTROPN #### [facility] [address] [place] [address] Dr. Carmel Tillman RBC 5.80 106/ul Critically high 4.20-5.40 [facility] [place] [facility] Comment on above: Performed By: #### C MP, HSTROPN #### [facility] [address] [place] [address] Dr. Carmel Tillman WBC 8.7 103/ul Normal 4.0-11.0 [facility] Comment on above: Performed By: #### C MP, HSTROPN #### [facility] [address] [address] [address] Carmel Tillman CTA CHEST WO W CONon 12-04-2 021 CTA CHEST WO W CON EXAMINATION: [...] ARIELLA FISCHER Date: 2021-01-27 19:01 Normal [facility] Covid-19 PCR (CVDTB)on SARS-CoV-2 (COVID-19) RNA EDILBERTO+probe Ql (Unsp spec) Detected Critically abnormal NOT DETECTED [facility] Comment on above: Result Comment: This test is not yet approved or cleared by the [place] FDA. When there are no FDA-approved or cleared tests available, and other criteria are met, FDA can make tests available under an emergency access mechanism called an Emergency Use Authorization (EUA). The EUA for this test is supported by the [place] of Health and Human Service's declaration that [...] used). Performed By: #### C VDTBH #### [facility] [address] [place] [address] Dr. Carmel Tillman PROF 14(COMP METB)on 021 Albumin [Mass/Vol] 2.8 g/dL Critically low 3.5-5.0 [facility] Comment on above: Performed By: #### P T, PTT #### [facility] [address] [place] [address] Dr. Carmel Tillman Albumin/Globulin [Mass ratio] 0.6 {ratio} Normal [facility] Comment on above: Performed By: #### P T, PTT #### [facility] [address] [place] [address] Dr. Carmel Tillman ALP [Catalytic activity/Vol] 55 U/L Normal 38-126 [facility] Comment on above: Performed By: #### P T, PTT #### [facility] [address] [place] [address] Dr. Carmel Tillman ALT [Catalytic activity/Vol] 69 U/L Critically high 9-52 [facility] Comment on above: Performed By: #### P T, PTT #### [facility] [address] [address] [address] Carmel Tillman Anion gap [Moles/Vol] 12.7 mmol/L Normal [facility] Comment on above: Performed By: #### P T, PTT #### [facility] [address] [address] [address] Carmel Tillman AST [Catalytic activity/Vol] 39 U/L Critically high 14-36 [facility] Comment on above: Performed By: #### P T, PTT #### [facility] [address] [address] [address] Carmel Tillman Bilirubin [Mass/Vol] 0.6 mg/dL Normal 0.2-1.3 [facility] Comment on above: Performed By: #### P T, PTT #### [facility] [address] [place] [address] Dr. Carmel Tillman Calcium [Mass/Vol] 8.5 mg/dL Normal 8.4-10.2 [facility] Comment on above: Performed By: #### P T, PTT #### [facility] [address] [place] [address] Dr. Carmel Tillman Chloride [Moles/Vol] 101 mmol/L Normal 98-107 [facility] Comment on above: Performed By: #### P T, PTT #### [facility] [address] [place] [address] Dr. Carmel Tillman CO2 [Moles/Vol] 26.9 mmol/L Normal 22.0-30.0 [facility] Comment on above: Performed By: #### P T, PTT #### [facility] [address] [place] [address] Dr. Carmel Tillman Creatinine [Mass/Vol] 1.05 mg/dL Critically high 0.52-1.04 [facility] Comment on above: Performed By: #### P T, PTT #### [facility] [address] [place] [address] Dr. Carmel Tillman EGFR-AF [place] >60 Normal >=60 [facility] Comment on above: Performed By: #### P T, PTT #### [facility] [address] [address] [address] Carmel Tillman EGFR-NON AF [place]IZ[place] 59 mL/min/1.73m2 Critically low >=60 [facility] Comment on above: Performed By: #### P T, PTT #### [facility] [address] [address] [address] Carmel Tillman Globulin (S) [Mass/Vol] 4.5 g/dL Normal [facility] Comment on above: Performed By: #### P T, PTT #### [facility] [address] [address] [address] Carmel Tilmlan Glucose [Mass/Vol] 90 mg/dL Normal 74-106 [facility] Comment on above: Performed By: #### P T, PTT #### [facility] [address] [address] [address] Carmel Tillman Potassium [Moles/Vol] 3.6 mmol/L Normal 3.4-5.0 [facility] Comment on above: Performed By: #### P T, PTT #### [facility] [address] [place] [address] Dr. Carmel Tillman Protein [Mass/Vol] 7.3 g/dL Normal 6.1-8.2 [facility] Comment on above: Performed By: #### P T, PTT #### [facility] [address] [place] [address] Dr. Carmel Tillman Sodium [Moles/Vol] 137 mmol/L Normal 137-145 [facility] Comment on above: Performed By: #### P T, PTT #### [facility] [address] [place] [address] Dr. Carmel Tillman Urea nitrogen [Mass/Vol] 14.0 mg/dL Normal 7.0-17.0 [facility] Comment on above: Performed By: #### P T, PTT #### [facility] [address] [address] [address] Carmel Tillman Urea nitrogen/Creatinin e [Mass ratio] 13.3 mg/mg Normal [facility] Comment on above: Performed By: #### P T, PTT #### [facility] [address] [place] [address] Dr. Carmel Tillman PROTIMEon 01-27-2021 INR Coag (PPP) [Relative time] 0.96 {INR} Normal [facility] Comment on above: Performed By: #### P T, PTT #### [facility] [address] [place] [address] Dr. Carmel Tillman INR GUIDELINES SEE BELOW Normal [facility] Comment on above: Result Comment: CHRIS RED INR: 2.0 - 3.0 CONDITIONS NOT LISTED BELOW 2.5 - 3.5 FOR PROSTHETIC HEART VALVE REPLACEMENT 2.5 - 3.5 RECURRENT THROMBOSIS Performed By: #### P T, PTT #### [facility] [address] [place] [address] Dr. Carmel Tillman PT Coag (PPP) [Time] 10.4 s Normal 9.0-11.6 [facility] Comment on above: Performed By: #### P T, PTT #### [facility] [address] [place] [address] Dr. Carmel Tillman PTTon 01-27-2021 aPTT Coag (Bld) [Time] 25.0 s Normal 22.3-36.2 [facility] Comment on above: Performed By: #### P T, PTT #### [facility] [address] [place] [address] Dr. Carmel Tillman TROPONIN, HIGH SENSITIVITYon 01-27-2021 HSTROP 6.6 pg/mL Normal 4.0-35.5 [facility] Comment on above: Result Comment: CUT- OFF POINTS HAVE BEEN ESTABLISHED BASED ON THE FOURTH UNIVERSAL DEFINITIONS OF MYOCARDIAL INFARCTION. THE UPPER REFERENCE LIMIT (URL) OF TROPONIN, DEFINED THE 99TH PERCENTILE OF cTnI DISTRIBUTION IN A REFERENCE POPULATION, HAS BEEN CONFIRMED THE DECISION THRESHOLD FOR DC DIAGNOSIS. Performed By: #### P T, PTT #### [facility] [address] [place] [address] Dr. Carmel Tillman BNPon 01-21-2021 Natriuretic peptide B (Bld) [Mass/Vol] 50.0 pg/mL Normal <=450.0 [facility] Comment on above: Performed By: #### C MP, HSTROPN #### [facility] [address] [place] [address] Dr. Carmel Tillman CBC AUTO DIFFon 01-21-2021 BASO # 0.1 103/ul Normal 0.0-0.1 [facility] Comment on above: Performed By: #### C BC #### [facility] [address] [place] [address] Dr. Carmel Tillman Basophils/100 WBC (Bld) 0.4 % Normal 0.2-2.0 [facility] Comment on above: Performed By: #### C BC #### [facility] [address] [place] [address] Dr. Carmel Tillman EO # 0.1 103/ul Normal 0.0-0.7 [facility] Comment on above: Performed By: #### C BC #### [facility] [address] [place] [address] Dr. Carmel Tillman Eosinophils/100 WBC (Bld) 0.9 % Normal 0.9-7.0 [facility] Comment on above: Performed By: #### C BC #### [facility] [address] [place] [address] Dr. Carmel Tillman Erythrocyte distribution width (RBC) [Ratio] 16.5 % Critically high 11.0-15.0 [facility] Comment on above: Performed By: #### C BC #### [facility] [address] [place] [address] Dr. Carmel Tillman Hematocrit (Bld) [Volume fraction] 41.4 % Normal 36.0-48.0 [facility] Comment on above: Performed By: #### C BC #### [facility] [address] [place] [address] Dr. Carmel Tillman Hemoglobin (Bld) [Mass/Vol] 13.1 g/dL Normal 12.0-16.0 [facility] Comment on above: Performed By: #### C BC #### [facility] [address] [address] [address] Carmel Tillman IG # 0.23 10e3/ul Critically high 0.00-0.03 [facility] Comment on above: Performed By: #### C BC #### [facility] [address] [address] [address] Carmel Tillman IG % 2.0 % Critically high 0.0-0.5 [facility] Comment on above: Performed By: #### C BC #### [facility] [address] [place] [address] Dr. Carmel Tillman LYMPH # 3.6 103/ul Normal 1.2-3.8 [facility] Comment on above: Performed By: #### C BC #### [facility] [address] [place] [address] Dr. Carmel Tillman Lymphocytes/100 WBC (Bld) 30.8 % Normal 20.5-60.0 [facility] Comment on above: Performed By: #### C BC #### [facility] [address] [place] [address] Dr. Carmel Tillman MANUAL DIFF REQ NO Normal [facility] Comment on above: Performed By: #### C BC #### [facility] [address] [place] [address] Dr. Carmel Tillman MCH (RBC) [Entitic mass] 24.7 pg Critically low 26.7-34.0 [facility] Comment on above: Performed By: #### C BC #### [facility] [address] [address] [address] Carmel Tillman MCHC (RBC) [Mass/Vol] 31.6 g/dL Normal 29.9-35.2 [facility] Comment on above: Performed By: #### C BC #### [facility] [address] [place] [address] Dr. Carmel Tillman MCV (RBC) [Entitic vol] 78.1 fL Critically low 81.0-99.0 [facility] Comment on above: Performed By: #### C BC #### [facility] [address] [place] [address] Dr. Carmel Tillman MONO # 1.1 103/ul Critically high 0.3-0.8 [facility] Comment on above: Performed By: #### C BC #### [facility] [address] [address] [address] Carmel Tillman Monocytes/100 WBC (Bld) 9.3 % Normal 1.7-12.0 [facility] Comment on above: Performed By: #### C BC #### [facility] [address] [address] [address] Carmel Tillman NEUT # 6.6 103/ul Critically high 1.4-6.5 [facility] Comment on above: Performed By: #### C BC #### [facility] [address] [place] [address] Dr. Carmel Tillman Neutrophils/100 WBC (Bld) 56.6 % Normal 43.0-75.0 [facility] Comment on above: Performed By: #### C BC #### [facility] [address] [place] [address] Dr. Carmel Tillman Platelet mean volume (Bld) [Entitic vol] 9.8 fL Normal 9.5-13.5 [facility] Comment on above: Performed By: #### C BC #### [facility] [address] [place] [address] Dr. Carmel Tillman PLT 319 103/ul Normal 150-450 [facility] Comment on above: Performed By: #### C BC #### [facility] [address] [address] [address] Carmel Tillman RBC 5.30 106/ul Normal 4.20-5.40 [facility] Comment on above: Performed By: #### C BC #### [facility] [address] [place] [address] Dr. Carmel Tillman WBC 11.6 103/ul Critically high 4.0-11.0 [facility] Comment on above: Performed By: #### C BC #### [facility] [address] [place] [address] Dr. Carmel Tillman CTA CHEST WO W [...] ROSALINO TRAN Date: 2021-01-21 20:49 Normal [facility] LACTATE/LACTIC ACIDon 2020 Lactate [Moles/Vol] 1.1 mmol/L Normal 0.7-2.0 [facility] Comment on above: Performed By: #### C MP #### [facility] [address] [place], [place] [address] Dr. Carmel Tillman PH VENOUS BLOODon 01-21-2021 PCO2 VENOUS 35.9 mmHg Critically low 40.0-52.0 [facility] Comment on above: Performed By: #### P HVEN #### [facility] [address] [address] [address] Carmel Tillman pH VENOUS 7.46 Critically high 7.33-7.43 [facility] Comment on above: Performed By: #### P HVEN #### [facility] [address] [address] [address] Carmel Tillman PREG HCG QUALon 01-21-2021 , QUAL Negative Normal NEGATIVE [facility] Comment on above: Performed By: #### C MP, HSTROPN #### [facility] [address] [place] [address] Dr. Carmel Tillman PROF 14(COMP METB)on 021 Albumin [Mass/Vol] 2.8 g/dL Critically low 3.5-5.0 Th [facility] Comment on above: Performed By: #### C MP, HSTROPN #### [facility] [address] [place] [address] Dr. Carmel Tillman Albumin/Globulin [Mass ratio] 0.7 {ratio} Normal [facility] Comment on above: Performed By: #### C MP, HSTROPN #### [facility] [address] [place] [address] Dr. Carmel Tillman ALP [Catalytic activity/Vol] 58 U/L Normal 38-126 [facility] Comment on above: Performed By: #### C MP, HSTROPN #### [facility] [address] [place] [address] Dr. Carmel Tillman ALT [Catalytic activity/Vol] 39 U/L Normal 9-52 [facility] Comment on above: Performed By: #### C MP, HSTROPN #### [facility] [address] [place] [address] Dr. Carmel Tillman Anion gap [Moles/Vol] 13.8 mmol/L Normal [facility] Comment on above: Performed By: #### C MP, HSTROPN #### [facility] [address] [address] [address] Carmel Tillman AST [Catalytic activity/Vol] 34 U/L Normal 14-36 [facility] Comment on above: Performed By: #### C MP, HSTROPN #### [facility] [address] [place] [address] Dr. Carmel Tillman Bilirubin [Mass/Vol] 0.3 mg/dL Normal 0.2-1.3 [facility] Comment on above: Performed By: #### C MP, HSTROPN #### [facility] [address] [place] [address] Dr. Carmel Tillman Calcium [Mass/Vol] 8.0 mg/dL Critically low 8.4-10.2 Th [facility] Comment on above: Performed By: #### C MP, HSTROPN #### [facility] [address] [place] [address] Dr. Carmel Tillman Chloride [Moles/Vol] 103 mmol/L Normal 98-107 [facility] Comment on above: Performed By: #### C MP, HSTROPN #### [facility] [address] [place] [address] Dr. Carmel Tillman CO2 [Moles/Vol] 23.9 mmol/L Normal 22.0-30.0 [facility] Comment on above: Performed By: #### C MP, HSTROPN #### [facility] [address] [place] [address] Dr. Carmel Tillman Creatinine [Mass/Vol] 1.01 mg/dL Normal 0.52-1.04 [facility] Comment on above: Performed By: #### C MP, HSTROPN #### [facility] [address] [place] [address] Dr. Carmel Tillman EGFR-AF [place]IZ[place] >60 Normal >=60 [facility] [place] [facility] Comment on above: Performed By: #### C MP, HSTROPN #### [facility] [address] [place] [address] Dr. Carmel Tillman EGFR-NON AF CITIZEN [place] >60 Normal >=60 [facility] Comment on above: Performed By: #### C MP, HSTROPN #### [facility] [address] [place] [address] Dr. Carmel Tillman Globulin (S) [Mass/Vol] 4.1 g/dL Normal [facility] Comment on above: Performed By: #### C FARAZ, HSTROPN #### [facility] [address] [place] [address] Dr. Carmel Tillman Glucose [Mass/Vol] 89 mg/dL Normal 74-106 [facility] Comment on above: Performed By: #### C FARAZ, HSTROPN #### [facility] [address] [place] [address] Dr. Carmel Tillman Potassium [Moles/Vol] 3.7 mmol/L Normal 3.4-5.0 [facility] Comment on above: Performed By: #### C FARAZ, HSTROPN #### [facility] [address] [place] [address] Dr. Carmel Tillman Protein [Mass/Vol] 6.9 g/dL Normal 6.1-8.2 [facility] Comment on above: Performed By: #### C FARAZ, HSTROPN #### [facility] [address] [place] [address] Dr. Carmel Tillman Sodium [Moles/Vol] 137 mmol/L Normal 137-145 [facility] Comment on above: Performed By: #### C FARAZ, HSTROPN #### [facility] [address] [place] [address] Dr. Carmel Tillman Urea nitrogen [Mass/Vol] 21.0 mg/dL Critically high 7.0-17.0 [facility] Comment on above: Performed By: #### C FARAZ, HSTROPN #### [facility] [address] [place] [address] Dr. Carmel Tillman Urea nitrogen/Creatinin e [Mass ratio] 20.8 mg/mg Normal [facility] Comment on above: Performed By: #### C FARAZ, HSTROPN #### [facility] [address] [place] [address] Dr. Carmel Tillman PROTIMEon 01-21-2021 INR Coag (PPP) [Relative time] 1.00 {INR} Normal [facility] Comment on above: Performed By: #### P T, PTT #### [facility] [address] [place] [address] Dr. Carmel Tillman INR GUIDELINES SEE BELOW Normal [facility] Comment on above: Result Comment: CHRIS RED INR: 2.0 - 3.0 CONDITIONS NOT LISTED BELOW 2.5 - 3.5 FOR PROSTHETIC HEART VALVE REPLACEMENT 2.5 - 3.5 RECURRENT THROMBOSIS Performed By: #### P T, PTT #### [facility] [address] [place] [address] Dr. Carmel Tillman PT Coag (PPP) [Time] 10.8 s Normal 9.0-11.6 [facility] Comment on above: Performed By: #### P T, PTT #### [facility] [address] [place] [address] Dr. Carmel Tillman PTTon 01-21-2021 aPTT Coag (Bld) [Time] 25.4 s Normal 22.3-36.2 [facility] Comment on above: Performed By: #### P T, PTT #### [facility] [address] [place] [address] Dr. Carmel Tillman TROPONIN, HIGH SENSITIVITYon 01-21-2021 HSTROP 4.7 pg/mL Normal 4.0-35.5 [facility] Comment on above: Result Comment: CUT- OFF POINTS HAVE BEEN ESTABLISHED BASED ON THE FOURTH UNIVERSAL DEFINITIONS OF MYOCARDIAL INFARCTION. THE UPPER REFERENCE LIMIT (URL) OF TROPONIN, DEFINED THE 99TH PERCENTILE OF cTnI DISTRIBUTION IN A REFERENCE POPULATION, HAS BEEN CONFIRMED THE DECISION THRESHOLD FOR DC DIAGNOSIS. Performed By: #### C MP, HSTROPN #### [facility] [address] [place] [address] Dr. Carmel Tillman Vital Signs Date Time Vital Sign Value Performing Clinician Valeria terry 12-02-2023 14:03-0400 Body mass index (BMI) [Ratio] 58.11 kg/m2 Larissa Lora CELL OPERATOR Work Phone: [facility] 12-02-2023 14:03-0400 Body temperature 97.3 [degF] Larissa Lora CELL OPERATOR Work Phone: [facility] 12-02-2023 14:03-0400 Body weight 168.28 kg Larissa Vogttrick CELL OPERATOR Work Phone: [facility] 12-02-2023 14:03-0400 Diastolic blood pressure 72 mm[Hg] Larissa Valverdepatrick CELL OPERATOR Work Phone: [facility] 12-02-2023 14:03-0400 Heart rate 74 /min Larissa Vogttrick CELL OPERATOR Work Phone: [facility] 12-02-2023 14:03-0400 SaO2% (BldA) [Mass fraction] 95 % Larissa Vogttrick CELL OPERATOR Work Phone: [facility] 12-02-2023 14:03-0400 Systolic blood pressure 128 mm[Hg] Larissa Valverdepatrick CELL OPERATOR Work Phone: [facility] Healthcare Encounters Encounter Date Encounter Type Care Provider Facility Start: 01-01-2024 End: 01-01-2024 Bamboo flowsheet Larissa Valverdepatrick CELL OPERATOR Work Phone: [facility] Start: 01-01-2024 End: 01-01-2024 Bamboo flowsheet Larissa Delaneyzpatrick CELL OPERATOR Work Phone: [facility] Start: 12-02-2023 End: 12-02-2023 Bamboo flowsheet Larissa Delaneyzpatrick CELL OPERATOR Work Phone: [facility] Start: 12-02-2023 End: 12-02-2023 Bamboo flowsheet Larissa Lora CELL OPERATOR Work Phone: [facility] Start: 12-02-2023 End: 12-02-2023 Office outpatient visit 15 minutes Larissa Sosak CELL OPERATOR Work Phone: [facility] Comment on above: Primary hypertension [...] Start: 05-12-2020 End: 05-13-2020 ambulatory Rachid Sellers Facility:[facility] Procedures Date Procedure Procedure Detail Performing Clinician Start: 12-30-2023 Mammography Larissa navas CELL OPERATOR Work Phone: Plan of Treatment Date Care Activity Detail Author Start: 12-29-2024 Screening for malign ant neoplasm of breast Mammogram [facility] Start: 01-01-2024 End: 01-01-2024 Patient encounter procedure [facility] Comment on above: Arrived Start: 12-02-2023 End: 01-31-2025 MG Breast - bilateral Screening Bilateral screening mammogram Imaging Routine Encounter for screening mammogram for malignant neoplasm of breast Expected: 12/02/2023, Expires: 01/31/2025 [facility] Work Phone: Comment on above: Expected: 12/02/2023 , Expires: 01/31/2025 Start: 12-02-2023 End: 12-02-2023 Patient encounter procedure 12/02/2023 2:00 PM EDT Office Visit [facility] [address] [place] [address] Larissa Lora NP [address] [facility] [place] [address] Arrived [facility] Comment on above: Arrived Start: 12-02-2023 End: 12-01-2024 Pulmonary function report Pulmonary Function Test Imaging Routine Dyspnea on exertion Expected: 12/02/2023, Expires: 12/01/2024 [facility] Comment on above: Expected: 12/02/2023 , Expires: 12/01/2024 Start: 10-26-2023 Influenza vaccination Influenz a Vaccine (#1) [facility] Start: 2023 Screening for malign ant neoplasm of breast Mammogram [facility] Start: 08-21-2013 Screening for malign ant neoplasm of cervix [facility] Start: 08-21-2004 Screening for malign ant neoplasm of cervix Pap Smear [facility] Immunizations Immunization Date Immunization Notes Care Provider Fa cility 11-24-2020 influenza virus vaccine, unspecified formulation Larissa Lora NP Work Phone: [facility] Payers Date Payer Category Payer [facility] [id number] 2023 Unknown [id number] 2023-Present [phone] [address] [place] [address] [id number] 2020 Unknown [id number] 2019 Unknown [id number] 1985 Unknown [id number]. 2.593 1983 Unknown [id number] [id number]. 2.593 1983 Unknown [id number] [id number]. 2.593 1983 Unknown [id number] [id number]. 2.593 1983 Unknown [id number] [id number]. 2.593 1983 Unknown [id number] [id number]. 2.593 1983 Unknown [id number] [id number]. 2.593 1983 Unknown [id number] [id number]. 2.593 1961 Self-pay [id number] 1961 Unknown [id number] Unknown [id number]. [id number] Social History Date Type Detail Facility Start: 05-12-2020 End: 07-15-2023 Tobacco smoking status MSIS Never smoked tobacco (finding) [facility] Start: 1985 Sex Assigned At Female [facility] Start: 07-15-2023 Tobacco use and exposure Smokeless tobacco non-user [facility] Start: 10-01-2023 Alcoholic beverage intake Lifetime non-drinker (finding) [facility] Start: 09-02-2023 End: 12-01-2023 History of Social function [facility] Start: 09-02-2023 End: 12-01-2023 [id number] Health Literacy [facility] How often do you nee d to have someone help you when you read instructions, pamphlets, or other written material from your doctor or pharmacy [SILS] Never [facility] Do you belong to any clubs or organizations such as moravian groups, unions, fraternal or athletic groups, or [...] History of Present illness Narrative 12-02-2023 Larissa Lora, LINDSEY - 12/02/2023 3:19 PM Ramon Lora, LINDSEY - 12/02/2023 3:18 PM Ramon Lora, LINDSEY - 12/02/2023 3:18 PM Ramon Lora, LINDSEY - 12/02/2023 2:00 PM EDT Note Date [...] List Items Addressed This Visit Primary hypertension (CMS/HCC) - Primary Morbid obesity (CMS/HCC) Is interested in weight [...] Pulmonary Function Test documented in this encounter [facility] Instructions 12-02-2023 Patient Instructions Note Date & Type Note Facility 12-02-2023 Instructions Larissa Lora NP - 12/02/2023 2:00 PM EDT Start metformin once daily. Have mammogram and pulmonary function testing completed. I will call with results. Referral sent to OB GYN PHYSICIAN ASSISTANT to establish care. If you do not hear from them by next week call my office for contact info. documented in this encounter [facility] Clinical Note 10-12-2021 Note Date [...] by: ISRAEL GROSS Date: 2021-10-12 14:44 [facility] Evaluation note Note Date & Type Note Facility Evaluation note No assessment information [facility] Work Phone: Evaluation note Note Date & [...] and respiratory abnormality documented in this encounter [facility] Advance Directives Advance Directive Response Recorded Date/ Time Advance Directives No March 3:28pm Assessments No Assessments Information Available Family History Relationship Condition Age at Onset Recorded Date/T kamryn grandparent Malignant neoplasm Unknown grandparent Hypertension Unknown Summary Purpose Reason for Referral Specialty Diagnoses / Procedures Referred By Radha hoover Referred To Contact Diagnoses Dyspnea on exertion Larissa Lora NP [address] [place] [address] Referral ID Status Reason Start Date Expiration Date V isits Requested Visits Authorized [id number] Pending Review 12/02/2023 05/30/2024 1 1 Specialty Diagnoses / Procedures Referred By Radha hoover Referred To Contact Obstetrics and Gynecology Diagnoses Screening for cervical cancer Encounter for screening mammogram for malignant neoplasm of breast Procedures OK OFFICE/OUTPATIENT NEW HIGH MDM 60 MINUTES Larissa Lora NP [address] [place] [address] Chata Chavez, DO [address] [place] [address] Referral ID Status Reason Start Date Expiration Date Visits Requested Visits Authorized [id number] Pending Review Specialty Services Required 12/02/2023 05/30/2024 1 1 Additional Source Comments INFORMATION SOURCE (unrecogn ized section and content) DATE CREATED AUTHOR 12/05/2021 [facility] DATE CREATED AUTHOR AUTHOR'S ORGANIZ ATION 10/26/2022 [facility] Goals (unrecognized section and content) Goals may be documented in a n alternate section Care Teams (unrecognized sec tion and content) Orchestrator Relationship Specialty Start Date End Date Giles Lan MD [address] [place] [phone] PCP - General Family Medicine 10/07/23 Larissa Lora NP [address] [place] [address] Nurse Practitioner Family Medicine 10/07/23 Orchestrator Relationship Specialty Start Date End Date Giles Lan MD [address] [place] [phone] PCP - General Family Medicine 10/07/23 Larissa Lora NP [address] [place] [phone] Nurse Practitioner Family Medicine 10/07/23 Orchestrator Relationship Specialty Start Date End Date Giles Lan MD [address] [place] [phone] PCP - General Family Medicine 10/07/23 Larissa Lora NP [address] [place] [phone] Nurse Practitioner Family Medicine 10/07/23 Reason for [...] BE BASED ON THE PRIMARY CLINICAL RECORDS. [facility] [employer] [facility]. provides no warranty or guarantee of the accuracy or completeness of information in this document.
--- NOTE | 2024-01-06 11:52 | XR_ITS ---
The [address] [address] Patient Name: MJ SHAH MRN: [id number] date: 1985 Sex: F Assigned Patient Location: LAB Current Patient Location: LAB Accession/Order Number: [id number] Exam Date: 01/06/2024 11:55 Report Date: 01/09/2024 15:31 At the request of: ZENAIDA HERNANDEZ Procedure: XR chest 1V EXAMINATION: XR chest 1V HISTORY: Community Acquired Pneumonia COMPARISON: XR chest 12/18/2023 FINDINGS: LUNGS: Mild stranding within left lung base. Right lung base is clear. VASCULATURE: No increased pulmonary vasculature. PLEURA: No pneumothorax, effusion, or pleural thickening. CARDIAC: No cardiomegaly or cardiac silhouette abnormality. MEDIASTINUM: No visible mass or adenopathy. BONES: No fracture or visible bone lesion. OTHER: Negative. XR/XR chest 1V IMPRESSION: 1. Evaluation is slightly limited by patient body habitus. 2. Suspect mild left basilar infiltrates. Electronically authenticated by: ISRAEL GROSS Date: 01/09/2024 15:31
[2024-01-06 11:53] LABS: Hematocrit 43.6 % (36.0-48.0); Hemoglobin 13.5 g/dL (12.0-16.0); Mean Corpuscular Hemoglobin 23.8 pg (26.7-34.0); Mean Corpuscular Volume 76.8 fL (81.0-99.0); Mean Platelet Volume 9.7 fL (9.5-13.5); Platelet Count 438 10^3/uL (150-450); Red Blood Count 5.68 10^6/uL (4.20-5.40); Red Cell Distribution Width 15.9 % (11.0-15.0); White Blood Count 15.2 10^3/uL (4.0-11.0)
[2024-01-06 12:36] LABS: Lymphocytes Absolute Manual 5.47 10^3/uL (1.20-3.80); Monocytes Absolute Manual 0.45 10^3/uL (0.30-0.80); Segmented Neut Absolute Manual 8.96 10^3/uL (1.4-6.5)
== END 2024-01-06 11:34 | disposition home or self-care (01) ==
LOC: LAB 11:35
DX: J18.9 Pneumonia, unspecified organism (principal); R73.03 Prediabetes
CPT/HCPCS: 36415; 71045; 85007; 85027

== ENCOUNTER 2024-02-12 08:58 | Emergency (ER) | payer BC, SELFPAY ==
[2024-02-12 09:02] VITALS: BP 163/101; PULSE 93; TEMP 37.1; O2SAT 95; BMI 59.7
--- NOTE | 2024-02-12 09:08 | XR_ITS ---
The [address] [address] Patient Name: MJ SHAH MRN: [id number] date: 1985 Sex: F Assigned Patient Location: ER Current Patient Location: ER Accession/Order Number: [id number] Exam Date: 02/12/2024 09:19 Report Date: 02/12/2024 09:30 At the request of: EMILIE GUZMAN Procedure: XR chest 1V EXAM: XR chest 1V HISTORY: . sob hx of pneumonia . COMPARISON: 01/06/2024 TECHNIQUE: Single view of the chest. FINDINGS: This is an expiratory and underpenetrated chest. Heart and vascularity are unremarkable. There is slight increased density in the right lung base. No consolidation is noted. Left lung is unremarkable. XR/XR chest 1V Impression: 1. Underpenetrated expiratory chest. 2. Slight increased density in the right lung base. Findings could be due to the expiratory nature the film. Atelectasis or less likely an early infiltrate cannot be excluded. Clinical correlation is suggested. Electronically authenticated by: NATHANIEL PEREZ Date: 02/12/2024 09:30
[2024-02-12 09:14] VITALS: O2SAT 95
--- OUTSIDE RECORDS SUMMARY | 2024-02-12 09:23 | XMS_ITS | CCD ---
Author Organization [facility] Care Team Providers Care Executive Business Coach Name Role Phone DR GILES LAN Consulting Unavailable EDYTA, DR GILES Beal Attending Unavailable EDYTA, DR GILES Beal Admitting Unavailable MARLO, RACHIDALESIA FLEMING Primary Care Unavailable MAGDALENE, DR SINGH Consulting Unavailable CLEMENTINE JACK Consulting Unavailable ARIELLA FISCHER Consulting Unavailable ALBERTO FISCHER Consulting Unavailable RENATO, DR ISRAEL Hamm Consulting Unavailable FAWWAD, HSU H Attending Unavailable FAJOSE MANUEL, HSU H Admitting Unavailable MARLO, RACHID LONNIE Primary Care Unavailable CR REYES Consulting Unavailable MAGDALENE, DR SINGH Consulting Unavailable FAAsaWAD, HSU H Consulting Unavailable HUSAM GARSIA Consulting [...] Unavailable Giles Lan MD Primary Care Provider [phone] Geno KNITTING MACHINE FIXER HEAD, Larissa Unavailable Unavailable Unavailable Unavailable Allergies Allergy Classification Reported Allergen(s) Allergy Type Date of Onset Reaction(s) Facility (11 sources) HYDROmorphone; Translations: [hydromorphone] Drug Allergy 0 Other, Shortness of breath [facility] (11 sources) Penicillins; Translations: [Penicillins] Allergy to substance 9 Hives, Itching, Rash [facility] (2 sources) Amoxicillin Drug Allergy 7 [facility] (2 sources) HYDROmorphone Drug Allergy 7 [facility] Medications Current Medications Medication Drug Class(es) Dates Sig (Normalized) Sig (Original) [id number] 200 actuat albuterol 0.09 mg/actuat metered dose inhaler (7 sources) beta2-Adrenergic Agonist Start: 12-02-2023 End: 12-01-2024 take 2 puff(s) by inhalation every four hours for wheezing albuterol HFA (Ventolin HFA) 90 mcg/act inhaler Indications: Dyspnea on exertion Inhale 2 puffs every 4 (four) hours if needed for wheezing 18 g 11 12/02/2023 12/01/2024 Active cetirizine hydrochloride 10 mg oral tablet (1 source) Histamine-1 Receptor Antagonist take 1 tablet by mouth once daily cetirizine (ZyrTEC) 10 MG tablet Take 10 mg by mouth Daily Active cholecalciferol 400 unt oral capsule (2 sources) Vitamin D Start: 05-12-2020 take 1 capsule by mouth once daily Cholecalciferol (Vitamin D3) (Vitamin D3) 10 mcg (400 unit) Capsule Active 10 MCG PO Daily May 12, 2020 8:08am fluticasone propionate 0.05 mg/actuat metered dose nasal spray (5 sources) Corticosteroid Start: 01-26-2024 take 2 spray(s) nasal route once daily fluticasone (Flonase) 50 MCG/ACT nasal spray Indications: Acute rhinitis USE 2 SPRAYS IN EACH NOSTRIL ONCE A DAY *AFTER USE CLEAN TIP AND REPLACE CAP* 48 mL 1 01/26/2024 Active Start: 11-07-2024 End: 12-31-2024 take 2 spray(s) nasal route once daily fluticasone (Flonase) 50 MCG/ACT nasal spray Indications: Acute rhinitis Administer 2 sprays into each nostril Daily Shake gently. Before first use, prime pump. After use, clean tip and replace cap. 16 g 2 01/01/2024 01/26/2024 Discontinued 24 hr metFORMIN hydrochloride 500 mg extended release oral tablet (7 sources) Biguanide Start: 12-02-2023 End: 12-01-2024 take [...] omeprazole 40 mg delayed release oral capsule (10 sources) Proton Pump Inhibitor Start: 09-02-2023 End: [...] 2020 5:01pm valsartan 320 mg oral tablet (10 sources) Angiotensin 2 Receptor Dori Start: 09-02-2023 End: 02-29-2024 take 1 tablet by mouth once daily valsartan (Diovan) 320 MG tablet Indications: Primary hypertension (CMS/HCC) Take 1 tablet (320 mg) by mouth Daily 90 tablet 1 09/02/2023 02/29/2024 Active Start: 04-27-2020 take 320 mg by mouth once jon y Valsartan Active 320 MG PO Daily April 27, 2020 5:01pm Completed/Discontinued Medications Medication Drug Class(es) Dates Sig (Normalized) Sig (Original) benzonatate 100 mg oral capsule (3 sources) Non-narcotic Antitussive Start: 01-01-2024 End: 01-08-2024 take 1 capsule by mouth three times daily as needed for cough benzonatate (Tessalon Perles) 100 MG capsule Indications: Community acquired pneumonia, unspecified laterality Take 1 capsule (100 mg) by mouth 3 (three) times a day as needed for cough for up to 7 days Do not crush or chew. 20 capsule 01/01/2024 01/08/2024 sertraline 50 mg oral tablet (11 sources) Serotonin Reuptake Inhibitor Start: 12-02-2023 End: 01-01-2024 take 1 tablet by mouth once daily, [...] day for 7 days. 25 tablet 12/02/2023 01/01/2024 Discontinued (Therapy completed) Start: 09-02-2023 End: 01-01-2024 take 1 tablet by mouth in the morning sertraline (Zoloft) 100 MG tablet Indications: Recurrent major depressive disorder, in full remission (CMS/HCC) Take 1 tablet (100 mg) by mouth in the morning. 90 tablet 1 09/02/2023 01/01/2024 Discontinued (Therapy completed) Problems Active Problems Problem Classification Problem Date Documented Da te Episodic/Chronic Administrative/social admission (7 sources) First encounter by subject; Translations: [Persons encountering health services in other specified circumstances] Onset: 4 12-02-2023 Episodic Anxiety disorders (10 sources) Mixed anxiety and depressive disorder; Translations: [Other specified anxiety disorders] Onset: 4 07-15-2023 Chronic Diseases of white blood cells (2 sources) Leukocytosis; Translations: [Elevated white blood cell count, unspecified] Onset: 1 05-12-2020 Chronic Essential hypertension (11 sources) Essential (primary) hypertension; Translations: [Essential hypertension] Onset: 1 07-15-2023 Chronic Osteoarthritis (1 source) Unilateral primary osteoarthritis, left knee; Translations: [UNI PRIM OSTEOARTHRITIS LT KNEE] Onset: 2 Chronic Other connective tissue disease (4 sources) Pain in left leg; Translations: [PAIN IN LEFT LEG] Onset: 2 Episodic Other lower respiratory disease (9 sources) Dyspnea on exertion; Translations: [Other forms [...] Chronic Other nutritional; endocrine; and metabolic disorders (10 sources) Morbid obesity; Translations: [Morbid (severe) obesity due to excess calories] Onset: 4 07-15-2023 Chronic Other nutritional; endocrine; and metabolic disorders (10 sources) Metabolic syndrome X; Translations: [Metabolic syndrome] Onset: 4 09-02-2023 Chronic Other screening for suspected conditions (not mental disorders or infectious disease) (20 sources) Patient encounter status; Translations: [Encounter for screening for lipoid disorders] Onset: 4 07-15-2023 Episodic Other upper respiratory disease (4 sources) Rhinitis; Translations: [Chronic rhinitis] Onset: 4 01-01-2024 Chronic Other upper respiratory infections (3 sources) Rhinitis; Translations: [Acute nasopharyngitis [common cold]] 01-01-2024 Episodic Phlebitis; thrombophlebitis and thromboembolism (3 sources) Phlebitis and thrombophlebitis of superficial vessels of left lower extremity; Translations: [Acute embolism and thrombosis of deep veins of left upper extremity] Onset: 2 Episodic Pneumonia (except that caused by tuberculosis or sexually transmitted disease) (11 sources) Pneumonia, unspecified organism; Translations: [Unspecified bacterial pneumonia] Onset: 1 Episodic Pneumonia (except that caused by tuberculosis [...] Onset: 02-12-2021 Episodic Diabetes mellitus without complication (12 sources) Prediabetes; Translations: [Prediabetes] Onset: 09-02-2023 09-02-2023 Episodic Disorders of teeth and jaw (8 sources) Torus palatinus; 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] Onset: 07-15-2023 07-15-2023 Episodic E Codes: Unspecified (1 source) Nosocomial condition; Translations: [NOSOCOMIAL CONDITION] Onset: 02-21-2021 Episodic Mood disorders (8 sources) Mood disorders Onset: 07-15-2023 07-15-2023 Other aftercare (1 source) Other correction (current) drug therapy; Translations: [OTH CRUTCHING CONTRACTOR CURRENT DRUG THERAPY] Onset: 03-05-2021 Episodic Other connective tissue disease (3 sources) Other specified soft tissue disorders; Translations: [OTHER SPEC SOFT TISSUE DISORDERS] Onset: 03-02-2021 Episodic Other lower respiratory disease (1 source) Personal history of pneumonia (recurrent); Translations: [PERSONAL HX OF PNEUMONIA RECURRENT] Onset: 03-05-2021 Episodic Other lower respiratory disease (1 source) Shortness of breath; Translations: [SHORTNESS OF BREATH] Onset: 01-23-2021 Episodic Residual codes; unclassified (1 source) Acquired absence of other specified parts of digestive tract; Translations: [ACQ ABSENCE OTH PART DIGESTV TRACT] Onset: 02-12-2021 Episodic Respiratory failure; insufficiency; arrest (adult) (1 source) Acute respiratory failure with hypoxia; Translations: [ACUTE RESPIRATORY FAIL W/HYPOXIA] Onset: 02-21-2021 Episodic Unclassified (1 source) COUGH, UNSPECIFIED; Translations: [COUGH, UNSPECIFIED] Onset: 01-21-2021 Results Test Name Value Interpretation Reference Range Facility ALL CBC WITH AUTO DIFFon Erythrocyte distribution width (RBC) [Ratio] 15.9 % High 11.0 - 15.0 % [facility] Hematocrit (Bld) [Volume fraction] 43.6 % 36.0 - 48.0 % [facility] Hemoglobin (Bld) [Mass/Vol] 13.5 g/dL 12.0 - 16.0 g/dL [facility] MCH (RBC) [Entitic mass] 23.8 pg Low 26.7 - 34.0 pg [facility] MCHC (RBC) [Mass/Vol] 31 g/dL 29.9 - 35.2 g/dL [facility] MCV (RBC) [Entitic vol] 76.8 fL Low 81.0 - 99.0 fL [facility] Platelet mean volume (Bld) [Entitic vol] 9.7 fL 9.5 - 13.5 fL [facility] TB PLT 438 [facility] TB RBC 5.68 High [facility] WBC 15.2 High [facility] MHPT DIFFERENTIALon 01-06-20 24 BAND NEUTROPHILS ABSOLUTE 0 [facility] BASOPHILS ABS MANUAL 0 [facility] BASOPHILS PERCENT MANUAL 0 % Low 0.2 - 2.0 % [facility] Eosinophils (Bld) [#/Vol] 0.3 10*3/uL [facility] EOSINOPHILS PERCENT MANUAL 2 % 0.9 - 7.0 % [facility] Lymphocytes (Bld) [#/Vol] 5.47 10*3/uL High [facility] LYMPHOCYTES PERCENT MANUAL 36 % 20.5 - 60.0 % [facility] Monocytes (Bld) [#/Vol] 0.45 10*3/uL [facility] MONOCYTES PERCENT MANUAL 3 % 1.7 - 12.0 % [facility] SEGMENTED NEUT ABSOLUTE MANUAL 8.96 High [facility] SEGMENTED NEUTROPHILS % MANUAL 59 43.0 - 75.0 [facility] No Panel Informationon 01-05 Interpretation and review of laboratory results Abnormal [facility] US LALY DOP LEG LTon 10-13-19 US LALY DOP LEG LT EXAMINATION: US LALY DOP LEG LT HISTORY: Pain in [...] ISRAEL GROSS Date: 2021-10-12 14:41 Normal [facility] CBC AUTO DIFFon 03-02-2021 BASO # 0.0 103/ul Normal 0.0-0.1 [facility] Comment on above: Performed By: #### C JONNIE RUTHTRNIKKIN #### [facility] [address] [address] [address] Carmel Tillman Basophils/100 WBC (Bld) 0.3 % Normal 0.2-2.0 [facility] Comment on above: Performed By: #### C JONNIE RUTHTROPN #### [facility] [address] [address] [address] Carmel Tillman EO # 0.1 103/ul Normal 0.0-0.7 [facility] Comment on above: Performed By: #### C JONNIE RUTHTROPN #### [facility] [address] [address] [address] Carmel Tillman Eosinophils/100 WBC (Bld) 0.9 % Normal 0.9-7.0 [facility] Comment on above: Performed By: #### C MP, HSTROPN #### [facility] [address] [place] [address] Dr. Carmel Tillman Erythrocyte distribution width (RBC) [Ratio] 19.7 % Critically high 11.0-15.0 [facility] Comment on above: Performed By: #### C MP, HSTROPN #### [facility] [address] [place] [address] Dr. Carmel Tillman Hematocrit (Bld) [Volume fraction] 40.9 % Normal 36.0-48.0 [facility] Comment on above: Performed By: #### C MP, HSTROPN #### [facility] [address] [place] [address] Dr. Carmel Tillman Hemoglobin (Bld) [Mass/Vol] 12.7 g/dL Normal 12.0-16.0 [facility] Comment on above: Performed By: #### C MP, HSTROPN #### [facility] [address] [place] [address] Dr. Carmel Tillman IG # 0.18 10e3/ul Critically high 0.00-0.03 [facility] Comment on above: Performed By: #### C MP, HSTROPN #### [facility] [address] [place] [address] Dr. Carmel Tillman IG % 1.7 % Critically high 0.0-0.5 [facility] Comment on above: Performed By: #### C MP, HSTROPN #### [facility] [address] [place] [address] Dr. Carmel Tillman LYMPH # 2.8 103/ul Normal 1.2-3.8 [facility] Comment on above: Performed By: #### C MP, HSTROPN #### [facility] [address] [place] [address] Dr. Carmel Tillman Lymphocytes/100 WBC (Bld) 25.6 % Normal 20.5-60.0 [facility] Comment on above: Performed By: #### C MP, HSTROPN #### [facility] [address] [place] [address] Dr. Carmel Tillman MANUAL DIFF REQ NO Normal [facility] Comment on above: Performed By: #### C MP, HSTROPN #### [facility] [address] [place] [address] Dr. Carmel Tillman MCH (RBC) [Entitic mass] 25.2 pg Critically low 26.7-34.0 [facility] Comment on above: Performed By: #### C MP, HSTROPN #### [facility] [address] [place] [address] Dr. Carmel Tillman MCHC (RBC) [Mass/Vol] 31.1 g/dL Normal 29.9-35.2 [facility] Comment on above: Performed By: #### C MP, HSTROPN #### [facility] [address] [place] [address] Dr. Carmel Tillman MCV (RBC) [Entitic vol] 81.2 fL Normal 81.0-99.0 [facility] Comment on above: Performed By: #### C MP, HSTROPN #### [facility] [address] [place] [address] Dr. Carmel Tillman MONO # 0.9 103/ul Critically high 0.3-0.8 [facility] Comment on above: Performed By: #### C MP, HSTROPN #### [facility] [address] [place] [address] Dr. Carmel Tillman Monocytes/100 WBC (Bld) 7.9 % Normal 1.7-12.0 [facility] Comment on above: Performed By: #### C MP, HSTROPN #### [facility] [address] [place] [address] Dr. Carmel Tillman NEUT # 6.9 103/ul Critically high 1.4-6.5 [facility] Comment on above: Performed By: #### C MP, HSTROPN #### [facility] [address] [address] [address] Carmel Tillman Neutrophils/100 WBC (Bld) 63.6 % Normal 43.0-75.0 [facility] Comment on above: Performed By: #### C MP, HSTROPN #### [facility] [address] [place] [address] Dr. Carmel Tillman Platelet mean volume (Bld) [Entitic vol] 9.5 fL Normal 9.5-13.5 [facility] Comment on above: Performed By: #### C MP, HSTROPN #### [facility] [address] [place] [address] Dr. Carmel Tillman PLT 350 103/ul Normal 150-450 [facility] Comment on above: Performed By: #### C MP, HSTROPN #### [facility] [address] [place] [address] Dr. Carmel Tillman RBC 5.04 106/ul Normal 4.20-5.40 [facility] Comment on above: Performed By: #### C MP, HSTROPN #### [facility] [address] [place] [address] Dr. Carmel Tillman WBC 10.8 103/ul Normal 4.0-11.0 [facility] Comment on above: Performed By: #### C MP, HSTROPN #### [facility] [address] [place] [address] Dr. Carmel Tillman PROF 14(COMP METB)on 022 Albumin [Mass/Vol] 2.9 g/dL Critically low 3.5-5.0 [facility] Comment on above: Performed By: #### C MP #### [facility] [address] [place] [address] Dr. Carmel Tillman Albumin/Globulin [Mass ratio] 0.7 {ratio} Normal [facility] Comment on above: Performed By: #### C MP #### [facility] [address] [place] [address] Dr. Carmel Tillman ALP [Catalytic activity/Vol] 50 U/L Normal 38-126 [facility] Comment on above: Performed By: #### C MP #### [facility] [address] [address] [address] Carmel Tillman ALT [Catalytic activity/Vol] 25 U/L Normal 9-52 [facility] Comment on above: Performed By: #### C MP #### [facility] [address] [address] [address] Carmel Tillman Anion gap [Moles/Vol] 11.3 mmol/L Normal [facility] Comment on above: Performed By: #### C MP #### [facility] [address] [address] [address] Carmel Tillman AST [Catalytic activity/Vol] 13 U/L Critically low 14-36 [facility] Comment on above: Performed By: #### C MP #### [facility] [address] [place] [address] Dr. Carmel Tillman Bilirubin [Mass/Vol] 0.6 mg/dL Normal 0.2-1.3 [facility] Comment on above: Performed By: #### C MP #### [facility] [address] [address] [address] Carmel Tillman Calcium [Mass/Vol] 9.3 mg/dL Normal 8.4-10.2 [facility] Comment on above: Performed By: #### C MP #### [facility] [address] [address] [address] Carmel Tillman Chloride [Moles/Vol] 106 mmol/L Normal 98-107 [facility] Comment on above: Performed By: #### C MP #### [facility] [address] [address] [address] Carmel Tillman CO2 [Moles/Vol] 27.0 mmol/L Normal 22.0-30.0 [facility] Comment on above: Performed By: #### C MP #### [facility] [address] [address] [address] Carmel Tillman Creatinine [Mass/Vol] 0.72 mg/dL Normal 0.52-1.04 [facility] Comment on above: Performed By: #### C MP #### [facility] [address] [address] [address] Carmel Tillman EGFR-AF PUERTO RICAN >60 Normal >=60 [facility] Comment on above: Performed By: #### C MP #### [facility] [address] [place] [address] Dr. Carmel Tillman EGFR-NON AF PUERTO RICAN >60 Normal >=60 [facility] Comment on above: Performed By: #### C MP #### [facility] [address] [address] [address] Carmel Tillman Globulin (S) [Mass/Vol] 4.0 g/dL Normal [facility] Comment on above: Performed By: #### C MP #### [facility] [address] [place] [address] Dr. Carmel Tillman Glucose [Mass/Vol] 112 mg/dL Critically high 74-106 [facility] Comment on above: Performed By: #### C MP #### [facility] [address] [place] [address] Dr. Carmel Tillman Potassium [Moles/Vol] 4.3 mmol/L Normal 3.4-5.0 [facility] Comment on above: Performed By: #### C MP #### [facility] [address] [place] [address] Dr. Carmel Tillman Protein [Mass/Vol] 6.9 g/dL Normal 6.1-8.2 [facility] Comment on above: Performed By: #### C MP #### [facility] [address] [address] [address] Carmel Tillman Sodium [Moles/Vol] 140 mmol/L Normal 137-145 [facility] Comment on above: Performed By: #### C MP #### [facility] [address] [place] [address] Dr. Carmel Tillman Urea nitrogen [Mass/Vol] 20.0 mg/dL Critically high 7.0-17.0 [facility] Comment on above: Performed By: #### C MP #### [facility] [address] [place] [address] Dr. Carmel Tillman Urea nitrogen/Creatinine [Mass ratio] 27.8 mg/mg Normal [facility] Comment on above: Performed By: #### C MP #### [facility] [address] [place] [address] Dr. Carmel Tillman PROTIMEon 03-02-2021 INR Coag (PPP) [Relative time] 0.95 {INR} Normal [facility] Comment on above: Performed By: #### P T, PTT #### [facility] [address] [place] [address] Dr. Carmel Tillman INR GUIDELINES SEE BELOW Normal [facility] Comment on above: Result Comment: CHRIS RED INR: 2.0 - 3.0 CONDITIONS NOT LISTED BELOW 2.5 - 3.5 FOR PROSTHETIC HEART VALVE REPLACEMENT 2.5 - 3.5 RECURRENT THROMBOSIS Performed By: #### P T, PTT #### [facility] [address] [place] [address] Dr. Carmel Tillman PT Coag (PPP) [Time] 10.3 s Normal 9.0-11.6 [facility] Comment on above: Performed By: #### P T, PTT #### [facility] [address] [place] [address] Dr. Carmel Tillman PTTon 03-02-2021 aPTT Coag (Bld) [Time] 22.8 s Normal 22.3-36.2 [facility] Comment on above: Performed By: #### P T, PTT #### [facility] [address] [place] [address] Dr. Carmel Tillman US VENOUS DOPPLER L [...] ISRAEL GROSS Date: 2021-03-02 12:07 Normal [facility] XR CHEST 2 Von 02-21-2021 XR [...] NATHANIEL JONES Date: 2021-02-21 07:51 Normal [facility] CBC AUTO DIFFon 02-15-2021 BASO # 0.0 103/ul Normal 0.0-0.1 [facility] Comment on above: Performed By: #### C MP #### [facility] [address] [place] [address] Dr. Carmel Tillman Basophils/100 WBC (Bld) 0.2 % Normal 0.2-2.0 [facility] Comment on above: Performed By: #### C MP #### [facility] [address] [place] [address] Dr. Carmel Tillman EO # 0.0 103/ul Normal 0.0-0.7 [facility] Comment on above: Performed By: #### C MP #### [facility] [address] [place] [address] Dr. Carmel Tillman Eosinophils/100 WBC (Bld) 0.2 % Critically low 0.9-7.0 [facility] Comment on above: Performed By: #### C MP #### [facility] [address] [place] [address] Dr. Carmel Tillman Erythrocyte distribution width (RBC) [Ratio] 18.1 % Critically high 11.0-15.0 [facility] Comment on above: Performed By: #### C MP #### [facility] [address] [address] [address] Carmel Tillman Hematocrit (Bld) [Volume fraction] 39.4 % Normal 36.0-48.0 [facility] Comment on above: Performed By: #### C MP #### [facility] [address] [address] [address] Carmel Tillman Hemoglobin (Bld) [Mass/Vol] 12.2 g/dL Normal 12.0-16.0 [facility] Comment on above: Performed By: #### C MP #### [facility] [address] [address] [address] Carmel Tillman IG # 0.35 10e3/ul Critically high 0.00-0.03 [facility] Comment on above: Performed By: #### C MP #### [facility] [address] [place] [address] Dr. Carmel Tillman IG % 2.3 % Critically high 0.0-0.[address] [facility] Comment on above: Performed By: #### C MP #### [facility] [address] [place] [address] Dr. Carmel Tillman LYMPH # 3.7 103/ul Normal 1.2-3.8 [facility] Comment on above: Performed By: #### C MP #### [facility] [address] [place] [address] Dr. Carmel Tillman Lymphocytes/100 WBC (Bld) 24.4 % Normal 20.5-60.0 [facility] Comment on above: Performed By: #### C MP #### [facility] [address] [place] [address] Dr. Carmel Tillman MANUAL DIFF REQ NO Normal [facility] Comment on above: Performed By: #### C MP #### [facility] [address] [place] [address] Dr. Carmel Tillman MCH (RBC) [Entitic mass] 24.6 pg Critically low 26.7-34.0 [facility] Comment on above: Performed By: #### C MP #### [facility] [address] [place] [address] Dr. Carmel Tillman MCHC (RBC) [Mass/Vol] 31.0 g/dL Normal 29.9-35.2 [facility] Comment on above: Performed By: #### C MP #### [facility] [address] [address] [address] Carmel Tillman MCV (RBC) [Entitic vol] 79.6 fL Critically low 81.0-99.0 [facility] Comment on above: Performed By: #### C MP #### [facility] [address] [place] [address] Dr. Carmel Tillman MONO # 0.7 103/ul Normal 0.3-0.8 [facility] Comment on above: Performed By: #### C MP #### [facility] [address] [place] [address] Dr. Carmel Tillman Monocytes/100 WBC (Bld) 4.9 % Normal 1.7-12.0 [facility] Comment on above: Performed By: #### C MP #### [facility] [address] [place] [address] Dr. Carmel Tillman NEUT # 10.3 103/ul Critically high 1.4-6.5 [facility] Comment on above: Performed By: #### C MP #### [facility] [address] [place] [address] Dr. Carmel Tillman Neutrophils/100 WBC (Bld) 68.0 % Normal 43.0-75.0 [facility] Comment on above: Performed By: #### C MP #### [facility] [address] [place] [address] Dr. Carmel Tillman Platelet mean volume (Bld) [Entitic vol] 9.6 fL Normal 9.5-13.5 [facility] Comment on above: Performed By: #### C MP #### [facility] [address] [place] [address] Dr. Carmel Tillman PLT 151 103/ul Normal 150-450 [facility] Comment on above: Performed By: #### C MP #### [facility] [address] [place] [address] Dr. Carmel Tillman RBC 4.95 106/ul Normal 4.20-5.40 [facility] Comment on above: Performed By: #### C MP #### [facility] [address] [place] [address] Dr. Carmel Tillman WBC 15.2 103/ul Critically high 4.0-11.0 [facility] Comment on above: Performed By: #### C MP #### [facility] [address] [place] [address] Dr. Carmel Tillman POINT OF CARE GLUCOSEon 01-25 Glucose [Mass/Vol] 104 mg/dL Normal 74-106 [facility] Comment on above: Performed By: #### C MP, HSTROPN #### [facility] [address] [place] [address] Dr. Carmel Tillman Glucose [Mass/Vol] 81 mg/dL Normal 74-106 [facility] Comment on above: Performed By: #### C MP #### [facility] [address] [place] [address] Dr. Carmel Tillman PROF CHEM 8 (BAS METB)on Anion gap [Moles/Vol] 13.7 mmol/L Normal [facility] Comment on above: Performed By: #### B MP #### [facility] [address] [place] [address] Dr. Carmel Tillman Calcium [Mass/Vol] 8.5 mg/dL Normal 8.4-10.2 [facility] Comment on above: Performed By: #### B MP #### [facility] [address] [place] [address] Dr. Carmel Tillman Chloride [Moles/Vol] 102 mmol/L Normal 98-107 [facility] Comment on above: Performed By: #### B MP #### [facility] [address] [place] [address] Dr. Carmel Tillman CO2 [Moles/Vol] 25.8 mmol/L Normal 22.0-30.0 [facility] Comment on above: Performed By: #### B MP #### [facility] [address] [place], [place] [id number] Dr. Carmel Tillman Creatinine [Mass/Vol] 1.06 mg/dL Critically high 0.52-1.04 [facility] Comment on above: Performed By: #### B MP #### [facility] [address] [place] [address] Dr. Carmel Tillman EGFR-AF PUERTO RICAN >60 Normal >=60 [facility] Comment on above: Performed By: #### B MP #### [facility] [address] [address] [address] Carmle Tillman EGFR-NON AF PUERTO RICAN 58 mL/min/1.73m2 Critically low >=60 [facility] Comment on above: Performed By: #### B MP #### [facility] [address] [address] [address] Carmel Tillman Glucose [Mass/Vol] 93 mg/dL Normal 74-106 [facility] Comment on above: Performed By: #### B MP #### [facility] [address] [place] [address] Dr. Carmle Tillman Potassium [Moles/Vol] 3.5 mmol/L Normal 3.4-5.0 [facility] Comment on above: Performed By: #### B MP #### [facility] [address] [address] [address] Carmel Tillman Sodium [Moles/Vol] 138 mmol/L Normal 137-145 [facility] Comment on above: Performed By: #### B MP #### [facility] [address] [address] [address] Carmel Tillman Urea nitrogen [Mass/Vol] 24.0 mg/dL Critically high 7.0-17.0 [facility] Comment on above: Performed By: #### B MP #### [facility] [address] [place] [address] Dr. Carmel Tillman Urea nitrogen/Creatinine [Mass ratio] 22.6 mg/mg Normal [facility] Comment on above: Performed By: #### B MP #### [facility] [address] [place] [address] Dr. Carmel Tillman CBC W MANUAL DIFFon 12-22-20 21 ATYPICAL LYMPH # Normal [facility] Comment on above: Performed By: #### C MP #### [facility] [address] [place] [address] Dr. Carmel Tillman ATYPICAL LYMPH % Normal [facility] Comment on above: Performed By: #### C MP #### [facility] [address] [place] [address] Dr. Carmel Tillman BAND # 1.0 103/ul Critically high 0.0-0.3 [facility] Comment on above: Performed By: #### C MP #### [facility] [address] [place] [address] Dr. Carmel Tillman BAND % 6 % Critically high 0-[address] [facility] Comment on above: Performed By: #### C MP #### [facility] [address] [place] [address] Dr. Carmel Tillman BASOM # 0.00 103/ul Normal 0.00-0.10 [facility] Comment on above: Performed By: #### C MP #### [facility] [address] [place] [address] Dr. Carmel Tillman BASOM % 0.0 % Critically low 0.2-2.0 [facility] Comment on above: Performed By: #### C MP #### [facility] [address] [place] [address] Dr. Carmel Tillman BLAST # Normal [facility] Comment on above: Performed By: #### C MP #### [facility] [address] [place] [address] Dr. Carmel Tillman BLAST % Normal [facility] Comment on above: Performed By: #### C MP #### [facility] [address] [place] [address] Dr. Carmel Tillman CORRECTED WBC Normal 4.0-11.0 [facility] Comment on above: Performed By: #### C MP #### [facility] [address] [place] [address] Dr. Carmel Tillman EOS # 0.00 103/ul Normal 0.00-0.70 [facility] Comment on above: Performed By: #### C MP #### [facility] [address] [address] [address] Carmel Tillman EOS% 0.0 % Critically low 0.9-7.0 [facility] Comment on above: Performed By: #### C MP #### [facility] [address] [address] [address] Carmel Tillman HCT 39.5 % Normal 36.0-48.0 [facility] Comment on above: Performed By: #### C MP #### [facility] [address] [address] [address] Carmel Tillman HGB 12.4 g/dl Normal 12.0-16.0 [facility] Comment on above: Performed By: #### C MP #### [facility] [address] [place] [address] Dr. Carmel Tillman LYMPHM # 1.56 103/ul Normal 1.20-3.80 [facility] Comment on above: Performed By: #### C MP #### [facility] [address] [place] [address] Dr. Carmel Tillman LYMPHM% 9.0 % Critically low 20.5-60.0 [facility] Comment on above: Performed By: #### C MP #### [facility] [address] [place] [address] Dr. Carmel Tillman MCH 24.8 pg Critically low 26.7-34.0 [facility] Comment on above: Performed By: #### C MP #### [facility] [address] [place] [address] Dr. Carmel Tillman MCHC 31.4 g/dl Normal 29.9-35.2 [facility] Comment on above: Performed By: #### C MP #### [facility] [address] [place] [address] Dr. Carmel Tillman MCV 79.2 fL Critically low 81.0-99.0 [facility] Comment on above: Performed By: #### C MP #### [facility] [address] [place] [address] Dr. Carmel Tillman METAMYELOCYTE # Normal [facility] Comment on above: Performed By: #### C MP #### [facility] [address] [place] [address] Dr. Carmel Tillman METAMYELOCYTE % Normal [facility] Comment on above: Performed By: #### C MP #### [facility] [address] [address] [address] Carmel Tillman MONOM# 0.69 103/ul Normal 0.30-0.80 [facility] Comment on above: Performed By: #### C MP #### [facility] [address] [place] [address] Dr. Carmel Tillman MONOM% 4.0 % Normal 1.7-12.0 [facility] Comment on above: Performed By: #### C MP #### [facility] [address] [place] [address] Dr. Carmel Tillman MPV 9.7 fL Normal 9.5-13.5 [facility] Comment on above: Performed By: #### C MP #### [facility] [address] [place] [address] Dr. Carmel Tillman MYELOCYTE # Normal [facility] Comment on above: Performed By: #### C MP #### [facility] [address] [place] [address] Dr. Carmel Tillman MYELOCYTE % Normal [facility] Comment on above: Performed By: #### C MP #### [facility] [address] [place] [address] Dr. Carmel Tillman NRBC Normal [facility] Comment on above: Performed By: #### C MP #### [facility] [address] [address] [address] Carmel Tillman PLT 167 103/ul Normal 150-450 [facility] Comment on above: Performed By: #### C MP #### [facility] [address] [place] [address] Dr. Carmel Tillman RBC 4.99 106/ul Normal 4.20-5.40 [facility] Comment on above: Performed By: #### C MP #### [facility] [address] [address] [address] Carmel Tillman RDW 17.7 % Critically high 11.0-15.[address] [facility] Comment on above: Performed By: #### C MP #### [facility] [address] [place], [place] [address] [address]. Carmel Tillman SEG # 14.01 103/ul Critically high 1.40-6.50 [facility] Comment on above: Performed By: #### C MP #### [facility] [address] [address] [address] Carmel Tillman SEG % 81.0 % Critically high 43.0-75.[address] [facility] Comment on above: Performed By: #### C MP #### [facility] [address] [address] [address] Carmel Tillman WBC 17.3 103/ul Critically high 4.0-11.0 [facility] Comment on above: Performed By: #### C MP #### [facility] [address] [address] [address] Carmel Tillman CULTURE SPUTUMon 02-14-2021 CULTURE SPUTUM Culture Observations : NORMAL RESPIRATORY OSWALD. Normal [facility] Comment on above: Performed By: #### P T, PTT #### [facility] [address] [address] [address] Carmel Tillman ECHOCARDIO M/2D COMPLETEon 1 04-17-2020 ECHOCARDIO M/2D COMPLETE Patient: MARTA MELGAR Exam Date: 02/14/2021 : 1985 Gender:F Ordering : SHAIKH Eva KAUR . Admission #: [id number] Family : DR. RACHID SELLERS . Order #: [id number] CLICK HERE TO VIEW EXAM ECHOCARDIOGRAM REPORT [...] Area(A4C): 19.00 cm2 Left Atrium Systolic Volume(A2C): 47073 mm3 Left Atrium Systolic Volume(A4C): 87459 mm3 Mitral Valve MV E to A [...] M.D. on 02/14/2021 at 18:38 Normal [facility] POINT OF CARE GLUCOSEon 01-25 Glucose [Mass/Vol] 105 mg/dL Normal 74-106 [facility] Comment on above: Performed By: #### P T, PTT #### [facility] [address] [address] [address] Carmel Tillman Glucose [Mass/Vol] 125 mg/dL Critically high 74-106 [facility] Comment on above: Performed By: #### P T, PTT #### [facility] [address] [place] [address] Dr. Carmel Tillman Glucose [Mass/Vol] 104 mg/dL Normal 74-106 [facility] Comment on above: Performed By: #### P T, PTT #### [facility] [address] [address] [address] Carmel Tillman Glucose [Mass/Vol] 109 mg/dL Critically high 74-106 [facility] Comment on above: Performed By: #### P T, PTT #### [facility] [address] [address] [address] Carmel Tillman PROF CHEM 8 (BAS METB)on Anion gap [Moles/Vol] 13.8 mmol/L Normal [facility] Comment on above: Performed By: #### C MP, HSTROPN #### [facility] [address] [address] [address] Carmel Tillman Calcium [Mass/Vol] 8.6 mg/dL Normal 8.4-10.2 [facility] Comment on above: Performed By: #### C MP, HSTROPN #### [facility] [address] [address] [address] Carmel Tillman Chloride [Moles/Vol] 104 mmol/L Normal 98-107 [facility] Comment on above: Performed By: #### C MP, HSTROPN #### [facility] [address] [address] [address] Carmel Tillman CO2 [Moles/Vol] 24.3 mmol/L Normal 22.0-30.0 [facility] Comment on above: Performed By: #### C MP, HSTROPN #### [facility] [address] [address] [address] Carmel Tillman Creatinine [Mass/Vol] 0.84 mg/dL Normal 0.52-1.04 [facility] Comment on above: Performed By: #### C MP, HSTROPN #### [facility] [address] [place] [address] Dr. Carmel Tillman EGFR-AF PUERTO RICAN >60 Normal >=60 [facility] Comment on above: Performed By: #### C MP, HSTROPN #### [facility] [address] [address] [address] Carmel Tillman EGFR-NON AF PUERTO RICAN >60 Normal >=60 [facility] Comment on above: Performed By: #### C MP, HSTROPN #### [facility] [address] [address] [address] Carmel Tillman Glucose [Mass/Vol] 124 mg/dL Critically high 74-106 [facility] Comment on above: Performed By: #### C MP, HSTROPN #### [facility] [address] [address] [address] Carmel Tillman Potassium [Moles/Vol] 4.1 mmol/L Normal 3.4-5.0 [facility] Comment on above: Performed By: #### C MP, HSTROPN #### [facility] [address] [address] [address] Carmel Tillman Sodium [Moles/Vol] 138 mmol/L Normal 137-145 [facility] Comment on above: Performed By: #### C MP, HSTROPN #### [facility] [address] [address] [address] Carmel Tillman Urea nitrogen [Mass/Vol] 15.0 mg/dL Normal 7.0-17.0 [facility] Comment on above: Performed By: #### C MP, HSTROPN #### [facility] [address] [address] [address] Carmel Tillman Urea nitrogen/Creatinine [Mass ratio] 17.9 mg/mg Normal [facility] Comment on above: Performed By: #### C MP, HSTROPN #### [facility] [address] [address] [address] Carmel Tillman SPUTUM GRAM STAINon 02-15-20 COMMENTS NO ORGANISMS OBSERVED Normal [facility] Comment on above: Performed By: #### C MP, HSTROPN #### [facility] [address] [address] [address] Carmel Tillman DIPHTHEROIDS Normal [facility] Comment on above: Performed By: #### C MP, HSTROPN #### [facility] [address] [place] [address] Dr. Carmel Tillman EPITHELIALS <25 Normal [facility] Comment on above: Performed By: #### C MP, HSTROPN #### [facility] [address] [address] [address] Carmel Tillman FUNGAL ELEMENTS Normal [facility] Comment on above: Performed By: #### C MP, HSTROPN #### [facility] [address] [place] [address] Dr. Carmel ASCENCIO NEG BACILLI Normal [facility] Comment on above: Performed By: #### C MP, HSTROPN #### [facility] [address] [address] [address] Carmel ASCENCIO NEG DIPPLOCOCCI Normal [facility] Comment on above: Performed By: #### C MP, HSTROPN #### [facility] [address] [place] [address] Dr. Carmel ASCENICO POS BACILLI Normal [facility] Comment on above: Performed By: #### C MP, HSTROPN #### [facility] [address] [place] [address] Dr. Carmel Tillman GRAM POSITIVE COCCI Normal [facility] Comment on above: Performed By: #### C FARAZ HSTROPN #### [facility] [address] [address] [address] Carmel Tillman WBC (Bld) [#/Vol] 10*3/uL Normal [facility] Comment on above: Performed By: #### C FARAZ, HSTROPN #### [facility] [address] [address] [address] Carmel Tillman XR CHEST 2 Von [...] ISRAEL GROSS Date: 2021-02-14 08:57 Normal [facility] CBC W MANUAL DIFFon 02-14-20 21 ATYPICAL LYMPH # Normal [facility] Comment on above: Performed By: #### P T, PTT #### [facility] [address] [place] [address] Dr. Carmel Tillman ATYPICAL LYMPH % Normal [facility] Comment on above: Performed By: #### P T, PTT #### [facility] [address] [address] [address] Carmel Tillman BAND # 0.4 103/ul Critically high 0.0-0.3 [facility] Comment on above: Performed By: #### P T, PTT #### [facility] [address] [address] [address] Carmel Tillman BAND % 2 % Normal 0-5 [facility] Comment on above: Performed By: #### P T, PTT #### [facility] [address] [address] [address] Carmel Tillman BASOM # 0.00 103/ul Normal 0.00-0.10 [facility] Comment on above: Performed By: #### P T, PTT #### [facility] [address] [place] [address] Dr. Carmel Tillman BASOM % 0.0 % Critically low 0.2-2.0 [facility] Comment on above: Performed By: #### P T, PTT #### [facility] [address] [place] [address] Dr. Carmel Tillman BLAST # Normal [facility] Comment on above: Performed By: #### P T, PTT #### [facility] [address] [place] [address] Dr. Carmel Tillman BLAST % Normal [facility] Comment on above: Performed By: #### P T, PTT #### [facility] [address] [place] [address] Dr. Carmel Tillman CORRECTED WBC Normal 4.0-11.0 [facility] Comment on above: Performed By: #### P T, PTT #### [facility] [address] [place] [address] Dr. Carmel Tillman EOS # 0.00 103/ul Normal 0.00-0.70 [facility] Comment on above: Performed By: #### P T, PTT #### [facility] [address] [place] [address] Dr. Carmel Tillman EOS% 0.0 % Critically low 0.9-7.0 [facility] Comment on above: Performed By: #### P T, PTT #### [facility] [address] [place] [address] Dr. Carmel Tillman HCT 37.9 % Normal 36.0-48.0 [facility] Comment on above: Performed By: #### P T, PTT #### [facility] [address] [place] [address] Dr. Carmel Tillman HGB 11.9 g/dl Critically low 12.0-16.0 [facility] Comment on above: Performed By: #### P T, PTT #### [facility] [address] [address] [address] Carmel Tillman LYMPHM # 1.23 103/ul Normal 1.20-3.80 [facility] Comment on above: Performed By: #### P T, PTT #### [facility] [address] [address] [address] Carmel Tillman LYMPHM% 7.0 % Critically low 20.5-60.0 [facility] Comment on above: Performed By: #### P T, PTT #### [facility] [address] [address] [address] Carmel Tillman MCH 25.0 pg Critically low 26.7-34.0 [facility] Comment on above: Performed By: #### P T, PTT #### [facility] [address] [place] [address] Dr. Carmel Tillman MCHC 31.4 g/dl Normal 29.9-35.2 [facility] Comment on above: Performed By: #### P T, PTT #### [facility] [address] [address] [address] Carmel Tillman MCV 79.6 fL Critically low 81.0-99.0 [facility] Comment on above: Performed By: #### P T, PTT #### [facility] [address] [place] [address] Dr. Carmel Tillman METAMYELOCYTE # Normal [facility] Comment on above: Performed By: #### P T, PTT #### [facility] [address] [address] [address] Carmel Tillman METAMYELOCYTE % Normal [facility] Comment on above: Performed By: #### P T, PTT #### [facility] [address] [address] [address] Carmel Tillman MONOM# 0.35 103/ul Normal 0.30-0.80 [facility] Comment on above: Performed By: #### P T, PTT #### [facility] [address] [place] [address] Dr. Carmel Tillman MONOM% 2.0 % Normal 1.7-12.0 [facility] Comment on above: Performed By: #### P T, PTT #### [facility] [address] [place] [address] Dr. Carmel Tillman MPV 10.2 fL Normal 9.5-13.5 [facility] Comment on above: Performed By: #### P T, PTT #### [facility] [address] [place] [address] Dr. Carmel Tillman MYELOCYTE # Normal [facility] Comment on above: Performed By: #### P T, PTT #### [facility] [address] [place] [address] Dr. Carmel Tillman MYELOCYTE % Normal [facility] Comment on above: Performed By: #### P T, PTT #### [facility] [address] [place] [address] Dr. Carmel Tillman NRBC Normal [facility] Comment on above: Performed By: #### P T, PTT #### [facility] [address] [place] [address] Dr. Carmel Tillman PLT 174 103/ul Normal 150-450 [facility] Comment on above: Performed By: #### P T, PTT #### [facility] [address] [place] [address] Dr. Carmel Tillman RBC 4.76 106/ul Normal 4.20-5.40 [facility] Comment on above: Performed By: #### P T, PTT #### [facility] [address] [place] [address] Dr. Carmel Tillman RDW 17.5 % Critically high 11.0-15.[address] [facility] Comment on above: Performed By: #### P T, PTT #### [facility] [address] [place] [address] Dr. Carmel Tillman SEG # 15.66 103/ul Critically high 1.40-6.50 [facility] Comment on above: Performed By: #### P T, PTT #### [facility] [address] [place] [address] Dr. Carmel Tillman SEG % 89.0 % Critically high 43.0-75.[address] [facility] Comment on above: Performed By: #### P T, PTT #### [facility] [address] [address] [address] Carmel Tillman WBC 17.6 103/ul Critically high 4.0-11.0 [facility] Comment on above: Performed By: #### P T, PTT #### [facility] [address] [address] [address] Carmel Tillman POINT OF CARE GLUCOSEon 12-2 Glucose [Mass/Vol] 104 mg/dL Normal 74-106 [facility] Comment on above: Performed By: #### P T, PTT #### [facility] [address] [address] [address] Carmel Tillman Glucose [Mass/Vol] 122 mg/dL Critically high 74-106 [facility] Comment on above: Performed By: #### C MP #### [facility] [address] [address] [address] Carmel Tillman Glucose [Mass/Vol] 122 mg/dL Critically high 74-106 [facility] Comment on above: Performed By: #### P T, PTT #### [facility] [address] [address] [address] Carmel Tillman PROF CHEM 8 (BAS METB)on Anion gap [Moles/Vol] 13.8 mmol/L Normal [facility] Comment on above: Performed By: #### B MP #### [facility] [address] [address] [address] Carmel Tillman Calcium [Mass/Vol] 8.2 mg/dL Critically low 8.4-10.2 [facility] Comment on above: Performed By: #### B MP #### [facility] [address] [address] [address] Carmel Tillman Chloride [Moles/Vol] 105 mmol/L Normal 98-107 [facility] Comment on above: Performed By: #### B MP #### [facility] [address] [address] [address] Carmel Tillman CO2 [Moles/Vol] 22.5 mmol/L Normal 22.0-30.0 [facility] Comment on above: Performed By: #### B MP #### [facility] [address] [address] [address] Carmel Tillman Creatinine [Mass/Vol] 0.81 mg/dL Normal 0.52-1.04 [facility] Comment on above: Performed By: #### B MP #### [facility] [address] [address] [address] Carmel Tillman EGFR-AF PUERTO RICAN >60 Normal >=60 [facility] Comment on above: Performed By: #### B MP #### [facility] [address] [place] [address] Dr. Carmel Tillman EGFR-NON AF PUERTO RICAN >60 Normal >=60 [facility] Comment on above: Performed By: #### B MP #### [facility] [address] [address] [address] Carmel Tillman Glucose [Mass/Vol] 128 mg/dL Critically high 74-106 [facility] Comment on above: Performed By: #### B MP #### [facility] [address] [address] [address] Carmel Tillman Potassium [Moles/Vol] 4.3 mmol/L Normal 3.4-5.0 [facility] Comment on above: Performed By: #### B MP #### [facility] [address] [address] [address] Carmel Tillman Sodium [Moles/Vol] 137 mmol/L Normal 137-145 [facility] Comment on above: Performed By: #### B MP #### [facility] [address] [place] [address] Dr. Carmel Tillman Urea nitrogen [Mass/Vol] 14.0 mg/dL Normal 7.0-17.0 [facility] Comment on above: Performed By: #### B MP #### [facility] [address] [place] [address] Dr. Carmel Tillman Urea nitrogen/Creatinine [Mass ratio] 17.3 mg/mg Normal [facility] Comment on above: Performed By: #### B MP #### [facility] [address] [place] [address] Dr. Carmel Tillman CBC AUTO DIFFon 02-12-2021 BASO # 0.1 103/ul Normal 0.0-0.1 [facility] Comment on above: Performed By: #### P T, PTT #### [facility] [address] [place] [address] Dr. Carmel Tillman Basophils/100 WBC (Bld) 0.3 % Normal 0.2-2.0 [facility] Comment on above: Performed By: #### P T, PTT #### [facility] [address] [place] [address] Dr. Carmel Tillman EO # 0.0 103/ul Normal 0.0-0.7 [facility] Comment on above: Performed By: #### P T, PTT #### [facility] [address] [place] [address] Dr. Carmel Tillman Eosinophils/100 WBC (Bld) 0.0 % Critically low 0.9-7.0 [facility] Comment on above: Performed By: #### P T, PTT #### [facility] [address] [place] [address] Dr. Carmel Tillman Erythrocyte distribution width (RBC) [Ratio] 16.5 % Critically high 11.0-15.0 [facility] Comment on above: Performed By: #### P T, PTT #### [facility] [address] [place] [address] Dr. Carmel Tillman Hematocrit (Bld) [Volume fraction] 39.9 % Normal 36.0-48.0 [facility] Comment on above: Performed By: #### P T, PTT #### [facility] [address] [place] [address] Dr. Carmel Tillman Hemoglobin (Bld) [Mass/Vol] 12.7 g/dL Normal 12.0-16.0 [facility] Comment on above: Performed By: #### P T, PTT #### [facility] [address] [address] [address] Carmel Tillman IG # 0.42 10e3/ul Critically high 0.00-0.03 [facility] Comment on above: Performed By: #### P T, PTT #### [facility] [address] [address] [address] Carmel Tillman IG % 2.2 % Critically high 0.0-0.[address] [facility] Comment on above: Performed By: #### P T, PTT #### [facility] [address] [address] [address] Carmel Tillman LYMPH # 1.4 103/ul Normal 1.2-3.8 [facility] Comment on above: Performed By: #### P T, PTT #### [facility] [address] [place] [address] Dr. Carmel Tillman Lymphocytes/100 WBC (Bld) 7.4 % Critically low 20.5-60.0 [facility] Comment on above: Performed By: #### P T, PTT #### [facility] [address] [address] [address] Carmel Tillman MANUAL DIFF REQ NO Normal [facility] Comment on above: Performed By: #### P T, PTT #### [facility] [address] [place] [address] Dr. Carmel Tillman MCH (RBC) [Entitic mass] 24.7 pg Critically low 26.7-34.0 [facility] Comment on above: Performed By: #### P T, PTT #### [facility] [address] [address] [address] Carmel Tillman MCHC (RBC) [Mass/Vol] 31.8 g/dL Normal 29.9-35.2 [facility] Comment on above: Performed By: #### P T, PTT #### [facility] [address] [address] [address] Carmel Tillman MCV (RBC) [Entitic vol] 77.5 fL Critically low 81.0-99.0 [facility] Comment on above: Performed By: #### P T, PTT #### [facility] [address] [place] [address] Dr. Carmel Tillman MONO # 0.4 103/ul Normal 0.3-0.8 [facility] Comment on above: Performed By: #### P T, PTT #### [facility] [address] [place] [address] Dr. Carmel Tillman Monocytes/100 WBC (Bld) 2.1 % Normal 1.7-12.0 [facility] Comment on above: Performed By: #### P T, PTT #### [facility] [address] [place] [address] Dr. Carmel Tillman NEUT # 16.8 103/ul Critically high 1.4-6.5 [facility] Comment on above: Performed By: #### P T, PTT #### [facility] [address] [place] [address] Dr. Carmel Tillman Neutrophils/100 WBC (Bld) 88.0 % Critically high 43.0-75.0 [facility] Comment on above: Performed By: #### P T, PTT #### [facility] [address] [place] [address] Dr. Carmel Tillman Platelet mean volume (Bld) [Entitic vol] 9.5 fL Normal 9.5-13.5 [facility] Comment on above: Performed By: #### P T, PTT #### [facility] [address] [place] [address] Dr. Carmel Tillman PLT 174 103/ul Normal 150-450 [facility] Comment on above: Performed By: #### P T, PTT #### [facility] [address] [place] [address] Dr. Carmel Tillman RBC 5.15 106/ul Normal 4.20-5.40 [facility] Comment on above: Performed By: #### P T, PTT #### [facility] [address] [place] [address] Dr. Carmel Tillman WBC 19.1 103/ul Critically high 4.0-11.0 [facility] Comment on above: Performed By: #### P T, PTT #### [facility] [address] [address] [address] Carmel Tillman POINT OF CARE GLUCOSEon 01-25 Glucose [Mass/Vol] 110 mg/dL Critically high 74-106 [facility] Comment on above: Performed By: #### C MP, HSTROPN #### [facility] [address] [address] [address] Carmel Tillman Glucose [Mass/Vol] 99 mg/dL Normal 74-106 [facility] Comment on above: Performed By: #### C MP #### [facility] [address] [address] [address] Carmel Tillman Glucose [Mass/Vol] 97 mg/dL Normal 74-106 [facility] Comment on above: Performed By: #### P T, PTT #### [facility] [address] [address] [address] Carmel Tillman Glucose [Mass/Vol] 88 mg/dL Normal 74-106 [facility] Comment on above: Performed By: #### C MP, HSTROPN #### [facility] [address] [address] [address] Carmel Tillman PROF CHEM 8 (BAS METB)on Anion gap [Moles/Vol] 15.4 mmol/L Normal [facility] Comment on above: Performed By: #### B MP #### [facility] [address] [address] [address] Carmel Tillman Calcium [Mass/Vol] 8.0 mg/dL Critically low 8.4-10.[address] [facility] Comment on above: Performed By: #### B MP #### [facility] [address] [address] [address] Carmel Tillman Chloride [Moles/Vol] 105 mmol/L Normal 98-107 [facility] Comment on above: Performed By: #### B MP #### [facility] [address] [address] [address] Carmel Tillman CO2 [Moles/Vol] 21.3 mmol/L Critically low 22.0-30.0 [facility] Comment on above: Performed By: #### B MP #### [facility] [address] [address] [address] Carmel Tillman Creatinine [Mass/Vol] 0.90 mg/dL Normal 0.52-1.04 [facility] Comment on above: Performed By: #### B MP #### [facility] [address] [address] [address] Carmel Tillman EGFR-AF PUERTO RICAN >60 Normal >=60 [facility] Comment on above: Performed By: #### B MP #### [facility] [address] [address] [address] Carmel Tillman EGFR-NON AF PUERTO RICAN >60 Normal >=60 [facility] Comment on above: Performed By: #### B MP #### [facility] [address] [place] [address] Dr. Carmel Tillman Glucose [Mass/Vol] 128 mg/dL Critically high 74-106 [facility] Comment on above: Performed By: #### B MP #### [facility] [address] [place] [address] Dr. Carmel Tillman Potassium [Moles/Vol] 3.7 mmol/L Normal 3.4-5.0 [facility] Comment on above: Performed By: #### B MP #### [facility] [address] [place] [address] Dr. Carmel Tillman Sodium [Moles/Vol] 138 mmol/L Normal 137-145 [facility] Comment on above: Performed By: #### B MP #### [facility] [address] [address] [address] Carmel Tillman Urea nitrogen [Mass/Vol] 17.0 mg/dL Normal 7.0-17.0 [facility] Comment on above: Performed By: #### B MP #### [facility] [address] [place] [address] Dr. Carmel Tillman Urea nitrogen/Creatinine [Mass ratio] 18.9 mg/mg Normal [facility] Comment on above: Performed By: #### B MP #### [facility] [address] [address] [address] Carmel Tillman CBC W MANUAL DIFFon 02-12-20 ATYPICAL LYMPH # 0.18 103/ul Normal [facility] Comment on above: Performed By: #### C MP, HSTROPN #### [facility] [address] [address] [address] Carmel Tillman ATYPICAL LYMPH % 1 % Normal [facility] Comment on above: Performed By: #### C MP, HSTROPN #### [facility] [address] [place] [address] Dr. Carmel Tillman BAND # 0.0 103/ul Normal 0.0-0.3 [facility] Comment on above: Performed By: #### C MP, HSTROPN #### [facility] [address] [place] [address] Dr. Carmel Tillman BAND % 0 % Normal 0-5 [facility] Comment on above: Performed By: #### C MP, HSTROPN #### [facility] [address] [place] [address] Dr. Carmel Tillman BASOM # 0.00 103/ul Normal 0.00-0.10 [facility] Comment on above: Performed By: #### C MP, HSTROPN #### [facility] [address] [place] [address] Dr. Carmel Tillman BASOM % 0.0 % Critically low 0.2-2.0 [facility] Comment on above: Performed By: #### C MP, HSTROPN #### [facility] [address] [place] [address] Dr. Carmel Tillman BLAST # Normal [facility] Comment on above: Performed By: #### C MP, HSTROPN #### [facility] [address] [place] [address] Dr. Carmel Tillman BLAST % Normal [facility] Comment on above: Performed By: #### C MP, HSTROPN #### [facility] [address] [place] [address] Dr. Carmel Tillman CORRECTED WBC Normal 4.0-11.0 [facility] Comment on above: Performed By: #### C MP, HSTROPN #### [facility] [address] [place] [address] Dr. Carmel Tillman EOS # 0.00 103/ul Normal 0.00-0.70 [facility] Comment on above: Performed By: #### C MP, HSTROPN #### [facility] [address] [place] [address] Dr. Carmel Tillman EOS% 0.0 % Critically low 0.9-7.0 [facility] Comment on above: Performed By: #### C MP, HSTROPN #### [facility] [address] [place] [address] Dr. Carmel Tillman HCT 43.4 % Normal 36.0-48.0 [facility] Comment on above: Performed By: #### C MP, HSTROPN #### [facility] [address] [place] [address] Dr. Carmel Tillman HGB 13.7 g/dl Normal 12.0-16.0 [facility] Comment on above: Performed By: #### C MP, HSTROPN #### [facility] [address] [place] [address] Dr. Carmel Tillman LYMPHM # 1.06 103/ul Critically low 1.20-3.[address] [facility] Comment on above: Performed By: #### C MP, HSTROPN #### [facility] [address] [place] [address] Dr. Carmel Tillman LYMPHM% 6.0 % Critically low 20.5-60.0 [facility] Comment on above: Performed By: #### C MP, HSTROPN #### [facility] [address] [place] [address] Dr. Carmel Tillman MCH 24.6 pg Critically low 26.7-34.0 [facility] Comment on above: Performed By: #### C MP, HSTROPN #### [facility] [address] [place] [address] Dr. Carmel Tillman MCHC 31.6 g/dl Normal 29.9-35.2 [facility] Comment on above: Performed By: #### C MP, HSTROPN #### [facility] [address] [place] [address] Dr. Carmel Tillman MCV 77.9 fL Critically low 81.0-99.0 [facility] Comment on above: Performed By: #### C MP, HSTROPN #### [facility] [address] [address] [address] Carmel Tillman METAMYELOCYTE # Normal [facility] Comment on above: Performed By: #### C MP, HSTROPN #### [facility] [address] [place] [address] Dr. Carmel Tillman METAMYELOCYTE % Normal [facility] Comment on above: Performed By: #### C MP, HSTROPN #### [facility] [address] [place] [address] Dr. Carmel Tillman MONOM# 0.53 103/ul Normal 0.30-0.80 [facility] Comment on above: Performed By: #### C MP, HSTROPN #### [facility] [address] [place] [address] Dr. Carmel Tillman MONOM% 3.0 % Normal 1.7-12.0 The [facility] Comment on above: Performed By: #### C MP, HSTROPN #### [facility] [address] [place] [address] Dr. Carmel Tillman MPV 10.2 fL Normal 9.5-13.5 [facility] Comment on above: Performed By: #### C MP, HSTROPN #### [facility] [address] [place] [address] Dr. Carmel Tillman MYELOCYTE # Normal [facility] Comment on above: Performed By: #### C MP, HSTROPN #### [facility] [address] [place] [address] Dr. Carmel Tillman MYELOCYTE % Normal [facility] Comment on above: Performed By: #### C MP, HSTROPN #### [facility] [address] [address] [address] Carmel Tillman NRBC Normal [facility] Comment on above: Performed By: #### C MP, HSTROPN #### [facility] [address] [address] [address] Carmel Tillman PLT 213 103/ul Normal 150-450 [facility] Comment on above: Performed By: #### C MP, HSTROPN #### [facility] [address] [address] [address] Carmel Tillman RBC 5.57 106/ul Critically high 4.20-5.40 [facility] Comment on above: Performed By: #### C MP, HSTROPN #### [facility] [address] [address] [address] Carmel Tillman RDW 17.2 % Critically high 11.0-15.0 [facility] Comment on above: Performed By: #### C MP, HSTROPN #### [facility] [address] [address] [address] Carmel Tillman SEG # 15.84 103/ul Critically high 1.40-6.50 [facility] Comment on above: Performed By: #### C MP, HSTROPN #### [facility] [address] [address] [address] Carmel Tillman SEG % 90.0 % Critically high 43.0-75.0 [facility] Comment on above: Performed By: #### C MP, HSTROPN #### [facility] [address] [address] [address] Carmel Tillman WBC 17.6 103/ul Critically high 4.0-11.0 [facility] Comment on above: Performed By: #### C MP, HSTROPN #### [facility] [address] [address] [address] Carmel Tillman CTA CHEST WO W [...] HUSAM GARSIA Date: 2021-02-11 19:14 Normal [facility] CULTURE BLOODon 02-11-2021 Microscopic examination of blood, culture Culture Observations: NO GROWTH AT 5 DAYS. Normal [facility] Comment on above: Performed By: #### P T, PTT #### [facility] [address] [address] [address] Carmel Tillman Microscopic examination of blood, culture Culture Observations: NO GROWTH AT 5 DAYS. Normal [facility] Comment on above: Performed By: #### P T, PTT #### [facility] [address] [address] [address] Carmel Tillman [facility] SARS-CoV-2 (COVID-19) RNA EDILBERTO+probe Ql (Unsp spec) Not detected Normal NOT DETECTED [facility] Comment on above: Result Comment: This test is not yet approved or cleared by the [place] FDA. When there are no FDA-approved or cleared tests available, and other criteria are met, FDA can make tests available under an emergency access mechanism called an Emergency Use Authorization (EUA). The EUA for this test is supported by the [employer] of Health and Human Service's (HHS's) declaration [...] consistent with SARS-CoV-2. Performed By: #### C FARAZ #### [facility] [address] [place] [address] Dr. Carmel Tillman PROF 14(COMP METB)on 021 Albumin [Mass/Vol] 2.6 g/dL Critically low 3.5-5.[address] [facility] Comment on above: Performed By: #### C FARAZ HSTROPN #### [facility] [address] [place] [address] Dr. Carmel Tillman Albumin/Globulin [Mass ratio] 0.7 {ratio} Normal [facility] Comment on above: Performed By: #### C FARAZ HSTROPN #### [facility] [address] [place] [address] Dr. Carmel Tillman ALP [Catalytic activity/Vol] 40 U/L Normal 38-126 [facility] Comment on above: Performed By: #### C FARAZ HSTROPN #### [facility] [address] [place] [address] Dr. Carmel Tillman ALT [Catalytic activity/Vol] 73 U/L Critically high 9-52 [facility] Comment on above: Performed By: #### C FARAZ HSTROPN #### [facility] [address] [address] [address] Carmel Tillman Anion gap [Moles/Vol] 14.4 mmol/L Normal [facility] Comment on above: Performed By: #### C MP, HSTROPN #### [facility] [address] [place] [address] Dr. Carmel Tillman AST [Catalytic activity/Vol] 19 U/L Normal 14-36 [facility] Comment on above: Performed By: #### C MP, HSTROPN #### [facility] [address] [place] [address] Dr. Carmel Tillman Bilirubin [Mass/Vol] 0.7 mg/dL Normal 0.2-1.3 [facility] Comment on above: Performed By: #### C MP, HSTROPN #### [facility] [address] [place] [address] Dr. Carmel Tillman Calcium [Mass/Vol] 8.3 mg/dL Critically low 8.4-10.[address] [facility] Comment on above: Performed By: #### C MP, HSTROPN #### [facility] [address] [place] [address] Dr. Carmel Tillman Chloride [Moles/Vol] 106 mmol/L Normal 98-107 [facility] Comment on above: Performed By: #### C MP, HSTROPN #### [facility] [address] [place] [address] Dr. Carmel Tillman CO2 [Moles/Vol] 22.9 mmol/L Normal 22.0-30.0 [facility] Comment on above: Performed By: #### C MP, HSTROPN #### [facility] [address] [place] [address] Dr. Carmel Tillman Creatinine [Mass/Vol] 0.70 mg/dL Normal 0.52-1.04 [facility] Comment on above: Performed By: #### C MP, HSTROPN #### [facility] [address] [place] [address] Dr. Carmel Tillman EGFR-AF PUERTO RICAN >60 Normal >=60 [facility] Comment on above: Performed By: #### C MP, HSTROPN #### [facility] [address] [address] [address] Carmel Tillman EGFR-NON AF PUERTO RICAN >60 Normal >=60 [facility] Comment on above: Performed By: #### C MP, HSTROPN #### [facility] [address] [address] [address] Carmel Tillman Globulin (S) [Mass/Vol] 3.5 g/dL Normal [facility] Comment on above: Performed By: #### C MP, HSTROPN #### [facility] [address] [address] [address] Carmel Tillman Glucose [Mass/Vol] 98 mg/dL Normal 74-106 [facility] Comment on above: Performed By: #### C MP, HSTROPN #### [facility] [address] [place] [address] Dr. Carmel Tillman Potassium [Moles/Vol] 4.3 mmol/L Normal 3.4-5.0 [facility] Comment on above: Performed By: #### C MP, HSTROPN #### [facility] [address] [address] [address] Carmel Tillman Protein [Mass/Vol] 6.1 g/dL Normal 6.1-8.2 [facility] Comment on above: Performed By: #### C MP, HSTROPN #### [facility] [address] [address] [address] Carmel Tillman Sodium [Moles/Vol] 139 mmol/L Normal 137-145 [facility] Comment on above: Performed By: #### C MP, HSTROPN #### [facility] [address] [address] [address] Carmel Tillman Urea nitrogen [Mass/Vol] 21.0 mg/dL Critically high 7.0-17.0 [facility] Comment on above: Performed By: #### C MP, HSTROPN #### [facility] [address] [address] [address] Carmel Tillman Urea nitrogen/Creatinine [Mass ratio] 30.0 mg/mg Normal [facility] Comment on above: Performed By: #### C MP, HSTROPN #### [facility] [address] [place] [address] Dr. Carmel Tillman TROPONIN, HIGH SENSITIVITYon 02-11-2021 HSTROP 8.3 pg/mL Normal 4.0-35.5 [facility] Comment on above: Result Comment: CUT- OFF POINTS HAVE BEEN ESTABLISHED BASED ON THE FOURTH UNIVERSAL DEFINITIONS OF MYOCARDIAL INFARCTION. THE UPPER REFERENCE LIMIT (URL) OF TROPONIN, DEFINED THE 99TH PERCENTILE OF cTnI DISTRIBUTION IN A REFERENCE POPULATION, HAS BEEN CONFIRMED THE DECISION THRESHOLD FOR CT DIAGNOSIS. Performed By: #### C MP, HSTROPN #### [facility] [address] [place] [address] Dr. Carmel Tillman CBC W MANUAL DIFFon 02-01-20 21 ATYPICAL LYMPH # 0.13 103/ul Normal [facility] Comment on above: Performed By: #### C MP #### [facility] [address] [place] [address] Dr. Carmel Tillman ATYPICAL LYMPH % 1 % Normal [facility] Comment on above: Performed By: #### C MP #### [facility] [address] [place] [address] Dr. Carmel Tillman BAND # 0.3 103/ul Normal 0.0-0.3 [facility] Comment on above: Performed By: #### C MP #### [facility] [address] [place] [address] Dr. Carmel Tillman BAND % 2 % Normal 0-5 [facility] Comment on above: Performed By: #### C MP #### [facility] [address] [place] [address] Dr. Carmel Tillman BASOM # 0.00 103/ul Normal 0.00-0.10 [facility] Comment on above: Performed By: #### C MP #### [facility] [address] [place] [address] Dr. Carmel Tillman BASOM % 0.0 % Critically low 0.2-2.0 [facility] Comment on above: Performed By: #### C MP #### [facility] [address] [place] [address] Dr. Carmel Tillman BLAST # Normal [facility] Comment on above: Performed By: #### C MP #### [facility] [address] [place] [address] Dr. Carmel Tillman BLAST % Normal [facility] Comment on above: Performed By: #### C MP #### [facility] [address] [place] [address] Dr. Carmel Tillman CORRECTED WBC Normal 4.0-11.0 [facility] Comment on above: Performed By: #### C MP #### [facility] [address] [place] [address] Dr. Carmel Tillman EOS # 0.00 103/ul Normal 0.00-0.70 [facility] Comment on above: Performed By: #### C MP #### [facility] [address] [place] [address] Dr. Carmel Tillman EOS% 0.0 % Critically low 0.9-7.0 [facility] Comment on above: Performed By: #### C MP #### [facility] [address] [place] [address] Dr. Carmel Tillman HCT 41.0 % Normal 36.0-48.0 [facility] Comment on above: Performed By: #### C MP #### [facility] [address] [place] [address] Dr. Carmel Tillman HGB 12.8 g/dl Normal 12.0-16.0 [facility] Comment on above: Performed By: #### C MP #### [facility] [address] [place] [address] Dr. Carmel Tillman LYMPHM # 1.88 103/ul Normal 1.20-3.80 [facility] Comment on above: Performed By: #### C MP #### [facility] [address] [place] [address] Dr. Carmel Tillman LYMPHM% 15.0 % Critically low 20.5-60.0 [facility] Comment on above: Performed By: #### C MP #### [facility] [address] [place] [address] Dr. Carmel Tillman MCH 25.0 pg Critically low 26.7-34.0 [facility] Comment on above: Performed By: #### C MP #### [facility] [address] [place] [address] Dr. Carmel Tillman MCHC 31.2 g/dl Normal 29.9-35.2 [facility] Comment on above: Performed By: #### C MP #### [facility] [address] [place] [address] Dr. Carmel Tillman MCV 80.2 fL Critically low 81.0-99.0 [facility] Comment on above: Performed By: #### C MP #### [facility] [address] [place] [address] Dr. Carmel Tillman METAMYELOCYTE # Normal [facility] Comment on above: Performed By: #### C MP #### [facility] [address] [place] [address] Dr. Carmel Tillman METAMYELOCYTE % Normal [facility] Comment on above: Performed By: #### C MP #### [facility] [address] [place] [address] Dr. Carmel Tillman MONOM# 0.25 103/ul Critically low 0.30-0.[address] [facility] Comment on above: Performed By: #### C MP #### [facility] [address] [place] [address] Dr. Carmel Tillman MONOM% 2.0 % Normal 1.7-12.0 [facility] Comment on above: Performed By: #### C MP #### [facility] [address] [place] [address] Dr. Carmel Tillman MPV 12.4 fL Normal 9.5-13.5 [facility] Comment on above: Performed By: #### C MP #### [facility] [address] [place] [address] Dr. Carmel Tillman MYELOCYTE # Normal [facility] Comment on above: Performed By: #### C MP #### [facility] [address] [address] [address] Carmel Tillman MYELOCYTE % Normal [facility] Comment on above: Performed By: #### C MP #### [facility] [address] [address] [address] Carmel Tillman NRBC Normal [facility] Comment on above: Performed By: #### C MP #### [facility] [address] [address] [address] Carmel Tillman PLT 209 103/ul Normal 150-450 [facility] Comment on above: Performed By: #### C MP #### [facility] [address] [address] [address] Carmel Tillman RBC 5.11 106/ul Normal 4.20-5.40 [facility] Comment on above: Performed By: #### C MP #### [facility] [address] [address] [address] Carmel Tillman RDW 16.9 % Critically high 11.0-15.[address] [facility] Comment on above: Performed By: #### C MP #### [facility] [address] [address] [address] aCrmel Tillman SEG # 10.00 103/ul Critically high 1.40-6.50 [facility] Comment on above: Performed By: #### C MP #### [facility] [address] [address] [address] Carmel Tillman SEG % 80.0 % Critically high 43.0-75.0 [facility] Comment on above: Performed By: #### C MP #### [facility] [address] [address] [address] Carmel Tillman WBC 12.5 103/ul Critically high 4.0-11.0 [facility] Comment on above: Performed By: #### C MP #### [facility] [address] [address] [address] Carmel Tillman MAGNESIUMon 01-31-2021 Magnesium [Mass/Vol] 2.7 mg/dL Critically high 1.6-2.3 [facility] Comment on above: Performed By: #### C MP #### [facility] [address] [place] [address] Dr. Carmel Tillman PROF CHEM 8 (BAS METB)on Anion gap [Moles/Vol] 16.6 mmol/L Normal [facility] Comment on above: Performed By: #### C MP #### [facility] [address] [place] [address] Dr. Carmel Tillman Calcium [Mass/Vol] 8.4 mg/dL Normal 8.4-10.2 [facility] Comment on above: Performed By: #### C MP #### [facility] [address] [place] [address] Dr. Carmel Tillman Chloride [Moles/Vol] 108 mmol/L Critically high 98-107 [facility] Comment on above: Performed By: #### C MP #### [facility] [address] [place] [address] Dr. Carmel Tillman CO2 [Moles/Vol] 20.9 mmol/L Critically low 22.0-30.0 [facility] Comment on above: Performed By: #### C MP #### [facility] [address] [place] [address] Dr. Carmel Tillman Creatinine [Mass/Vol] 0.91 mg/dL Normal 0.52-1.04 [facility] Comment on above: Performed By: #### C MP #### [facility] [address] [place] [address] Dr. Carmel Tillman EGFR-AF PUERTO RICAN >60 Normal >=60 [facility] Comment on above: Performed By: #### C MP #### [facility] [address] [place] [address] Dr. Carmel Tillman EGFR-NON AF PUERTO RICAN >60 Normal >=60 [facility] Comment on above: Performed By: #### C MP #### [facility] [address] [place] [address] Dr. Carmel Tillman Glucose [Mass/Vol] 132 mg/dL Critically high 74-106 [facility] Comment on above: Performed By: #### C MP #### [facility] [address] [address] [address] Carmel Tillman Potassium [Moles/Vol] 4.5 mmol/L Normal 3.4-5.0 [facility] Comment on above: Performed By: #### C MP #### [facility] [address] [address] [address] Carmel Tillman Sodium [Moles/Vol] 141 mmol/L Normal 137-145 [facility] Comment on above: Performed By: #### C MP #### [facility] [address] [address] [address] Carmel Tillman Urea nitrogen [Mass/Vol] 30.0 mg/dL Critically high 7.0-17.0 [facility] Comment on above: Performed By: #### C MP #### [facility] [address] [place] [address] Dr. Carmel Tillman Urea nitrogen/Creatinine [Mass ratio] 33.0 mg/mg Normal [facility] Comment on above: Performed By: #### C MP #### [facility] [address] [place] [address] Dr. Carmel Tillman BNPon 01-27-2021 Natriuretic peptide B (Bld) [Mass/Vol] 38.0 pg/mL Normal <=450.0 [facility] Comment on above: Performed By: #### P T, PTT #### [facility] [address] [place] [address] Dr. Carmel Tillman CBC AUTO DIFFon 01-27-2021 BASO # 0.0 103/ul Normal 0.0-0.1 [facility] Comment on above: Performed By: #### C MP, HSTROPN #### [facility] [address] [place] [address] Dr. Carmel Tillman Basophils/100 WBC (Bld) 0.3 % Normal 0.2-2.0 [facility] Comment on above: Performed By: #### C MP, HSTROPN #### [facility] [address] [place] [address] Dr. Carmel Tillman EO # 0.0 103/ul Normal 0.0-0.7 [facility] Comment on above: Performed By: #### C MP, HSTROPN #### [facility] [address] [place] [address] Dr. Carmel Tillman Eosinophils/100 WBC (Bld) 0.0 % Critically low 0.9-7.0 [facility] Comment on above: Performed By: #### C MP, HSTROPN #### [facility] [address] [place] [address] Dr. Carmel Tillman Erythrocyte distribution width (RBC) [Ratio] 17.3 % Critically high 11.0-15.0 [facility] Comment on above: Performed By: #### C MP, HSTROPN #### [facility] [address] [place] [address] Dr. Carmel Tillman Hematocrit (Bld) [Volume fraction] 45.4 % Normal 36.0-48.0 [facility] Comment on above: Performed By: #### C MP, HSTROPN #### [facility] [address] [place] [address] Dr. Carmel Tillman Hemoglobin (Bld) [Mass/Vol] 14.3 g/dL Normal 12.0-16.0 [facility] Comment on above: Performed By: #### C MP, HSTROPN #### [facility] [address] [place] [address] Dr. Carmel Tillman IG # 0.07 10e3/ul Critically high 0.00-0.03 [facility] Comment on above: Performed By: #### C MP, HSTROPN #### [facility] [address] [place] [address] Dr. Carmel Tillman IG % 0.8 % Critically high 0.0-0.5 [facility] Comment on above: Performed By: #### C MP, HSTROPN #### [facility] [address] [place] [address] Dr. Carmel Tillman LYMPH # 2.2 103/ul Normal 1.2-3.8 [facility] Comment on above: Performed By: #### C MP, HSTROPN #### [facility] [address] [place] [address] Dr. Carmel Tillman Lymphocytes/100 WBC (Bld) 25.4 % Normal 20.5-60.0 [facility] Comment on above: Performed By: #### C MP, HSTROPN #### [facility] [address] [place] [address] Dr. Carmel Tillman MANUAL DIFF REQ NO Normal [facility] Comment on above: Performed By: #### C MP, HSTROPN #### [facility] [address] [place] [address] Dr. Carmel Tillman MCH (RBC) [Entitic mass] 24.7 pg Critically low 26.7-34.0 [facility] Comment on above: Performed By: #### C MP, HSTROPN #### [facility] [address] [place] [address] Dr. Carmel Tillman MCHC (RBC) [Mass/Vol] 31.5 g/dL Normal 29.9-35.2 [facility] Comment on above: Performed By: #### C MP, HSTROPN #### [facility] Laboratory [address] [place] [address] Dr. Carmel Tillman MCV (RBC) [Entitic vol] 78.3 fL Critically low 81.0-99.0 [facility] Comment on above: Performed By: #### C MP, HSTROPN #### [facility] [address] [place] [address] Dr. Carmel Tillman MONO # 0.2 103/ul Critically low 0.3-0.8 [facility] Comment on above: Performed By: #### C MP, HSTROPN #### [facility] [address] [place] [address] Dr. Carmel Tillman Monocytes/100 WBC (Bld) 2.6 % Normal 1.7-12.0 [facility] Comment on above: Performed By: #### C MP, HSTROPN #### [facility] [address] [place] [address] Dr. Carmel Tillman NEUT # 6.2 103/ul Normal 1.4-6.5 [facility] Comment on above: Performed By: #### C FARAZ, HSTROPN #### [facility] [address] [address] [address] Carmel Tillman Neutrophils/100 WBC (Bld) 70.9 % Normal 43.0-75.0 [facility] Comment on above: Performed By: #### C FARAZ, HSTROPN #### [facility] [address] [address] [address] Carmel Tillman Platelet mean volume (Bld) [Entitic vol] 10.2 fL Normal 9.5-13.5 [facility] Comment on above: Performed By: #### C FARAZ, HSTROPN #### [facility] [address] [place] [address] Dr. Carmel Tillman PLT 219 103/ul Normal 150-450 [facility] Comment on above: Performed By: #### C FARAZ, HSTROPN #### [facility] [address] [place] [address] Dr. Carmel Tillman RBC 5.80 106/ul Critically high 4.20-5.40 [facility] Comment on above: Performed By: #### C FARAZ, HSTROPN #### [facility] [address] [place] [address] Dr. Carmel Tillman WBC 8.7 103/ul Normal 4.0-11.0 [facility] Comment on above: Performed By: #### C FARAZ, HSTROPN #### [facility] [address] [place] [address] Dr. Carmel Tillman CTA CHEST WO W [...] ARIELLA FISCHER Date: 2021-01-27 19:01 Normal [facility] Covid-19 PCR (CVDTB)on SARS-CoV-2 (COVID-19) RNA EDILBERTO+probe Ql (Unsp spec) Detected Critically abnormal NOT DETECTED The [facility] Comment on above: Result Comment: This test is not yet approved or cleared by the [place] FDA. When there are no FDA-approved or cleared tests available, and other criteria are met, FDA can make tests available under an emergency access mechanism called an Emergency Use Authorization (EUA). The EUA for this test is supported by the [place] of Health and Human Service's declaration that [...] longer be used). Performed By: #### C VDTB #### [facility] [address] [place] [address] Dr. Carmel Tillman PROF 14(COMP METB)on 021 Albumin [Mass/Vol] 2.8 g/dL Critically low 3.5-5.0 Th e [facility] Comment on above: Performed By: #### P T, PTT #### [facility] [address] [place] [address] Dr. Carmel Tillman Albumin/Globulin [Mass ratio] 0.6 {ratio} Normal [facility] Comment on above: Performed By: #### P T, PTT #### [facility] [address] [place] [address] Dr. Carmel Tillman ALP [Catalytic activity/Vol] 55 U/L Normal 38-126 [facility] Comment on above: Performed By: #### P T, PTT #### [facility] [address] [place] [address] Dr. Carmel Tillman ALT [Catalytic activity/Vol] 69 U/L Critically high 9-52 [facility] Comment on above: Performed By: #### P T, PTT #### [facility] [address] [place] [address] Dr. Carmel Tillman Anion gap [Moles/Vol] 12.7 mmol/L Normal [facility] Comment on above: Performed By: #### P T, PTT #### [facility] [address] [place] [address] Dr. Carmel Tillman AST [Catalytic activity/Vol] 39 U/L Critically high 14-36 [facility] Comment on above: Performed By: #### P T, PTT #### [facility] [address] [address] [address] Carmel Tillman Bilirubin [Mass/Vol] 0.6 mg/dL Normal 0.2-1.3 [facility] Comment on above: Performed By: #### P T, PTT #### [facility] [address] [address] [address] Carmel Tillman Calcium [Mass/Vol] 8.5 mg/dL Normal 8.4-10.2 [facility] Comment on above: Performed By: #### P T, PTT #### [facility] [address] [place] [address] Dr. Carmel Tillman Chloride [Moles/Vol] 101 mmol/L Normal 98-107 [facility] Comment on above: Performed By: #### P T, PTT #### [facility] [address] [place] [address] Dr. Carmel Tillman CO2 [Moles/Vol] 26.9 mmol/L Normal 22.0-30.0 [facility] Comment on above: Performed By: #### P T, PTT #### [facility] [address] [place] [address] Dr. Carmel Tillman Creatinine [Mass/Vol] 1.05 mg/dL Critically high 0.52-1.04 [facility] Comment on above: Performed By: #### P T, PTT #### [facility] [address] [place] [address] Dr. Carmel Tillman EGFR-AF PUERTO RICAN >60 Normal >=60 [facility] Comment on above: Performed By: #### P T, PTT #### [facility] [address] [place] [address] Dr. Carmel Tillman EGFR-NON AF PUERTO RICAN 59 mL/min/1.73m2 Critically low >=60 [facility] Comment on above: Performed By: #### P T, PTT #### [facility] [address] [place] [address] Dr. Carmel Tillman Globulin (S) [Mass/Vol] 4.5 g/dL Normal [facility] Comment on above: Performed By: #### P T, PTT #### [facility] [address] [address] [address] Carmel Tillman Glucose [Mass/Vol] 90 mg/dL Normal 74-106 [facility] Comment on above: Performed By: #### P T, PTT #### [facility] [address] [address] [address] Carmel Tillman Potassium [Moles/Vol] 3.6 mmol/L Normal 3.4-5.0 [facility] Comment on above: Performed By: #### P T, PTT #### [facility] [address] [address] [address] Carmel Tillman Protein [Mass/Vol] 7.3 g/dL Normal 6.1-8.2 [facility] Comment on above: Performed By: #### P T, PTT #### [facility] [address] [address] [address] Carmel Tillman Sodium [Moles/Vol] 137 mmol/L Normal 137-145 [facility] Comment on above: Performed By: #### P T, PTT #### [facility] [address] [address] [address] Carmel Tillman Urea nitrogen [Mass/Vol] 14.0 mg/dL Normal 7.0-17.0 [facility] Comment on above: Performed By: #### P T, PTT #### [facility] [address] [address] [address] Carmel Tillman Urea nitrogen/Creatinine [Mass ratio] 13.3 mg/mg Normal [facility] Comment on above: Performed By: #### P T, PTT #### [facility] [address] [address] [address] Carmel Tillman PROTIMEon 01-27-2021 INR Coag (PPP) [Relative time] 0.96 {INR} [facility] Comment on above: Performed By: #### P T, PTT #### [facility] [address] [address] [address] Carmel Tillman INR GUIDELINES SEE BELOW Normal [facility] Comment on above: Result Comment: CHRIS RED INR: 2.0 - 3.0 CONDITIONS NOT LISTED BELOW 2.5 - 3.5 FOR PROSTHETIC HEART VALVE REPLACEMENT 2.5 - 3.5 RECURRENT THROMBOSIS Performed By: #### P T, PTT #### [facility] [address] [place] [address] Dr. Carmel Tillman PT Coag (PPP) [Time] 10.4 s Normal 9.0-11.6 [facility] Comment on above: Performed By: #### P T, PTT #### [facility] [address] [place] [address] Dr. Carmel Tillman PTTon 01-27-2021 aPTT Coag (Bld) [Time] 25.0 s Normal 22.3-36.2 [facility] Comment on above: Performed By: #### P T, PTT #### [facility] [address] [place] [address] Dr. Carmel Tillman TROPONIN, HIGH SENSITIVITYon 01-27-2021 HSTROP 6.6 pg/mL Normal 4.0-35.5 [facility] Comment on above: Result Comment: CUT- OFF POINTS HAVE BEEN ESTABLISHED BASED ON THE FOURTH UNIVERSAL DEFINITIONS OF MYOCARDIAL INFARCTION. THE UPPER REFERENCE LIMIT (URL) OF TROPONIN, DEFINED THE 99TH PERCENTILE OF cTnI DISTRIBUTION IN A REFERENCE POPULATION, HAS BEEN CONFIRMED THE DECISION THRESHOLD FOR CT DIAGNOSIS. Performed By: #### P T, PTT #### [facility] [address] [place] [address] Dr. Carmel Tillman BNPon 01-21-2021 Natriuretic peptide B (Bld) [Mass/Vol] 50.0 pg/mL Normal <=450.0 [facility] Comment on above: Performed By: #### C MP, HSTROPN #### [facility] [address] [place] [address] Dr. Carmel Tillman CBC AUTO DIFFon 01-21-2021 BASO # 0.1 103/ul Normal 0.0-0.1 [facility] Comment on above: Performed By: #### C BC #### [facility] [address] [place] [address] Dr. Carmel Tillman Basophils/100 WBC (Bld) 0.4 % Normal 0.2-2.0 [facility] Comment on above: Performed By: #### C BC #### [facility] [address] [place] [address] Dr. Carmel Tillman EO # 0.1 103/ul Normal 0.0-0.7 [facility] Comment on above: Performed By: #### C BC #### [facility] [address] [place] [address] Dr. Carmel Tillman Eosinophils/100 WBC (Bld) 0.9 % Normal 0.9-7.0 [facility] Comment on above: Performed By: #### C BC #### [facility] [address] [place] [address] Dr. Carmel Tillman Erythrocyte distribution width (RBC) [Ratio] 16.5 % Critically high 11.0-15.0 [facility] Comment on above: Performed By: #### C BC #### [facility] [address] [place] [address] Dr. Carmel Tillman Hematocrit (Bld) [Volume fraction] 41.4 % Normal 36.0-48.0 [facility] Comment on above: Performed By: #### C BC #### [facility] [address] [place] [address] Dr. Carmel Tillman Hemoglobin (Bld) [Mass/Vol] 13.1 g/dL Normal 12.0-16.0 [facility] Comment on above: Performed By: #### C BC #### [facility] [address] [place] [address] Dr. Carmel Tillman IG # 0.23 10e3/ul Critically high 0.00-0.03 [facility] Comment on above: Performed By: #### C BC #### [facility] [address] [place] [address] Dr. Carmel Tillman IG % 2.0 % Critically high 0.0-0.[address] [facility] Comment on above: Performed By: #### C BC #### [facility] [address] [place] [address] Dr. Carmel Tillman LYMPH # 3.6 103/ul Normal 1.2-3.8 [facility] Comment on above: Performed By: #### C BC #### [facility] [address] [place] [address] Dr. Carmel Tillman Lymphocytes/100 WBC (Bld) 30.8 % Normal 20.5-60.0 [facility] Comment on above: Performed By: #### C BC #### [facility] [address] [place] [address] Dr. Carmel Tillman MANUAL DIFF REQ NO Normal [facility] Comment on above: Performed By: #### C BC #### [facility] [address] [place] [address] Dr. Carmel Tillman MCH (RBC) [Entitic mass] 24.7 pg Critically low 26.7-34.0 [facility] Comment on above: Performed By: #### C BC #### [facility] [address] [place] [address] Dr. Carmel Tillman MCHC (RBC) [Mass/Vol] 31.6 g/dL Normal 29.9-35.2 [facility] Comment on above: Performed By: #### C BC #### [facility] [address] [place] [address] Dr. Carmel Tillman MCV (RBC) [Entitic vol] 78.1 fL Critically low 81.0-99.0 [facility] Comment on above: Performed By: #### C BC #### [facility] [address] [place] [address] Dr. Carmel Tillman MONO # 1.1 103/ul Critically high 0.3-0.[address] [facility] Comment on above: Performed By: #### C BC #### [facility] [address] [place] [address] Dr. Carmel Tillman Monocytes/100 WBC (Bld) 9.3 % Normal 1.7-12.0 [facility] Comment on above: Performed By: #### C BC #### [facility] [address] [place] [address] Dr. Carmel Tillman NEUT # 6.6 103/ul Critically high 1.4-6.[address] [facility] Comment on above: Performed By: #### C BC #### [facility] [address] [place] [address] Dr. Carmel Tillman Neutrophils/100 WBC (Bld) 56.6 % Normal 43.0-75.0 [facility] Comment on above: Performed By: #### C BC #### [facility] [address] [place] [address] Dr. Carmel Tillman Platelet mean volume (Bld) [Entitic vol] 9.8 fL Normal 9.5-13.5 [facility] Comment on above: Performed By: #### C BC #### [facility] [address] [place] [address] Dr. Carmel Tillman PLT 319 103/ul Normal 150-450 [facility] Comment on above: Performed By: #### C BC #### [facility] [address] [place] [address] Dr. Carmel Tillman RBC 5.30 106/ul Normal 4.20-5.40 [facility] Comment on above: Performed By: #### C BC #### [facility] [address] [place] [address] Dr. Carmel Tillman WBC 11.6 103/ul Critically high 4.0-11.0 [facility] Comment on above: Performed By: #### C BC #### [facility] [address] [place] [address] Dr. Carmel Tillman CTA CHEST WO W [...] ROSALINO TRAN Date: 2021-01-21 20:49 Normal [facility] LACTATE/LACTIC ACIDon 2020 Lactate [Moles/Vol] 1.1 mmol/L Normal 0.7-2.0 [facility] Comment on above: Performed By: #### C MP #### [facility] [address] [place] [address] Dr. Carmel Tillman PH VENOUS BLOODon 01-21-2021 PCO2 VENOUS 35.9 mmHg Critically low 40.0-52.0 [facility] Comment on above: Performed By: #### P HVEN #### [facility] [address] [place] [address] Dr. Carmel Tillman pH VENOUS 7.46 Critically high 7.33-7.43 [facility] Comment on above: Performed By: #### P HVEN #### [facility] [address] [place] [address] Dr. Carmel Tillman PREG HCG QUALon 01-21-2021 , QUAL Negative Normal NEGATIVE [facility] Comment on above: Performed By: #### C MP, HSTROPN #### [facility] [address] [place] [address] Dr. Carmel Tillman PROF 14(COMP METB)on 021 Albumin [Mass/Vol] 2.8 g/dL Critically low 3.5-5.[address] [facility] Comment on above: Performed By: #### C MP, HSTROPN #### [facility] [address] [address] [address] Carmel Tillman Albumin/Globulin [Mass ratio] 0.7 {ratio} Normal [facility] Comment on above: Performed By: #### C MP, HSTROPN #### [facility] [address] [address] [address] Carmel Tillman ALP [Catalytic activity/Vol] 58 U/L Normal 38-126 [facility] Comment on above: Performed By: #### C FARAZ, HSTROPN #### [facility] [address] [address] [address] Carmel Tillman ALT [Catalytic activity/Vol] 39 U/L Normal 9-52 [facility] Comment on above: Performed By: #### C FARAZ, HSTROPN #### [facility] [address] [address] [address] Carmel Tillman Anion gap [Moles/Vol] 13.8 mmol/L Normal [facility] Comment on above: Performed By: #### C FARAZ, HSTROPN #### [facility] [address] [address] [address] Carmel Tillman AST [Catalytic activity/Vol] 34 U/L Normal 14-36 [facility] Comment on above: Performed By: #### C FARAZ, HSTROPN #### [facility] [address] [address] [address] Carmel Tillman Bilirubin [Mass/Vol] 0.3 mg/dL Normal 0.2-1.3 [facility] Comment on above: Performed By: #### C MP, HSTROPN #### [facility] [address] [address] [address] Carmel Tillman Calcium [Mass/Vol] 8.0 mg/dL Critically low 8.4-10.[address] [facility] Comment on above: Performed By: #### C FARAZ, HSTROPN #### [facility] [address] [address] [address] Carmel Tillman Chloride [Moles/Vol] 103 mmol/L Normal 98-107 [facility] Comment on above: Performed By: #### C MP, HSTROPN #### [facility] [address] [address] [address] Carmel Tillman CO2 [Moles/Vol] 23.9 mmol/L Normal 22.0-30.0 [facility] Comment on above: Performed By: #### C MP, HSTROPN #### [facility] [address] [address] [address] Carmel Tillman Creatinine [Mass/Vol] 1.01 mg/dL Normal 0.52-1.04 [facility] Comment on above: Performed By: #### C MP, HSTROPN #### [facility] [address] [address] [address] Carmel Tillman EGFR-AF PUERTO RICAN >60 Normal >=60 [facility] Comment on above: Performed By: #### C MP, HSTROPN #### [facility] [address] [address] [address] Carmel Tillman EGFR-NON AF PUERTO RICAN >60 Normal >=60 [facility] Comment on above: Performed By: #### C MP, HSTROPN #### [facility] [address] [address] [address] Carmel Tillman Globulin (S) [Mass/Vol] 4.1 g/dL Normal [facility] Comment on above: Performed By: #### C MP, HSTROPN #### [facility] [address] [address] [address] Carmel Tillman Glucose [Mass/Vol] 89 mg/dL Normal 74-106 [facility] Comment on above: Performed By: #### C MP, HSTROPN #### [facility] [address] [address] [address] Carmel Tillman Potassium [Moles/Vol] 3.7 mmol/L Normal 3.4-5.0 [facility] Comment on above: Performed By: #### C FARAZ, HSTROPN #### [facility] [address] [address] [address] Carmel Tillman Protein [Mass/Vol] 6.9 g/dL Normal 6.1-8.2 [facility] Comment on above: Performed By: #### C MP, HSTROPN #### [facility] [address] [place] [address] Dr. Carmel Tillman Sodium [Moles/Vol] 137 mmol/L Normal 137-145 [facility] Comment on above: Performed By: #### C FARAZ, HSTROPN #### [facility] [address] [place] [address] Dr. Carmel Tillman Urea nitrogen [Mass/Vol] 21.0 mg/dL Critically high 7.0-17.0 [facility] Comment on above: Performed By: #### C FARAZ, HSTROPN #### [facility] [address] [place] [address] Dr. Carmel Tillman Urea nitrogen/Creatinine [Mass ratio] 20.8 mg/mg Normal [facility] Comment on above: Performed By: #### C FARAZ, HSTROPN #### [facility] [address] [place] [address] Dr. Carmel Tillman PROTIMEon 01-21-2021 INR Coag (PPP) [Relative time] 1.00 {INR} Normal [facility] Comment on above: Performed By: #### P T, PTT #### [facility] [address] [place] [address] Dr. Carmel Tillman INR GUIDELINES SEE BELOW Normal [facility] Comment on above: Result Comment: CHRIS RED INR: 2.0 - 3.0 CONDITIONS NOT LISTED BELOW 2.5 - 3.5 FOR PROSTHETIC HEART VALVE REPLACEMENT 2.5 - 3.5 RECURRENT THROMBOSIS Performed By: #### P T, PTT #### [facility] [address] [place] [address] Dr. Carmel Tillman PT Coag (PPP) [Time] 10.8 s Normal 9.0-11.6 [facility] Comment on above: Performed By: #### P T, PTT #### [facility] [address] [address] [address] Carmel Tillman PTTon 01-21-2021 aPTT Coag (Bld) [Time] 25.4 s Normal 22.3-36.2 [facility] Comment on above: Performed By: #### P T, PTT #### [facility] [address] [address] [address] Carmel Tillman TROPONIN, HIGH SENSITIVITYon 01-21-2021 HSTROP 4.7 pg/mL Normal 4.0-35.5 [facility] Comment on above: Result Comment: CUT- OFF POINTS HAVE BEEN ESTABLISHED BASED ON THE FOURTH UNIVERSAL DEFINITIONS OF MYOCARDIAL INFARCTION. THE UPPER REFERENCE LIMIT (URL) OF TROPONIN, DEFINED THE 99TH PERCENTILE OF cTnI DISTRIBUTION IN A REFERENCE POPULATION, HAS BEEN CONFIRMED THE DECISION THRESHOLD FOR CT DIAGNOSIS. Performed By: #### C MP, HSTROPN #### [facility] [address] [address] [address] Carmel Tillman Vital Signs Date Time Vital Sign Value Performing Clinician Faci lity 01-01-2024 14:33-0500 Body height 170.2 cm Larissa Sosak [employer] Work Phone: [facility] 01-01-2024 14:33-0500 Body mass index (BMI) [Ratio] 59.92 kg/m2 Larissa Valverdepatrick [employer] Work Phone: [facility] 01-01-2024 14:33-0500 Body temperature 96.69 [degF] Larissa Valverdepatrick [employer] Work Phone: [facility] 01-01-2024 14:33-0500 Body weight 173.55 kg Larissa Delaneyzpatrick [employer] Work Phone: [facility] 01-01-2024 14:33-0500 Diastolic blood pressure 76 mm[Hg] Larissa Delaneyzpatrick [employer] Work Phone: [facility] 01-01-2024 14:33-0500 Heart rate 94 /min Larissa Lora [employer] Work Phone: [facility] 01-01-2024 14:33-0500 Respiratory rate 16 /min Larissa Lora [employer] Work Phone: [facility] 01-01-2024 14:33-0500 SaO2% (BldA) [Mass fraction] 98 % Larissa Lora [employer] Work Phone: [facility] 01-01-2024 14:33-0500 Systolic blood pressure 130 mm[Hg] Larissa Lora [employer] Work Phone: [facility] 12-02-2023 14:03-0400 Body mass index (BMI) [Ratio] 58.11 kg/m2 Larissa Lora [employer] Work Phone: [facility] 12-02-2023 14:03-0400 Body temperature 97.3 [degF] Larissa Lora [employer] Work Phone: [facility] 12-02-2023 14:03-0400 Body weight 168.28 kg Larissa Lora [employer] Work Phone: [facility] 12-02-2023 14:03-0400 Diastolic blood pressure 72 mm[Hg] Larissa Lora [employer] Work Phone: [facility] 12-02-2023 14:03-0400 Heart rate 74 /min Larissa Lora [employer] Work Phone: [facility] 12-02-2023 14:03-0400 SaO2% (BldA) [Mass fraction] 95 % Larissa Lora [employer] Work Phone: [facility] 12-02-2023 14:03-0400 Systolic blood pressure 128 mm[Hg] Larissa Lora [employer] Work Phone: [facility] Encounters Encounter Date Encounter Type Care Provider Facility Start: 01-23-2024 End: 01-26-2024 Refill Larissa Sosak [employer] Work Phone: [facility] Comment on above: Acute rhinitis Start: 01-06-2024 End: 01-06-2024 Clinisync Result Encounter Larissa Sosak [employer] Work Phone: [facility] Unsolicited Start: 01-06-2024 End: 01-06-2024 Clinisync Result Encounter Larissa Sosak [employer] Work Phone: [facility] Unsolicited Start: 01-01-2024 End: 01-01-2024 Office outpatient visit 15 minutes Larissa Sosak [employer] Work Phone: [facility] Comment on above: Prediabetes (Primary Dx); Community acquired pneumonia, unspecified laterality; Acute rhinitis Start: 01-01-2024 End: 01-01-2024 Bamboo flowsheet Larissa Valverdepatrick [employer] Work Phone: [facility] Start: 01-01-2024 End: 01-01-2024 Bamboo flowsheet Larissa Lora [employer] Work Phone: [facility] Start: 12-02-2023 End: 12-02-2023 Bamboo flowsheet Larissa Lora [employer] Work Phone: [facility] Start: 12-02-2023 End: 12-02-2023 Bamboo flowsheet Larissa Lora [employer] Work Phone: [facility] Start: 12-02-2023 End: 12-02-2023 Office outpatient visit 15 minutes Larissa Vogttrick [employer] Work Phone: [facility] Comment on [...] Start: 05-12-2020 End: 05-13-2020 ambulatory Rachid Sellers Facility:[facility] Procedures Date Procedure Procedure Detail Performing Clinician Start: 01-06-2024 ALL CBC WITH AUTO DIFF Larissa Lora [employer] Work Phone: Start: 01-06-2024 MHPT DIFFERENTIAL Tabby any Lora [employer] Work Phone: Start: 12-30-2023 Mammography Larissa F itzpatrick [employer] Work Phone: Plan of Treatment Date Care Activity Detail Author Start: 12-29-2024 Screening for malign ant neoplasm of breast Mammogram [facility] Start: 08-23-2024 Influenza vaccination Influenza Vacc ine (#1) [facility] Comment on above: Postponed from 10/25 (Patient Refused) Start: 04-05-2024 End: 04-05-2024 Patient encounter procedure 04/05/2024 2:30 PM EST Office Visit [facility] [address] [place] [address] Larissa Lora NP [address] [place] [address] [facility] Start: 03-02-2024 End: 12-31-2024 Comprehensive metabolic 2000 panel - Serum or Plasma Comprehensive metabolic panel Lab Routine Prediabetes Expected: 03/02/2024 (Approximate), Expires: 12/31/2024 [facility] Comment on above: Expected: 03/02/2024 (Approximate), Expires: 12/31/2024 Start: 03-02-2024 End: 12-31-2024 Hemoglobin A1c/Hemoglobin.total in Blood Hemoglobin A1c Lab Routine Prediabetes Expected: 03/02/2024 (Approximate), Expires: 12/31/2024 [facility] Work Phone: Comment on above: Expected: 03/02/2024 (Approximate), Expires: 12/31/2024 Start: 01-01-2024 End: 01-01-2024 Patient encounter procedure [facility] Comment on above: Arrived Start: 01-01-2024 End: 12-31-2024 XR Chest Single view XR chest 1 view Imaging Routine Community acquired pneumonia, unspecified laterality Expected: 01/01/2024, Expires: 12/31/2024 [facility] Comment on above: Expected: 01/01/2024 , Expires: 12/31/2024 Start: 12-02-2023 End: 01-31-2025 MG Breast - bilateral Screening Bilateral screening mammogram Imaging Routine Encounter for screening mammogram for malignant neoplasm of breast Expected: 12/02/2023, Expires: 01/31/2025 [facility] Work Phone: Comment on above: Expected: 12/02/2023 , Expires: 01/31/2025 Start: 12-02-2023 End: 12-02-2023 Patient encounter procedure 12/02/2023 2:00 PM EDT Office Visit [facility] [address] [place] [address] Larissa Lora NP [address] [place] [address] Arrived [facility] Comment on above: Arrived Start: 12-02-2023 End: 12-01-2024 Pulmonary function report Pulmonary Function Test Imaging Routine Dyspnea on exertion Expected: 12/02/2023, Expires: 12/01/2024 [facility] Comment on above: Expected: 12/02/2023 , Expires: 12/01/2024 Start: 10-26-2023 Influenza vaccination Influenza Vacc ine (#1) [facility] Start: 2023 Screening for malign ant neoplasm of breast Mammogram [facility] Start: 08-21-2013 Screening for malign ant neoplasm of cervix [facility] Start: 08-21-2004 Screening for malign ant neoplasm of cervix Pap Smear [facility] CBC W Auto Different ial panel - Blood CBC and differential Lab Routine Prediabetes Community acquired pneumonia, unspecified laterality Ordered: 01/01/2024 [facility] Comment on above: Ordered: 01/01/2024 Immunizations Immunization Date Immunization Notes Care Provider Best steven 11-24-2020 influenza virus vaccine, unspecified formulation Larissa Lora [employer] Work Phone: [facility] Payers Date Payer Category Payer [facility] [id number] 2023 Unknown [facility] [id number] 2023-Present [phone] [address] [place] [address] [id number] 2020 Unknown [id number] 2019 Unknown [id number] 1985 Unknown [id number] 1983 Unknown [id number] [id number] 1983 Unknown [id number] [id number] 1983 Unknown [id number] [id number] 1983 Unknown [id number] [id number] 1983 Unknown [id number] [id number] 1983 Unknown [id number] [id number] 1983 Unknown [id number] [id number] 1961 Self-pay [id number] 1961 Unknown [id number] Unknown [id number] Social History Date Type Detail Facility Start: 05-12-2020 End: 07-15-2023 Tobacco smoking status GAIS Never smoked tobacco (finding) [facility] Start: 1985 Sex Assigned At Female F [facility] Start: 07-15-2023 Tobacco use and exposure Smokeless tobacco non-user [facility] Start: 10-01-2023 End: 01-01-2024 Alcoholic beverage intake Lifetime non-drinker (finding) [facility] Start: 09-02-2023 End: 12-01-2023 [address] of [address] [facility] Start: 09-02-2023 End: 12-01-2023 [id number] Health Literacy [facility] How often do you nee d to have someone help you when you read instructions, pamphlets, or other written material from your doctor or pharmacy [SILS] Never [facility] Do you belong to any clubs or organizations such as caodaism groups, unions, fraternal or athletic groups, or [...] health goal History of Present illness Narrative 01-05-2024 Larissa Lora NP - 01/05/2024 11:19 AM Iban Lora NP - 01/01/2024 2:30 PM EST Note Date & Type Note Facility 01-05-2024 History of Presen t illness Narrative Associated Problem(s): Community acquired pneumonia Seen in ER on 12/17 for pneumonia- (Do not have ER report, will request) Was discharged with RX for Zpak; Completed regimen 1 Week ago; States she feels worse now than she did two weeks ago. Still feels symptoms are persisting. Admits: Productive cough- white phlegm Runny nose Fatigue Headache Shortness of breath with exertion Denies: Sore throat Fever Ear aches Reports using rescue inhaler twice per wek since ER discharge. CXR ordered. Images from the original note were not included. Subjective Patient ID: Marta Melgar is a 38 y.o. female who presents for Follow-up. HPI Started on Metformin one mnonth ago on 12/01 for prediabtes. Has actually gained 9 pounds sicne last OV. Seen in ER on 12/17 for pneumonia- (Do not have ER report, will request) Was discharged with RX for Zpak; Completed regimen 1 Week ago; States she feels worse now than she did two weeks ago. Still feels symptoms are persisting. Admits: Productive cough- white phlegm Runny nose Fatigue Headache Shortness of breath with exertion Denies: Sore throat Fever Ear aches Reports using rescue inhaler twice per wek since ER discharge. Has concerns for POTS; Admits: Headache Dizziness Brain fog Racing pulse with bending or standing Feeling faint after showering Constant Tinnitis Insomnia Advised pt to have CXR completed. Will revisit investigating POTS concern once her Pneumonia symptoms have resolved, to better differentiate between causes. Review of Systems Constitutional: Positive for fatigue. Negative for activity change, appetite change, chills, diaphoresis, fever and unexpected weight change. HENT: Positive for congestion and rhinorrhea. Negative for ear pain, sinus pressure, sinus pain, sneezing, sore throat, trouble swallowing and voice change. Eyes: Negative for visual disturbance. Respiratory: Positive for shortness of breath. Negative for cough, chest tightness and wheezing. Shortness of breath with exertion Cardiovascular: Negative for chest pain, palpitations and leg swelling. Gastrointestinal: Negative for abdominal distention, abdominal pain, blood in stool, constipation, diarrhea and vomiting. Genitourinary: Negative for decreased urine volume, dysuria, flank pain, frequency, hematuria and urgency. Musculoskeletal: Negative for arthralgias, gait problem, joint swelling and myalgias. Skin: Negative for rash. Neurological: Positive for light-headedness and headaches. Negative for dizziness, tremors, syncope and weakness. Psychiatric/Behavioral: Negative for decreased concentration and suicidal ideas. The patient is not nervous/anxious. Hematological: Does not bruise/bleed easily. Endocrine: Negative for cold intolerance, heat intolerance, polydipsia, polyphagia and polyuria. Objective Physical Exam Vitals reviewed. Constitutional: Appearance: Normal appearance. HENT: Head: Normocephalic and atraumatic. Right Ear: Tympanic membrane normal. Left Ear: Tympanic membrane normal. Nose: Rhinorrhea present. Mouth/Throat: Mouth: Mucous membranes are moist. Pharynx: [...] Assessment/Plan Problem List Items Addressed This Visit Prediabetes - Primary Relevant Orders Hemoglobin A1c Comprehensive metabolic panel CBC and differential Rhinitis Relevant Medications fluticasone (Flonase) 50 MCG/ACT nasal spray Community acquired pneumonia Seen in ER on 12/17 for pneumonia- (Do not have ER report, will request) Was discharged with RX for Zpak; Completed regimen 1 Week ago; States she feels worse now than she did two weeks ago. Still feels symptoms are persisting. Admits: Productive cough- white phlegm Runny nose Fatigue Headache Shortness of breath with exertion Denies: Sore throat Fever Ear aches Reports using rescue inhaler twice per wek since ER discharge. CXR ordered. Relevant Medications benzonatate (Tessalon Perles) 100 MG capsule Other Relevant Orders XR chest 1 view CBC and differential documented in this encounter [facility] Instructions 01-01-2024 Patient Instructions Note Date & Type Note Facility 11-07-2024 Instructions Larissa Lora NP - 01/01/2024 2:30 PM EST Have Chest Xray and bloodwork done!! Continue to rest, drink plenty of fluids, and eat a well-balance diet. Resume normal activity. AVOID anything strenuous until you are feeling better. Treatment: Nasal saline spray 2-3 times/day Cold and sinus medication - if you have high blood pressure issues use coricidin hbp Stacia or zyrtec allergy medication once daily. Flonase nasal spray 1-2 squirts in each nostril at night. Tylenol for fever and body aches. Mucinex for cough/congestion 600-1,200mg twice daily. Tessalon Pearles three times per day as needed. Vitamins: Vitamin C 1,000mg per day. Vitamin D3 2,000 international unit(s) per day.Zinc 25mg per day. WORSENING SYMPTOMS, CHEST PAIN, OR SHORTNESS OF BREATH, GO TO THE NEAREST EMERGENCY DEPARTMENT. documented in this encounter [facility] History of Present illness Narrative 12-02-2023 Larissa Lora NP - 12/02/2023 3:19 PM EDMarjorie Lora NP - 12/02/2023 3:18 PM EDMarjorie Lora, LINDSEY - 12/02/2023 3:18 [...] Pulmonary Function Test documented in this encounter [facility] Instructions 12-02-2023 Patient Instructions Note Date & Type Note Facility 12-02-2023 Instructions Larissa Lora NP - 12/02/2023 2:00 PM EDT Start metformin once daily. Have mammogram and pulmonary function testing completed. I will call with results. Referral sent to [facility] to establish care. If you do not hear from them by next week call my office for contact info. documented in this encounter [facility] Clinical Note 10-12-2021 Note Date [...] by: ISRAEL GROSS Date: 2021-10-12 14:44 [facility] Evaluation note Note Date & Type Note Facility Evaluation note No assessment information 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 Morbid obesity (CMS/HCC)- Primary Morbid obesity Recurrent major depressive disorder, in full remission (CMS/HCC) Primary hypertension (CMS/HCC) Unspecified essential hypertension Gastro-esophageal reflux disease without esophagitis Esophageal reflux Prediabetes Other abnormal glucose Metabolic syndrome Dysmetabolic Syndrome X Primary hypertension (CMS/HCC)- Primary Unspecified essential hypertension Morbid obesity (CMS/HCC) Morbid obesity Depression with anxiety Dysthymic disorder Prediabetes Other abnormal glucose Metabolic syndrome Dysmetabolic Syndrome X Screening for cervical cancer Screening for malignant neoplasm of the cervix Encounter for screening mammogram for malignant neoplasm of breast Dyspnea on exertion Other dyspnea and respiratory abnormality Prediabetes- Primary Other abnormal glucose Community acquired pneumonia, unspecified laterality Acute rhinitis Acute nasopharyngitis (common cold) documented in this encounter [facility] Evaluation note Note Date & Type Note Facility Evaluation note Diagnosis Primary hypertension (CMS/HCC)- Primary Unspecified essential hypertension Morbid obesity (CMS/HCC) Morbid obesity Screening for hyperlipidemia Screening for lipoid disorders Screening for diabetes mellitus Depression with anxiety 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 Morbid obesity (CMS/HCC)- Primary Morbid obesity Recurrent major depressive disorder, in full remission (CMS/HCC) Primary hypertension (CMS/HCC) Unspecified essential hypertension Gastro-esophageal reflux disease without esophagitis Esophageal reflux Prediabetes Other abnormal glucose Metabolic syndrome Dysmetabolic Syndrome X Primary hypertension (CMS/HCC)- Primary Unspecified essential hypertension Morbid obesity (CMS/HCC) Morbid obesity Depression with anxiety Dysthymic disorder Prediabetes Other abnormal glucose Metabolic syndrome Dysmetabolic Syndrome X Screening for cervical cancer Screening for malignant neoplasm of the cervix Encounter for screening mammogram for malignant neoplasm of breast Dyspnea on exertion Other dyspnea and respiratory abnormality Prediabetes- Primary Other abnormal glucose Community acquired pneumonia, unspecified laterality Acute rhinitis Acute nasopharyngitis (common cold) Acute rhinitis Acute nasopharyngitis (common cold) documented in this encounter [facility] Advance [...] on exertion Larissa Lora NP [address] [place] [address] Referral ID Status Reason Start Date Expiration Date V isits Requested Visits Authorized [id number] Pending Review 12/02/2023 05/30/2024 1 1 Specialty Diagnoses / Procedures Referred By Radha hoover Referred To Contact Obstetrics and Gynecology Diagnoses Screening for cervical cancer Encounter for screening mammogram for malignant neoplasm of breast Procedures OK OFFICE/OUTPATIENT NEW HIGH MDM 60 MINUTES [facility] [address] [facility] [place] [address] Chata Chavez, DO [address] [place] [address] Referral ID Status Reason Start Date Expiration Date Visits Requested Visits Authorized [id number] Pending Review Specialty Services Required 12/02/2023 05/30/2024 1 1 Additional Source Comments INFORMATION SOURCE (unrecogn ized section and content) DATE CREATED AUTHOR 12/05/2021 [facility] DATE CREATED AUTHOR AUTHOR'S ORGANIZ ATION 10/26/2022 [facility] Goals (unrecognized section and content) Goals may be documented in a n alternate section Care Teams (unrecognized sec tion and content) Executive Business Coach Relationship Specialty Start Date End Date Giles Lan MD [address] [place] [address] PCP - General Family Medicine 10/07/23 Larissa Lora NP [address] [place] [address] Nurse Practitioner Family Medicine 10/07/23 Executive Business Coach Relationship Specialty Start Date End Date Giles Lan MD [address] [place] [address] PCP - General Family Medicine 10/07/23 Larissa Lora NP [address] [place] [address] Nurse Practitioner Family Medicine 10/07/23 Executive Business Coach Relationship Specialty Start Date End Date Giles Lan MD [address] [place] [address] PCP - General Family Medicine 10/07/23 Larissa Lora NP [address] [place] [address] Nurse Practitioner Family Medicine 10/07/23 Executive Business Coach Relationship Specialty Start Date End Date Giles Lan MD [address] [place] [address] PCP - General Family Medicine 10/07/23 Larissa Lora NP [address] [place] [address] Nurse Practitioner Family Medicine 10/07/23 Executive Business Coach Relationship Specialty Start Date End Date Giles Lan MD [address] [place] [address] PCP - General [facility] 10/07/23 Larissa Lora NP [address] [place] [address] Nurse Practitioner [facility] 10/07/23 Executive Business Coach Relationship Specialty Start Date End Date Giles Lan MD [address] [place] [address] PCP - General [facility] 10/07/23 Larissa Lora NP [address] [place] [phone] Nurse Practitioner Family Medicine 10/07/23 Reason for Visit (unrecogniz ed section and content) Reason Comments Follow-up Wants to wean off he r anti depressants and wants to talk about weight loss Reason Comments Follow-up Reason Comments Med Change Request FOR RECORDS PERTAINING TO PATIENTS WHO ARE [...] BE BASED ON THE PRIMARY CLINICAL RECORDS. [employer] provides no warranty or guarantee of the accuracy or completeness of information in this document.
--- NOTE | 2024-02-12 09:28 | ECG_ITS ---
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
--- NOTE | 2024-02-12 09:30 | ED.GENADUL1 ---
HPI HPI - General Adult General Chief complaint: Upper Respiratory Infection Stated complaint: urti complaints Time Seen by Provider: 02/12/24 09:08 Source: patient Mode of arrival: walk-in History of Present Illness HPI narrative: The patient is coming to us with a chronic shortness of breath for the last 3-month, she mentioned that she was diagnosed with pneumonia almost 2 to 3 months ago I did review her medical record and she was here in November with pneumonia, the patient apparently did not have any improvement with antibiotic at that time and she continued to have shortness of breath. Right now she have shortness of breath at rest . She mentioned that walking from the car to the ER door was enough to cause her to be short of breath, sometimes she would feel some chest pressure when walking, and this pressure will go away when she stopped and rest, this shortness of breath associated with dizziness as well The cough only productive of white sputum and still continues since the initial diagnosis of pneumonia Patient did not follow-up with her primary care doctor because she said that she was following up with the nurse practitioner that retired The patient denies any history of smoking also denies any history of asthma or COPD although there was a inhaler prescribed to her that her symptoms did not improve with using it The patient have no abdominal pain no diarrhea no other concerns and she does have a history of hypertension she been taking her medication Related Data Home Medications ?Medication ?Instructions ?Recorded ?Confirmed sertraline 100 mg tablet 100 mg PO DAILY 04/22/23 02/12/24 albuterol sulfate 90 mcg/actuation 2 puff inhalation Q4H PRN 02/12/24 02/12/24 aerosol inhaler shortness of breath or wheezing fluticasone propionate 50 2 spray intranasal DAILY 02/12/24 02/12/24 mcg/actuation nasal spray,suspension metformin 500 mg tablet,extended 500 mg PO QPM 02/12/24 02/12/24 release 24 hr omeprazole 40 mg capsule,delayed 40 mg PO DAILY 02/12/24 02/12/24 release valsartan 320 mg tablet 320 mg PO DAILY 02/12/24 02/12/24 Previous Rx's ?Medication ?Instructions ?Recorded levofloxacin 750 mg tablet 750 mg PO DAILY 7 days #7 tabs 02/12/24 Allergies Allergy/AdvReac Type Severity Reaction Status Date / Time amoxicillin AdvReac Unknown Verified 04/22/23 10:52 hydromorphone (From Dilaudid) AdvReac Unknown Verified 04/22/23 10:52 Opioid HPI Opioid Management Most Recent Opioid Data: No Data to Display Review of Systems ROS Status of ROS 10 or more systems reviewed and unremarkable except as noted in history and below PFSH PFSH Social History Little interest or pleasure in doing things: not at all Feeling down, depressed, or hopeless: not at all Exam Narrative Exam Narrative: Nurses notes and vital signs reviewed and patient is not hypoxic. General: Well-appearing and in no apparent distress. Skin: Warm, dry, no pallor noted. No rash. Head: Normocephalic, atraumatic. Neck: Supple, non-tender. Eye: Pupils are equal, round and EOMI. No scleral icterus. Ears, Nose, Mouth, and Throat: TM are clear, no nasal mucosal hypertrophy. Oral mucosa is moist, no posterior oropharynx erythema, uvula is mid-line Cardiovascular: Regular Rate and Rhythm without murmur, gallop or rub. Respiratory: No accessory muscle use or respiratory distress. Lungs are clear to auscultation, no wheezing, rales or rhonchi Chest Wall: no tenderness Back: No midline thoracic or lumbar vertebral tenderness. No CVA tenderness Musculoskeletal: normal ROM, no calf or popliteal tenderness, no lower extremity edema/swelling GI: Abdomen is soft, non-distended. Normal bowel sounds. No masses appreciated. No tenderness to palpation. No rebound, guarding, or rigidity noted. Neurological: A&O x4. No cranial nerve dysfunction observed. No truncal ataxia. Moves all extremities. Sensation intact. Psychiatric: Cooperative and interactive. Normal mood and affect. Constitutional Vital Signs, click to edit/add: Last Vital Signs Temp 98.7 F 02/12/24 09:02 Pulse 83 02/12/24 10:00 Resp 12 02/12/24 10:00 BP 163/101 H 02/12/24 09:02 Pulse Ox 95 02/12/24 09:14 O2 Del Method Room Air 02/12/24 09:14 Course Vital Signs Vital signs: Vital Signs Temperature 98.7 F 02/12/24 09:02 Pulse Rate 93 H 02/12/24 09:02 Respiratory Rate 18 02/12/24 09:02 Blood Pressure 163/101 H 02/12/24 09:02 Pulse Oximetry 95 02/12/24 09:02 Temperature 98.7 F 02/12/24 09:02 Pulse Rate 83 02/12/24 10:00 Respiratory Rate 12 02/12/24 10:00 Blood Pressure 163/101 H 02/12/24 09:02 Pulse Oximetry 95 02/12/24 09:14 Oxygen Delivery Method Room Air 02/12/24 09:14 Medical Decision Making MDM Narrative Medical decision making narrative: The patient EKG showing sinus rhythm with a heart rate of [address] elevation or depression T wave inversion only in lead III no previous EKG for comparison The patient troponin is negative CBC and chemistry showed leukocytosis but apparently the patient have a baseline history of leukocytosis that has improved at the moment from 21 to [address] of the chest shows possible infiltrate although it could be also atelectasis Right now the patient will was covered with levofloxacin instructed to follow-up with her primary care doctor within a week and also due to her risk factors the patient was referred to cardiology as outpatient The patient is to follow up with primary care physician in next 2-3 days or to return to the emergency department should any of the signs or symptoms worsen or new symptoms develop. The patient agrees with the following Diagnosis and Treatment plan and the patient will be discharged home. Lab Data Labs: Lab Results 02/12/24 Range/Units 09:35 WBC 16.7 H (4.0-11.0) 10^3/uL RBC 5.16 (4.20-5.40) 10^6/uL Hgb 12.6 (12.0-16.0) g/dL Hct 40.0 (36.0-48.0) % MCV 77.5 L (81.0-99.0) fL MCH 24.4 L (26.7-34.0) pg MCHC 31.5 (29.9-35.2) g/dL RDW 16.4 H (11.0-15.0) % Plt Count 415 (150-450) 10^3/uL MPV 10.4 (9.5-13.5) fL Seg Neuts % (Manual) 67.0 (43.0-75.0) Band Neutrophils % 3.0 (0-5) % Lymphocytes % (Manual) 21.0 (20.5-60.0) % Monocytes % (Manual) 5.0 (1.7-12.0) % Eosinophils % (Manual) 4.0 (0.9-7.0) % Basophils % (Manual) 0.0 L (0.2-2.0) % Neutrophils # (Manual) 11.18 H (1.4-6.5) 10^3/uL Band Neutrophils # 0.5 H (0.0-0.3) 10^3/uL Lymphocytes # (Manual) 3.50 (1.20-3.80) 10^3/uL Monocytes # (Manual) 0.83 H (0.30-0.80) 10^3/uL Eosinophils # (Manual) 0.66 (0.00-0.70) 10^3/uL Basophils # (Manual) 0.00 (0.00-0.10) 10^3/uL Poikilocytosis 1+ Acanthocytes (Spur) 1+ PT 10.2 (9.0-11.6) sec INR 0.96 D-Dimer <0.19 (<=0.59) mg/L FEU Sodium 141 (136-145) mmol/L Potassium 4.5 (3.5-5.1) mmol/L Chloride 109 H (98-107) mmol/L Carbon Dioxide 26.4 (21.0-32.0) mmol/L Anion Gap 10.1 BUN 19.0 H (7.0-18.0) mg/dL Creatinine 0.86 (0.55-1.02) mg/dL Est GFR ( Amer) >60 (>=60 mL/min/1.73m^2) Est GFR (Non-Af Amer) >60 (>=60 mL/min/1.73m^2) BUN/Creatinine Ratio 22.1 Glucose 104 (74-106) mg/dL Calcium 8.6 (8.5-10.1) mg/dL Total Bilirubin 0.3 (0.2-1.0) mg/dL AST 16 (15-37) U/L ALT 19 (14-59) U/L Alkaline Phosphatase 57 (46-116) U/L Troponin I High Sens <4.0 L (4.0-51.3) pg/mL NT-Pro-B Natriuret Pep 20.0 (<=450.0) pg/mL Total Protein 6.9 (6.4-8.2) g/dL Albumin 2.7 L (3.4-5.0) g/dL Globulin 4.2 g/dL Albumin/Globulin Ratio 0.6 Discharge Plan Discharge Chief Complaint: Upper Respiratory Infection Clinical Impression: Pneumonia, Pressure in chest Patient Disposition: Home, Self-Care Time of Disposition Decision: 12:20 Condition: Good Prescriptions / Home Meds: New levofloxacin 750 mg tablet 750 mg PO DAILY 7 Days Qty: 7 0RF No Action albuterol sulfate 90 mcg/actuation HFA aerosol inhaler 2 puff INHALATION Q4H PRN (Reason: shortness of breath or wheezing) fluticasone propionate 50 mcg/actuation spray,suspension 2 spray INTRANASAL DAILY metformin 500 mg tablet extended release 24 hr 500 mg PO QPM valsartan 320 mg tablet 320 mg PO DAILY omeprazole 40 mg capsule,delayed release(DR/EC) 40 mg PO DAILY sertraline 100 mg tablet 100 mg PO DAILY Print Language: Kazakh Instructions: Chest Pain (ED), Pneumonia (ED) Referrals: ZENAIDA HERNANDEZ [Primary Care Provider] - 1 week Saud Ardon MD [Physician] - 1 week Discharge Date/Time: 02/12/24 12:29
[2024-02-12 09:40] VITALS: PULSE 95
[2024-02-12 09:47] LABS: Hemoglobin 12.6 g/dL (12.0-16.0); Mean Corpuscular HGB Conc 31.5 g/dL (29.9-35.2); Mean Corpuscular Hemoglobin 24.4 pg (26.7-34.0); Mean Corpuscular Volume 77.5 fL (81.0-99.0); Mean Platelet Volume 10.4 fL (9.5-13.5); Platelet Count 415 10^3/uL (150-450); Red Blood Count 5.16 10^6/uL (4.20-5.40); Red Cell Distribution Width 16.4 % (11.0-15.0); White Blood Count 16.7 10^3/uL (4.0-11.0)
[2024-02-12 10:00] VITALS: PULSE 83
[2024-02-12 10:02] LABS: Anion Gap 10.1
[2024-02-12 10:03] LABS: Band Neutrophils Absolute 0.5 10^3/uL (0.0-0.3); Eosinophils Absolute Manual 0.66 10^3/uL (0.00-0.70); Monocytes Absolute Manual 0.83 10^3/uL (0.30-0.80)
[2024-02-12 10:04] LABS: Poikilocytosis 1+; Segmented Neut Absolute Manual 11.18 10^3/uL (1.4-6.5); Troponin I High Sensitivity <4.0 pg/mL (4.0-51.3)
[2024-02-12 10:05] LABS: Acanthocytes 1+
[2024-02-12 10:07] LABS: D Dimer <0.19 mg/L FEU (<=0.59)
[2024-02-12 10:08] LABS: Alanine Aminotransferase 19 U/L (14-59); Albumin Globulin Ratio 0.6; Albumin Level 2.7 g/dL (3.4-5.0); Alkaline Phosphatase 57 U/L (46-116); Aspartate Amino Transferase 16 U/L (15-37); BUN Creatinine Ratio 22.1; Bilirubin Total 0.3 mg/dL (0.2-1.0); Calcium 8.6 mg/dL (8.5-10.1); Carbon Dioxide 26.4 mmol/L (21.0-32.0); Chloride 109 mmol/L (98-107); Estimated GFR (African America >60 (>=60 mL/min/1.73m^2); Estimated GFR (Non-African Ame >60 (>=60 mL/min/1.73m^2); Globulin 4.2 g/dL; Glucose 104 mg/dL (74-106); INR 0.96; Potassium 4.5 mmol/L (3.5-5.1); Prothrombin Time 10.2 sec (9.0-11.6); Sodium 141 mmol/L (136-145); Total Protein 6.9 g/dL (6.4-8.2)
--- NOTE | 2024-02-12 10:17 | CT_ITS ---
[address] [address] Patient Name: MJ SHAH MRN: [id number] date: 1985 Sex: F Assigned Patient Location: ER Current Patient Location: ER Accession/Order Number: [id number] Exam Date: 02/12/2024 10:20 Report Date: 02/12/2024 11:50 At the request of: EMILIE GUZMAN Procedure: CT chest wo con EXAMINATION: CT chest wo con HISTORY: possibe infiltrate ? COMPARISON: No relevant comparison available. TECHNIQUE: Multi-planar CT images were created with IV contrast. Axial, Coronal, and Sagittal images. Dose reduction techniques were achieved by using automated exposure control and/or adjustment of mA and/or kV according to patient size and/or use of iterative reconstruction technique. FINDINGS: LUNGS: Mild bilateral patchy parenchymal infiltrates, indeterminate PLEURA: No mass, effusion, or pneumothorax. VASCULATURE: No abnormality. HERBERT: No mass or adenopathy. MEDIASTINUM: No mass or adenopathy. CARDIAC: No enlargement or pericardial effusion Coronary arteries: Mild calcifications AORTA: No aneurysm or dissection. CHEST WALL: No mass or axillary adenopathy. BONES: No bone lesion or fracture. LIMITED ABDOMEN: Clips from cholecystectomy OTHER: Negative. CT/CT chest wo con IMPRESSION: Mild patchy bilateral parenchymal infiltrates, atelectasis versus developing pneumonia Electronically authenticated by: NATHANIEL JONES Date: 02/12/2024 11:50
== END 2024-02-12 12:29 | disposition home or self-care (01) ==
PROVIDERS: Emergency Provider Emergency Medicine
DX: J18.9 Pneumonia, unspecified organism (principal); R07.89 Other chest pain; Z87.01 Personal history of pneumonia (recurrent); I10 Essential (primary) hypertension
CPT/HCPCS: 36415; 71045; 71250; 80053; 83880; 84484; 85007; 85027; 85378; 85610; 93005; 99285

== ENCOUNTER 2024-11-18 18:15 | Emergency (ER) | payer BC, SELFPAY ==
[2024-11-18 18:37] VITALS: BP 168/97; PULSE 93; TEMP 37.3; O2SAT 93; BMI 59.7
--- OUTSIDE RECORDS SUMMARY | 2024-11-18 19:17 | XMS_ITS | CCD ---
Author Organization [facility]ini[facility] Care Team Providers Care Shirrer Name Role Phone DR GILES LAN Consulting Unavailable EDYTA, DR GILES Beal Attending Unavailable EDYTA, DR GILES Beal Admitting Unavailable MARLO, RACHID LONNIE Primary Care Unavailable MAGDALENE, DR SINGH Consulting Unavailable CLEMENTINE JACK Consulting Unavailable ARIELLA FISCHER Consulting Unavailable ALBERTO FISCHER Consulting Unavailable RENATO, DR ISRAEL Hamm Consulting Unavailable SHAIKH KAUR H Attending Unavailable IVNCENT, HSU H Admitting Unavailable ROSS, RACHID LONNIE Primary Care Unavailable CR REYES Consulting Unavailable MAGDALENE, DR SINGH Consulting Unavailable VINCENT, HSU H Consulting Unavailable HUSAM GARSIA Consulting Unavailable JULITO, DR NATHANIEL Loza Consulting Unavailable MARLO, RACHID LONNIE Primary Care Unavailable MARLO RACHIDTAM FLEMING Attending Unavailable MARLO, RACHID LONNIE Admitting Unavailable ROSS, RACHID LONNIE Consulting Unavailable RENATO, DR ISRAEL Hamm Consulting Unavailable ROSS, RACHID LONNIE Primary Care Unavailable FATERRELLD, HSU H Attending Unavailable VINCENT, HSU H Admitting Unavailable VINCENT, HSU H Consulting Unavailable ROSS, RACHID LONNIE Primary Care Unavailable VINCENT, HSU H Attending Unavailable LUANAD, HSU H Admitting Unavailable ROSS, RACHID LONNIE Primary Care Unavailable ROSS, RACHID LONNIE Attending Unavailable MARLO, RACHID LONNIE Admitting Unavailable DR ISRAEL GROSS Consulting Unavailable ALBERTO FISCHER Attending Unavailable ALBERTO FISCHER Admitting Unavailable ROSS, RACHID LONNIE Primary Care Unavailable ALBERTO FISCHER Consulting Unavailable CR CARIAS Consulting Unavailable ALBERTO FISCHER Attending Unavailable ALBERTO FISCHER Admitting Unavailable ROSS, RACHID LONNIE Primary Care Unavailable ROSALINO TRAN Consulting Unavailable Marlo Rachid E Primary Care Unavailable Marlo Rachid E Referring Unavailable Dewayne Calderon Admitting Unavailable Dewayne Calderon Attending Unavailable Giles Lan MD Primary Care Provider Geno BAIT DIGGER, Larissa Unavailable [phone] Rachid Sellers Primary Care Physician [phone] Ruthie Colindres Referring Unavailable MoRuthie huynh AHaris Attending Unavailable Ruthie Colindres AHaris Admitting Unavailable Rachid Sellers Attending Unavailable Rachid Sellers Attending Unavailable Rachid Sellers Attending Unavailable Rachid Sellers Attending Unavailable Ruthie Colindres AHaris Admitting Unavailable Mouchli Mohamad AHaris Attending Unavailable Latisha Colindresamad AHaris Referring Unavailable Ruthie Colindres AHaris Attending Unavailable Ruthie Colindres Attending Unavailable Rachid Sellers Attending Unavailable Kelli, Nalini L Attending Unavailable Kelli, Nalini L Attending Unavailable Kelli, Nalini L Admitting Unavailable Kelli, Nalini L Attending Unavailable Kelli, Nalini L Attending Unavailable Rachid Sellers Attending Unavailable Kelli, TRACTOR TECHNICIAN Nalini L Attending Unavailable Kelli, TRACTOR TECHNICIAN Nalini L Admitting Unavailable Kelli, TRACTOR TECHNICIAN Nalini L Attending Unavailable Kelli, TRACTOR TECHNICIAN Nalini L Admitting Unavailable Kelli, TRACTOR TECHNICIAN Nalini L Attending Unavailable Unavailable Unavailable Unavailable Allergies Allergy Classification Reported Allergen(s) Allergy Type Date of Onset Reaction(s) Facility (18 sources) HYDROmorphone; Translations: [hydromorphone] Drug Allergy 0 Other, Shortness of breath, Eruption of skin (disorder), Anaphylaxis (disorder), Dyspnea (finding) [facility] (13 sources) Penicillins; Translations: [Penicillins] Allergy to substance 9 Hives, Itching, Rash [facility] (6 sources) Amoxicillin; Translations: [amoxicillin] Drug Allergy 7 [facility] (2 sources) HYDROmorphone Drug Allergy 7 [facility] (1 source) Amoxicillin; Translations: [amoxicillin] Drug Allergy Anaphylaxis (disorder) [facility] Medications Current Medications Medication Drug Class(es) Dates Sig (Normalized) Sig (Original) [id number] 200 actuat albuterol 0.09 mg/actuat metered dose inhaler (9 sources) beta2-Adrenergic Agonist Start: 12-02-2023 End: 12-01-2024 take 2 puff(s) by inhalation every four hours for wheezing albuterol HFA (Ventolin HFA) 90 mcg/act inhaler Indications: Dyspnea on exertion Inhale 2 puffs every 4 (four) hours if needed for wheezing 18 g 11 12/02/2023 12/01/2024 Active Ascorbic Acid (1 source) Vitamin C Start: 03-09-2024 Vitamin C Oral, Daily, Refills(s) 0, Prophylaxis Start Date: 03/09/24 Status: Ordered Repeat number: 1 cetirizine hydrochloride 10 mg oral tablet (3 sources) Histamine-1 Receptor Antagonist take 1 tablet by mouth once daily cetirizine (ZyrTEC) 10 MG tablet Take 10 mg by mouth Daily Active cholecalciferol 400 unt oral capsule (2 sources) Vitamin D Start: 05-12-2020 take 1 capsule by mouth once daily Cholecalciferol (Vitamin D3) (Vitamin D3) 10 mcg (400 unit) Capsule Active 10 MCG PO Daily May 12, 2020 8:08am cholestyramine resin 4000 mg powder for oral suspension (1 source) Bile Acid Sequestrant Start: 05-05-2024 Questran 4 g/9 g oral powder = 9 gram, Oral, BID, # 60 packet(s), Refills(s) 0, Pharmacy: [facility]/pharmacy #[id number], 169.7, cm, 05/05/24 14:21:00 EDT, Height/Length Dosing, 175.1, kg, 05/05/24 14:21:00 EDT, Weight Dosing Start Date: 05/05/24 Status: Ordered Quantity: 60.0 Unit: packet(s) Repeat number: 1 Indication: Gastro-esophageal reflux disease without esophagitis fluticasone propionate 0.05 mg/actuat metered dose nasal spray (7 sources) Corticosteroid Start: 01-26-2024 take 2 spray(s) nasal route once daily fluticasone (Flonase) 50 MCG/ACT nasal spray Indications: Acute rhinitis USE 2 SPRAYS IN EACH NOSTRIL ONCE A DAY *AFTER USE CLEAN TIP AND REPLACE CAP* 48 mL 1 01/26/2024 Active Start: 01-01-2024 End: 12-31-2024 take 2 spray(s) nasal route once daily fluticasone (Flonase) 50 MCG/ACT nasal spray Indications: Acute rhinitis Administer 2 sprays into each nostril Daily Shake gently. Before first use, prime pump. After use, clean tip and replace cap. 16 g 2 01/01/2024 01/26/2024 Discontinued Magnesium Sulfate (1 source) Start: 03-09-2024 take 1 g by mouth once magnesium sulfate gm, Oral, Once, OTC, Refills(s) 0, Prophylaxis Start Date: 03/09/24 Status: Ordered Repeat number: 1 metFORMIN hydrochloride 500 mg oral tablet (11 sources) Biguanide Start: 03-09-2024 take 1 tablet by mouth twice daily metformin 500 mg Tab 500 mg = 1 tab(s), Oral, BID, Refills(s) 0, Blood glucose Start Date: 03/09/24 Status: Ordered Repeat number: 1 Start: 12-02-2023 End: 03-08-2025 take 1 tablet by mouth every twenty-four hours at mealtime metFORMIN XR (Glucophage-XR) 500 MG 24 hr tablet Indications: Prediabetes TAKE 1 TABLET (500 MG) BY MOUTH IN THE EVENING. TAKE WITH MEALS DO NOT CRUSH, CHEW, OR SPLIT. 90 tablet 1 03/08/2024 03/08/2025 Active Multivitamin (Multiple Vitamin) Tablet (2 sources) Start: 05-12-2020 take 1 tablet by mouth once daily Multivitamin (Multiple Vitamin) Tablet Active 1 TAB PO Daily May 12, 2020 8:08am Start: 05-12-2020 take 1 tablet by jose once daily Multivitamin (Multiple Vitamin) Tablet Active 1 TAB PO Daily May 12, 2020 12:00am omeprazole 40 mg delayed release oral capsule (12 sources) Proton Pump Inhibitor Start: 04-08-2024 take 1 capsule by mouth twice daily omeprazole 40 mg Cap-DR 40 mg = 1 cap(s), Oral, BID, # 180 cap(s), Refills(s) 0, Pharmacy: [facility]/pharmacy #[id number], 169.7, cm, 04/08/24 13:03:00 EST, Height/Length Dosing, 176, kg, 04/08/24 13:03:00 EST, Weight Dosing Start Date: 04/08/24 Status: Ordered Quantity: 180.0 Unit: cap(s) Repeat number: 1 Start: 09-02-2023 End: 02-29-2024 take 1 capsule by mouth once daily omeprazole (PriLOSEC) [address] capsule Indications: Gastro-esophageal reflux disease without esophagitis , Esophageal reflux Take 1 capsule (40 mg) by mouth Daily 90 capsule 1 09/02/2023 Active Start: 04-27-2020 take 40 mg by mouth once daily Omeprazole Active 40 MG PO Daily April 27, 2020 5:01pm valsartan 320 mg oral tablet (13 sources) Angiotensin 2 Receptor Dori Start: 03-16-2024 take 1 tablet by mouth once daily valsartan (Diovan) 320 MG tablet Indications: Primary hypertension (CMS/HCC) TAKE 1 TABLET BY MOUTH EVERY DAY 90 tablet 1 03/16/2024 Active Start: 03-09-2024 take 1 tablet by jose th once daily valsartan 320 mg Tab 320 mg = 1 tab(s), Oral, Daily, Refills(s) 0, High blood pressure Start Date: 03/09/24 Status: Ordered Repeat number: 1 Start: 09-02-2023 End: 02-29-2024 take 1 tablet by mouth once daily valsartan (Diovan) 320 MG tablet Indications: Primary hypertension (CMS/HCC) Take 1 tablet (320 mg) by mouth Daily 90 tablet 1 09/02/2023 Active Start: 04-27-2020 take 320 mg by mouth once jon y Valsartan Active 320 MG PO Daily April 27, 2020 5:01pm Vitamin D3 (1 source) Start: 03-09-2024 Vitamin D3 Ora l, Daily, Refills(s) 0, Prophylaxis Start Date: 03/09/24 Status: Ordered Repeat number: 1 Zinc (1 source) Start: 03-09-2024 Zinc Oral, Raeann ly, Refills(s) 0, Prophylaxis Start Date: 03/09/24 Status: Ordered Repeat number: 1 Completed/Discontinued Medications Medication Drug Class(es) Dates Sig [...] Active Problems Problem Classification Problem Date Documented Date Episodic/Chronic Anxiety disorders (13 sources) Mixed anxiety and depressive disorder; Translations: [Other specified anxiety disorders] Onset: 4 07-15-2023 Chronic Biliary tract disease (1 source) Postcholecystectomy syndrome 05-05-2024 Episodic Diabetes mellitus without complication (16 sources) Prediabetes; Translations: [Prediabetes] Onset: 4 09-02-2023 Episodic Diseases of white blood cells (3 sources) Leukocytosis; Translations: [Elevated white blood cell count, unspecified] Onset: 1 05-12-2020 Chronic Esophageal disorders (1 source) Gastroesophageal reflux disease without esophagitis 04-08-2024 Chronic Essential hypertension (15 sources) Essential (primary) hypertension; Translations: [Essential hypertension] Onset: 1 07-15-2023 Chronic Joint disorders and dislocations; trauma-related (1 source) Tear of medial meniscus of knee 03-09-2024 Episodic Osteoarthritis (1 source) Unilateral primary osteoarthritis, left [...] Chronic Other nutritional; endocrine; and metabolic disorders (15 sources) Morbid obesity; Translations: [Morbid (severe) obesity due to excess calories] Onset: 4 07-15-2023 Chronic Other nutritional; endocrine; and metabolic disorders (12 sources) Metabolic syndrome X; Translations: [Metabolic syndrome] Onset: 4 09-02-2023 Chronic Other upper respiratory disease (6 sources) Rhinitis; Translations: [Chronic rhinitis] Onset: 4 01-01-2024 Chronic Other upper respiratory disease (1 source) Congestion of nasal sinus 03-09-2024 Episodic Other upper respiratory infections (3 sources) Rhinitis; Translations: [Acute nasopharyngitis [common cold]] 01-01-2024 Episodic Phlebitis; thrombophlebitis and thromboembolism (3 sources) Phlebitis and thrombophlebitis of superficial vessels of left lower extremity; Translations: [Acute embolism and thrombosis of deep veins of left upper extremity] Onset: 2 Episodic Pneumonia (except that caused by tuberculosis or sexually transmitted disease) (13 sources) Pneumonia, unspecified organism; Translations: [Unspecified bacterial [...] sources) Patient on antidepressant monitoring plan Onset: 12-02-2023 Unclassified (1 source) Non-smoker 03-09-2024 Viral infection (3 sources) COVID-19; Translations: [COVID-19] Onset: 1 Past or Other Problems Problem Classification Problem Date Documented Da te Episodic/Chronic Administrative/social admission (9 sources) First encounter by subject; Translations: [Persons encountering health services in other specified circumstances] Onset: 12-02-2023 12-02-2023 Episodic Cardiac dysrhythmias (1 source) Bradycardia, unspecified; Translations: [BRADYCARDIA UNSPECIFIED] Onset: 02-12-2021 Episodic Disorders of teeth and jaw (10 sources) Torus palatinus; 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] Onset: 07-15-2023 07-15-2023 Episodic E Codes: Unspecified (1 source) Nosocomial condition; Translations: [NOSOCOMIAL CONDITION] Onset: 02-21-2021 Episodic Mood disorders (10 sources) Mood disorders Onset: 07-15-2023 07-15-2023 Other aftercare (1 source) Other mcfp (current) drug therapy; Translations: [OTH LOG BUNCHER CURRENT DRUG THERAPY] Onset: 03-05-2021 Episodic Other connective tissue disease (3 sources) Other specified soft tissue disorders; Translations: [OTHER SPEC SOFT TISSUE DISORDERS] Onset: 03-02-2021 Episodic Other lower respiratory disease (1 source) Personal history of pneumonia (recurrent); Translations: [PERSONAL HX OF PNEUMONIA RECURRENT] Onset: 03-05-2021 Episodic Other lower respiratory disease (1 source) Shortness of breath; Translations: [SHORTNESS OF BREATH] Onset: 01-23-2021 Episodic Other lower respiratory disease (11 sources) Dyspnea on exertion; Translations: [Other forms of dyspnea] Onset: 12-02-2023 12-02-2023 Episodic Other screening for suspected conditions (not mental disorders or infectious disease) (20 sources) Patient encounter status; Translations: [Encounter for screening for lipoid disorders] Onset: 07-15-2023 07-15-2023 Episodic Residual codes; unclassified (1 source) Acquired absence of other specified parts of digestive tract; Translations: [ACQ ABSENCE OTH PART DIGESTV TRACT] Onset: 02-12-2021 Episodic Respiratory failure; insufficiency; arrest (adult) (1 source) Acute respiratory failure with hypoxia; Translations: [ACUTE RESPIRATORY FAIL W/HYPOXIA] Onset: 02-21-2021 Episodic Unclassified (1 source) COUGH, UNSPECIFIED; Translations: [COUGH, UNSPECIFIED] Onset: 01-21-2021 Results Test Name Value Interpretation Reference Range Facility Urineon 11-12-2024 Bacteria identified Cx Nom (U) Microbiology PROCEDURE: Urine Culture [R1] SOURCE: U CleanCatch BODY SITE: COLLECTED DATE/TIME: 11/10/2024 09:20 EDT RECEIVED DATE/TIME: 11/10/2024 17:30 EDT START DATE/TIME: 11/10/2024 17:30 EDT FREE TEXT SOURCE: Nalini Wilson, Nalini Miles FINAL REPORTS Final Report [] Verified Date/Time: 11/12/2024 09:44 EDT >100,000 cfu/ml Escherichia coli SUSCEPTIBILITY RESULTS LEGEND: S=Susceptible, N/R=Not Reported, Blank=Data not available, or drug not advisable or tested, I=Intermediate, ESBL=Extended spectrum beta-lactamase, R=Resistant, TFG=Thymidine-dependent strain, SHAVON=Beta-lactamase positive, TOMA=mcg/m;(mg/L), S*=Predicted susceptible interp, R*=Predicted resistant interp EC Antibiotic TOMA Dilutn TOMA Interp Ampicillin <=8 S Ampicillin/ <=8/4 S Sulbactam Cefazolin <=2 S Cefepime <=2 S Ceftazidime/ <=8 S Avibactam Ceftriaxone <=1 S Cefuroxime <=4 S Ciprofloxacin <=0.25 S Ertapenem <=0.5 S Gentamicin <=2 S Levofloxacin <=0.5 S Meropenem <=1 S Nitrofurantoin <=32 S Piperacillin/ <=8 S Tazobactam Tetracycline <=4 S Tobramycin <=2 S Trimethoprim/ <=2/38 S Sulfa Performing Locations R1: This test was performed at: [facility], [address] [place] [address], [id number] , , [facility] Comment on above: Performed By: #### [id number] #### [facility] [address] [place] [address] Ambulatory Visit Summary 0 11-10-2024 Ambulatory Visit Summary Ambulatory Visit Summary MJ MELGAR :1985 Visit Date:11/10/2024 Ambulatory Visit Instructions Your Diagnosis BMI 50.0-59.9, adult Non-smoker Your Care Team Attending Physician - Nalini Wilson Primary Care Physician - Nalini Wilson This Is Your Medications List ascorbic acid (Vitamin C) cholecalciferol (Vitamin D3) magnesium sulfate omeprazole (omeprazole 40 mg Cap-DR) valsartan (valsartan 320 mg Tab) zinc sulfate (Zinc) Procedures Performed EGD - esophagogastroduodenoscopy (05/12/2024), Cholecystectomy (2009), Tonsillectomy. Discharge Vitals Temperature (Temporal Artery) 36.4 ???C Heart Rate (Peripheral) 76 Respiratory Rate 20 Blood Pressure 130/84 Height 169.7 cm Height 67 in Weight 171.1 kg Weight 377.21 lb BMI 59.41 What to do next Scheduled Follow-Up Appointments Friday2025 8:20 AM EST With: Nalini Wilson Where: [address] [address]- Medications What How Much When Instructions Unchanged ascorbic acid (Vitamin C) By Mouth Every day Unchanged cholecalciferol (Vitamin D3) By Mouth Every day Unchanged magnesium sulfate By Mouth Once OTC Unchanged omeprazole (omeprazole 40 mg Cap-DR) 1 Capsules By Mouth 2 times a day Unchanged valsartan (valsartan 320 mg Tab) See instructions TAKE 1 TABLET BY MOUTH EVERY DAY Unchanged zinc sulfate (Zinc) By Mouth Every day Allergies HYDROmorphone (Eruption, Anaphylaxis, Dyspnea) amoxicillin (Anaphylaxis) Problems Ongoing - Any problem that you are currently receiving treatment for. Benign hypertension (high blood pressure) BMI 50.0-59.9, adult Congestion of nasal sinus GERD without esophagitis Leukocytosis (high white blood cell count) Mixed anxiety and depressive disorder Morbid obesity with BMI of 50.0-59.9, adult Nonsmoker Post-cholecystectomy syndrome Prediabetes Screening for hypercholesterolemia Tear of medial meniscus of knee Patient Survey You may receive a survey via text or e-mail asking about your office visit. Please share your experience with us by completing your survey. We appreciate your feedback and thank you for choosing us for your care. Patient Portal You may access all of your results and other medical record information on our secure patient portal. If you are not signed up for this yet, please contact [employer] at [phone] to get signed up today. Language Information Language assistance services are available as needed. Normal [facility] Family Medicine Office/Clini c Noteon 11-10-2024 Family Medicine Office/Clinic Note Family Medicine Office/Clinic Note HPI Staff Pt is here for Onset: Symptoms: frequency once an hour ,dysuria OTC used: Azo bladder pain relief does help Last UTI: 10 years ago Hx of kidney stones: no UA in office documented in chart History of Present Illness pt presents today with UTI sympotms Review of Systems PHQ Score Initial Depression Screen Score: 0 SCORE Physical Exam Vitals & Measurements T: 36.4 ???C(Temporal Artery) HR: 76(Peripheral) RR: 20 BP: 130/84 SpO2: 96% HT: 67 in HT: 169.7 cm WT: 171.1 kg WT: 377.21 lb BMI: 59.41 General: alert, no acute distress ENMT: oral mucosa moist, no pharyngeal erythema or exudate Cardiovascular: regular rate and rhythm, normal peripheral perfusion Respiratory: Lungs CTA, respirations non labored Extremities: no deformity, no trauma Neurological: oriented x 4, LOC appropriate for age, CN II-XII intact, motor strength equal & normal bilaterally, speech normal Assessment/Plan 1. Urinary tract infection (N39.0: Urinary tract infection, site not specified) pt provided urine sample in office. u/a positive for nitrites, leuks and blood. will send for culture. will treat with Macrobid. RTC as needed Ordered: nitrofurantoin, 100 mg = 1 cap(s), Oral, BID, X 7 day(s), # 14 cap(s), Refills(s) 0, Pharmacy: [facility] #[id number], 169.7, cm, 11/10/24 8:51:00 EDT, Height/Length Dosing, 171.1, kg, 11/10/24 8:51:00 EDT, Weight Dosing 2. Non-smoker (Z78.9: Other specified health status) continue not smoking Ordered: nitrofurantoin, 100 mg = 1 cap(s), Oral, BID, X 7 day(s), # 14 cap(s), Refills(s) 0, Pharmacy: [facility] #[id number], 169.7, cm, 11/10/24 8:51:00 EDT, Height/Length Dosing, 171.1, kg, 11/10/24 8:51:00 EDT, Weight Dosing 3. Dysuria (R30.0: Dysuria) u/a in office Ordered: nitrofurantoin, 100 mg = 1 cap(s), Oral, BID, X 7 day(s), # 14 cap(s), Refills(s) 0, [id number] 169.7, cm, 11/10/24 8:51:00 EDT, Height/Length Dosing, 171.1, kg, 11/10/24 8:51:00 EDT, Weight Dosing Urine Culture Urnls Dip Stick Auto w/o Microscopy POC [id number] 4. Frequency of urination (R35.0: Frequency of micturition) Macrobid sent Ordered: nitrofurantoin, 100 mg = 1 cap(s), Oral, BID, X 7 day(s), # 14 cap(s), Refills(s) 0, [id number] 169.7, cm, 11/10/24 8:51:00 EDT, Height/Length Dosing, 171.1, kg, 11/10/24 8:51:00 EDT, Weight Dosing Urine Culture Urnls Dip Stick Auto w/o Microscopy POC [id number] 5. BMI 50.0-59.9, adult (Z68.43: Body mass index [BMI] 50.0-59.9, adult) BMI education Ordered: nitrofurantoin, 100 mg = 1 cap(s), Oral, BID, X 7 day(s), # 14 cap(s), Refills(s) 0, [id number], 169.7, cm, 11/10/24 8:51:00 EDT, Height/Length Dosing, 171.1, kg, 11/10/24 8:51:00 EDT, Weight Dosing Follow-up No qualifying data available Problem List/Past Medical History Ongoing Benign hypertension (high blood pressure) BMI 50.0-59.9, adult Congestion of nasal sinus GERD without esophagitis Leukocytosis (high white blood cell count) Mixed anxiety and depressive disorder Morbid obesity with BMI of 50.0-59.9, adult Nonsmoker Post-cholecystectomy syndrome Prediabetes Screening for hypercholesterolemia Tear of medial meniscus of knee Urinary tract infection Historical No qualifying data Procedure/Surgical History EGD - esophagogastroduodenoscopy (05/12/2024), Cholecystectomy (2010), Tonsillectomy. Medications Macrobid 100 mg Cap, 100 mg= 1 cap(s), Oral, BID magnesium sulfate, Oral, Once omeprazole 40 mg Cap-DR, 40 mg= 1 cap(s), Oral, BID valsartan 320 mg Tab, See Instructions Vitamin C, Oral, Daily Vitamin D3, Oral, Daily Zinc, Oral, Daily Allergies HYDROmorphone (Eruption, Anaphylaxis, Dyspnea) amoxicillin (Anaphylaxis) Social History Alcohol Never., 03/08/2024 Substance Abuse Never., 03/08/2024 Tobacco Never (less than 100 in lifetime) Tobacco Use:. Yes, 11/10/2024 Family History Heart disease: Mother. Immunizations Vaccine Date Status influenza virus vaccine, inactivated 11/24/2020 Recorded Lab Results Ambulatory Point of Care Results Bilirubin Urine Dipstick: Negative (11/10/24 09:18:00) Blood Urine Dipstick: Trace-intact (11/10/24 09:18:00) Glucose Urine Dipstick: Negative (11/10/24 09:18:00) Ketones Urine Dipstick: Negative (11/10/24 09:18:00) Leukocytes Urine Dipstick: 1+ Small (11/10/24 09:18:00) Nitrite Urine Dipstick: Positive (11/10/24 09:18:00) Protein Urine Dipstick: Negative (11/10/24 09:18:00) Specific [place] Urine Dipstick: 1.020 (11/10/24 09:18:00) Urine Appearance Urine Dipstick: Clear (11/10/24 09:18:00) Urine Color Urine Dipstick: Alesia (11/10/24 09:18:00) Urobilinogen Urine Dipstick: Normal 0.2-1 EU/dl (11/10/24 09:18:00) pH Urine Dipstick: 5.5 (11/10/24 09:18:00) Normal [facility] Comment on above: Result Comment: Elec tronically Signed By: Nalini Wilson\.br\Date and Time Signed: 11/10/24 09:31 EDT Ambulatory Visit Summaryon 0 10-22-2024 Ambulatory Visit Summary Ambulatory Visit Summary MJ MELGAR :1985 Visit Date:10/22/2024 Ambulatory Visit Instructions Your Diagnosis Benign hypertension (high blood pressure) Screening for hypercholesterolemia Prediabetes BMI 50.0-59.9, adult Your Care Team Attending Physician - Nalini Wilson Primary Care Physician - Rachid Sellers MD This Is Your Medications List ascorbic acid (Vitamin C) cholecalciferol (Vitamin D3) magnesium sulfate metformin (metformin 500 mg Tab) omeprazole (omeprazole 40 mg Cap-DR) valsartan (valsartan 320 mg Tab) zinc sulfate (Zinc) Procedures Performed EGD - esophagogastroduodenoscopy (05/12/2024), Cholecystectomy (2009), Tonsillectomy. Discharge Vitals Temperature (Temporal Artery) 36.3 ???C Heart Rate (Peripheral) 78 Respiratory Rate 18 Blood Pressure 128/82 Height 169.7 cm Height 67 in Weight 170.3 kg Weight 375.447 lb BMI 59.14 Medications What How Much When Instructions Unchanged ascorbic acid (Vitamin C) By Mouth Every day Unchanged cholecalciferol (Vitamin D3) By Mouth Every day Unchanged magnesium sulfate By Mouth Once OTC Unchanged metformin (metformin 500 mg Tab) 1 Tablets By Mouth 2 times a day Unchanged omeprazole (omeprazole 40 mg Cap-DR) 1 Capsules By Mouth 2 times a day Unchanged valsartan (valsartan 320 mg Tab) See instructions TAKE 1 TABLET BY MOUTH EVERY DAY Unchanged zinc sulfate (Zinc) By Mouth Every day Allergies HYDROmorphone (Eruption, Anaphylaxis, Dyspnea) amoxicillin (Anaphylaxis) Problems Ongoing - Any problem that you are currently receiving treatment for. Benign hypertension (high blood pressure) BMI 50.0-59.9, adult Congestion of nasal sinus GERD without esophagitis Leukocytosis (high white blood cell count) Mixed anxiety and depressive disorder Morbid obesity with BMI of 50.0-59.9, adult Nonsmoker Post-cholecystectomy syndrome Prediabetes Screening for hypercholesterolemia Tear of medial meniscus of knee Patient Survey You may receive a survey via text or e-mail asking about your office visit. Please share your experience with us by completing your survey. We appreciate your feedback and thank you for choosing us for your care. Patient Portal You may access all of your results and other medical record information on our secure patient portal. If you are not signed up for this yet, please contact Health Information [facility] at [phone] to get signed up today. Language Information Language assistance services are available as needed. Normal [facility] CMPon 10-22-2024 Albumin [Mass/Vol] 3.9 g/dL Normal 3.3-5.0 [facility] Comment on above: Performed By: #### 2 [id number] #### [facility] [address] [place] [address] Albumin/Globulin [Mass ratio] 1.3 {ratio} Normal 1.1-2.2 [facility] Comment on above: Performed By: #### 2 [id number] #### [facility] [address] [place] [address] Alk Phos 47 Int._Unit/L Normal 21-98 [facility] [place] Comment on above: Performed By: #### 2 [id number] #### [facility] [address] [place] [address] ALT 17 Int._Unit/L Normal 6-46 [facility] [place] Comment on above: Performed By: #### 2 [id number] #### [facility] [address] [place] [address] Anion gap [Moles/Vol] 11 mmol/L Normal 6-16 [facility] Comment on above: Performed By: #### 2 [id number] #### [facility] [address] [place] [address] AST 21 Int._Unit/L Normal 5-43 [facility] [place] Comment on above: Performed By: #### 2 [id number] #### [facility] [address] [place] [address] Bili Total 0.3 mg/dL Normal 0.0-1.1 [facility] Comment on above: Performed By: #### 2 [id number] #### [facility] [address] [place] [address] BUN/Creat Ratio 18 No Units Normal 10-20 [facility] Comment on above: Performed By: #### 2 [id number] #### [facility] [address] [place] [address] Calcium [Mass/Vol] 8.8 mg/dL Low 8.9-11.1 [facility] Comment on above: Performed By: #### 2 [id number] #### [facility] [address] [place] [address] Chloride [Moles/Vol] 108 mmol/L Normal 101-111 [facility] Comment on above: Performed By: #### 2 [id number] #### [facility] [address] [place] [address] CO2 [Moles/Vol] 22 mmol/L Normal 21-31 [facility] Comment on above: Performed By: #### 2 [id number] #### [facility] [address] [place] [address] Creatinine [Mass/Vol] 0.9 mg/dL Normal 0.5-1.3 [facility] Comment on above: Performed By: #### 2 [id number] #### [facility] [address] [place] [address] Globulin (S) [Mass/Vol] 3.1 g/dL Normal 1.4-4.0 [facility] Comment on above: Performed By: #### 2 [id number] #### [facility] [address] [place] [address] Glucose [Mass/Vol] 113 mg/dL Normal 55-199 [facility] Comment on above: Performed By: #### 2 [id number] #### [facility] [address] [place] [address] Potassium [Moles/Vol] 4.1 mmol/L Normal 3.5-5.3 [facility] Comment on above: Performed By: #### 2 [id number] #### [facility] [address] [place] [address] Protein [Mass/Vol] 7.0 g/dL Normal 6.0-7.8 [facility] Comment on above: Performed By: #### 2 [id number] #### [facility] [address] [place] [address] Sodium [Moles/Vol] 137 mmol/L Normal 135-145 [facility] Comment on above: Performed By: #### 2 [id number] #### [facility] [address] [place] [address] Urea nitrogen [Mass/Vol] 16 mg/dL Normal 5-21 [facility] Comment on above: Performed By: #### 2 [id number] #### [facility] [address] [place] [address] Family Medicine Office/Clini c Noteon 10-22-2024 Family Medicine Office/Clinic Note Family Medicine Office/Clinic Note HPI Staff Mj is a 39 year old male presenting with Patient is here for follow up on hypertension. How often are you checking your blood pressure? no What are your average readings? _ Yearly BMP: _ Here for follow up on GERD. Melena? no Dysphagia? no Weight loss? no Persistent vomiting? no Have you ever had an EGD? no Refill needed?: _ With omeprazole she is doing good no refills needed she does want to establish with you History of Present Illness pt presents today for follow up. is establishing with this provider. previously seen by Dr. Sellers Review of Systems PHQ Score Initial Depression Screen Score: 0 SCORE Physical Exam Vitals & Measurements T: 36.3 ???C(Temporal Artery) HR: 78(Peripheral) RR: 18 BP: 128/82 SpO2: 99% HT: 169.7 cm HT: 67 in WT: 170.3 kg WT: 375.447 lb BMI: 59.14 General: alert, no acute distress ENMT: oral mucosa moist, no pharyngeal erythema or exudate Cardiovascular: regular rate and rhythm, normal peripheral perfusion Respiratory: Lungs CTA, respirations non labored Extremities: no deformity, no trauma Neurological: oriented x 4, LOC appropriate for age, CN II-XII intact, motor strength equal & normal bilaterally, speech normal Assessment/Plan 1. Benign hypertension (high blood pressure) (I10: Essential (primary) hypertension) BP at goal. denies needs. does not need refills at this time. RTC 6 months Ordered: Comprehensive Metabolic Panel HgbA1c Lipid Panel Thyroid Stimulating Hormone 2. Screening for hypercholesterolemia (Z13.220: Encounter for screening for lipoid disorders) lipid panel in office today Ordered: Comprehensive Metabolic Panel HgbA1c Lipid Panel Thyroid Stimulating Hormone 3. Prediabetes (R73.03: Prediabetes) will check HGBA1C in office today Ordered: Comprehensive Metabolic Panel HgbA1c Lipid Panel Thyroid Stimulating Hormone 4. BMI 50.0-59.9, adult (Z68.43: Body mass index [BMI] 50.0-59.9, adult) BMI education given Ordered: Comprehensive Metabolic Panel HgbA1c Lipid Panel Thyroid Stimulating Hormone Follow-up No qualifying data available Problem List/Past Medical History Ongoing Benign hypertension (high blood pressure) BMI 50.0-59.9, adult Congestion of nasal sinus GERD without esophagitis Leukocytosis (high white blood cell count) Mixed anxiety and depressive disorder Morbid obesity with BMI of 50.0-59.9, adult Nonsmoker Post-cholecystectomy syndrome Prediabetes Screening for hypercholesterolemia Tear of medial meniscus of knee Historical No qualifying data Procedure/Surgical History EGD - esophagogastroduodenoscopy (05/12/2024), Cholecystectomy (2009), Tonsillectomy. Medications magnesium sulfate, Oral, Once metformin 500 mg Tab, 500 mg= 1 tab(s), Oral, BID omeprazole 40 mg Cap-DR, 40 mg= 1 cap(s), Oral, BID valsartan 320 mg Tab, See Instructions Vitamin C, Oral, Daily Vitamin D3, Oral, Daily Zinc, Oral, Daily Allergies HYDROmorphone (Eruption, Anaphylaxis, Dyspnea) amoxicillin (Anaphylaxis) Social History Alcohol Never., 03/08/2024 Substance Abuse Never., 03/08/2024 Tobacco Never (less than 100 in lifetime) Tobacco Use:. Never Smokeless Tobacco Use:. Household tobacco concerns: No. Yes, 10/22/2024 Family History Heart disease: Mother. Immunizations Vaccine Date Status influenza virus vaccine, inactivated 11/24/2020 Recorded Normal [facility] Comment on above: Result Comment: Elec tronically Signed By: Nalini Wilson\.br\Date and Time Signed: 10/22/24 08:45 EDT [id number] 10-22-2024 HbA1c (Bld) [Mass fraction] 5.8 % Normal <=5.9 [facility] Comment on above: Performed By: #### 7 [id number] #### [facility] [address] [place] [address] Lipid Panelon 10-22-2024 Cholesterol [Mass/Vol] 177 mg/dL Normal 120-200 [facility] Comment on above: Performed By: #### 2 [id number] #### [facility] [address] [place] [address] Cholesterol in HDL [Mass/Vol] 43 mg/dL Invalid Interpretation Code [facility] Comment on above: Result Comment: '>= 60 LOW RISK' '<= 40 HIGH RISK' Performed By: #### 2 [id number] #### [facility] [address] [place] [address] Cholesterol in LDL [Mass/Vol] 115 mg/dL Normal <=129 [facility] Comment on above: Performed By: #### 2 [id number] #### [facility] [address] [place] [address] Cholesterol in VLDL [Mass/Vol] 28 mg/dL Normal 7-40 [facility] Comment on above: Performed By: #### 2 [id number] #### [facility] [address] [place] [address] Triglyceride [Mass/Vol] 142 mg/dL Normal <=149 [facility] Comment on above: Performed By: #### 2 [id number] #### [facility] [address] [place] [address] TSHon 10-22-2024 TSH Qn 2.34 m[IU]/L Normal 0.34-5.60 [facility] Comment on above: Performed By: #### 2 [id number] #### [facility] [address] [place] [address] eGFRon 10-22-2024 eGFR 82 mL/min/1.73 m2 Normal >=59 [facility] Comment on above: Performed By: #### 1 [id number] #### [facility] [address] [place] [address] Ambulatory Visit Summaryon 0 06-17-2024 Ambulatory Visit Summary Ambulatory Visit Summary MJ MELGAR :1985 Visit Date:06/17/2024 Ambulatory Visit Instructions Your Diagnosis Morbid obesity with BMI of 50.0-59.9, adult Nonsmoker BMI 50.0-59.9, adult, Body mass index [BMI] 50.0-59.9, adult Your Care Team Attending Physician - Rachid Sellers MD Primary Care Physician - Rachid Sellers MD This Is Your Medications List ascorbic acid (Vitamin C) cholecalciferol (Vitamin D3) magnesium sulfate metformin (metformin 500 mg Tab) omeprazole (omeprazole 40 mg Cap-DR) valsartan (valsartan 320 mg Tab) zinc sulfate (Zinc) Procedures Performed EGD - esophagogastroduodenoscopy (05/12/2024), Cholecystectomy (2009), Tonsillectomy. Discharge Vitals Temperature (Tympanic) 36.8 ???C Heart Rate (Peripheral) 80 Respiratory Rate 18 Blood Pressure 138/86 Height 169.7 cm Height 67 in Weight 172 kg Weight 379.195 lb BMI 59.73 What to do next Scheduled Follow-Up Appointments 2024 1:40 PM EDT With: Rachid Sellers MD Where: [place] [id number] Medications What How Much When Instructions Unchanged ascorbic acid (Vitamin C) By Mouth Every day Unchanged cholecalciferol (Vitamin D3) By Mouth Every day Unchanged magnesium sulfate By Mouth Once OTC Unchanged metformin (metformin 500 mg Tab) 1 Tablets By Mouth 2 times a day Unchanged omeprazole (omeprazole 40 mg Cap-DR) 1 Capsules By Mouth 2 times a day Unchanged valsartan (valsartan 320 mg Tab) 1 Tablets By Mouth Every day Unchanged zinc sulfate (Zinc) By Mouth Every day Allergies HYDROmorphone (Eruption, Anaphylaxis, Dyspnea) amoxicillin (Anaphylaxis) Problems Ongoing - Any problem that you are currently receiving treatment for. Benign hypertension (high blood pressure) BMI 50.0-59.9, adult Congestion of nasal sinus GERD without esophagitis Leukocytosis (high white blood cell count) Mixed anxiety and depressive disorder Morbid obesity with BMI of 50.0-59.9, adult Nonsmoker Post-cholecystectomy syndrome Prediabetes Tear of medial meniscus of knee Patient Survey You may receive a survey via text or e-mail asking about your office visit. Please share your experience with us by completing your survey. We appreciate your feedback and thank you for choosing us for your care. [facility] Medicine Office/Clini c Noteon 06-17-2024 Family Medicine Office/Clinic Note Family Medicine Office/Clinic Note Chief Complaint Acute Visit Wheezing and sensation of rattling in the chest. HPI Staff Pt presents today for acute visit. Lt Lung rattling & coughing. Has gotten worse since yesterday. Intermittent since Dx'd w/Covid in 2021. History of Present Illness - The patient is a 38 year old female presenting with wheezing. - Onset two days ago with chest rattling sensation noted. - Wheezing localized to the right side; chest rattling felt elsewhere. - Ineffective relief from prior albuterol inhaler usage. - Increased mucus production noted, possibly from past COVID-19 sequelae. - Non-smoker with mentioned seasonal allergies and possible mucus exacerbation. Review of Systems PHQ Score Initial Depression Screen Score: 2 SCORE Physical Exam Vitals & Measurements T: 36.8 ???C(Tympanic) HR: 80(Peripheral) RR: 18 BP: 138/86 SpO2: 96% HT: 67 in HT: 169.7 cm WT: 379.195 lb WT: 172 kg BMI: 59.73 General: alert, no acute distress ENMT: oral mucosa moist Cardiovascular: Regular rate and rhythm, normal peripheral perfusion Respiratory: Lungs with wheeze on the right side, respirations non labored Extremities: no deformity, no trauma Neurological: oriented x 4, level of consciousness appropriate for age, CN II-XII intact, motor strength equal & normal bilaterally, speech normal Abdomen: Soft, Non-tender, Non-distended, + Bowel sounds Assessment/Plan 1. Morbid obesity with BMI of 50.0-59.9, adult (E66.01: Morbid (severe) obesity due to excess calories) - Addressed health status impact on respiratory function. - Advised weight management. 2. Nonsmoker (Z78.9: Other specified health status) Please continue to not smoke. 3. BMI 50.0-59.9, adult, (Z68.43: Body mass index [BMI] 50.0-59.9, adult)Body mass index [BMI] 50.0-59.9, adult BMI education added. 4. Wheezing (R06.2) - Recommended Mucinex and hydration for mucus. - Continue albuterol inhaler, noting inefficacy. - Suggested Zyrtec for allergies. - Previous COVID-19 lung damage considered. - 38 year old female with history of morbid obesity presenting with wheezing. - Symptoms due to mucus production. - Prior COVID-19 may contribute to pulmonary status. - Albuterol inhaler ineffective. During this visit, we focused on addressing the patient's respiratory symptoms, specifically wheezing accompanied by a rattling sensation in the chest. I discussed the possible mucus buildup contributing to this sensation and recommended [id number] Mucinex to help clear the mucus. I also emphasized the importance of staying hydrated to aid mucus breakdown. I suggested the continued use of the albuterol inhaler despite previous ineffectiveness and proposed the seasonal use of allergy medication Zyrtec to manage symptoms potentially exacerbated by allergies. Considering her morbid obesity, I reiterated the need for weight management to improve her respiratory symptoms and overall health. We reviewed her previous COVID-19 infection and its possible lasting impact on her lung function. I advised the patient to monitor her symptoms and let me know if her respiratory status does not improve with these interventions. Follow-up No qualifying data available Patient Education BMI for Adults Problem List/Past Medical History Ongoing Benign hypertension (high blood pressure) BMI 50.0-59.9, adult Congestion of nasal sinus GERD without esophagitis Leukocytosis (high white blood cell count) Mixed anxiety and depressive disorder Morbid obesity with BMI of 50.0-59.9, adult Nonsmoker Post-cholecystectomy syndrome Prediabetes Tear of medial meniscus of knee Historical No qualifying data Procedure/Surgical History EGD - esophagogastroduodenoscopy (05/12/2024), Cholecystectomy (2009), Tonsillectomy. Medications magnesium sulfate, Oral, Once metformin 500 mg Tab, 500 mg= 1 tab(s), Oral, BID omeprazole 40 mg Cap-DR, 40 mg= 1 cap(s), Oral, BID valsartan 320 mg Tab, 320 mg= 1 tab(s), Oral, Daily Vitamin C, Oral, Daily Vitamin D3, Oral, Daily Zinc, Oral, Daily Allergies HYDROmorphone (Eruption, Anaphylaxis, Dyspnea) amoxicillin (Anaphylaxis) Social History Alcohol Never., 03/08/2024 Substance Abuse Never., 03/08/2024 Tobacco Never (less than 100 in lifetime) Tobacco Use:. Never Smokeless Tobacco Use:. Household tobacco concerns: No. Yes, 06/17/2024 Family History Heart disease: Mother. Immunizations Vaccine Date Status influenza virus vaccine, inactivated 11/24/2020 Recorded Normal [facility] Comment on above: Result Comment: Elec tronically Signed By: Rachid Sellers MD\.br\Date and Time Signed: 06/17/24 13:57 EDT Ambulatory Visit Summaryon 0 06-10-2024 Ambulatory Visit Summary Ambulatory Visit Summary MJ MELGAR :1985 Visit Date:06/10/2024 Ambulatory Visit Instructions Your Diagnosis GERD without esophagitis Benign hypertension (high blood pressure) Leukocytosis (high white blood cell count) Mixed anxiety and depressive disorder Post-cholecystectomy syndrome Prediabetes BMI 60.0-69.9, adult Morbid obesity Nonsmoker Your Care Team Attending Physician - Rachid Sellers MD Primary Care Physician - Rachid Sellers MD This Is Your Medications List ascorbic acid (Vitamin C) cholecalciferol (Vitamin D3) cholestyramine (Questran 4 g/9 g oral powder) magnesium sulfate metformin (metformin 500 mg Tab) omeprazole (omeprazole 40 mg Cap-DR) valsartan (valsartan 320 mg Tab) zinc sulfate (Zinc) Procedures Performed EGD - esophagogastroduodenoscopy (05/12/2024), Cholecystectomy (2009), Tonsillectomy. Discharge Vitals Temperature (Tympanic) 36.9 ???C Heart Rate (Peripheral) 84 Respiratory Rate 20 Blood Pressure 140/84 Height 67 in Height 169.7 cm Weight 381.399 lb Weight 173 kg BMI 60.07 What to do next Scheduled Follow-Up Appointments 2024 1:40 PM EDT With: Rachid Sellers MD Where: [place] [id number] Medications What How Much When Why Instructions Unchanged ascorbic acid (Vitamin C) By Mouth Every day Unchanged cholecalciferol (Vitamin D3) By Mouth Every day Unchanged cholestyramine (Questran 4 g/ 9 g oral powder) 9 Gram By Mouth 2 times a day GERD without esophagitis Unchanged magnesium sulfate By Mouth Once OTC Unchanged metformin (metformin 500 mg Tab) 1 Tablets By Mouth 2 times a day Unchanged omeprazole (omeprazole 40 mg Cap-DR) 1 Capsules By Mouth 2 times a day Unchanged valsartan (valsartan 320 mg Tab) 1 Tablets By Mouth Every day Unchanged zinc sulfate (Zinc) By Mouth Every day Allergies HYDROmorphone (Eruption, Anaphylaxis, Dyspnea) amoxicillin (Anaphylaxis) Problems Ongoing - Any problem that you are currently receiving treatment for. Benign hypertension (high blood pressure) BMI 60.0-69.9, adult Congestion of nasal sinus GERD without esophagitis Leukocytosis (high white blood cell count) Mixed anxiety and depressive disorder Morbid obesity Nonsmoker Post-cholecystectomy syndrome Prediabetes Tear of medial meniscus of knee Patient Survey You may receive a survey via text or e-mail asking about your office visit. Please share your experience with us by completing your survey. We appreciate your feedback and thank you for choosing us for your care. Normal [facility] Family Medicine Office/Clini c Noteon 06-10-2024 Family Medicine Office/Clinic Note Family Medicine Office/Clinic Note Chief Complaint 2m follow up The patient reports increased stress and several recent exacerbations of anxiety and depression. HPI Staff 2m follow up Omeprazole increased to 40mg BID. Did not see benefit from 40mg QD, so went back to just 1 pill daily. [facility]erred to [facility] [place] [facility] for bariatric surgery @ [facility]. [facility] unable to reach pt, they cancelled the referral. Pt states she has been extremely busy and did not go to appt. [facility] consult completed 05/05/24. Cholestyramine therapy initiated (pt did not take medication) S/P EGD 05/12/24. DX: Chronic Inactive Gastritis. No refills needed at this time. History of Present Illness - The patient is a 38-year-old female presenting with mental health exacerbations. - Notable stress increases following several close family/friend deaths. - Reports elevated blood pressure correlating with stress. - Notes chronic obesity with discussions of management yet no new interventions. - Persistent diarrhea is managed with increased fiber intake post-cholecystectomy. - GERD management was not a focus during this visit. Review of Systems PHQ Score Initial Depression Screen Score: 2 SCORE Physical Exam Vitals & Measurements T: 36.9 ???C(Tympanic) HR: 84(Peripheral) RR: 20 BP: 140/84 SpO2: 98% HT: 169.7 cm HT: 67 in WT: 173 kg WT: 381.399 lb BMI: 60.07 General: alert, no acute distress ENMT: oral mucosa moist Cardiovascular: Regular rate and rhythm, normal peripheral perfusion Respiratory: Lungs clear to auscultation, respirations non labored Extremities: no deformity, no trauma Neurological: oriented x 4, level of consciousness appropriate for age, CN II-XII intact, motor strength equal & normal bilaterally, speech normal Abdomen: Soft, Non-tender, Non-distended, + Bowel sounds, chronic gastritis noted, diarrhea present Assessment/Plan 1. GERD without esophagitis (K21.9: Gastro-esophageal reflux disease without esophagitis) Not well-controlled at this time with a PPI. Patient states no improvement with twice daily dosing. At this time gastric bypass is a feasible option for this. 2. Benign hypertension (high blood pressure) (I10: Essential (primary) hypertension) Blood pressure is elevated at this time. Will continue to monitor. Recheck at next visit. Patient states is secondary to stress. 3. Leukocytosis (high white blood cell count) (D72.829: Elevated white blood cell count, unspecified) Normal for the patient. Patient has had a workup with oncology. 4. Mixed anxiety and depressive disorder (F41.8: Other specified anxiety disorders) - Discussed increased symptoms due to stress and recent losses. 5. 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 6. Prediabetes (R73.03: Prediabetes) - A1c was WNL 7. BMI 60.0-69.9, adult (Z68.44: Body mass index [BMI] 60.0-69.9, adult) BMI education added 8. Morbid obesity (E66.01: Morbid (severe) obesity due to excess calories) - Consideration for potential future bariatric intervention. 9. Nonsmoker (Z78.9: Other specified health status) Please continue to not smoke. Orders: omeprazole, 40 mg = 1 cap(s), Oral, BID, # 180 cap(s), Refills(s) 0, Pharmacy: [facility]/pharmacy #[id number], 169.7, cm, 06/10/24 13:02:00 EDT, Height/Length Dosing, 173, kg, 06/10/24 13:02:00 EDT, Weight Dosing - 38-year-old female with a history of mixed anxiety and depressive disorder presenting with exacerbated mental health symptoms. - Continued morbid obesity management discussions. - Post-cholecystectomy syndrome managed with dietary changes. During this consultation, we discussed the patient's exacerbated symptoms of mixed anxiety and depressive disorder, attributed to recent significant stressors including multiple family and friend losses. We reviewed her elevated blood pressure likely associated with increased stress. For her morbid obesity, discussions included the possibility of bariatric surgery, though no immediate action was taken. We acknowledged her ongoing management of post-cholecystectomy syndrome with dietary adjustments, mainly increased fiber to address persistent diarrhea. Although her GERD was acknowledged, no changes in management were discussed this visit. We decided to monitor these conditions and revisit her progress in the next few months. Follow-up No qualifying data available Problem List/Past Medical History Ongoing Benign hypertension (high blood pressure) BMI 60.0-69.9, adult Congestion of nasal sinus GERD without esophagitis Leukocytosis (high white blood cell count) Mixed anxiety and depressive disorder Morbid obesity Nonsmoker Post-cholecystectomy syndrome Prediabetes Tear of medial meniscus of knee Historical No qualifying data Procedure/Surgical History EGD - esophagogastroduodenoscopy (05/12/2024), Cholecystectomy (2009), Tonsillectomy. Medications magnesium sulfate, Oral, Once met (more content not included)... Normal [facility] Comment on above: Result Comment: Elec tronically Signed By: Marlo DEAN, Rachid Camarena\.br\Date and Time Signed: 06/10/24 13:23 EDT Result Letter Officeon 06-07 Result Letter Office Result Letter Office June 07, 2024 MJ MELGAR [address] [place] [address] : 1985 Below is a summary of the results of your recent EGD CHRONIC INACTIVE GASTRITIS Please contact the office with any further questions or concerns or if you wish to reschedule your 06/07/24 appointment.? [facility] [phone] Normal [facility] Surgical Pathology Reporton 05-18-2024 Surgical Pathology Report [facility] [place] [address]- Surgical Pathology Report Collected Date/Time: 05/12/2024 10:08 EDT Pathologist: Lyudmila Orellana MD Received Date/Time: 05/12/2024 10:51 EDT Bernadine DEAN, Ruthie Colindres MD, Ruthie Parker Surgical Pathology Report - 05/18/2024 15:33 EDT - Auth (Verified) Final Diagnosis A: STOMACH, BIOPSY: - OXYNTIC AND ANTRAL-TYPE MUCOSA WITH CHRONIC INACTIVE GASTRITIS - NO H. PYLORI MICROORGANISMS IDENTIFIED WITH IMMUNOSTAIN. B: DUODENUM, BIOPSY: - DUODENAL MUCOSA WITH NO PATHOLOGIC CHANGES (Electronic Signature) Myrlande. Esteban MD 05/18/2024 15:33 Clinical Information GERD without esophagitis Pre-Op Diagnosis: GERD without esophagitis Procedure: EGD Post-Op Diagnosis: 1. Hiatal hernia 2. Reflux esophagitis 3. Gastropathy 4. Lymph ectasia of the duodenum Specimen(s) Received A.Gastric biopsy B.Duodenal biopsy Gross Description A: Received in formalin labeled with patient name, number, and gastric biopsy are multiple fragments of rouse/pink tissue ranging from less than 0.1 cm up to 0.3 cm in greatest dimension. Specimen is entirely submitted in one cassette. B: Received in formalin labeled with patient name, number, and duodenal biopsy are multiple fragments of rouse/pink tissue ranging from less than 0.1 cm up to 0.1 cm. The specimen is entirely submitted in one cassette. (DC) DC:MCA Microscopic Description Microscopic examination performed unless gross only specified. This report was transcribed using voice recognition technology and might contain unintended computerized marriage and family counselor errors. The use of one or more reagents in the above tests is regulated as an analyte specific reagent (ASR). The test or tests are ordered following initial H&E microscopic examination. The performance characteristics were determined by the Laboratory of [facility] Surgical Pathology. They have not been cleared or approved by the US Food and Drug Administration. The FDA has determined that such clearance or approval is not necessary. These tests are used for clinical purposes. They should not be regarded as investigational or for research. Appropriate positive and negative controls are performed and are acceptable. This report was transcribed using voice recognition technology and might contain unintended computerized marriage and family counselor errors. Normal [facility] Comment on above: Performed By: #### [id number] #### [facility] Laboratory [address] [place] [address] Main OR Intraoperative Recor don 05-13-2024 Main OR Intraoperative Record Main OR Intraoperative Record IntraOp Document Type FT Summary Primary Physician: Ruthie Colindres MD Finalized Date/Time: 05/13/24 12:22:46 Pt. Name: MJ MELGAR Jd MoreiraB./Sex: 1985 Female Med Rec #: [id number] Physician: Ruthie Colindres MD Financial #: [id number] Pt. 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 Milian supervising case Last Modified By: Minor GIFFORD, Ramya Gaxiola RN, Ramya Gaxiola RN, Ramya Peña 05/12/24 10:18:00 F 05/12/24 10:18:00 F 05/12/24 10:18:00 Entry 4 Case Attendee Bernadine DEAN, Ruthie Ribeiro Role Performed Surgeon - Primary Time In 05/12/24 10:01:00 Time Out 05/12/24 10:17:00 Procedure EGD(.) Comments Last Modified By: Ramya Gaxiola RN 05/12/24 10:18:00 Perioperative Protocols FT Pre-Care Text: Implements protective measures prior to operative or invasive procedure, confirms identity before the operative or invasive procedure, verifies operative procedure, surgical site, and laterality Entry 1 Procedure(s) EGD(.) Patient Identity Birthday, ID Band Verified (select at Check, Patient least 2): Participation Consents / H and P Anesthesia Consent, Operative Site N/A Verified H&P, Surgery/Procedure Marking Verified Consent Surgical Site No Laterality Verified n/a Verified Procedure Verified Yes Correct Patient Yes Position Verified Availability Equipment, Medication Prep Dry n/a Verified (If Applicable) PreOp Antibiotic No Time Out Chino Viramontes CRNA, Given Participants Ramya Gaxiola RN, Sparks, Micala E, Bernadine DEAN, Ruthie Ribeiro Time Out Complete 05/12/24 10:06:00 Outcomes Met? Yes Last Modified By: Ramya Gaxiola RN 05/12/24 10:06:51 Post-Care Text: The patient is free from signs and symptoms of injury caused by extraneous objects Allergy Information FT Pre-Care Text: Verifies allergies Entry 1 Allergies Reviewed? Yes Allergies Reviewed Self/Patient With Outcomes Met? Yes Last Modified By: Ramya Gaxiola RN 05/12/24 10:06:57 Post-Care Text: The patient received appropriate medication(s) safely administered during the perioperative period Surgical Procedures FT Entry 1 Procedure Description Procedure EGD Modifiers . Surgeon Description EGD with gastric biopsy, duodenal biopsy. Primary Procedure Yes Primary Surgeon Bernadine DEAN, Ruthie Ribeiro Start 05/12/24 10:10:00 Stop 05/12/24 10:15:00 Anesthesia Type General Surgical Service Gastroenterology Wound Class 2 - Clean-Contaminated Last Modified By: Ramya Gaxiola RN 05/12/24 10:19:07 General Case Data FT Pre-Care Text: Classifies surgical wound, implements aseptic technique, initiates traffic control Entry 1 Case Information OR ENDO 1 FT Case Level Level 2 Wound Class 2 - Clean-Contaminated Specialty Gastroenterology ASA Class 4 Preop Diagnosis GERD without esophagitis Postop Same As Preop No Postop Diagnosis Hiatal hernia, Outcomes Met? Yes gastropathy, reflux esophagitis, lymphangiectasia Last Modified By: Ramya Gaxiola RN 05/12/24 10:13:52 Post-Care Text: The patient is free from signs and symptoms of infection Skin Assessment (Pre Procedure) FT Pre-Care Text: Implements protective measures to prevent skin/ tissue injury due to thermal or mechanical sources Evaluates for signs and symptoms of physical injury to skin and tissue Entry 1 Skin Integrity Intact, [place], Warm, & Skin Abnormality No Dry Outcomes Met? Yes Last Modified By: Ramya Gaxiola RN 05/12/24 10:07:20 Post-Care Text: The patient is free from signs and symptoms of injury caused by extraneous objects Patient Positioning FT Pre-Care Text: Identifies physical alterations that require additional precautions for procedure-specific positioning, verifies presence of prosthetics or corrective devices, positions the patient, evaluates the patient for signs and symptoms of injury as a result of positioning Entry 1 Procedure EGD(.) Body Position Lateral, right side up Feet Uncrossed? Yes Left Arm Position Resting at Side Right Arm Position Resting at Side Left Leg Position Extended Right Leg Position Extended Positioning Device Safety Strap, Pillow Under Head Large Pre (more content not included)... Normal [facility] Discharge Instructionson Discharge Instructions Discharge Instructions MJ MELGAR :1985 Visit Date:05/12/2024 Inpatient Discharge Instructions Your Care Team Admitting Physician - Ruthie Colindres MD Referring Physician - Ruthie Colindres MD Reason for Your Visit GERD WITHOUT ESOPHAGITIS Your Diagnosis Esophagitis, reflux Gastropathy Hernia, hiatal Tests Performed Pathology Tissue Exam -- Results Pending -- Please visit your patient portal for your results or contact your primary care physician. This Is Your Medications List ascorbic acid (Vitamin C) cholecalciferol (Vitamin D3) cholestyramine (Questran 4 g/9 g oral powder) magnesium sulfate metformin (metformin 500 mg Tab) omeprazole (omeprazole 40 mg Cap-DR) valsartan (valsartan 320 mg Tab) zinc sulfate (Zinc) Procedure History Cholecystectomy (2009), Tonsillectomy. Discharge Vitals Temperature (Temporal Artery) 36 ???C Heart Rate (Monitored) 89 Respiratory Rate 20 Blood Pressure 172/85 Height 169.7 cm Weight 175.1 kg What to do next Previously Scheduled Follow-Up Appointments Friday 12:30 PM EDT With: Bernadine DEAN, Ruthie Ribeiro Where: [facility] [address] [phone] 1:00 PM EDT With: Rachid Sellers MD Where: [address] [address]- New Follow Up Appointments after Discharge Follow Up with Bernadine DEAN, Ruthie Ribeiro, [facility], [facility] When: Comments: Keep scheduled appointment Call for any problems Where: [address] [place] [phone] Medications What How Much When Why Instructions Next Dose Unchanged ascorbic acid (Vitamin C) By Mouth Every day Unchanged cholecalciferol (Vitamin D3) By Mouth Every day Unchanged cholestyramine (Questran 4 g/ 9 g oral powder) 9 Gram By Mouth 2 times a day GERD without esophagitis Unchanged magnesium sulfate By Mouth Once OTC Unchanged metformin (metformin 500 mg Tab) 1 Tablets By Mouth 2 times a day Unchanged omeprazole (omeprazole 40 mg Cap-DR) 1 Capsules By Mouth 2 times a day Unchanged valsartan (valsartan 320 mg Tab) 1 Tablets By Mouth Every day Unchanged zinc sulfate (Zinc) By Mouth Every day Allergies HYDROmorphone (Eruption, Anaphylaxis, Dyspnea) amoxicillin (Anaphylaxis) Problems Ongoing - Any problem that you are currently receiving treatment for. Benign hypertension (high blood pressure) BMI 60.0-69.9, adult Congestion of nasal sinus GERD without esophagitis Leukocytosis (high white blood cell count) Mixed anxiety and depressive disorder Morbid obesity Morbid obesity Nonsmoker Post-cholecystectomy syndrome Prediabetes Tear of medial meniscus of knee Education Materials Gastroesophageal Reflux Disease, Adult Gastroesophageal reflux (EMELI) happens when acid from the stomach flows up into the tube that connects the mouth and the stomach (esophagus). Normally, food travels down the esophagus and stays in the stomach to be digested. With EMELI, food and stomach acid sometimes move back up into the esophagus. You may have a disease called gastroesophageal reflux disease (GERD) if the reflux: ??? Happens often. ??? Causes frequent or very bad symptoms. ??? Causes problems such as damage to the esophagus. When this happens, the esophagus becomes sore and swollen. Over time, GERD can make small holes (ulcers) in the lining of the esophagus. What are the causes? This condition is caused by a problem with the muscle between the esophagus and the stomach. When this muscle is weak or not normal, it does not close properly to keep food and acid from coming back up from the stomach. The muscle can be weak because of: ??? Tobacco use. ??? . ??? Having a certain type of hernia (hiatal hernia). ??? Alcohol use. ??? Certain foods and drinks, such as coffee, chocolate, onions, and peppermint. What increases the risk? Being overweight. ??? Having a disease that affects your connective tissue. ??? Taking NSAIDs, such a ibuprofen. What are the signs or symptoms? Heartburn. ??? Difficult or painful swallowing. ??? The feeling of having a lump in the throat. ??? A bitter taste in the mouth. ??? Bad breath. ??? Having a lot of saliva. ??? Having an upset or bloated stomach. ??? Burping. ??? Chest pain. Different conditions can cause chest pain. Make sure you see your doctor if you have chest pain. ??? Shortness of breath or wheezing. ??? A long-term cough or a cough at night. ??? Wearing away of the surface of teeth (tooth enamel). ??? Weight loss. How is this treated? Making changes to your diet. ??? Taking medicine. ??? Having surgery. Treatment will depend on how bad (more content not included)... Normal [facility] Comment on above: Result Comment: Elec tronically Signed By: Khang GIFFORD, Kylie\.br\Date and Time Signed: 05/12/24 10:25 EDT H&P Updateon 05-12-2024 H&P Update H&P Update Patient: MJ MELGAR Age: 38 years Sex: Female : 1985 Associated Diagnoses: None Author: Ruthie Colindres MD Preoperative Information Chief compliant/Indication for procedure: GERD, loose stool Chief Complaint as above Review of Systems All systems reviewed, negative except as mentioned above Physical Examination Vital Signs (last 24 hrs) Last Charted Temp Temporal L 36 DegC (MAY 12 08:43) Heart Rate Monitored 89 bpm (MAY 12:43) SBP H 172 mmHg (MAY 12:43) DBP 85 mmHg (MAY 12:43) Weight 175.1 kg (MAY 12 08:43) General: in Nad Abdomen: Soft, NTND Impression and Plan Diagnosis: GERD, loose stool -EGD Normal [facility] Main OR PACU II Rec[place] Main OR PACU II Record Main OR PACU II Record PACU Phase II Document Type FT Summary Primary Physician: Ruthie Colindres MD Finalized Date/Time: 05/12/24 10:56:48 Pt. Name: MJ MELGAR /Sex: 1985 Female Med Rec #: [id number] Physician: Ruthie Colindres MD Financial #: [id number] Pt. Type: O Room/Bed: / Admit/Disch: 05/12/24 08:32:57 - Institution: Case Times PACU II FT Pre-Care Text: Identifies barriers to communication and implements measures to provide psychological support and determines knowledge level Develops individualized plan of care, and ensures continuity of care Maintains patient's dignity and privacy, and maintains patient confidentiality Identifies and reports philosophical, cultural, and spiritual beliefs and values Identifies individual values and wishes concerning care administers prescribed antibiotic therapy and immunizing agents as ordered, Evaluates postoperative tissue perfusion Implements thermoregulation measures, and monitors body temperature Evaluates postoperative respiratory status Evaluates postoperative cardiac status Evaluates postoperative neurological status Assesses pain control, collaborated in initiating patient-controlled analgesia and implements alternative methods of pain control Verifies allergies, administers prescribed medications and solutions, evaluates response to medications Entry 1 In PACU II 05/12/24 10:18:00 Discharge from PACU 05/12/24 10:40:00 II Outcomes Met? Yes Last Modified By: Kylie Quiñonez RN 05/12/24 10:56:36 Post-Care Text: The patient demonstrates knowledge of the expected response to the operative or invasive procedure The patient's care is consistent with the individualized perioperative plan of care The patient's right to privacy is maintained The patient's value system, lifestyle, ethnicity, and culture are considered, respected, and incorporated into the perioperative plan of care The patient participates in decisions affecting his or her perioperative plan of care. The patient is free from signs and symptoms of infection The patient has wound/tissue perfusion consistent with or improved from baseline levels established preoperatively The patient is at or returning to normothermia at the conclusion of the immediate postoperative period The patient's respiratory function is consistent with or improved from baseline levels established preoperatively The patient's cardiovascular status is consistent with or improved from baseline levels established preoperatively The patient's neurological status is consistent with or improved from baseline levels established preoperatively The patient demonstrates and/or reports adequate pain control throughout the perioperative period The patient received appropriate medication(s), safely administered during the perioperative period Finalized By: Kylie Quiñonez RN Document Signatures Signed By: Kylie Quiñonez RN 05/12/24 10:56 Normal [facility] Main OR Preoperative Recordo n 05-12-2024 Main OR Preoperative Record Main OR Preoperative Record Holding Area Document Type FT Summary Primary Physician: uRthie Colindres MD Finalized Date/Time: 05/12/24 08:54:54 Pt. Name: MJ MELGAR/Sex: 1985 Female Med Rec #: [id number] Physician: Ruthie Colindres MD Financial #: [id number] Pt. Type: O Room/Bed: / Admit/Disch: 05/12/24 08:32:57 - Institution: Case Times Holding FT Pre-Care Text: Verifies consent for planned procedure, identifies individual values and wishes concerning care, includes family members in perioperative teaching Secures patient's records' belongings, and valuables, maintains patient's dignity and privacy, and maintains patient confidentiality Entry 1 In Holding 05/12/24 08:40:00 Outcomes Met? Yes Last Modified By: Nhung Briscoe RN 05/12/24 08:53:59 Post-Care Text: The patient participates in decisions affecting his or her perioperative plan of care The patient's right to privacy is maintained Surgery Checklist FT Entry 1 Patient Birthday, ID Band Procedure History and Physical, Identification: Check, Patient Verification: Surgical Consent, With Participation Patient NPO after Midnight: Yes Results Reviewed n/a Comments: Personal Items: Glasses, Jewelry Personal Items Glassess, rings x2 Comment: Limitations: Vision Complaints of Pain: No Pain Comment: Denies Operative Site n/a Marking: Availability Equipment Verified: Does Patient Smoke No Patient states Yes Comment - Adult Jade postop adult Supervision supervision available Case Cancelled in No Holding Area see comments below for reason Last Modified By: Nhung Briscoe RN 05/12/24 08:54:46 Finalized By: Nhung Briscoe RN Document Signatures Signed By: Nhung Briscoe RN 05/12/24 08:54 Normal [facility] Operative Reporton Operative Report Operative Report Patient: MJ MELGAR Age: 38 years Sex: Female : 1985 Associated Diagnoses: None Author: Ruthie Colindres MD Pre-Procedure Procedure Date 05/12/2024 10:16:00 . Procedure Type: Esophagogastroduodenoscopy with biopsy. Procedure provider Performed by Ruthie Colindres MD. Current history and physical Documented on chart. Informed Consent After discussing the rationale, risks and benefits, and alternatives to this procedure, the patient provided signed consent for the procedure. Pre-procedure diagnosis: GERD and loose stool. Medications (Selected) Inpatient Medications Ordered Sodium Chloride 0.9% IV Melissa 1000 mL 1,000 mL: 1,000 mL, IV, 20 mL/hr, Routine, Start date 05/12/24 8:24:00 EDT, 50 hour(s), Total volume (mL): 1,000, 175.1 kg, 2.87, m2 Prescriptions Prescribed Questran 4 g/9 g oral powder: = 9 gram, Oral, BID, # 60 packet(s), Refills(s) 0, [id number], 169.7, cm, 05/05/24 14:21:00 EDT, Height/Length Dosing, 175.1, kg, 05/05/24 14:21:00 EDT, Weight Dosing omeprazole 40 mg Cap-DR: 40 mg = 1 cap(s), Oral, BID, # 180 cap(s), Refills(s) 0, [id number], 169.7, cm, 04/08/24 13:03:00 EST, Height/Length Dosing, 176, kg, 04/08/24 13:03:00 EST, Weight Dosing Documented Medications Documented Vitamin C: Oral, Daily, Refills(s) 0, Prophylaxis Vitamin D3: Oral, Daily, Refills(s) 0, Prophylaxis Zinc: Oral, Daily, Refills(s) 0, Prophylaxis magnesium sulfate: gm, Oral, Once, OTC, Refills(s) 0, Prophylaxis metformin 500 mg Tab: 500 mg = 1 tab(s), Oral, BID, Refills(s) 0, Blood glucose valsartan 320 mg Tab: 320 mg = 1 tab(s), Oral, Daily, Refills(s) 0, High blood pressure Anticoagulant/antiplatelet None. ASA Classification: Class III. . Monitoring: See anesthesia record. . Procedure The procedure was performed in the hospital. See anesthesia record for sedation given during procedure. The patient was positioned starting in the left lateral decubitus position and with safety measures. Endoscope type used was an adult-size, introduced orally, advanced to the 2nd portion of the duodenum. No difficulty was encountered during the procedure. Views were excellent. The patient tolerated the procedure well. Findings 1. Z-line at 40 cm. Mild reflux esophagitis Hiatal hernia measuring 3 cm 2. Erythema in the antrum, moderate patchy. Otherwise normal stomach. Biopsies of the stomach were taken to rule out H. pylori. 3. 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 Estimated blood loss: minimal. Specimens: sent to pathology. Devices/ implants: none left in place. Impression and Plan hiatal hernia Reflux esophagitis Gastropathy Lymph ectasia of the duodenum Recommendations: -Resume previous diet -Resume home medications -Await pathology results, follow in GI clinic in 1-2 after discharge Normal [facility] Comment on above: Result Comment: Elec tronically Signed By: Bernadine DEAN, Ruthie Ribeiro\.br\Date and Time Signed: 05/12/24 10:19 EDT Ambulatory Visit Summaryon 0 05-05-2024 Ambulatory Visit Summary Ambulatory Visit Summary MJ MELGAR :1985 Visit Date:05/05/2024 Ambulatory Visit Instructions Your Diagnosis GERD without esophagitis Post-cholecystectomy syndrome Morbid obesity Your Care Team Attending Physician - Ruthie Colindres MD Primary Care Physician - Rachid Sellers MD This Is Your Medications List ascorbic acid (Vitamin C) cholecalciferol (Vitamin D3) cholestyramine (Questran 4 g/9 g oral powder) magnesium sulfate metformin (metformin 500 mg Tab) omeprazole (omeprazole 40 mg Cap-DR) valsartan (valsartan 320 mg Tab) zinc sulfate (Zinc) Procedures Performed Cholecystectomy (2009), Tonsillectomy. Discharge Vitals Heart Rate (Peripheral) 74 Blood Pressure 137/85 Height 67 in Height 169.7 cm Weight 386.029 lb Weight 175.1 kg BMI 60.8 What to do next Scheduled Follow-Up Appointments Friday 12:30 PM EDT With: Ruthie Colindres MD Where: [facility] [address] [place] [phone] 1:00 PM EDT With: Rachid Sellers MD Where: [facility] [address] [address]- Medications What How Much When Why Instructions New cholestyramine (Questran 4 g/ 9 g oral powder) 9 Gram By Mouth 2 times a day GERD without esophagitis Pickup at [facility]/pharmacy #[id number] Unchanged ascorbic acid (Vitamin C) Every day Unchanged cholecalciferol (Vitamin D3) Unchanged magnesium sulfate By Mouth Once OTC Unchanged metformin (metformin 500 mg Tab) 1 Tablets By Mouth 2 times a day Unchanged omeprazole (omeprazole 40 mg Cap-DR) 1 Capsules By Mouth 2 times a day Unchanged valsartan (valsartan 320 mg Tab) 1 Tablets By Mouth Every day Unchanged zinc sulfate (Zinc) Pharmacy Information [facility]/pharmacy #[id number]: [address] [place], [place] [id number] [phone] Allergies HYDROmorphone (Eruption, Anaphylaxis, Dyspnea) amoxicillin (Anaphylaxis) Problems Ongoing - Any problem that you are currently receiving treatment for. Benign hypertension (high blood pressure) BMI 60.0-69.9, adult Congestion of nasal sinus GERD without esophagitis Leukocytosis (high white blood cell count) Mixed anxiety and depressive disorder Morbid obesity Morbid obesity Nonsmoker Post-cholecystectomy syndrome Prediabetes Tear of medial meniscus of knee Patient Survey You may receive a survey via text or e-mail asking about your office visit. Please share your experience with us by completing your survey. We appreciate your feedback and thank you for choosing us for your care. Normal [facility] Gastroenterology Office/Clin ic Noteon 05-05-2024 Gastroenterology Office/Clinic Note Gastroenterology Office/Clinic Note Chief Complaint Acid Reflux HPI Staff New- Patient is a(n) 38 year old female who was referred by Dr Sellers for GERD. GERD: Onset of symptoms: 2014 after gallbladder removed. Improving/worsening factors: Treatment's tried: -Pepto- yes -Omeprazole (Prilosec) - yes recently increased to 40 mg twice daily -Pantoprazole (Protonix) - no -Esomeprazole (Nexium) - no -Lansoprazole (Prevacid) - no -Dexlansoprazole (Dexilant) - no -Rabeprazole (Aciphex) - no -Famotidine (Pepcid) - no -Vonoprazon (Voquezna) - no Previous EGD?? No Denies FHx of GI cancer. Denies blood thinners. Denies GLP-1 agonists. Labs 02/12/24 White Blood Count: 16.7 High Red Blood Count: 5.16 Hemoglobin: 12.6 Hematocrit: 40.0 Mean Corpuscular Volume: 77.5 Low Mean Corpuscular Hemoglobin: 24.4 Low Mean Corpuscular HGB Conc: 31.5 Red Cell Distribution Width: 16.4 High Platelet Count: 415 Mean Platelet Volume: 10.4 Segmented Neutrophils % Manual: 67.0 Band Neutrophils %: 3.0 Lymphocytes Percent Manual: 21.0 Monocytes Percent Manual: 5.0 Eosinophils Percent Manual: 4.0 Basophils Percent Manual: 0.0 Low Segmented Neut Absolute Manual: 11.18 High Band Neutrophils Absolute: 0.5 High Lymphocytes Absolute Manual: 3.50 Monocytes Absolute Manual: 0.83 High Eosinophils Absolute Manual: 0.66 Basophils Abs Manual: 0 Sodium: 141 Potassium: 4.5 Chloride: 109 High Carbon Dioxide: 26.4 Anion Gap: 10.1 Glucose: 104 Blood Urea Nitrogen: 19.0 High Creatinine: 0.86 Estimated GFR ( Dhara: >60 Estimated GFR (Non- Bee: >60 BUN Creatinine Ratio: 22.1 Calcium: 8.6 Bilirubin Total: 0.3 Aspartate Amino Transferase: 16 Alanine Aminotransferase: 19 Alkaline Phosphatase: 57 Total Protein: 6.9 Albumin Level: 2.7 Low Globulin: 4.2 Albumin Globulin Ratio: 0.6 Review of Systems PHQ Score Initial Depression Screen Score: 2 SCORE All systems reviewed, negative except as mentioned above Physical Exam Vitals & Measurements HR: 74(Peripheral) BP: 137/85 HT: 67 in HT: 169.7 cm WT: 175.1 kg WT: 386.029 lb BMI: 60.8 I have reviewed HPI staff note, most recent labs and imaging, I agree with the above documentation with the following additions/exceptions : PT with reflux since 2014 since kimberlee on omeprazole 40mg daily with good control gained tons of weight IBS likely symptoms - anxiety and smell and food could irritate her bowels General: alert, no acute distress HEENT: atraumatic normocephalic Cardiovascular: regular rate and rhythm, normal peripheral perfusion Respiratory: Lungs CTA, respirations non labored Extremities: no deformity, no trauma Abdomen: Benign, soft, nontender nondistended Assessment/Plan 1. GERD without esophagitis (K21.9: Gastro-esophageal reflux disease without esophagitis) Ordered: cholestyramine, = 9 gram, Oral, BID, # 60 packet(s), Refills(s) 0, Pharmacy: [facility][id number], 169.7, cm, 05/05/24 14:21:00 EDT, Height/Length Dosing, 175.1, kg, 05/05/24 14:21:00 EDT, Weight Dosing EGD Endoscopy (Hospital Procedure) 2. Post-cholecystectomy syndrome (K91.5: Postcholecystectomy syndrome) 3. Morbid obesity (E66.01: Morbid (severe) obesity due to excess calories) Schedule upper endoscopy to evaluate post cholecystectomy syndrome, loose stool, and GERD and obtain small bowel biopsies Advised to lose 10% of current weight Continue omeprazole 40 mg daily start Questran 4 g twice daily Follow-up No qualifying data available Problem List/Past Medical History Ongoing Benign hypertension (high blood pressure) BMI 60.0-69.9, adult Congestion of nasal sinus GERD without esophagitis Leukocytosis (high white blood cell count) Mixed anxiety and depressive disorder Morbid obesity Morbid obesity Nonsmoker Post-cholecystectomy syndrome Prediabetes Tear of medial meniscus of knee Historical No qualifying data Procedure/Surgical History Cholecystectomy (2009), Tonsillectomy. Medications magnesium sulfate, Oral, Once metformin 500 mg Tab, 500 mg= 1 tab(s), Oral, BID omeprazole 40 mg Cap-DR, 40 mg= 1 cap(s), Oral, BID Questran 4 g/9 g oral powder, 9 gm, Oral, BID valsartan 320 mg Tab, 320 mg= 1 tab(s), Oral, Daily Vitamin C, Daily Vitamin D3 Zinc Allergies HYDROmorphone (Eruption, Anaphylaxis, Dyspnea) amoxicillin (Anaphylaxis) Social History Alcohol Never., 03/08/2024 Substance Abuse Never., 03/08/2024 Tobacco Never (less than 100 in lifetime) Tobacco Use:. Never Smokeless Tobacco Use:. Household tobacco concerns: No. Yes, 05/05/2024 Family History Heart disease: Mother. Immunizations Vaccine Date Status influenza virus vaccine, inactivated 11/24/2020 Recorded Normal [facility] Comment on above: Result Comment: Elec tronically Signed By: Bernadine DEAN, Ruthie Ribeiro\.br\Date and Time Signed: 05/05/24 14:35 EDT Family Medicine Office/Clini c Noteon 04-08-2024 Family Medicine Office/Clinic Note Family Medicine Office/Clinic Note Chief Complaint 1m follow up The patient presents for evaluation of persistent acid reflux. HPI Staff 1m follow up Here for follow up on GERD. ADIEL pt encouraged to alter omeprazole to AM before meals & consider BID. Melena? no Dysphagia? no Weight loss? no Persistent vomiting? no Have you ever had an EGD? no Still having GERD w/omeprazole. History of Present Illness The patient is a 38-year-old female presenting with persistent gastroesophageal reflux disease symptoms. She reports that the acid reflux has not improved since her last visit and describes it as not improved in the slightest. She has been on omeprazole 40 mg once daily for management of her symptoms. Additionally, the patient is known to have a diagnosis of prediabetes with a previous fasting blood glucose of 104 mg/dL, and she is due for a current assessment of her glycemic status, specifically a [id number] A1c test. Furthermore, she has a documented medical history of benign hypertension, leukocytosis, and mixed anxiety and depressive disorder, which have been managed appropriately in previous clinical encounters. The patient expressed interest in bariatric surgery as a potential long-term solution for her reflux symptoms and manages her prediabetic condition. - Referral to [facility] for bariatric surgery as a potential intervention for GERD - Recommendation for a gastrointestinal evaluation, including a scope to rule out ulcers - [id number] A1c testing for ongoing management of prediabetes Review of Systems PHQ Score Initial Depression Screen Score: 2 SCORE Physical Exam Vitals & Measurements HR: 80(Peripheral) RR: 16 BP: 134/82 SpO2: 98% HT: 67 in HT: 169.7 cm WT: 176 kg WT: 388.013 lb BMI: 61.12 General: alert, no acute distress ENMT: oral mucosa moist Cardiovascular: Regular rate and rhythm, normal peripheral perfusion Respiratory: Lungs clear to auscultation, respirations non labored Extremities: no deformity, no trauma Neurological: oriented x 4, level of consciousness appropriate for age, CN II-XII intact, motor strength equal & normal bilaterally, speech normal Abdomen: Soft, Non-tender, Non-distended, + Bowel sounds Assessment/Plan 1. Leukocytosis (high white blood cell count) (D72.829: Elevated white blood cell count, unspecified) Continuation of current management with regular monitoring as previously discussed and clinically indicated. Ordered: [facility] External Ambulatory Referral [facility] Internal Ambulatory Referral 2. Mixed anxiety and depressive disorder (F41.8: Other specified anxiety disorders) Patient remains on established treatment regimen with prior psychiatric evaluation. Follow-up as clinically necessary. Ordered: [facility] External Ambulatory Referral [facility] Internal Ambulatory Referral 3. Benign hypertension (high blood pressure) (I10: Essential (primary) hypertension) Blood pressure of 134/82 was noted. The patient will continue current management and lifestyle modifications. Ordered: [facility] External Ambulatory Referral [facility] Internal Ambulatory Referral 4. Prediabetes (R73.03: Prediabetes) A [id number] A1c test will be conducted during this visit to assess current glycemic control. Prior blood glucose level was 104 mg/dL. Continuous monitoring and lifestyle modifications are necessary for optimal management. Ordered: A1c POC [id number] [facility] External Ambulatory Referral [facility] Internal Ambulatory Referral 5. BMI 60.0-69.9, adult (Z68.44: Body mass index [BMI] 60.0-69.9, adult) Diet and exercise advised Ordered: [facility] External Ambulatory Referral [facility] Internal Ambulatory Referral 6. Morbid obesity (E66.01: Morbid (severe) obesity due to excess calories) As above 7. Nonsmoker (Z78.9: Other specified health status) Please continue to not smoke. 8. GERD without esophagitis (K21.9: Gastro-esophageal reflux disease without esophagitis) The patient's omeprazole dose will be increased to 40 mg twice daily. Additionally, referral to a gastrointestinal specialist for an endoscopy is necessary to evaluate for potential ulcers, and a referral for bariatric surgery has been initiated. Orders: omeprazole, 40 mg = 1 cap(s), Oral, BID, # 180 cap(s), Refills(s) 0, Pharmacy: [facility]/pharmacy #[id number], 169.7, cm, 04/08/24 13:03:00 EST, Height/Length Dosing, 176, kg, 04/08/24 13:03:00 EST, Weight Dosing A 38-year-old female with a history of benign hypertension, leukocytosis, mixed anxiety and depressive disorder, and prediabetes presents with persistent symptoms of gastroesophageal reflux disease. Her current medical regimen includes omeprazole 40 mg once daily, which has been insufficient for symptom management. The patient is actively being monitored for prediabetes with recommended laboratory assessments, with a significant interest in bariatric surgery as a long-term intervention. Immediate actions include adjusting her GERD treatment plan and maintaining consiste (more content not included)... Normal [facility] Comment on above: Result Comment: Elec tronically Signed By: Marlo DEAN, Rachid Camarena\.br\Date and Time Signed: 04/08/24 13:10 EST Ambulatory Visit Summaryon 0 03-09-2024 Ambulatory Visit Summary Ambulatory Visit Summary MJ MELGAR :1985 Visit Date:03/09/2024 Ambulatory Visit Instructions Your Diagnosis Morbid obesity BMI 60.0-69.9, adult Nonsmoker Gastro-esophageal reflux disease without esophagitis Elevated white blood cell count, unspecified Derangement of other lateral meniscus due to old tear or injury, unspecified knee Other specified anxiety disorders Prediabetes Foreign body sensation, throat Your Care Team Attending Physician - Rachid Sellers MD Primary Care Physician - Rachid Sellers MD This Is Your Medications List omeprazole (omeprazole 40 mg Cap-DR) Contact prescribing physician if questions or concerns ascorbic acid (Vitamin C) cholecalciferol (Vitamin D3) magnesium sulfate metformin (metformin 500 mg Tab) valsartan (valsartan 320 mg Tab) zinc sulfate (Zinc) Procedures Performed Cholecystectomy (2009), Tonsillectomy. Discharge Vitals Temperature (Tympanic) 36.5 ???C Heart Rate (Peripheral) 73 Respiratory Rate 18 Blood Pressure 128/84 Height 169.5 cm Height 67 in Weight 177.7 kg Weight 391.761 lb BMI 61.85 What to do next Scheduled Follow-Up Appointments 2024 1:00 PM EST With: Rachid Sellers MD Where: [address] [address]- Medications What How Much When Instructions Changed omeprazole (omeprazole 40 mg Cap-DR) 1 Capsules By Mouth Every day Pickup at [facility]/pharmacy #[id number] Unchanged ascorbic acid (Vitamin C) Every day Contact prescribing physician if questions or concerns Unchanged cholecalciferol (Vitamin D3) Contact prescribing physician if questions or concerns Unchanged magnesium sulfate Intravenous Once Contact prescribing physician if questions or concerns Unchanged metformin (metformin 500 mg Tab) 1 Tablets By Mouth 2 times a day Contact prescribing physician if questions or concerns Unchanged valsartan (valsartan 320 mg Tab) 1 Tablets By Mouth Every day Contact prescribing physician if questions or concerns Unchanged zinc sulfate (Zinc) Contact prescribing physician if questions or concerns Pharmacy Information [facility]/pharmacy #[id number]: [address], [place] [phone] Allergies HYDROmorphone (Eruption, Anaphylaxis, Dyspnea) amoxicillin (Anaphylaxis) Problems Ongoing - Any problem that you are currently receiving treatment for. Benign hypertension (high blood pressure) BMI 60.0-69.9, adult Congestion of nasal sinus Leukocytosis (high white blood cell count) Mixed anxiety and depressive disorder Morbid obesity Nonsmoker Prediabetes Tear of medial meniscus of knee Patient Survey You may receive a survey via text or e-mail asking about your office visit. Please share your experience with us by completing your survey. We appreciate your feedback and thank you for choosing us for your care. Normal [facility] Family Medicine Office/Clini c Noteon 03-09-2024 Family Medicine Office/Clinic Note Family Medicine Office/Clinic Note Chief Complaint Establish Care Patient presents with concerns regarding weight management and associated health issues. [facility] Staff Mj is a 38 year old female presenting with Establish Care: History: Any previous diagnosis: HTN History of seeing any specialist: yes [facility] for Leukocytosis. No longer When was your last doctors visit: 2 months ago Last provider: Geno Any recent labs: @ [facility] for ER Health Maintenance UTD: Colonoscopy: no Mammogram: 1m ago Pelvic/Pap: never Acute: Current issues/complaints: Weight issues. (stopped antidepressants a few months ago, gained weight) History of Present Illness The patient is a 38-year-old female presenting with issues related to weight management, specifically morbid obesity and associated health concerns. The BMI is documented at a high range of 60.0-69.9. There is a history of morbid obesity, managed through pharmacologic intervention including metformin, intended for weight control and prediabetes. The patient is noted to be prediabetic, with a past attempt to manage weight through metformin facilitated by a previous healthcare provider. Recent stress and changes in medical care involvement have impacted her management plan. She also reports experiencing a persistent sensation of a lump in her throat (globus sensation), previously associated with acid reflux or GERD, and describes a persistent cough and throat irritation following recent pneumonia episodes. The patient has historically been managed for Mixed Anxiety and Depression, exacerbated during episodes of illness but chose to cease antidepressant medication a few months prior. Current anxiety and depression symptoms are considered well-controlled without medication. A history of meniscus tear was also noted, with no current intervention. The patient expresses interest in exploring weight loss medication options, though barriers exist due to insurance coverage limits, and is considering surgical options. Concerns also include recurrent episodes of pneumonia leading to chronic cough. Review of Systems PHQ Score Initial Depression Screen Score: 4 SCORE Detailed Depression Screen Score: 15 Total Depression Screen Score: 19 Physical Exam Vitals & Measurements T: 36.5 ???C(Tympanic) HR: 73(Peripheral) RR: 18 BP: 128/84 SpO2: 96% HT: 67 in HT: 169.5 cm WT: 177.7 kg WT: 391.761 lb BMI: 61.85 General: alert, no acute distress, morbidly obese ENMT: oral mucosa moist, lump in throat sensation noted Cardiovascular: Regular rate and rhythm, normal peripheral perfusion Respiratory: Lungs clear to auscultation, respirations non labored, Extremities: no deformity, no trauma Neurological: oriented x 4, level of consciousness appropriate for age, CN II-XII intact, motor strength equal & normal bilaterally, speech normal Abdomen: Soft, Non-tender, Non-distended, + Bowel sounds Assessment/Plan 1. Morbid obesity (E66.01: Morbid (severe) obesity due to excess calories) The discussion included potential pharmaceutical (Wegovy, Ozempic) and surgical (gastric bypass) interventions. Insurance may not cover medications unless diabetic status; options for surgery education through [facility] were explored. A comprehensive management plan will consider both lifestyle and possible pharmacological and surgical options. 2. BMI 60.0-69.9, adult (Z68.44: Body mass index [BMI] 60.0-69.9, adult) BMI education added. 3. Nonsmoker (Z78.9: Other specified health status) Please continue not to smoke. 4. Gastro-esophageal reflux disease without esophagitis (K21.9) Recommended to alter omeprazole administration to mornings before meals and consider twice daily dosing if symptoms persist. Addressed the possibility of GERD contributing to globus sensation and chronic cough. 5. Elevated white blood cell count, unspecified (D72.829) Historically persistent; remains asymptomatic and requires no active management given stable status. 6. Derangement of other lateral meniscus due to old tear or injury, unspecified knee (M23.269) Currently not seeking treatment; symptoms monitored to ensure no progression or need for future intervention. 7. Other specified anxiety disorders (F41.8) Symptoms are presently self-managed without pharmacological intervention. Monitored for any changes in mental health status. On reviewing the patient's PHQ-9 it is a 19. Patient does not want to do any medication at this time. Patient has just gotten off her medication. 8. Prediabetes (R73.03) Advised metformin continuation with meals and monitoring of A1c levels to preclude progression to diabetes. Weight management is essential given the intersection with obesity management. 9. Foreign body sensation, throat (R09.A2) Further investigation should be made if reflux management doesn't ameliorate the sensation. Emphasized the connection to GERD. Orders: omeprazole, 40 mg = 1 cap(s), Oral, Daily, # 90 cap(s), Refills(s) 0, Phar (more content not included)... Normal [facility] Comment on above: Result Comment: Elec tronically Signed By: Marlo DEAN, Rachid Camarena\.br\Date and Time Signed: 03/09/24 09:09 EST ALL CBC WITH AUTO DIFFon Erythrocyte distribution width (RBC) [Ratio] 15.9 % High 11.0 - 15.0 % [facility] Hematocrit (Bld) [Volume fraction] 43.6 % 36.0 - 48.0 % [facility] Hemoglobin (Bld) [Mass/Vol] 13.5 g/dL 12.0 - 16.0 g/dL [facility] MCH (RBC) [Entitic mass] 23.8 pg Low 26.7 - 34.0 pg [facility] MCHC (RBC) [Mass/Vol] 31 g/dL 29.9 - 35.2 g/dL [facility] MCV (RBC) [Entitic vol] 76.8 fL Low 81.0 - 99.0 fL [facility] Platelet mean volume (Bld) [Entitic vol] 9.7 fL 9.5 - 13.5 fL [facility] TBH PLT 438 [facility] TBH RBC 5.68 High [facility] TBH WBC 15.2 High [facility] MHPT DIFFERENTIALon 01-06-20 24 BAND NEUTROPHILS ABSOLUTE 0 [facility] BASOPHILS ABS MANUAL 0 [facility] BASOPHILS PERCENT MANUAL 0 % Low 0.2 - 2.0 % [facility] Eosinophils (Bld) [#/Vol] 0.3 10*3/uL [facility] EOSINOPHILS PERCENT MANUAL 2 % 0.9 - 7.0 % [facility] Lymphocytes (Bld) [#/Vol] 5.47 10*3/uL High [facility] LYMPHOCYTES PERCENT MANUAL 36 % 20.5 - 60.0 % [facility] Monocytes (Bld) [#/Vol] 0.45 10*3/uL [facility] MONOCYTES PERCENT MANUAL 3 % 1.7 - 12.0 % [facility] SEGMENTED NEUT ABSOLUTE MANUAL 8.[address] [facility] SEGMENTED NEUTROPHILS % MANUAL 59 43.0 - 75.0 [facility] No Panel Informationon 01-05 Interpretation and review of laboratory results Abnormal [facility] CLINISYNC [facility] US LALY DOP LEG LTon 10-13-19 22 US LALY DOP LEG LT EXAMINATION: US [...] ISRAEL GROSS Date: 2021-10-12 14:41 Normal [facility] CBC AUTO DIFFon 03-02-2021 BASO # 0.0 103/ul Normal 0.0-0.1 [facility] Comment on above: Performed By: #### C FARAZ, HSTROPN #### [facility] Laboratory [address] [address] [address] Carmel Tillman Basophils/100 WBC (Bld) 0.3 % Normal 0.2-2.0 [facility] Comment on above: Performed By: #### C FARAZ, HSTROPN #### [facility] [address] [address] [address] Carmel Tillman EO # 0.1 103/ul Normal 0.0-0.7 [facility] Comment on above: Performed By: #### C FARAZ, HSTROPN #### [facility] [address] [address] [address] Carmel Tillman Eosinophils/100 WBC (Bld) 0.9 % Normal 0.9-7.0 [facility] Comment on above: Performed By: #### C MP, HSTROPN #### [facility] [address] [address] [address] Carmel Tillman Erythrocyte distribution width (RBC) [Ratio] 19.7 % Critically high 11.0-15.0 [facility] Comment on above: Performed By: #### C MP, HSTROPN #### [facility] [address] [place] [address] Dr. Carmel Tillman Hematocrit (Bld) [Volume fraction] 40.9 % Normal 36.0-48.0 [facility] Comment on above: Performed By: #### C MP, HSTROPN #### [facility] [address] [place] [address] Dr. Carmel Tillman Hemoglobin (Bld) [Mass/Vol] 12.7 g/dL Normal 12.0-16.0 [facility] Comment on above: Performed By: #### C MP, HSTROPN #### [facility] [address] [place] [address] Dr. Carmel Tillman IG # 0.18 10e3/ul Critically high 0.00-0.03 [facility] Comment on above: Performed By: #### C MP, HSTROPN #### [facility] [address] [place] [address] Dr. Carmel Tillman IG % 1.7 % Critically high 0.0-0.[address] [facility] Comment on above: Performed By: #### C MP, HSTROPN #### [facility] [address] [place] [address] Dr. Carmel Tillman LYMPH # 2.8 103/ul Normal 1.2-3.8 [facility] Comment on above: Performed By: #### C MP, HSTROPN #### [facility] [address] [place] [address] Dr. Carmel Tillman Lymphocytes/100 WBC (Bld) 25.6 % Normal 20.5-60.0 [facility] [place] Comment on above: Performed By: #### C MP, HSTROPN #### [facility] [address] [address] [address] Carmel Tillman MANUAL DIFF REQ NO Normal [facility] Comment on above: Performed By: #### C MP, HSTROPN #### [facility] [address] [address] [address] Carmel Tillman MCH (RBC) [Entitic mass] 25.2 pg Critically low 26.7-34.0 [facility] Comment on above: Performed By: #### C MP, HSTROPN #### [facility] [address] [place] [address] Dr. Carmel Tillman MCHC (RBC) [Mass/Vol] 31.1 g/dL Normal 29.9-35.2 [facility] Comment on above: Performed By: #### C MP, HSTROPN #### [facility] [address] [place] [address] Dr. Carmel Tillman MCV (RBC) [Entitic vol] 81.2 fL Normal 81.0-99.0 [facility] [place] Comment on above: Performed By: #### C MP, HSTROPN #### [facility] [address] [place] [address] Dr. Carmel Tillman MONO # 0.9 103/ul Critically high 0.3-0.8 [facility] Comment on above: Performed By: #### C MP, HSTROPN #### [facility] [address] [place] [address] Dr. Carmel Tillman Monocytes/100 WBC (Bld) 7.9 % Normal 1.7-12.0 [facility] Comment on above: Performed By: #### C MP, HSTROPN #### [facility] [address] [place] [address] Dr. Carmel Tillman NEUT # 6.9 103/ul Critically high 1.4-6.5 [facility] Comment on above: Performed By: #### C MP, HSTROPN #### [facility] [address] [place] [address] Dr. Carmel Tillman Neutrophils/100 WBC (Bld) 63.6 % Normal 43.0-75.0 [facility] Comment on above: Performed By: #### C FARAZ, HSTROPN #### [facility] [address] [place] [address] Dr. Carmel Tillman Platelet mean volume (Bld) [Entitic vol] 9.5 fL Normal 9.5-13.5 [facility] [place] Comment on above: Performed By: #### C FARAZ, HSTROPN #### [facility] [address] [place] [address] Dr. Carmel Tillman PLT 350 103/ul Normal 150-450 [facility] [place] Comment on above: Performed By: #### C FARAZ, HSTROPN #### [facility] [address] [place] [address] Dr. Carmel Tillman RBC 5.04 106/ul Normal 4.20-5.40 [facility] [place] Comment on above: Performed By: #### C FARAZ, HSTROPN #### [facility] [address] [place] [address] Dr. Carmel Tillman WBC 10.8 103/ul Normal 4.0-11.0 [facility] [place] Comment on above: Performed By: #### C FARAZ, HSTROPN #### [facility] [address] [place] [address] Dr. Carmel Tillman PROF 14(COMP METB)on 022 Albumin [Mass/Vol] 2.9 g/dL Critically low 3.5-5.0 [facility] Comment on above: Performed By: #### C MP #### [facility] [address] [place] [address] Dr. Carmel Tillman Albumin/Globulin [Mass ratio] 0.7 {ratio} Normal [facility] [place] Comment on above: Performed By: #### C MP #### [facility] [address] [place] [address] Dr. Carmel Tillman ALP [Catalytic activity/Vol] 50 U/L Normal 38-126 [facility] [place] Comment on above: Performed By: #### C MP #### [facility] [address] [place] [address] Dr. Carmel Tillman ALT [Catalytic activity/Vol] 25 U/L Normal 9-52 [facility] Comment on above: Performed By: #### C MP #### [facility] [address] [address] [address] Carmel Tillman Anion gap [Moles/Vol] 11.3 mmol/L Normal [facility] [place] Comment on above: Performed By: #### C MP #### [facility] [address] [address] [address] Carmel Tillman AST [Catalytic activity/Vol] 13 U/L Critically low 14-36 [facility] [place] Comment on above: Performed By: #### C MP #### [facility] [address] [address] [address] Carmel Tillman Bilirubin [Mass/Vol] 0.6 mg/dL Normal 0.2-1.3 [facility] [place] Comment on above: Performed By: #### C MP #### [facility] [address] [address] [address] Carmel Tillman Calcium [Mass/Vol] 9.3 mg/dL Normal 8.4-10.2 [facility] Comment on above: Performed By: #### C MP #### [facility] [address] [place] [address] Dr. Carmel Tillman Chloride [Moles/Vol] 106 mmol/L Normal 98-107 [facility] [place] Comment on above: Performed By: #### C MP #### [facility] [address] [address] [address] Carmel Tillman CO2 [Moles/Vol] 27.0 mmol/L Normal 22.0-30.0 [facility] Comment on above: Performed By: #### C MP #### [facility] [address] [address] [address] Carmel Tillman Creatinine [Mass/Vol] 0.72 mg/dL Normal 0.52-1.04 [facility] [place] Comment on above: Performed By: #### C MP #### [facility] [address] [address] [address] Carmel Tillman EGFR-AF SWAZI >60 Normal >=60 [facility] Comment on above: Performed By: #### C MP #### [facility] [address] [address] [address] Carmel Tillman EGFR-NON AF SWAZI >60 Normal >=60 [facility] [place] Comment on above: Performed By: #### C MP #### [facility] [address] [address] [address] Carmel Tillman Globulin (S) [Mass/Vol] 4.0 g/dL Normal [facility] [place] Comment on above: Performed By: #### C MP #### [facility] [address] [address] [address] Carmel Tillman Glucose [Mass/Vol] 112 mg/dL Critically high 74-106 [facility] Comment on above: Performed By: #### C MP #### [facility] [address] [address] [address] Carmel Tillman Potassium [Moles/Vol] 4.3 mmol/L Normal 3.4-5.0 [facility] [place] Comment on above: Performed By: #### C MP #### [facility] [address] [address] [address] Carmel Tillman Protein [Mass/Vol] 6.9 g/dL Normal 6.1-8.2 [facility] Comment on above: Performed By: #### C MP #### [facility] [address] [address] [address] Carmel Tillman Sodium [Moles/Vol] 140 mmol/L Normal 137-145 [facility] Comment on above: Performed By: #### C MP #### [facility] [address] [address] [address] Carmel Tillman Urea nitrogen [Mass/Vol] 20.0 mg/dL Critically high 7.0-17.0 [facility] [place] Comment on above: Performed By: #### C MP #### [facility] [address] [address] [address] Carmel Tillman Urea nitrogen/Creatinin e [Mass ratio] 27.8 mg/mg Normal [facility] [place] Comment on above: Performed By: #### C MP #### [facility] [address] [place] [address] Dr. Carmel Tillman PROTIMEon 03-02-2021 INR Coag (PPP) [Relative time] 0.95 {INR} Normal [facility] Comment on above: Performed By: #### P T, PTT #### [facility] [address] [place] [address] Dr. Carmel Tillman INR GUIDELINES SEE BELOW Normal [facility] Comment on above: Result Comment: CHRIS RED INR: 2.0 - 3.0 CONDITIONS NOT LISTED BELOW 2.5 - 3.5 FOR PROSTHETIC HEART VALVE REPLACEMENT 2.5 - 3.5 RECURRENT THROMBOSIS Performed By: #### P T, PTT #### [facility] [address] [place] [address] Dr. Carmel Tillman PT Coag (PPP) [Time] 10.3 s Normal 9.0-11.6 [facility] Comment on above: Performed By: #### P T, PTT #### [facility] [address] [place] [address] Dr. Carmel Tillman PTTon 03-02-2021 aPTT Coag (Bld) [Time] 22.8 s Normal 22.3-36.2 [facility] Comment on above: Performed By: #### P T, PTT #### [facility] [address] [place] [address] Dr. Carmel Tillman US VENOUS DOPPLER L [...] ISRAEL GROSS Date: 2021-03-02 12:07 Normal [facility] XR CHEST 2 Von 02-21-2021 XR [...] NATHANIEL JONES Date: 2021-02-21 07:51 Normal [facility] CBC AUTO DIFFon 02-15-2021 BASO # 0.0 103/ul Normal 0.0-0.1 [facility] [place] Comment on above: Performed By: #### C MP #### [facility] [address] [address] [address] Carmel Tillman Basophils/100 WBC (Bld) 0.2 % Normal 0.2-2.0 [facility] [place] Comment on above: Performed By: #### C MP #### [facility] [address] [address] [address] Carmel Tillman EO # 0.0 103/ul Normal 0.0-0.7 [facility] [place] Comment on above: Performed By: #### C MP #### [facility] [address] [address] [address] Carmel Tillman Eosinophils/100 WBC (Bld) 0.2 % Critically low 0.9-7.0 [facility] [place] Comment on above: Performed By: #### C MP #### [facility] [address] [address] [address] Carmel Tillman Erythrocyte distribution width (RBC) [Ratio] 18.1 % Critically high 11.0-15.0 [facility] [place] Comment on above: Performed By: #### C MP #### [facility] [address] [place] [address] Dr. Carmel Tillman Hematocrit (Bld) [Volume fraction] 39.4 % Normal 36.0-48.0 [facility] [place] Comment on above: Performed By: #### C MP #### [facility] [address] [address] [address] Carmel Tillman Hemoglobin (Bld) [Mass/Vol] 12.2 g/dL Normal 12.0-16.0 [facility] [place] Comment on above: Performed By: #### C MP #### [facility] [address] [address] [address] Carmel Tillman IG # 0.35 10e3/ul Critically high 0.00-0.03 [facility] Comment on above: Performed By: #### C MP #### [facility] [address] [address] [address] Carmel Tillman IG % 2.3 % Critically high 0.0-0.[address] [facility] Comment on above: Performed By: #### C MP #### [facility] [address] [place] [address] Dr. Carmel Tillman LYMPH # 3.7 103/ul Normal 1.2-3.8 [facility] [place] Comment on above: Performed By: #### C MP #### [facility] [address] [place] [address] Dr. Carmel Tillman Lymphocytes/100 WBC (Bld) 24.4 % Normal 20.5-60.0 [facility] [place] Comment on above: Performed By: #### C MP #### [facility] [address] [place] [address] Dr. Carmel Tillman MANUAL DIFF REQ NO Normal [facility] Comment on above: Performed By: #### C MP #### [facility] [address] [place] [address] Dr. Carmel Tillman MCH (RBC) [Entitic mass] 24.6 pg Critically low 26.7-34.0 [facility] [place] Comment on above: Performed By: #### C MP #### [facility] [address] [place] [address] Dr. Carmel Tillman MCHC (RBC) [Mass/Vol] 31.0 g/dL Normal 29.9-35.2 [facility] [place] Comment on above: Performed By: #### C MP #### [facility] [address] [address] [address] Carmel Tillman MCV (RBC) [Entitic vol] 79.6 fL Critically low 81.0-99.0 [facility] [place] Comment on above: Performed By: #### C MP #### [facility] [address] [address] [address] Carmel Tillman MONO # 0.7 103/ul Normal 0.3-0.8 [facility] [place] Comment on above: Performed By: #### C MP #### [facility] [address] [address] [address] Carmel Tillman Monocytes/100 WBC (Bld) 4.9 % Normal 1.7-12.0 [facility] [place] Comment on above: Performed By: #### C MP #### [facility] [address] [address] [address] Carmel Tillman NEUT # 10.3 103/ul Critically high 1.4-6.5 [facility] Comment on above: Performed By: #### C MP #### [facility] [address] [address] [address] Carmel Tillman Neutrophils/100 WBC (Bld) 68.0 % Normal 43.0-75.0 [facility] [place] Comment on above: Performed By: #### C MP #### [facility] [address] [address] [address] Carmel Tillman Platelet mean volume (Bld) [Entitic vol] 9.6 fL Normal 9.5-13.5 [facility] [place] Comment on above: Performed By: #### C MP #### [facility] [address] [address] [address] Carmel Tillman PLT 151 103/ul Normal 150-450 [facility] Comment on above: Performed By: #### C MP #### [facility] [address] [address] [address] Carmel Tillman RBC 4.95 106/ul Normal 4.20-5.40 [facility] Comment on above: Performed By: #### C MP #### [facility] [address] [address] [address] Carmel Tillman WBC 15.2 103/ul Critically high 4.0-11.0 [facility] Comment on above: Performed By: #### C MP #### [facility] [address] [address] [address] Carmel Tillman POINT OF CARE GLUCOSEon 01-25 Glucose [Mass/Vol] 104 mg/dL Normal 74-106 [facility] Comment on above: Performed By: #### C MP, HSTROPN #### [facility] [address] [address] [address] Carmel Tillman Glucose [Mass/Vol] 81 mg/dL Normal 74-106 [facility] Comment on above: Performed By: #### C MP #### [facility] [address] [place] [address] Dr. Carmel Tillman PROF CHEM 8 (BAS METB)on Anion gap [Moles/Vol] 13.7 mmol/L Normal [facility] [place] Comment on above: Performed By: #### B MP #### [facility] [address] [address] [address] Carmel Tillman Calcium [Mass/Vol] 8.5 mg/dL Normal 8.4-10.2 [facility] Comment on above: Performed By: #### B MP #### [facility] [address] [address] [address] Carmel Tillman Chloride [Moles/Vol] 102 mmol/L Normal 98-107 [facility] Comment on above: Performed By: #### B MP #### [facility] [address] [address] [address] Carmel Tillman CO2 [Moles/Vol] 25.8 mmol/L Normal 22.0-30.0 [facility] Comment on above: Performed By: #### B MP #### [facility] [address] [place] [address] Dr. Carmel Tillman Creatinine [Mass/Vol] 1.06 mg/dL Critically high 0.52-1.04 [facility] Comment on above: Performed By: #### B MP #### [facility] [address] [address] [address] Carmel Tillman EGFR-AF SWAZI >60 Normal >=60 [facility] Comment on above: Performed By: #### B MP #### [facility] [address] [address] [address] Carmel Tillman EGFR-NON AF SWAZI 58 mL/min/1.73m2 Critically low >=60 [facility] [place] Comment on above: Performed By: #### B MP #### [facility] [address] [address] [address] Carmel Tillman Glucose [Mass/Vol] 93 mg/dL Normal 74-106 [facility] Comment on above: Performed By: #### B MP #### [facility] [address] [address] [address] Carmel Tillman Potassium [Moles/Vol] 3.5 mmol/L Normal 3.4-5.0 [facility] Comment on above: Performed By: #### B MP #### [facility] [address] [address] [address] Carmel Tillman Sodium [Moles/Vol] 138 mmol/L Normal 137-145 [facility] Comment on above: Performed By: #### B MP #### [facility] [address] [address] [address] Carmel Tillman Urea nitrogen [Mass/Vol] 24.0 mg/dL Critically high 7.0-17.0 [facility] Comment on above: Performed By: #### B MP #### [facility] [address] [address] [address] Carmel Tillman Urea nitrogen/Creatinin e [Mass ratio] 22.6 mg/mg Normal [facility] Comment on above: Performed By: #### B MP #### [facility] [address] [address] [address] Carmel Tillman CBC W MANUAL DIFFon 02-15-20 21 ATYPICAL LYMPH # Normal [facility] Comment on above: Performed By: #### C MP #### [facility] [address] [place] [address] Dr. Carmel Tillman ATYPICAL LYMPH % Normal [facility] Comment on above: Performed By: #### C MP #### [facility] [address] [place] [address] Dr. Carmel Tillman BAND # 1.0 103/ul Critically high 0.0-0.[address] [facility] Comment on above: Performed By: #### C MP #### [facility] [address] [place] [address] Dr. Carmel Tillman BAND % 6 % Critically high 0-[address] [facility] Comment on above: Performed By: #### C MP #### [facility] [address] [place] [address] Dr. Carmel Tillman BASOM # 0.00 103/ul Normal 0.00-0.10 [facility] Comment on above: Performed By: #### C MP #### [facility] [address] [place] [address] Dr. Carmel Tillman BASOM % 0.0 % Critically low 0.2-2.0 [facility] Comment on above: Performed By: #### C MP #### [facility] [address] [place] [address] Dr. Carmel Tillman BLAST # Normal [facility] Comment on above: Performed By: #### C MP #### [facility] [address] [place] [address] Dr. Carmel Tillman BLAST % Normal [facility] Comment on above: Performed By: #### C MP #### [facility] [address] [place] [address] Dr. Carmel Tillman CORRECTED WBC Normal 4.0-11.0 [facility] Comment on above: Performed By: #### C MP #### [facility] [address] [place] [address] Dr. Carmel Tillman EOS # 0.00 103/ul Normal 0.00-0.70 [facility] Comment on above: Performed By: #### C MP #### [facility] [address] [place] [address] Dr. Carmel Tillman EOS% 0.0 % Critically low 0.9-7.0 [facility] Comment on above: Performed By: #### C MP #### [facility] [address] [place] [address] Dr. Carmel Tillman HCT 39.5 % Normal 36.0-48.0 [facility] Comment on above: Performed By: #### C MP #### [facility] [address] [place] [address] Dr. Carmel Tillman HGB 12.4 g/dl Normal 12.0-16.0 [facility] Comment on above: Performed By: #### C MP #### [facility] [address] [place] [address] Dr. Carmel Tillman LYMPHM # 1.56 103/ul Normal 1.20-3.80 [facility] Comment on above: Performed By: #### C MP #### [facility] [address] [place] [address] Dr. Carmel Tillman LYMPHM% 9.0 % Critically low 20.5-60.0 [facility] Comment on above: Performed By: #### C MP #### [facility] [address] [place] [address] Dr. Carmel Tillman MCH 24.8 pg Critically low 26.7-34.0 [facility] Comment on above: Performed By: #### C MP #### [facility] [address] [place] [address] Dr. Carmel Tillman MCHC 31.4 g/dl Normal 29.9-35.2 [facility] Comment on above: Performed By: #### C MP #### [facility] [address] [place] [address] Dr. Carmel Tillman MCV 79.2 fL Critically low 81.0-99.0 [facility] Comment on above: Performed By: #### C MP #### [facility] [address] [place] [address] Dr. Carmel Tillman METAMYELOCYTE # Normal [facility] Comment on above: Performed By: #### C MP #### [facility] [address] [address] [address] Carmel Tillman METAMYELOCYTE % Normal [facility] Comment on above: Performed By: #### C MP #### [facility] [address] [address] [address] Carmel Tillman MONOM# 0.69 103/ul Normal 0.30-0.80 [facility] Comment on above: Performed By: #### C MP #### [facility] [address] [address] [address] Carmel Tillman MONOM% 4.0 % Normal 1.7-12.0 [facility] Comment on above: Performed By: #### C MP #### [facility] [address] [place] [address] Dr. Carmel Tillman MPV 9.7 fL Normal 9.5-13.5 [facility] Comment on above: Performed By: #### C MP #### [facility] [address] [place] [address] Dr. Carmel Tillman MYELOCYTE # Normal [facility] Comment on above: Performed By: #### C MP #### [facility] [address] [place] [address] Dr. Carmel Tillman MYELOCYTE % Normal [facility] Comment on above: Performed By: #### C MP #### [facility] [address] [place] [address] Dr. Carmel Tillman NRBC Normal [facility] Comment on above: Performed By: #### C MP #### [facility] [address] [place] [address] Dr. Carmel Tillman PLT 167 103/ul Normal 150-450 [facility] Comment on above: Performed By: #### C MP #### [facility] [address] [place] [address] Dr. Carmel Tillman RBC 4.99 106/ul Normal 4.20-5.40 [facility] Comment on above: Performed By: #### C MP #### [facility] [address] [place] [address] Dr. Carmel Tillman RDW 17.7 % Critically high 11.0-15.[address] [facility] Comment on above: Performed By: #### C MP #### [facility] [address] [address] [address] Carmel Tillman SEG # 14.01 103/ul Critically high 1.40-6.50 [facility] Comment on above: Performed By: #### C MP #### [facility] [facility] [address] [address] [address] Carmel Tillman SEG % 81.0 % Critically high 43.0-75.[address] [facility] Comment on above: Performed By: #### C MP #### [facility] [address] [address] [address] Carmel Tillman WBC 17.3 103/ul Critically high 4.0-11.0 [facility] Comment on above: Performed By: #### C MP #### [facility] [address] [address] [address] Carmel Tillman CULTURE SPUTUMon 02-14-2021 CULTURE SPUTUM Culture Observations : NORMAL RESPIRATORY OSWALD. Normal [facility] Comment on above: Performed By: #### P T, PTT #### [facility] [address] [place] [address] Dr. Carmel Tillman ECHOCARDIO M/2D COMPLETEon 1 04-17-2020 ECHOCARDIO M/2D COMPLETE Patient: MJ MELGAR Exam Date: 02/14/2021 : 1985 Gender:F Ordering : SHAIKH Eva KAUR . Admission #: [id number] Family : DR. RACHID SELLERS . Order #: [id number] CLICK HERE TO VIEW EXAM ECHOCARDIOGRAM REPORT [...] Area(A4C): 19.00 cm2 Left Atrium Systolic Volume(A2C): 05150 mm3 Left Atrium Systolic Volume(A4C): 08607 mm3 Mitral Valve MV E to A [...] Rios M.D. on 02/14/2021 at 18:38 Normal [facility] POINT OF CARE GLUCOSEon 01-25 Glucose [Mass/Vol] 105 mg/dL Normal 74-106 [facility] Comment on above: Performed By: #### P T, PTT #### [facility] [address] [place] [address] Dr. Carmel Tillman Glucose [Mass/Vol] 125 mg/dL Critically high 74-106 [facility] Comment on above: Performed By: #### P T, PTT #### [facility] [address] [place] [address] Dr. Carmel Tillman Glucose [Mass/Vol] 104 mg/dL Normal 74-106 [facility] Comment on above: Performed By: #### P T, PTT #### [facility] [address] [place] [address] Dr. Carmel Tillman Glucose [Mass/Vol] 109 mg/dL Critically high 74-106 [facility] Comment on above: Performed By: #### P T, PTT #### [facility] [address] [place] [address] Dr. Carmel Tillman PROF CHEM 8 (BAS METB)on Anion gap [Moles/Vol] 13.8 mmol/L Normal [facility] Comment on above: Performed By: #### C MP, HSTROPN #### [facility] [address] [place] [address] Dr. Carmel Tillman Calcium [Mass/Vol] 8.6 mg/dL Normal 8.4-10.2 [facility] Comment on above: Performed By: #### C MP, HSTROPN #### [facility] [address] [place] [address] Dr. Carmel Tillman Chloride [Moles/Vol] 104 mmol/L Normal 98-107 [facility] Comment on above: Performed By: #### C MP, HSTROPN #### [facility] [address] [place] [address] Dr. Carmel Tillman CO2 [Moles/Vol] 24.3 mmol/L Normal 22.0-30.0 [facility] Comment on above: Performed By: #### C FARAZ, HSTROPN #### [facility] [address] [address] [address] Carmel Tillman Creatinine [Mass/Vol] 0.84 mg/dL Normal 0.52-1.04 [facility] Comment on above: Performed By: #### C FARAZ, HSTROPN #### [facility] [address] [address] [address] Carmel Tillman EGFR-AF SWAZI >60 Normal >=60 [facility] Comment on above: Performed By: #### C FARAZ, HSTROPN #### [facility] [address] [address] [address] Carmel Tillman EGFR-NON AF SWAZI >60 Normal >=60 [facility] Comment on above: Performed By: #### C FARAZ, HSTROPN #### [facility] [address] [address] [address] Carmel Tillman Glucose [Mass/Vol] 124 mg/dL Critically high 74-106 [facility] Comment on above: Performed By: #### C FARAZ, HSTROPN #### [facility] [address] [address] [address] Carmel Tillman Potassium [Moles/Vol] 4.1 mmol/L Normal 3.4-5.0 [facility] Comment on above: Performed By: #### C FARAZ, HSTROPN #### [facility] [address] [address] [address] Carmel Tillman Sodium [Moles/Vol] 138 mmol/L Normal 137-145 [facility] Comment on above: Performed By: #### C FARAZ, HSTROPN #### [facility] [address] [address] [address] Carmel Tillman Urea nitrogen [Mass/Vol] 15.0 mg/dL Normal 7.0-17.0 [facility] Comment on above: Performed By: #### C FARAZ, HSTROPN #### [facility] [address] [address] [address] Carmel Tillman Urea nitrogen/Creatinin e [Mass ratio] 17.9 mg/mg Normal [facility] Comment on above: Performed By: #### C MP, HSTROPN #### [facility] [address] [address] [address] Carmel Tillman SPUTUM GRAM STAINon 02-15-20 COMMENTS NO ORGANISMS OBSERVED Normal [facility] Comment on above: Performed By: #### C MP, HSTROPN #### [facility] [address] [address] [address] Carmel Tillman DIPHTHEROIDS Normal [facility] Comment on above: Performed By: #### C MP, HSTROPN #### [facility] [address] [address] [address] Carmel Tillman EPITHELIALS <25 Normal [facility] Comment on above: Performed By: #### C MP, HSTROPN #### [facility] [address] [address] [address] Carmel Tillman FUNGAL ELEMENTS Normal [facility] Comment on above: Performed By: #### C MP, HSTROPN #### [facility] [address] [address] [address] Carmel ASCENCIO NEG BACILLI Normal [facility] Comment on above: Performed By: #### C MP, HSTROPN #### [facility] [address] [address] [address] Carmel ASCENCIO NEG DIPPLOCOCCI Normal [facility] Comment on above: Performed By: #### C MP, HSTROPN #### [facility] [address] [address] [address] Carmel ASCENCIO POS BACILLI Normal [facility] Comment on above: Performed By: #### C MP, HSTROPN #### [facility] [address] [address] [address] Carmel Tillman GRAM POSITIVE COCCI Normal [facility] Comment on above: Performed By: #### C MP, HSTROPN #### [facility] [address] [address] [address] Carmel Tillman WBC (Bld) [#/Vol] 10*3/uL Normal [facility] Comment on above: Performed By: #### C MP, HSTROPN #### [facility] [address] [address] [address] Carmel Tillman XR CHEST 2 Von [...] differences in technique. Electronically authenticated by: ISRAEL GORSS Date: 2021-02-14 08:57 Normal [facility] CBC W MANUAL DIFFon 02-14-20 21 ATYPICAL LYMPH # Normal [facility] Comment on above: Performed By: #### P T, PTT #### [facility] [address] [place] [address] Dr. Carmel Tillman ATYPICAL LYMPH % Normal [facility] Comment on above: Performed By: #### P T, PTT #### [facility] [address] [address] [address] Carmel Tillman BAND # 0.4 103/ul Critically high 0.0-0.3 [facility] Comment on above: Performed By: #### P T, PTT #### [facility] [address] [place] [address] Dr. Carmel Tillman BAND % 2 % Normal 0-5 [facility] Comment on above: Performed By: #### P T, PTT #### [facility] [address] [address] [address] Carmel Tillman BASOM # 0.00 103/ul Normal 0.00-0.10 [facility] Comment on above: Performed By: #### P T, PTT #### [facility] [address] [place] [address] Dr. Carmel Tillman BASOM % 0.0 % Critically low 0.2-2.0 [facility] Comment on above: Performed By: #### P T, PTT #### [facility] [address] [place] [address] Dr. Carmel Tillman BLAST # Normal [facility] Comment on above: Performed By: #### P T, PTT #### [facility] [address] [place] [address] Dr. Carmel Tillman BLAST % Normal [facility] Comment on above: Performed By: #### P T, PTT #### [facility] [address] [place] [address] Dr. Carmel Tillman CORRECTED WBC Normal 4.0-11.0 [facility] Comment on above: Performed By: #### P T, PTT #### [facility] [address] [place] [address] Dr. Carmel Tillman EOS # 0.00 103/ul Normal 0.00-0.70 [facility] Comment on above: Performed By: #### P T, PTT #### [facility] [address] [place] [address] Dr. Carmel Tillman EOS% 0.0 % Critically low 0.9-7.0 [facility] Comment on above: Performed By: #### P T, PTT #### [facility] [address] [place] [address] Dr. Carmel Tillman HCT 37.9 % Normal 36.0-48.0 [facility] Comment on above: Performed By: #### P T, PTT #### [facility] [address] [place] [address] Dr. Carmel Tillman HGB 11.9 g/dl Critically low 12.0-16.0 [facility] Comment on above: Performed By: #### P T, PTT #### [facility] [address] [place] [address] Dr. Carmel Tillman LYMPHM # 1.23 103/ul Normal 1.20-3.80 [facility] Comment on above: Performed By: #### P T, PTT #### [facility] [address] [address] [address] Carmel Tillman LYMPHM% 7.0 % Critically low 20.5-60.0 [facility] Comment on above: Performed By: #### P T, PTT #### [facility] [address] [address] [address] Carmel Tillman MCH 25.0 pg Critically low 26.7-34.0 [facility] Comment on above: Performed By: #### P T, PTT #### [facility] [address] [place] [address] Dr. Carmel Tillman MCHC 31.4 g/dl Normal 29.9-35.2 [facility] Comment on above: Performed By: #### P T, PTT #### [facility] [address] [place] [address] Dr. Carmel Tillman MCV 79.6 fL Critically low 81.0-99.0 [facility] Comment on above: Performed By: #### P T, PTT #### [facility] [address] [place] [address] Dr. Carmel Tillman METAMYELOCYTE # Normal [facility] Comment on above: Performed By: #### P T, PTT #### [facility] [address] [place] [address] Dr. Carmel Tillman METAMYELOCYTE % Normal [facility] Comment on above: Performed By: #### P T, PTT #### [facility] [address] [place] [address] Dr. Carmel Tillman MONOM# 0.35 103/ul Normal 0.30-0.80 [facility] Comment on above: Performed By: #### P T, PTT #### [facility] [address] [place] [address] Dr. Carmel Tillman MONOM% 2.0 % Normal 1.7-12.0 [facility] Comment on above: Performed By: #### P T, PTT #### [facility] [address] [address] [address] Carmel Tillman MPV 10.2 fL Normal 9.5-13.5 [facility] Comment on above: Performed By: #### P T, PTT #### [facility] [address] [place] [address] Dr. Carmel Tillman MYELOCYTE # Normal [facility] Comment on above: Performed By: #### P T, PTT #### [facility] [address] [place] [address] Dr. Carmel Tillman MYELOCYTE % Normal [facility] Comment on above: Performed By: #### P T, PTT #### [facility] [address] [place] [address] Dr. Carmel Tillman NRBC Normal [facility] Comment on above: Performed By: #### P T, PTT #### [facility] [address] [place] [address] Dr. Carmel Tillman PLT 174 103/ul Normal 150-450 [facility] Comment on above: Performed By: #### P T, PTT #### [facility] [address] [place] [address] Dr. Carmel Tillman RBC 4.76 106/ul Normal 4.20-5.40 [facility] Comment on above: Performed By: #### P T, PTT #### [facility] [address] [place] [address] Dr. Carmel Tillman RDW 17.5 % Critically high 11.0-15.[address] [facility] Comment on above: Performed By: #### P T, PTT #### [facility] [address] [place] [address] Dr. Carmel Tillman SEG # 15.66 103/ul Critically high 1.40-6.50 [facility] Comment on above: Performed By: #### P T, PTT #### [facility] [address] [place] [address] Dr. Carmel Tillman SEG % 89.0 % Critically high 43.0-75.[address] [facility] Comment on above: Performed By: #### P T, PTT #### [facility] [address] [address] [address] Carmel Tillman WBC 17.6 103/ul Critically high 4.0-11.0 [facility] Comment on above: Performed By: #### P T, PTT #### [facility] [address] [address] [address] Carmel Tillman POINT OF CARE GLUCOSEon 12-2 Glucose [Mass/Vol] 104 mg/dL Normal 74-106 [facility] Comment on above: Performed By: #### P T, PTT #### [facility] [address] [address] [address] Carmel Tillman Glucose [Mass/Vol] 122 mg/dL Critically high 74-106 [facility] Comment on above: Performed By: #### C MP #### [facility] [address] [address] [address] Carmel Tillman Glucose [Mass/Vol] 122 mg/dL Critically high 74-106 [facility] Comment on above: Performed By: #### P T, PTT #### [facility] [address] [place] [address] Dr. Carmel Tillman PROF CHEM 8 (BAS METB)on Anion gap [Moles/Vol] 13.8 mmol/L Normal [facility] Comment on above: Performed By: #### B MP #### [facility] [address] [address] [address] Carmel Tillman Calcium [Mass/Vol] 8.2 mg/dL Critically low 8.4-10.2 [facility] Comment on above: Performed By: #### B MP #### [facility] [address] [place] [address] Dr. Carmel Tillman Chloride [Moles/Vol] 105 mmol/L Normal 98-107 [facility] Comment on above: Performed By: #### B MP #### [facility] [address] [address] [address] Carmel Tillman CO2 [Moles/Vol] 22.5 mmol/L Normal 22.0-30.0 [facility] Comment on above: Performed By: #### B MP #### [facility] [address] [address] [address] Carmel Tillman Creatinine [Mass/Vol] 0.81 mg/dL Normal 0.52-1.04 [facility] Comment on above: Performed By: #### B MP #### [facility] [address] [address] [address] Carmel Tillman EGFR-AF SWAZI >60 Normal >=60 [facility] Comment on above: Performed By: #### B MP #### [facility] [address] [address] [address] Carmel Tillman EGFR-NON AF SWAZI >60 Normal >=60 [facility] Comment on above: Performed By: #### B MP #### [facility] [address] [place] [address] Dr. Carmel Tillman Glucose [Mass/Vol] 128 mg/dL Critically high 74-106 [facility] Comment on above: Performed By: #### B MP #### [facility] [address] [place] [address] Dr. Carmel Tillman Potassium [Moles/Vol] 4.3 mmol/L Normal 3.4-5.0 [facility] Comment on above: Performed By: #### B MP #### [facility] [address] [place] [address] Dr. Carmel Tillman Sodium [Moles/Vol] 137 mmol/L Normal 137-145 [facility] Comment on above: Performed By: #### B MP #### [facility] [address] [address] [address] Carmel Tillman Urea nitrogen [Mass/Vol] 14.0 mg/dL Normal 7.0-17.0 [facility] Comment on above: Performed By: #### B MP #### [facility] [address] [address] [address] Carmel Tillman Urea nitrogen/Creatinin e [Mass ratio] 17.3 mg/mg Normal [facility] Comment on above: Performed By: #### B MP #### [facility] [address] [place] [address] Dr. Carmel Tillman CBC AUTO DIFFon 02-12-2021 BASO # 0.1 103/ul Normal 0.0-0.1 [facility] Comment on above: Performed By: #### P T, PTT #### [facility] [address] [place] [address] Dr. Carmel Tillman Basophils/100 WBC (Bld) 0.3 % Normal 0.2-2.0 [facility] Comment on above: Performed By: #### P T, PTT #### [facility] [address] [place] [address] Dr. Carmel Tillman EO # 0.0 103/ul Normal 0.0-0.7 [facility] Comment on above: Performed By: #### P T, PTT #### [facility] [address] [place] [address] Dr. Carmel Tillman Eosinophils/100 WBC (Bld) 0.0 % Critically low 0.9-7.0 [facility] Comment on above: Performed By: #### P T, PTT #### [facility] [address] [place] [address] Dr. Carmel Tillman Erythrocyte distribution width (RBC) [Ratio] 16.5 % Critically high 11.0-15.0 [facility] Comment on above: Performed By: #### P T, PTT #### [facility] [address] [place] [address] Dr. Carmel Tillman Hematocrit (Bld) [Volume fraction] 39.9 % Normal 36.0-48.0 [facility] Comment on above: Performed By: #### P T, PTT #### [facility] [address] [place] [address] Dr. Carmel Tillman Hemoglobin (Bld) [Mass/Vol] 12.7 g/dL Normal 12.0-16.0 [facility] Comment on above: Performed By: #### P T, PTT #### [facility] [address] [place] [address] Dr. Carmel Tillman IG # 0.42 10e3/ul Critically high 0.00-0.03 [facility] Comment on above: Performed By: #### P T, PTT #### [facility] [address] [place] [address] Dr. Carmel Tillman IG % 2.2 % Critically high 0.0-0.[address] [facility] Comment on above: Performed By: #### P T, PTT #### [facility] [address] [place] [address] Dr. Carmel Tillman LYMPH # 1.4 103/ul Normal 1.2-3.8 [facility] Comment on above: Performed By: #### P T, PTT #### [facility] [address] [place] [address] Dr. Carmel Tillman Lymphocytes/100 WBC (Bld) 7.4 % Critically low 20.5-60.0 [facility] Comment on above: Performed By: #### P T, PTT #### [facility] [address] [place] [address] Dr. Carmel Tillman MANUAL DIFF REQ NO Normal [facility] Comment on above: Performed By: #### P T, PTT #### [facility] [address] [place] [address] Dr. Carmel Tillman MCH (RBC) [Entitic mass] 24.7 pg Critically low 26.7-34.0 [facility] Comment on above: Performed By: #### P T, PTT #### [facility] [address] [place] [address] Dr. Carmel Tillman MCHC (RBC) [Mass/Vol] 31.8 g/dL Normal 29.9-35.2 [facility] Comment on above: Performed By: #### P T, PTT #### [facility] [address] [place] [address] Dr. Carmel Tillman MCV (RBC) [Entitic vol] 77.5 fL Critically low 81.0-99.0 [facility] Comment on above: Performed By: #### P T, PTT #### [facility] [address] [place] [address] Dr. Carmel Tillman MONO # 0.4 103/ul Normal 0.3-0.8 [facility] Comment on above: Performed By: #### P T, PTT #### [facility] [address] [place] [address] Dr. Carmel Tillman Monocytes/100 WBC (Bld) 2.1 % Normal 1.7-12.0 [facility] Comment on above: Performed By: #### P T, PTT #### [facility] [address] [place] [address] Dr. Carmel Tillman NEUT # 16.8 103/ul Critically high 1.4-6.5 [facility] Comment on above: Performed By: #### P T, PTT #### [facility] [address] [place] [address] Dr. Carmel Tillman Neutrophils/100 WBC (Bld) 88.0 % Critically high 43.0-75.0 [facility] Comment on above: Performed By: #### P T, PTT #### [facility] [address] [place] [address] Dr. Carmel Tillman Platelet mean volume (Bld) [Entitic vol] 9.5 fL Normal 9.5-13.5 [facility] Comment on above: Performed By: #### P T, PTT #### [facility] [address] [place] [address] Dr. Carmel Tillman PLT 174 103/ul Normal 150-450 [facility] Comment on above: Performed By: #### P T, PTT #### [facility] [address] [place] [address] Dr. Carmel Tillman RBC 5.15 106/ul Normal 4.20-5.40 [facility] Comment on above: Performed By: #### P T, PTT #### [facility] [address] [place] [address] Dr. Carmel Tillman WBC 19.1 103/ul Critically high 4.0-11.0 [facility] Comment on above: Performed By: #### P T, PTT #### [facility] [address] [place] [address] Dr. Carmel Tillman POINT OF CARE GLUCOSEon 12-2 0-2021 Glucose [Mass/Vol] 110 mg/dL Critically high 74-106 [facility] Comment on above: Performed By: #### C MP, HSTROPN #### [facility] [address] [address] [address] Carmel Tillman Glucose [Mass/Vol] 99 mg/dL Normal 74-106 [facility] Comment on above: Performed By: #### C MP #### [facility] [address] [address] [address] Carmel Tillman Glucose [Mass/Vol] 97 mg/dL Normal 74-106 [facility] Comment on above: Performed By: #### P T, PTT #### [facility] [address] [address] [address] Carmel Tillman Glucose [Mass/Vol] 88 mg/dL Normal 74-106 [facility] Comment on above: Performed By: #### C MP, HSTROPN #### [facility] [address] [address] [address] Carmel Tillman PROF CHEM 8 (BAS METB)on Anion gap [Moles/Vol] 15.4 mmol/L Normal [facility] [place] Comment on above: Performed By: #### B MP #### [facility] [address] [place] [address] Dr. Carmel Tillman Calcium [Mass/Vol] 8.0 mg/dL Critically low 8.4-10.2 Th [facility] Comment on above: Performed By: #### B MP #### [facility] [address] [address] [address] Carmel Tillman Chloride [Moles/Vol] 105 mmol/L Normal 98-107 [facility] [place] Comment on above: Performed By: #### B MP #### [facility] [address] [address] [address] Carmel Tillman CO2 [Moles/Vol] 21.3 mmol/L Critically low 22.0-30.0 [facility] [place] Comment on above: Performed By: #### B MP #### [facility] [address] [place] [address] Dr. Carmel Tillman Creatinine [Mass/Vol] 0.90 mg/dL Normal 0.52-1.04 [facility] [place] Comment on above: Performed By: #### B MP #### [facility] [address] [place] [address] Dr. Carmel Tillman EGFR-AF SWAZI >60 Normal >=60 [facility] Comment on above: Performed By: #### B MP #### [facility] [address] [address] [address] Carmel Tillman EGFR-NON AF SWAZI >60 Normal >=60 [facility] [place] Comment on above: Performed By: #### B MP #### [facility] [address] [place] [address] Dr. Carmel Tillman Glucose [Mass/Vol] 128 mg/dL Critically high 74-106 [facility] Comment on above: Performed By: #### B MP #### [facility] [address] [place] [address] Dr. Carmel Tillman Potassium [Moles/Vol] 3.7 mmol/L Normal 3.4-5.0 [facility] [place] Comment on above: Performed By: #### B MP #### [facility] [address] [place] [address] Dr. Carmel Tillman Sodium [Moles/Vol] 138 mmol/L Normal 137-145 [facility] Comment on above: Performed By: #### B MP #### [facility] [address] [place] [address] Dr. Carmel Tillman Urea nitrogen [Mass/Vol] 17.0 mg/dL Normal 7.0-17.0 [facility] [place] Comment on above: Performed By: #### B MP #### [facility] [address] [place] [address] Dr. Carmel Tillman Urea nitrogen/Creatinin e [Mass ratio] 18.9 mg/mg Normal [facility] [place] Comment on above: Performed By: #### B MP #### [facility] [address] [place] [address] Dr. Carmel Tillman CBC W MANUAL DIFFon 02-12-20 21 ATYPICAL LYMPH # 0.18 103/ul Normal [facility] Comment on above: Performed By: #### C MP, HSTROPN #### [facility] [address] [place] [address] Dr. Carmel Tillman ATYPICAL LYMPH % 1 % Normal [facility] Comment on above: Performed By: #### C MP, HSTROPN #### [facility] [address] [place] [address] Dr. Carmel Tillman BAND # 0.0 103/ul Normal 0.0-0.3 [facility] [place] Comment on above: Performed By: #### C MP, HSTROPN #### [facility] [address] [place] [address] Dr. Carmel Tillman BAND % 0 % Normal 0-5 [facility] [place] Comment on above: Performed By: #### C MP, HSTROPN #### [facility] [address] [place] [address] Dr. Carmel Tillman BASOM # 0.00 103/ul Normal 0.00-0.10 [facility] [place] Comment on above: Performed By: #### C MP, HSTROPN #### [facility] [address] [place] [address] Dr. Carmel Tillman BASOM % 0.0 % Critically low 0.2-2.0 [facility] Comment on above: Performed By: #### C MP, HSTROPN #### [facility] [address] [place] [address] Dr. Carmel Tillman BLAST # Normal [facility] [place] Comment on above: Performed By: #### C MP, HSTROPN #### [facility] [address] [place] [address] Dr. Carmel Tillman BLAST % Normal [facility] [place] Comment on above: Performed By: #### C MP, HSTROPN #### [facility] [address] [place] [address] Dr. Carmel Tillman CORRECTED WBC Normal 4.0-11.0 [facility] Comment on above: Performed By: #### C MP, HSTROPN #### [facility] [address] [address] [address] Carmel Tillman EOS # 0.00 103/ul Normal 0.00-0.70 [facility] [place] Comment on above: Performed By: #### C MP, HSTROPN #### [facility] [address] [address] [address] Carmel Tillman EOS% 0.0 % Critically low 0.9-7.0 [facility] Comment on above: Performed By: #### C MP, HSTROPN #### [facility] [address] [address] [address] Carmel Tillman HCT 43.4 % Normal 36.0-48.0 [facility] [place] Comment on above: Performed By: #### C MP, HSTROPN #### [facility] [address] [address] [address] Carmel Tillman HGB 13.7 g/dl Normal 12.0-16.0 [facility] [place] Comment on above: Performed By: #### C MP, HSTROPN #### [facility] [address] [address] [address] Carmel Tillman LYMPHM # 1.06 103/ul Critically low 1.20-3.[address] [facility] Comment on above: Performed By: #### C MP, HSTROPN #### [facility] [address] [address] [address] Carmel Tillman LYMPHM% 6.0 % Critically low 20.5-60.0 [facility] Comment on above: Performed By: #### C MP, HSTROPN #### [facility] [address] [address] [address] Camrel Tillman MCH 24.6 pg Critically low 26.7-34.0 [facility] Comment on above: Performed By: #### C MP, HSTROPN #### [facility] [address] [address] [address] Carmel Tillman MCHC 31.6 g/dl Normal 29.9-35.2 [facility] Comment on above: Performed By: #### C MP, HSTROPN #### [facility] [address] [address] [address] Carmel Tillman MCV 77.9 fL Critically low 81.0-99.0 [facility] Comment on above: Performed By: #### C MP, HSTROPN #### [facility] [address] [place] [address] Dr. Carmel Tillman METAMYELOCYTE # Normal [facility] [place] [facility] Comment on above: Performed By: #### C MP, HSTROPN #### [facility] [address] [place] [address] Dr. Carmel Tillman METAMYELOCYTE % Normal [facility] Comment on above: Performed By: #### C MP, HSTROPN #### [facility] [address] [place] [address] Dr. Carmel Tillman MONOM# 0.53 103/ul Normal 0.30-0.80 [facility] [place] Comment on above: Performed By: #### C MP, HSTROPN #### [facility] [address] [place] [address] Dr. Carmel Tillman MONOM% 3.0 % Normal 1.7-12.0 [facility] [place] Comment on above: Performed By: #### C MP, HSTROPN #### [facility] [address] [place] [address] Dr. Carmel Tillman MPV 10.2 fL Normal 9.5-13.5 [facility] [place] Comment on above: Performed By: #### C MP, HSTROPN #### [facility] [address] [place] [address] Dr. Carmel Tillman MYELOCYTE # Normal [facility] [place] Comment on above: Performed By: #### C MP, HSTROPN #### [facility] [address] [place] [address] Dr. Carmel Tillman MYELOCYTE % Normal [facility] Comment on above: Performed By: #### C MP, HSTROPN #### [facility] [address] [place] [address] Dr. Camrel Tillman NRBC Normal [facility] [place] Comment on above: Performed By: #### C MP, HSTROPN #### [facility] [address] [address] [address] Carmel Tillman PLT 213 103/ul Normal 150-450 [facility] [place] Comment on above: Performed By: #### C MP, HSTROPN #### [facility] [address] [address] [address] Carmel Tillman RBC 5.57 106/ul Critically high 4.20-5.40 [facility] Comment on above: Performed By: #### C MP, HSTROPN #### [facility] [address] [address] [address] Carmel Tillman RDW 17.2 % Critically high 11.0-15.[address] [facility] Comment on above: Performed By: #### C MP, HSTROPN #### [facility] [address] [place] [address] Dr. Carmel Tillman SEG # 15.84 103/ul Critically high 1.40-6.50 [facility] Comment on above: Performed By: #### C MP, HSTROPN #### [facility] [address] [place] [address] Dr. Carmel Tillman SEG % 90.0 % Critically high 43.0-75.[address] [facility] Comment on above: Performed By: #### C MP, HSTROPN #### [facility] [address] [place] [address] Dr. Carmel Tillman WBC 17.6 103/ul Critically high 4.0-11.0 [facility] Comment on above: Performed By: #### C MP, HSTROPN #### [facility] [address] [place] [address] Dr. Carmel Tillman CTA CHEST WO W CONon 021 CTA CHEST WO W CON EXAMINATION: CTA MICHELE ST WO W CON HISTORY: Shortness of breath. [...] HUSAM GARSIA Date: 2021-02-11 19:14 Normal [facility] CULTURE BLOODon 02-11-2021 Microscopic examination of blood, culture Culture Observations: NO GROWTH AT 5 DAYS. Normal [facility] [place] Comment on above: Performed By: #### P T, PTT #### [facility] [address] [address] [address] Carmel Tillman Microscopic examination of blood, culture Culture Observations: NO GROWTH AT 5 DAYS. Normal [facility] Comment on above: Performed By: #### P T, PTT #### [facility] [address] [place], [place] [address] Dr. Carmel Tillman Covid-19 PCR ([facility])on 01-24 SARS-CoV-2 (COVID-19) RNA EDILBERTO+probe Ql (Unsp spec) Not detected Normal NOT DETECTED [facility] Comment on above: Result Comment: This test is not yet approved or cleared by the [place] FDA. When there are no FDA-approved or cleared tests available, and other criteria are met, FDA can make tests available under an emergency access mechanism called an Emergency Use Authorization (EUA). The EUA for this test is supported by the [place] of Health and Human Service's (HHS's) declaration [...] SARS-CoV-2. Performed By: #### C MP #### [facility] [address] [place] [address] Dr. Carmel Tillman PROF 14(COMP METB)on 021 Albumin [Mass/Vol] 2.6 g/dL Critically low 3.5-5.0 Th [facility] Comment on above: Performed By: #### C FARAZ, HSTROPN #### [facility] [address] [place] [address] Dr. Carmel Tillman Albumin/Globulin [Mass ratio] 0.7 {ratio} Normal [facility] [place] Comment on above: Performed By: #### C MP, HSTROPN #### [facility] [address] [place] [address] Dr. Carmel Tillman ALP [Catalytic activity/Vol] 40 U/L Normal 38-126 [facility] [place] Comment on above: Performed By: #### C MP, HSTROPN #### [facility] [address] [address] [address] Carmel Tillman ALT [Catalytic activity/Vol] 73 U/L Critically high 9-52 [facility] [place] Comment on above: Performed By: #### C MP, HSTROPN #### [facility] [address] [place] [address] Dr. Carmel Tillman Anion gap [Moles/Vol] 14.4 mmol/L Normal [facility] [place] Comment on above: Performed By: #### C MP, HSTROPN #### [facility] [address] [address] [address] Carmel Tillman AST [Catalytic activity/Vol] 19 U/L Normal 14-36 [facility] [place] Comment on above: Performed By: #### C FARAZ, HSTROPN #### [facility] [address] [address] [address] Carmel Tillman Bilirubin [Mass/Vol] 0.7 mg/dL Normal 0.2-1.3 [facility] [place] Comment on above: Performed By: #### C FARAZ, HSTROPN #### [facility] [address] [place] [address] Dr. Carmel Tillman Calcium [Mass/Vol] 8.3 mg/dL Critically low 8.4-10.2 Th [facility] Comment on above: Performed By: #### C FARAZ, HSTROPN #### [facility] [address] [place] [address] Dr. Carmel Tillman Chloride [Moles/Vol] 106 mmol/L Normal 98-107 [facility] Comment on above: Performed By: #### C FARAZ, HSTROPN #### [facility] [address] [place] [address] Dr. Carmel Tillman CO2 [Moles/Vol] 22.9 mmol/L Normal 22.0-30.0 [facility] Comment on above: Performed By: #### C FARAZ, HSTROPN #### [facility] [address] [place] [address] Dr. Carmel Tillman Creatinine [Mass/Vol] 0.70 mg/dL Normal 0.52-1.04 [facility] Comment on above: Performed By: #### C FARAZ, HSTROPN #### [facility] [address] [place] [address] Dr. Carmel Tillman EGFR-AF SWAZI >60 Normal >=60 [facility] Comment on above: Performed By: #### C FARAZ, HSTROPN #### [facility] [address] [place] [address] Dr. Carmel Tillman EGFR-NON AF SWAZI >60 Normal >=60 [facility] Comment on above: Performed By: #### C FARAZ, HSTROPN #### [facility] [address] [address] [address] Carmel Tillman Globulin (S) [Mass/Vol] 3.5 g/dL Normal [facility] [place] Comment on above: Performed By: #### C FARAZ, HSTROPN #### [facility] [address] [address] [address] Carmel Tillman Glucose [Mass/Vol] 98 mg/dL Normal 74-106 [facility] Comment on above: Performed By: #### C FARAZ, HSTROPN #### [facility] [address] [address] [address] Carmel Tillman Potassium [Moles/Vol] 4.3 mmol/L Normal 3.4-5.0 [facility] [place] Comment on above: Performed By: #### C FARAZ, HSTROPN #### [facility] [address] [address] [address] Carmel Tillman Protein [Mass/Vol] 6.1 g/dL Normal 6.1-8.2 [facility] Comment on above: Performed By: #### C FARAZ, HSTROPN #### [facility] [address] [place] [address] Dr. Carmel Tillman Sodium [Moles/Vol] 139 mmol/L Normal 137-145 [facility] Comment on above: Performed By: #### C FARAZ, HSTROPN #### [facility] [address] [address] [address] Carmel Tillman Urea nitrogen [Mass/Vol] 21.0 mg/dL Critically high 7.0-17.0 [facility] [place] Comment on above: Performed By: #### C FARAZ, HSTROPN #### [facility] [address] [address] [address] Carmel Tillman Urea nitrogen/Creatinin e [Mass ratio] 30.0 mg/mg Normal [facility] [place] Comment on above: Performed By: #### C FARAZ, HSTROPN #### [facility] [address] [place] [address] Dr. Carmel Tillman TROPONIN, HIGH SENSITIVITYon 02-11-2021 HSTROP 8.3 pg/mL Normal 4.0-35.5 [facility] Comment on above: Result Comment: CUT- OFF POINTS HAVE BEEN ESTABLISHED BASED ON THE FOURTH UNIVERSAL DEFINITIONS OF MYOCARDIAL INFARCTION. THE UPPER REFERENCE LIMIT (URL) OF TROPONIN, DEFINED THE 99TH PERCENTILE OF cTnI DISTRIBUTION IN A REFERENCE POPULATION, HAS BEEN CONFIRMED THE DECISION THRESHOLD FOR DE DIAGNOSIS. Performed By: #### C MP, HSTROPN #### [facility] [address] [place] [address] Dr. Carmel Tillman CBC W MANUAL DIFFon 02-01-20 ATYPICAL LYMPH # 0.13 103/ul Normal [facility] Comment on above: Performed By: #### C MP #### [facility] [address] [place] [address] Dr. Carmel Tillman ATYPICAL LYMPH % 1 % Normal [facility] Comment on above: Performed By: #### C MP #### [facility] [address] [place] [address] Dr. Carmel Tillman BAND # 0.3 103/ul Normal 0.0-0.3 [facility] Comment on above: Performed By: #### C MP #### [facility] [address] [place] [address] Dr. Carmel Tillman BAND % 2 % Normal 0-5 [facility] Comment on above: Performed By: #### C MP #### [facility] [address] [place] [address] Dr. Carmel Tillman BASOM # 0.00 103/ul Normal 0.00-0.10 [facility] Comment on above: Performed By: #### C MP #### [facility] [address] [place] [address] Dr. Carmel Tillman BASOM % 0.0 % Critically low 0.2-2.0 [facility] Comment on above: Performed By: #### C MP #### [facility] [address] [place] [address] Dr. Carmel Tillman BLAST # Normal [facility] [place] Comment on above: Performed By: #### C MP #### [facility] [address] [place] [address] Dr. Carmel Tillman BLAST % Normal [facility] [place] Comment on above: Performed By: #### C MP #### [facility] [address] [place] [address] Dr. Carmel Tillman CORRECTED WBC Normal 4.0-11.0 [facility] Comment on above: Performed By: #### C MP #### [facility] [address] [place] [address] Dr. Carmel Tillman EOS # 0.00 103/ul Normal 0.00-0.70 [facility] [place] Comment on above: Performed By: #### C MP #### [facility] [address] [place] [address] Dr. Carmel Tillman EOS% 0.0 % Critically low 0.9-7.0 [facility] Comment on above: Performed By: #### C MP #### [facility] [address] [place] [address] Dr. Carmel Tillman HCT 41.0 % Normal 36.0-48.0 [facility] [place] Comment on above: Performed By: #### C MP #### [facility] [address] [place] [address] Dr. Carmel Tillman HGB 12.8 g/dl Normal 12.0-16.0 [facility] [place] Comment on above: Performed By: #### C MP #### [facility] [address] [place] [address] Dr. Carmel Tillman LYMPHM # 1.88 103/ul Normal 1.20-3.80 [facility] Comment on above: Performed By: #### C MP #### [facility] [address] [place] [address] Dr. Carmel Tillman LYMPHM% 15.0 % Critically low 20.5-60.0 [facility] Comment on above: Performed By: #### C MP #### [facility] [address] [place] [address] Dr. Carmel Tillman MCH 25.0 pg Critically low 26.7-34.0 [facility] Comment on above: Performed By: #### C MP #### [facility] [address] [place] [address] Dr. Carmel Tillman MCHC 31.2 g/dl Normal 29.9-35.2 [facility] [place] Comment on above: Performed By: #### C MP #### [facility] [address] [place] [address] Dr. Carmel Tillman MCV 80.2 fL Critically low 81.0-99.0 [facility] Comment on above: Performed By: #### C MP #### [facility] [address] [place] [address] Dr. Carmel Tillman METAMYELOCYTE # Normal [facility] Comment on above: Performed By: #### C MP #### [facility] [address] [place] [address] Dr. Carmel Tillman METAMYELOCYTE % Normal [facility] Comment on above: Performed By: #### C MP #### [facility] [address] [place] [address] Dr. Carmel Tillman MONOM# 0.25 103/ul Critically low 0.30-0.[address] [facility] Comment on above: Performed By: #### C MP #### [facility] [address] [place] [address] Dr. Carmel Tillman MONOM% 2.0 % Normal 1.7-12.0 [facility] [place] Comment on above: Performed By: #### C MP #### [facility] [address] [place] [address] Dr. Carmel Tillman MPV 12.4 fL Normal 9.5-13.5 [facility] [place] Comment on above: Performed By: #### C MP #### [facility] [address] [place] [address] Dr. Carmel Tillman MYELOCYTE # Normal [facility] [place] Comment on above: Performed By: #### C MP #### [facility] [address] [place] [address] Dr. Carmel Tillman MYELOCYTE % Normal [facility] [place] Comment on above: Performed By: #### C MP #### [facility] [address] [address] [address] Carmel Tillman NRBC Normal [facility] Comment on above: Performed By: #### C MP #### [facility] [address] [address] [address] Carmel Tillman PLT 209 103/ul Normal 150-450 [facility] Comment on above: Performed By: #### C MP #### [facility] [address] [address] [address] Carmel Tillman RBC 5.11 106/ul Normal 4.20-5.40 [facility] Comment on above: Performed By: #### C MP #### [facility] [address] [place] [address] Dr. Carmel Tillman RDW 16.9 % Critically high 11.0-15.0 [facility] [place] [facility] Comment on above: Performed By: #### C MP #### [facility] [address] [address] [address] Carmel Tillman SEG # 10.00 103/ul Critically high 1.40-6.50 [facility] Comment on above: Performed By: #### C MP #### [facility] [address] [place] [address] Dr. Carmel Tillman SEG % 80.0 % Critically high 43.0-75.0 [facility] [place] [facility] Comment on above: Performed By: #### C MP #### [facility] [address] [address] [address] Carmel Tillman WBC 12.5 103/ul Critically high 4.0-11.0 [facility] Comment on above: Performed By: #### C MP #### [facility] [address] [place] [address] Dr. Carmel Tillman MAGNESIUMon 01-31-2021 Magnesium [Mass/Vol] 2.7 mg/dL Critically high 1.6-2.3 [facility] [place] Comment on above: Performed By: #### C MP #### [facility] [address] [address] [address] Carmel Tillman PROF CHEM 8 (BAS METB)on Anion gap [Moles/Vol] 16.6 mmol/L Normal [facility] [place] Comment on above: Performed By: #### C MP #### [facility] [address] [place] [address] Dr. Carmel Tillman Calcium [Mass/Vol] 8.4 mg/dL Normal 8.4-10.2 [facility] Comment on above: Performed By: #### C MP #### [facility] [address] [place] [address] Dr. Carmel Tillman Chloride [Moles/Vol] 108 mmol/L Critically high 98-107 [facility] [place] Comment on above: Performed By: #### C MP #### [facility] [address] [place] [address] Dr. Carmel Tillman CO2 [Moles/Vol] 20.9 mmol/L Critically low 22.0-30.0 [facility] [place] Comment on above: Performed By: #### C MP #### [facility] [address] [place] [address] Dr. Carmel Tillman Creatinine [Mass/Vol] 0.91 mg/dL Normal 0.52-1.04 [facility] [place] Comment on above: Performed By: #### C MP #### [facility] [address] [place] [address] Dr. Carmel Tillman EGFR-AF SWAZI >60 Normal >=60 [facility] Comment on above: Performed By: #### C MP #### [facility] [address] [place] [address] Dr. Carmel Tillman EGFR-NON AF SWAZI >60 Normal >=60 [facility] [place] Comment on above: Performed By: #### C MP #### [facility] [address] [place] [address] Dr. Carmel Tillman Glucose [Mass/Vol] 132 mg/dL Critically high 74-106 [facility] Comment on above: Performed By: #### C MP #### [facility] [address] [place] [address] Dr. Carmel Tillman Potassium [Moles/Vol] 4.5 mmol/L Normal 3.4-5.0 [facility] [place] Comment on above: Performed By: #### C MP #### [facility] [address] [place] [address] Dr. Carmel Tillman Sodium [Moles/Vol] 141 mmol/L Normal 137-145 [facility] Comment on above: Performed By: #### C MP #### [facility] [address] [place] [address] Dr. Carmel Tillman Urea nitrogen [Mass/Vol] 30.0 mg/dL Critically high 7.0-17.0 [facility] [place] Comment on above: Performed By: #### C MP #### [facility] [address] [place] [address] Dr. Carmel Tillman Urea nitrogen/Creatinin e [Mass ratio] 33.0 mg/mg Normal [facility] [place] Comment on above: Performed By: #### C MP #### [facility] [address] [place] [address] Dr. Carmel Tillman BNPon 01-27-2021 Natriuretic peptide B (Bld) [Mass/Vol] 38.0 pg/mL Normal <=450.0 [facility] [place] Comment on above: Performed By: #### P T, PTT #### [facility] [address] [place] [address] Dr. Carmel Tillman CBC AUTO DIFFon 01-27-2021 BASO # 0.0 103/ul Normal 0.0-0.1 [facility] [place] Comment on above: Performed By: #### C MP, HSTROPN #### [facility] [address] [place] [address] Dr. Carmel Tillman Basophils/100 WBC (Bld) 0.3 % Normal 0.2-2.0 [facility] [place] Comment on above: Performed By: #### C MP, HSTROPN #### [facility] [address] [place] [address] Dr. Carmel Tillman EO # 0.0 103/ul Normal 0.0-0.7 [facility] [place] Comment on above: Performed By: #### C MP, HSTROPN #### [facility] [address] [place] [address] Dr. Carmel Tillman Eosinophils/100 WBC (Bld) 0.0 % Critically low 0.9-7.0 [facility] [place] Comment on above: Performed By: #### C MP, HSTROPN #### [facility] [address] [place] [address] Dr. Carmel Tillman Erythrocyte distribution width (RBC) [Ratio] 17.3 % Critically high 11.0-15.0 [facility] [place] Comment on above: Performed By: #### C MP, HSTROPN #### [facility] [address] [place] [address] Dr. Carmel Tillman Hematocrit (Bld) [Volume fraction] 45.4 % Normal 36.0-48.0 [facility] [place] Comment on above: Performed By: #### C FARAZ, HSTROPN #### [facility] [address] [place] [address] Dr. Carmel Tillman Hemoglobin (Bld) [Mass/Vol] 14.3 g/dL Normal 12.0-16.0 [facility] [place] Comment on above: Performed By: #### C FARAZ, HSTROPN #### [facility] [address] [place] [address] Dr. Carmel Tillman IG # 0.07 10e3/ul Critically high 0.00-0.03 [facility] Comment on above: Performed By: #### C MP, HSTROPN #### [facility] [address] [place] [address] Dr. Carmel Tillman IG % 0.8 % Critically high 0.0-0.5 [facility] [place] [facility] Comment on above: Performed By: #### C MP, HSTROPN #### [facility] [address] [place] [address] Dr. Carmel Tillman LYMPH # 2.2 103/ul Normal 1.2-3.8 [facility] [place] Comment on above: Performed By: #### C MP, HSTROPN #### [facility] [address] [place] [address] Dr. Carmel Tillman Lymphocytes/100 WBC (Bld) 25.4 % Normal 20.5-60.0 [facility] Comment on above: Performed By: #### C MP, HSTROPN #### [facility] [address] [place] [address] Dr. Carmel Tillman MANUAL DIFF REQ NO Normal [facility] Comment on above: Performed By: #### C MP, HSTROPN #### [facility] [address] [address] [address] Carmel Tillman MCH (RBC) [Entitic mass] 24.7 pg Critically low 26.7-34.0 [facility] Comment on above: Performed By: #### C MP, HSTROPN #### [facility] [address] [place] [address] Dr. Carmel Tillman MCHC (RBC) [Mass/Vol] 31.5 g/dL Normal 29.9-35.2 [facility] Comment on above: Performed By: #### C MP, HSTROPN #### [facility] [address] [place] [address] Dr. Carmel Tillman MCV (RBC) [Entitic vol] 78.3 fL Critically low 81.0-99.0 [facility] Comment on above: Performed By: #### C MP, HSTROPN #### [facility] [address] [place] [address] Dr. Carmel Tillman MONO # 0.2 103/ul Critically low 0.3-0.8 [facility] Comment on above: Performed By: #### C MP, HSTROPN #### [facility] [address] [place] [address] Dr. Carmel Tillman Monocytes/100 WBC (Bld) 2.6 % Normal 1.7-12.0 [facility] Comment on above: Performed By: #### C MP, HSTROPN #### [facility] [address] [place] [address] Dr. Carmel Tillman NEUT # 6.2 103/ul Normal 1.4-6.5 [facility] Comment on above: Performed By: #### C MP, HSTROPN #### [facility] [address] [address] [address] Carmel Tillman Neutrophils/100 WBC (Bld) 70.9 % Normal 43.0-75.0 [facility] [place] Comment on above: Performed By: #### C MP, HSTROPN #### [facility] [address] [place] [address] Dr. Carmel Tillman Platelet mean volume (Bld) [Entitic vol] 10.2 fL Normal 9.5-13.5 [facility] [place] Comment on above: Performed By: #### C MP, HSTROPN #### [facility] [address] [place] [address] Dr. Carmel Tillman PLT 219 103/ul Normal 150-450 [facility] [place] Comment on above: Performed By: #### C MP, HSTROPN #### [facility] [address] [place] [address] Dr. Carmel Tillman RBC 5.80 106/ul Critically high 4.20-5.40 [facility] Comment on above: Performed By: #### C MP, HSTROPN #### [facility] [address] [place] [address] Dr. Carmel Tillman WBC 8.7 103/ul Normal 4.0-11.0 [facility] [place] Comment on above: Performed By: #### C MP, HSTROPN #### [facility] [address] [place] [address] Dr. Carmel Tillman CTA CHEST WO W CONon 021 CTA CHEST WO W CON EXAMINATION: CTA MICHELE ST WO W CON HISTORY: Shortness of breath, [...] ARIELLA FISCHER Date: 2021-01-27 19:01 Normal [facility] Covid-19 PCR (CVDTBH)on SARS-CoV-2 (COVID-19) RNA EDILBERTO+probe Ql (Unsp spec) Detected Critically abnormal NOT DETECTED [facility] Comment on above: Result Comment: This test is not yet approved or cleared by the [place] FDA. When there are no FDA-approved or cleared tests available, and other criteria are met, FDA can make tests available under an emergency access mechanism called an Emergency Use Authorization (EUA). The EUA for this test is supported by the Project Management It Specialist of Health and Human Service's declaration that [...] used). Performed By: #### C VDTB #### [facility] [address] [place] [address] Dr. Carmel Tillman PROF 14(COMP METB)on 021 Albumin [Mass/Vol] 2.8 g/dL Critically low 3.5-5.0 Th e [facility] Comment on above: Performed By: #### P T, PTT #### [facility] [address] [place] [address] Dr. Carmel Tillman Albumin/Globulin [Mass ratio] 0.6 {ratio} Normal [facility] [place] Comment on above: Performed By: #### P T, PTT #### [facility] [address] [place] [address] Dr. Carmel Tillman ALP [Catalytic activity/Vol] 55 U/L Normal 38-126 [facility] [place] Comment on above: Performed By: #### P T, PTT #### [facility] [address] [place] [address] Dr. Carmel Tillman ALT [Catalytic activity/Vol] 69 U/L Critically high 9-52 [facility] [place] Comment on above: Performed By: #### P T, PTT #### [facility] [address] [place] [address] Dr. Carmel Tillman Anion gap [Moles/Vol] 12.7 mmol/L Normal [facility] [place] Comment on above: Performed By: #### P T, PTT #### [facility] [address] [place] [address] Dr. Carmel Tillman AST [Catalytic activity/Vol] 39 U/L Critically high 14-36 [facility] [place] Comment on above: Performed By: #### P T, PTT #### [facility] [address] [place], [place] [address] Dr. Carmel Tillman Bilirubin [Mass/Vol] 0.6 mg/dL Normal 0.2-1.3 [facility] Comment on above: Performed By: #### P T, PTT #### [facility] [address] [place] [address] Dr. Carmel Tillman Calcium [Mass/Vol] 8.5 mg/dL Normal 8.4-10.2 [facility] Comment on above: Performed By: #### P T, PTT #### [facility] [address] [place] [address] Dr. Carmel Tillman Chloride [Moles/Vol] 101 mmol/L Normal 98-107 [facility] Comment on above: Performed By: #### P T, PTT #### [facility] [address] [place] [address] Dr. Carmel Tillman CO2 [Moles/Vol] 26.9 mmol/L Normal 22.0-30.0 [facility] Comment on above: Performed By: #### P T, PTT #### [facility] [address] [place] [address] Dr. Carmel Tillman Creatinine [Mass/Vol] 1.05 mg/dL Critically high 0.52-1.04 [facility] [place] Comment on above: Performed By: #### P T, PTT #### [facility] [address] [place] [address] Dr. Carmel Tillman EGFR-AF SWAZI >60 Normal >=60 [facility] Comment on above: Performed By: #### P T, PTT #### [facility] [address] [place] [address] Dr. Carmel Tillman EGFR-NON AF SWAZI 59 mL/min/1.73m2 Critically low >=60 [facility] Comment on above: Performed By: #### P T, PTT #### [facility] [address] [place] [address] Dr. Carmel Tillman Globulin (S) [Mass/Vol] 4.5 g/dL Normal [facility] Comment on above: Performed By: #### P T, PTT #### [facility] [address] [address] [address] Carmel Tillman Glucose [Mass/Vol] 90 mg/dL Normal 74-106 [facility] Comment on above: Performed By: #### P T, PTT #### [facility] [address] [address] [address] Carmel Tillman Potassium [Moles/Vol] 3.6 mmol/L Normal 3.4-5.0 [facility] Comment on above: Performed By: #### P T, PTT #### [facility] [address] [place] [address] Dr. Carmel Tillman Protein [Mass/Vol] 7.3 g/dL Normal 6.1-8.2 [facility] Comment on above: Performed By: #### P T, PTT #### [facility] [address] [place] [address] Dr. Carmel Tillman Sodium [Moles/Vol] 137 mmol/L Normal 137-145 [facility] Comment on above: Performed By: #### P T, PTT #### [facility] [address] [place] [address] Dr. Carmel Tillman Urea nitrogen [Mass/Vol] 14.0 mg/dL Normal 7.0-17.0 [facility] Comment on above: Performed By: #### P T, PTT #### [facility] [address] [place] [address] Dr. Carmel Tillman Urea nitrogen/Creatinin e [Mass ratio] 13.3 mg/mg Normal [facility] [place] Comment on above: Performed By: #### P T, PTT #### [facility] [address] [place] [address] Dr. Carmel Tillman PROTIMEon 01-27-2021 INR Coag (PPP) [Relative time] 0.96 {INR} Normal [facility] [place] Comment on above: Performed By: #### P T, PTT #### [facility] [address] [place] [address] Dr. Carmel Tillman INR GUIDELINES SEE BELOW Normal [facility] Comment on above: Result Comment: CHRIS RED INR: 2.0 - 3.0 CONDITIONS NOT LISTED BELOW 2.5 - 3.5 FOR PROSTHETIC HEART VALVE REPLACEMENT 2.5 - 3.5 RECURRENT THROMBOSIS Performed By: #### P T, PTT #### [facility] [address] [place] [address] Dr. Carmel Tillman PT Coag (PPP) [Time] 10.4 s Normal 9.0-11.6 [facility] Comment on above: Performed By: #### P T, PTT #### [facility] [address] [place] [address] Dr. Carmel Tillman PTTon 01-27-2021 aPTT Coag (Bld) [Time] 25.0 s Normal 22.3-36.2 [facility] Comment on above: Performed By: #### P T, PTT #### [facility] [address] [place] [address] Dr. Carmel Tillman TROPONIN, HIGH SENSITIVITYon 01-27-2021 HSTROP 6.6 pg/mL Normal 4.0-35.5 [facility] Comment on above: Result Comment: CUT- OFF POINTS HAVE BEEN ESTABLISHED BASED ON THE FOURTH UNIVERSAL DEFINITIONS OF MYOCARDIAL INFARCTION. THE UPPER REFERENCE LIMIT (URL) OF TROPONIN, DEFINED THE 99TH PERCENTILE OF cTnI DISTRIBUTION IN A REFERENCE POPULATION, HAS BEEN CONFIRMED THE DECISION THRESHOLD FOR DE DIAGNOSIS. Performed By: #### P T, PTT #### [facility] [address] [place] [address] Dr. Carmel Tillman BNPon 01-21-2021 Natriuretic peptide B (Bld) [Mass/Vol] 50.0 pg/mL Normal <=450.0 [facility] Comment on above: Performed By: #### C MP, HSTROPN #### [facility] [address] [place] [address] Dr. Carmel Tillman CBC AUTO DIFFon 01-21-2021 BASO # 0.1 103/ul Normal 0.0-0.1 [facility] Comment on above: Performed By: #### C BC #### [facility] [address] [place] [address] Dr. Carmel Tillman Basophils/100 WBC (Bld) 0.4 % Normal 0.2-2.0 [facility] Comment on above: Performed By: #### C BC #### [facility] [address] [address] [address] Carmel Tillman EO # 0.1 103/ul Normal 0.0-0.7 [facility] Comment on above: Performed By: #### C BC #### [facility] [address] [address] [address] Carmel Tillman Eosinophils/100 WBC (Bld) 0.9 % Normal 0.9-7.0 [facility] Comment on above: Performed By: #### C BC #### [facility] [address] [address] [address] Carmel Tillman Erythrocyte distribution width (RBC) [Ratio] 16.5 % Critically high 11.0-15.0 [facility] [place] Comment on above: Performed By: #### C BC #### [facility] [address] [place] [address] Dr. Carmel Tillman Hematocrit (Bld) [Volume fraction] 41.4 % Normal 36.0-48.0 [facility] [place] Comment on above: Performed By: #### C BC #### [facility] [address] [place] [address] Dr. Carmel Tillman Hemoglobin (Bld) [Mass/Vol] 13.1 g/dL Normal 12.0-16.0 [facility] [place] Comment on above: Performed By: #### C BC #### [facility] [address] [place] [address] Dr. Carmel Tillman IG # 0.23 10e3/ul Critically high 0.00-0.03 [facility] Comment on above: Performed By: #### C BC #### [facility] [address] [address] [address] Carmel Tillman IG % 2.0 % Critically high 0.0-0.[address] [facility] Comment on above: Performed By: #### C BC #### [facility] [address] [place] [address] Dr. Carmel Tillman LYMPH # 3.6 103/ul Normal 1.2-3.8 [facility] [place] Comment on above: Performed By: #### C BC #### [facility] [address] [address] [address] Carmel Tillman Lymphocytes/100 WBC (Bld) 30.8 % Normal 20.5-60.0 [facility] [place] Comment on above: Performed By: #### C BC #### [facility] [address] [place] [address] Dr. Carmel Tillman MANUAL DIFF REQ NO Normal [facility] Comment on above: Performed By: #### C BC #### [facility] [address] [place] [address] Dr. Carmel Tillman MCH (RBC) [Entitic mass] 24.7 pg Critically low 26.7-34.0 [facility] Comment on above: Performed By: #### C BC #### [facility] [address] [place] [address] Dr. Carmel Tillman MCHC (RBC) [Mass/Vol] 31.6 g/dL Normal 29.9-35.2 [facility] Comment on above: Performed By: #### C BC #### [facility] [address] [place] [address] Dr. Carmel Tillman MCV (RBC) [Entitic vol] 78.1 fL Critically low 81.0-99.0 [facility] Comment on above: Performed By: #### C BC #### [facility] [address] [place] [address] Dr. Carmel Tillman MONO # 1.1 103/ul Critically high 0.3-0.8 [facility] Comment on above: Performed By: #### C BC #### [facility] [address] [place] [address] Dr. Carmel Tillman Monocytes/100 WBC (Bld) 9.3 % Normal 1.7-12.0 [facility] Comment on above: Performed By: #### C BC #### [facility] [address] [place] [address] Dr. Carmel Tillman NEUT # 6.6 103/ul Critically high 1.4-6.5 [facility] Comment on above: Performed By: #### C BC #### [facility] [address] [place] [address] Dr. Carmel Tillman Neutrophils/100 WBC (Bld) 56.6 % Normal 43.0-75.0 [facility] Comment on above: Performed By: #### C BC #### [facility] [address] [place] [address] Dr. Carmel Tillman Platelet mean volume (Bld) [Entitic vol] 9.8 fL Normal 9.5-13.5 [facility] Comment on above: Performed By: #### C BC #### [facility] [address] [place] [address] Dr. Carmel Tillman PLT 319 103/ul Normal 150-450 [facility] Comment on above: Performed By: #### C BC #### [facility] [address] [place] [address] Dr. Carmel Tillman RBC 5.30 106/ul Normal 4.20-5.40 [facility] Comment on above: Performed By: #### C BC #### [facility] [address] [place] [address] Dr. Carmel Tillman WBC 11.6 103/ul Critically high 4.0-11.0 [facility] Comment on above: Performed By: #### C BC #### [facility] [address] [place] [address] Dr. Carmel Tillman CTA CHEST WO W [...] ROSALINO TRAN Date: 2021-01-21 20:49 Normal [facility] LACTATE/LACTIC ACIDon 2020 Lactate [Moles/Vol] 1.1 mmol/L Normal 0.7-2.0 [facility] Comment on above: Performed By: #### C MP #### [facility] [address] [address] [address] Carmel Tillman PH VENOUS BLOODon 01-21-2021 PCO2 VENOUS 35.9 mmHg Critically low 40.0-52.0 [facility] Comment on above: Performed By: #### P HVEN #### [facility] [address] [address] [address] Carmel Tillman pH VENOUS 7.46 Critically high 7.33-7.43 [facility] Comment on above: Performed By: #### P HVEN #### [facility] [address] [address] [address] Carmel Tillman PREG HCG QUALon 01-21-2021 , QUAL Negative Normal NEGATIVE [facility] Comment on above: Performed By: #### C MP, HSTROPN #### [facility] [address] [address] [address] Carmel Tillman PROF 14(COMP METB)on 021 Albumin [Mass/Vol] 2.8 g/dL Critically low 3.5-5.0 [facility] Comment on above: Performed By: #### C FARAZ, HSTROPN #### [facility] [address] [place] [address] Dr. Carmel Tillman Albumin/Globulin [Mass ratio] 0.7 {ratio} Normal [facility] Comment on above: Performed By: #### C FARAZ, HSTROPN #### [facility] [address] [place] [address] Dr. Carmel Tillman ALP [Catalytic activity/Vol] 58 U/L Normal 38-126 [facility] Comment on above: Performed By: #### C FARAZ, HSTROPN #### [facility] [address] [place] [address] Dr. Carmel Tillman ALT [Catalytic activity/Vol] 39 U/L Normal 9-52 [facility] Comment on above: Performed By: #### C AFRAZ, HSTROPN #### [facility] [address] [place] [address] Dr. Carmel Tillman Anion gap [Moles/Vol] 13.8 mmol/L Normal [facility] Comment on above: Performed By: #### C FARAZ, HSTROPN #### [facility] [address] [place] [address] Dr. Carmel Tillman AST [Catalytic activity/Vol] 34 U/L Normal 14-36 [facility] Comment on above: Performed By: #### C FARAZ, HSTROPN #### [facility] [address] [place] [address] Dr. Carmel Tillman Bilirubin [Mass/Vol] 0.3 mg/dL Normal 0.2-1.3 [facility] Comment on above: Performed By: #### C FARAZ, HSTROPN #### [facility] [address] [place] [address] Dr. Carmel Tillman Calcium [Mass/Vol] 8.0 mg/dL Critically low 8.4-10.2 Th [facility] Comment on above: Performed By: #### C FARAZ, HSTROPN #### [facility] [address] [address] [address] Carmel Tillman Chloride [Moles/Vol] 103 mmol/L Normal 98-107 [facility] Comment on above: Performed By: #### C MP, HSTROPN #### [facility] [address] [place] [address] Dr. Carmel Tillman CO2 [Moles/Vol] 23.9 mmol/L Normal 22.0-30.0 The [facility] Comment on above: Performed By: #### C MP, HSTROPN #### [facility] [address] [address] [address] Carmel Tillman Creatinine [Mass/Vol] 1.01 mg/dL Normal 0.52-1.04 [facility] Comment on above: Performed By: #### C FARAZ, HSTROPN #### [facility] [address] [place] [address] Dr. Carmel Tillman EGFR-AF SWAZI >60 Normal >=60 [facility] Comment on above: Performed By: #### C MP, HSTROPN #### [facility] [address] [place] [address] Dr. Carmel Tillman EGFR-NON AF SWAZI >60 Normal >=60 [facility] Comment on above: Performed By: #### C FARAZ, HSTROPN #### [facility] [address] [place] [address] Dr. Carmel Tillman Globulin (S) [Mass/Vol] 4.1 g/dL Normal [facility] Comment on above: Performed By: #### C MP, HSTROPN #### [facility] [address] [place] [address] Dr. Carmel Tillman Glucose [Mass/Vol] 89 mg/dL Normal 74-106 [facility] Comment on above: Performed By: #### C MP, HSTROPN #### [facility] [address] [place] [address] Dr. Carmel Tillman Potassium [Moles/Vol] 3.7 mmol/L Normal 3.4-5.0 [facility] Comment on above: Performed By: #### C MP, HSTROPN #### [facility] [address] [address] [address] Carmel Tillman Protein [Mass/Vol] 6.9 g/dL Normal 6.1-8.2 The [facility] Comment on above: Performed By: #### C MP, HSTROPN #### [facility] [address] [address] [address] Carmel Tillman Sodium [Moles/Vol] 137 mmol/L Normal 137-145 The [facility] Comment on above: Performed By: #### C MP, HSTROPN #### [facility] [address] [place] [address] Dr. Carmel Tillman Urea nitrogen [Mass/Vol] 21.0 mg/dL Critically high 7.0-17.0 [facility] Comment on above: Performed By: #### C MP, HSTROPN #### [facility] [address] [place] [address] Dr. Carmel Tillman Urea nitrogen/Creatinin e [Mass ratio] 20.8 mg/mg Normal The [facility] Comment on above: Performed By: #### C MP, HSTROPN #### [facility] [address] [place] [address] Dr. Carmel Tillman PROTIMEon 01-21-2021 INR Coag (PPP) [Relative time] 1.00 {INR} Normal [facility] Comment on above: Performed By: #### P T, PTT #### [facility] [address] [place] [address] Dr. Carmel Tillman INR GUIDELINES SEE BELOW Normal The [facility] Comment on above: Result Comment: CHRIS RED INR: 2.0 - 3.0 CONDITIONS NOT LISTED BELOW 2.5 - 3.5 FOR PROSTHETIC HEART VALVE REPLACEMENT 2.5 - 3.5 RECURRENT THROMBOSIS Performed By: #### P T, PTT #### [facility] [address] [place] [address] Dr. Carmel Tillman PT Coag (PPP) [Time] 10.8 s Normal 9.0-11.6 [facility] Comment on above: Performed By: #### P T, PTT #### [facility] [address] [address] [address] Carmel Tillman PTTon 01-21-2021 aPTT Coag (Bld) [Time] 25.4 s Normal 22.3-36.2 [facility] Comment on above: Performed By: #### P T, PTT #### [facility] [address] [address] [address] Carmel Tillman TROPONIN, HIGH SENSITIVITYon 01-21-2021 HSTROP 4.7 pg/mL Normal 4.0-35.5 [facility] Comment on above: Result Comment: CUT- OFF POINTS HAVE BEEN ESTABLISHED BASED ON THE FOURTH UNIVERSAL DEFINITIONS OF MYOCARDIAL INFARCTION. THE UPPER REFERENCE LIMIT (URL) OF TROPONIN, DEFINED THE 99TH PERCENTILE OF cTnI DISTRIBUTION IN A REFERENCE POPULATION, HAS BEEN CONFIRMED THE DECISION THRESHOLD FOR DE DIAGNOSIS. Performed By: #### C MP, HSTROPN #### [facility] [address] [address] [address] Carmel Tillman Vital Signs Date Time Vital Sign Value Performing Clinician Faci lity 05-12-2024 10:35-0400 SaO2% (BldA) [Mass fraction] 95 % [employer] [facility] 05-12-2024 10:35-0400 Heart rate 76 /min [employer] [facility] 05-12-2024 10:35-0400 Blood Pressure Location [employer] [facility] 05-12-2024 10:35-0400 Diastolic blood pressure 73 mm[Hg] [employer] [facility] 05-12-2024 10:35-0400 Respiratory rate 20 /min [employer] [facility] 05-12-2024 10:35-0400 Systolic blood pressure 118 mm[Hg] [employer] [facility] 05-12-2024 10:30-0400 SaO2% (BldA) [Mass fraction] 95 % Mohamad Mouchli [facility] 05-12-2024 10:30-0400 Heart rate 82 /min Mohamad Mouchli [facility] 05-12-2024 10:30-0400 Blood Pressure Location Mohamad Mouchli [facility] 05-12-2024 10:30-0400 Diastolic blood pressure 69 mm[Hg] Mohamad Mouchli [facility] 05-12-2024 10:30-0400 Respiratory rate 20 /min Mohamad Mouchli [facility] 05-12-2024 10:30-0400 Systolic blood pressure 122 mm[Hg] Mohamad Mouchli [facility] 05-12-2024 10:25-0400 Diastolic blood pressure 74 mm[Hg] Mohamad Mouchli [facility] 05-12-2024 10:25-0400 Systolic blood pressure 118 mm[Hg] Mohamad Mouchli [facility] 05-12-2024 10:25-0400 Blood Pressure Location Mohamad Mouchli [facility] 05-12-2024 10:25-0400 Heart rate 80 /min Mohamad Mouchli [facility] 05-12-2024 10:25-0400 Respiratory rate 20 /min Mohamad Mouchli [facility] 05-12-2024 10:25-0400 SaO2% (BldA) [Mass fraction] 96 % Mohamad Mouchli [facility] 05-12-2024 10:18-0400 Body temperature 98.06 [degF] Ruthie Colindres [facility] 05-12-2024 08:43-0400 Body temperature 96.8 [degF] Ruthie Colindres [facility] 01-01-2024 14:33-0500 Body height 170.2 cm Larissa Lora BAIT DIGGER Work Phone: [facility] 01-01-2024 14:33-0500 Body mass index (BMI) [Ratio] 59.92 kg/m2 Larissa Lora BAIT DIGGER Work Phone: [facility] 01-01-2024 14:33-0500 Body temperature 96.69 [degF] Larissa Lora BAIT DIGGER Work Phone: [facility] 01-01-2024 14:33-0500 Body weight 173.55 kg Larissa Lora BAIT DIGGER Work Phone: [facility] 01-01-2024 14:33-0500 Diastolic blood pressure 76 mm[Hg] Larissa Lora BAIT DIGGER Work Phone: [facility] 01-01-2024 14:33-0500 Heart rate 94 /min Larissa Lora BAIT DIGGER Work Phone: [facility] 01-01-2024 14:33-0500 Respiratory rate 16 /min Larissa Lora BAIT DIGGER Work Phone: [facility] 01-01-2024 14:33-0500 SaO2% (BldA) [Mass fraction] 98 % Larissa Lora BAIT DIGGER Work Phone: [facility] 01-01-2024 14:33-0500 Systolic blood pressure 130 mm[Hg] Larissa Lora BAIT DIGGER Work Phone: [facility] 12-02-2023 14:03-0400 Body mass index (BMI) [Ratio] 58.11 kg/m2 Larissa Lora BAIT DIGGER Work Phone: [facility] 12-02-2023 14:03-0400 Body temperature 97.3 [degF] Larissa Sosak BAIT DIGGER Work Phone: [facility] 12-02-2023 14:03-0400 Body weight 168.28 kg Larissa Sosak BAIT DIGGER Work Phone: [facility] 12-02-2023 14:03-0400 Diastolic blood pressure 72 mm[Hg] Larissa Vogttrick BAIT DIGGER Work Phone: [facility] 12-02-2023 14:03-0400 Heart rate 74 /min Larissa Sosak BAIT DIGGER Work Phone: [facility] 12-02-2023 14:03-0400 SaO2% (BldA) [Mass fraction] 95 % Larissa Sosak BAIT DIGGER Work Phone: [facility] 12-02-2023 14:03-0400 Systolic blood pressure 128 mm[Hg] Larissa Sosak BAIT DIGGER Work Phone: [facility] Encounters Encounter Date Encounter Type Care Provider Facility Start: 04-22-2025 ambulatory [facility] L [facility] Start: 11-10-2024 End: 11-10-2024 ambulatory TRACTOR TECHNICIAN Nalini L Kelli Facility:[facility] Start: 10-22-2024 End: 10-22-2024 ambulatory [facility] L Kelli [facility] Start: 10-19-2024 End: 10-19-2024 ambulatory [facility]ini L Kelli [facility] Start: 09-09-2024 ambulatory [facility]ellers [facility] Start: 06-17-2024 End: 06-17-2024 ambulatory Rachid Sellers [facility] Start: 06-10-2024 End: 06-10-2024 ambulatory [facility] Sellers [facility] Start: 06-07-2024 End: 06-07-2024 ambulatory Ruthie Colindres Facility:[facility] Start: 05-12-2024 End: 05-13-2024 ambulatory Ruthie Colindres Facility:[facility] Start: 05-12-2024 End: 05-13-2024 Patient encounter procedure Ruthie Colindres [facility] Start: 05-05-2024 ambulatory [facility] Start: 05-05-2024 End: 05-05-2024 ambulatory Ruthie Colindres Facility:[facility] Start: 04-08-2024 End: 04-08-2024 ambulatory Rachid Sellers Facility: [facility] Start: 03-14-2024 End: 03-16-2024 Refill Larissa Lora BAIT DIGGER Work Phone: [facility] Comment on above: Primary hypertension (CMS/HCC) Start: 03-09-2024 End: 03-09-2024 ambulatory Rachid Sellers Facility:[facility] Start: 03-04-2024 End: 03-08-2024 Refill Larissa Lora BAIT DIGGER Work Phone: [facility] Comment on above: Prediabetes Start: 02-10-2024 ambulatory Rachid Sellers Facility :[facility] Start: 01-23-2024 End: 01-26-2024 Refill Larissa Lora BAIT DIGGER Work Phone: [facility] Comment on above: Acute rhinitis Start: 01-06-2024 End: 01-06-2024 Clinisync Result Encounter Larissa Lora BAIT DIGGER Work Phone: [facility] Unsolicited Start: 01-06-2024 End: 01-06-2024 Clinisync Result Encounter Larissa Lora BAIT DIGGER Work Phone: [facility] Unsolicited Start: 01-01-2024 End: 01-01-2024 Office outpatient visit 15 minutes Larissa Lora BAIT DIGGER Work Phone: [facility] Comment on above: Prediabetes (Primary Dx); Community acquired pneumonia, unspecified laterality; Acute rhinitis Start: 01-01-2024 End: 01-01-2024 Bamboo flowsheet Larissa Lora BAIT DIGGER Work Phone: [facility] Start: 01-01-2024 End: 01-01-2024 Bamboo flowsheet Larissa Lora BAIT DIGGER Work Phone: [facility] Start: 12-02-2023 End: 12-02-2023 Bamboo flowsheet Larissa Lora BAIT DIGGER Work Phone: [facility] Start: 12-02-2023 End: 12-02-2023 Bamboo flowsheet Larissa Lora BAIT DIGGER Work Phone: [facility] Start: 12-02-2023 End: 12-02-2023 Office outpatient visit 15 minutes Larissa Lora BAIT DIGGER Work Phone: [facility] Comment on [...] Start: 05-12-2020 End: 05-13-2020 ambulatory Rachid Sellers Facility:[facility] Procedures Date Procedure Procedure Detail Performing Clinician Start: 05-12-2024 Esophagogastroduodenoscopy Ruthie Colindres Start: 01-06-2024 ALL CBC WITH AUTO DIFF Larissa Lora BAIT DIGGER Work Phone: Start: 01-06-2024 MHPT DIFFERENTIAL Tabby any Lora BAIT DIGGER Work Phone: Start: 12-30-2023 Mammography Larissa F itzkermitk BAIT DIGGER Work Phone: Start: 02-24-2009 Cholecystectomy Ruthie Colindres Tonsillectomy Ruthie Diamond i Plan of Treatment Date Care Activity Detail Author Start: 12-29-2024 Screening for malign ant neoplasm of breast Mammogram [facility] Start: 08-23-2024 Influenza vaccination Influenza Vacc ine (#1) [facility] Comment on above: Postponed from 10/25 (Patient Refused) Start: 04-05-2024 End: 04-05-2024 Patient encounter procedure 04/05/2024 2:30 PM EST Office Visit [facility] [address] [place] [address] Larissa Lora NP [address] [place] [address] [facility] Start: 03-02-2024 End: 12-31-2024 Comprehensive metabolic 2000 panel - Serum or Plasma Comprehensive metabolic panel Lab Routine Prediabetes Expected: 03/02/2024 (Approximate), Expires: 12/31/2024 [facility] Comment on above: Expected: 03/02/2024 (Approximate), Expires: 12/31/2024 Start: 03-02-2024 End: 12-31-2024 Hemoglobin A1c/Hemoglobin.total in Blood Hemoglobin A1c Lab Routine Prediabetes Expected: 03/02/2024 (Approximate), Expires: 12/31/2024 [facility] Work Phone: Comment on above: Expected: 03/02/2024 (Approximate), Expires: 12/31/2024 Start: 01-01-2024 End: 01-01-2024 Patient encounter procedure [facility] Comment on above: Arrived Start: 01-01-2024 End: 12-31-2024 XR Chest Single view XR chest 1 view Imaging Routine Community acquired pneumonia, unspecified laterality Expected: 01/01/2024, Expires: 12/31/2024 [facility] Comment on above: Expected: 01/01/2024 , Expires: 12/31/2024 Start: 12-02-2023 End: 01-31-2025 MG Breast - bilateral Screening Bilateral screening mammogram Imaging Routine Encounter for screening mammogram for malignant neoplasm of breast Expected: 12/02/2023, Expires: 01/31/2025 [facility] Work Phone: Comment on above: Expected: 12/02/2023 , Expires: 01/31/2025 Start: 12-02-2023 End: 12-02-2023 Patient encounter procedure 12/02/2023 2:00 PM EDT Office Visit [facility] [address] [place] [address] Larissa Lora NP [address] [place] [address] Arrived [facility] Comment on above: Arrived Start: 12-02-2023 End: 12-01-2024 Pulmonary function report Pulmonary Function Test Imaging Routine Dyspnea on exertion Expected: 12/02/2023, Expires: 12/01/2024 [facility] Comment on above: Expected: 12/02/2023 , Expires: 12/01/2024 Start: 10-26-2023 Influenza vaccination Influenza Vacc ine (#1) [facility] Start: 2023 Screening for malign ant neoplasm of breast Mammogram [facility] Start: 08-21-2013 Screening for malign ant neoplasm of cervix [facility] Start: 08-21-2004 Screening for malign ant neoplasm of cervix Pap Smear [facility] CBC W Auto Different ial panel - Blood CBC and differential Lab Routine Prediabetes Community acquired pneumonia, unspecified laterality Ordered: 01/01/2024 [facility] Comment on above: Ordered: 01/01/2024 Immunizations Immunization Date Immunization Notes Care Provider Fa maurizio 11-24-2020 influenza virus vaccine, unspecified formulation Larissa Lora NP Work Phone: [facility] Payers Date Payer Category Payer Unknown [id number] 2023 [facility] [id number] 2023 Unknown [id number]. [id number] 2020 Unknown [id number] 2019 Unknown [id number] 1985 Unknown [id number] 2.16.840.1.474928.3.579. 2.593 1983 Unknown [id number] 2.16.840.1.396542.3.579. 2.593 1983 Unknown [id number] 2.16.840.1.798068.3.579. 2593 1983 Unknown [id number] 2.16.840.1.702623.3.579. 2.593 1983 Unknown [id number] 2.16.840.1.778201.3.579. 2.593 1983 Unknown [id number] 2.16.840.1.789961.3.579. 2.593 1983 Unknown [id number] 2.16840.1.390521.3.579. 2593 1983 Unknown [id number] 2.840.1.531269.3.579. 259 1983 Unknown [id number] 2.840.1.461780.3.579. 272 1983 Unknown [id number] 2.840.1.734109.3.579. 272 1983 Unknown [id number] 2.840.1.791255.3.579. 272 1983 Unknown [id number] 2.16840.1.221529.3.579. 2.72 1983 Unknown [id number] 2.840.1.833637.3.579. 272 1983 Unknown [id number] 2.16840.1.497436.3.579. 2.72 1983 Unknown [id number] 2.16840.1.611875.3.579. 272 1983 Unknown [id number] 2.16840.1.413743.3.579. 2.727 1983 Unknown [id number] 2.16840.1.248506.3.579. 2.727 1983 Unknown [id number] 2.16.840.1.829650.3.579. 2.727 1983 Unknown [id number] 2.16.840.1.852965.3.579. 2. 1983 Unknown [id number] 2.16.840.1.515577.3.579. 2.72 1983 Unknown [id number] 2.16.840.1.009744.3.579. 2. 1983 Unknown [id number] 2.16.840.1.238154.3.579. 2.72 1983 Unknown [id number] 2.16.840.1.735613.3.579. 2. 1983 Unknown [id number] 2.16.840.1.307463.3.579. 2.727 1961 Self-pay [id number] 1961 Unknown [id number] Unknown [id number] 2.16.840.1.097653.3.579. 2.531 Social History Date Type Detail Facility Start: 05-12-2020 End: 05-05-2024 Tobacco smoking status [facility] Never smoked tobacco (finding) [facility] Start: 1985 Sex Assigned At Female [facility] Start: 07-15-2023 Tobacco use and exposure Smokeless tobacco non-user [facility] Start: 10-01-2023 End: 01-01-2024 Alcoholic beverage intake Lifetime non-drinker (finding) [facility] [...] to any clubs or organizations such as christianity groups, unions, fraternal or athletic groups, or [...] Gender identity Identifies as female gender (finding) [facility] Sexual Orientation [facility] Sex Female (finding) [facility] NEGATED: Highlighted rowStart: NINF History of tobacco use Passive smoker [facility] Goals Date Patient Goal Desired Activity /State Personal health goal Functional Status Date Assessment Result Facility 05-12-2024 Functional Status N/A [facility] Clinical Notes 10-12-2021 to 06-17-2024 Note Date & Type Note Facility 06-17-2024 Note Patient Education Nutrition BMI for Adults Body mass index (BMI) is a number found using a person's weight and height. BMI can help tell how much of a person's weight is made up of fat. BMI does not measure body fat directly. It is used instead of tests that directly measure body fat, which can be difficult and expensive. What are BMI measurements used for? BMI is useful to: ??? Find out if your weight puts you at higher risk for medical problems. ??? Help recommend changes, such as in diet and exercise. This can help you reach a healthy weight. BMI screening can be done again to see if these changes are working. How is BMI calculated? Your height and weight are measured. The BMI is found from those numbers. This can be done with U.S. or metric measurements. Note that charts and online BMI calculators are available to help you find your BMI quickly and easily without doing these calculations. To calculate your BMI in U.S. measurements: 1. Measure your weight in pounds (lb). 2. Multiply the number of pounds by 703. ??? So, for an adult who weighs 150 lb, multiply that number by 703: 150 x 703, which equals 105,450. 3. Measure your height in inches. Then multiply that number by itself to get a measurement called inches squared. ??? So, for an adult who is 70 inches tall, the inches squared measurement is 70 inches x 70 inches, which equals 4,900 inches squared. 4. Divide the total from step 2 (number of lb x 703) by the total from step 3 (inches squared): 105,450 ? 4,900 = 21.5. This is your BMI. To calculate your BMI in metric measurements: 1. Measure your weight in kilograms (kg). ??? For this example, the weight is 70 kg. 2. Measure your height in meters (m). Then multiply that number by itself to get a measurement called meters squared. ??? So, for an adult who is 1.75 m tall, the meters squared measurement is 1.75 m x 1.75 m, which equals 3.1 meters squared. 3. Divide the number of kilograms (your weight) by the meters squared number. In this example: 70 ? 3.1 = 22.6. This is your BMI. What do the results mean? BMI charts are used to see if you are underweight, normal weight, overweight, or obese. The following guidelines will be used: ??? Underweight: BMI less than 18.5. ??? Normal weight: BMI between 18.5 and 24.9. ??? Overweight: BMI between 25 and 29.9. ??? Obese: BMI of 30 or above. BMI is a tool and cannot diagnose a condition. Talk with your health care provider about what your BMI means for you. Keep these notes in mind: ??? Weight includes fat and muscle. Someone with a muscular build, such as an athlete, may have a BMI that is higher than 24.9. In cases like these, BMI is not a correct measure of body fat. ??? If you have a BMI of 25 or higher, your provider may need to do more testing to find out if excess body fat is the cause. ??? BMI is measured the same way for males and females. Females usually have more body fat than males of the same height and weight. Where to find more information For more information about BMI, including tools to quickly find your BMI, go to: ??? Centers for Disease Control and Prevention: cdc.gov ??? [place] Heart Association: heart.org ??? National Heart, Lung, and Blood [place]: nhlbi.nih.gov This information is not intended to replace advice given to you by your health care provider. Make sure you discuss any questions you have with your health care provider. Document Revised: 10/31/2022 Document Reviewed: 10/24/2022 [employer] Patient Education ? 2023 [employer] [facility]. [facility] 05-12-2024 Evaluation + Plan note Extrac isis from: Title:ANES Post-operative Note Author:Artis Milian MD Date:05/12/24 Plan Transfer/Discharge: Transfer/Discharge Discharge when meets criteria ( From PACU to floor ). Extracted from: Title:ANES Pre-operative Note - Endo Author:Artis Solomon MD. Date:05/12/24 Plan [place] [employer] Anesthesiologists (ASA) physical status classification: Class IV. Anesthetic Preoperative Plan: Anesthesia General, and -TIVA. Future Appointments Appointment Date:06/07/2024 12:30:00 PM Scheduled Provider:Ruthie Colindres MD Location:[facility] Appointment Type:[facility] Follow Up Appointment Date:06/10/2024 01:00:00 PM Scheduled Provider:Rachid Sellers MD Location:[facility] Appointment Type:[facility] 03-19-2025 NoteProgress Note-Physician Patient: MJ MELGAR Age: 38 years Sex: Female : 1985 Associated Diagnoses: None Author: Artis Milian MD Postoperative Information Postoperative disposition: Postoperative disposition: To PACU. Optimetrix number: Optimetrix number [id number]. Anesthetic utilized: General. Health Status Allergies: Allergic Reactions (Selected) Severity Not Documented Amoxicillin- Anaphylaxis. HYDROmorphone- Anaphylaxis, eruption and dyspnea. Physical Examination Vital Signs 05/12/2024 10:18 EDT SpO2 94 % 05/12/2024 10:18 EDT Systolic Blood Pressure 137 mmHg Diastolic Blood Pressure 81 mmHg 05/12/2024 10:18 EDT Temperature Temporal Artery 36.7 DegC Heart Rate Monitored 94 bpm Respiratory Rate 20 br/min Blood Pressure Location Left arm 05/12/2024 8:43 EDT Heart Rate Monitored 89 bpm SpO2 95 % 05/12/2024 8:43 EDT Temperature Temporal Artery 36 DegC LOW Respiratory Rate 20 br/min Systolic Blood Pressure 172 mmHg HI Diastolic Blood Pressure 85 mmHg Blood Pressure Location Left arm Pain Assessment: Controlled. General: Awake, Alert, Appropriate. Respiratory: Adequate air exchange. Cardiovascular: Stable, Normal peripheral perfusion. Neurological: Normal sensory function, Normal motor function. Assessment Anesthetic outcome No anesthetic complications noted. Adequate pain relief. able to void without difficulty, able to ambulate with assist, tolerating PO intake, no N/V. Review / Management Condition: Stable. Plan Transfer/Discharge: Transfer/Discharge Discharge when meets criteria ( From PACU to floor ).[facility]Result Comment: Electronically Signed By: Maicol DEAN, Artis Adorno\.br\Date and Time Signed: 05/13/2511:24 [id number] Hospital Discharge instructions Patient Education 05/12/2024 10:23:36 Gastroesophageal Reflux Disease, Adult, Zlci-ix-Gsaz Gastroesophageal Reflux Disease, Adult Gastroesophageal reflux (EMELI) happens when acid from the stomach flows up into the tube that connects the mouth and the stomach (esophagus). Normally, food travels down the esophagus and stays in thestomach to be digested. With EMELI, food and stomach acid sometimes move back up into the esophagus. You may have a disease called gastroesophageal reflux disease (GERD) if the reflux: Happens often. Causes frequent or very bad symptoms. Causes problems such as damage to the esophagus. When this happens, the esophagus becomes sore and swollen. Over time, GERD can make small holes (ulcers) in the lining of the esophagus. What are the causes? This condition is caused by a problem with the muscle between the esophagus and the stomach. When this muscle is weak or not normal, it does not close properly to keep food and acid from coming back up from the stomach. The muscle can be weak because of: Tobacco use. . Having a certain type of hernia (hiatal hernia). Alcohol use. Certain foods and drinks, such as coffee, chocolate, onions, and peppermint. What increases the risk? Being overweight. Having a disease that affects your connective tissue. Taking NSAIDs, such a ibuprofen. What are the signs or symptoms? Heartburn. Difficult or painful swallowing. The feeling of having a lump in the throat. A bitter taste in the mouth. Bad breath. Having a lot of saliva. Having an upset or bloated stomach. Burping. Chest pain. Different conditions can cause chest pain. Make sure you see your doctor if you have chest pain. Shortness of breath or wheezing. A long-term cough or a cough at night. Wearing away of the surface of teeth (tooth enamel). Weight loss. How is this treated? Making changes to your diet. Taking medicine. Having surgery. Treatment will depend on how bad your symptoms are. Follow these instructions at home: Eating and drinking Follow a diet as told by your doctor. You may need to avoid foods and drinks such as: ?Coffee and tea, with or without caffeine. ?Drinks that contain alcohol. ?Energy drinks and sports drinks. ?Bubbly (carbonated) drinks or sodas. ?Chocolate and cocoa. ?Peppermint and mint flavorings. ?Garlic and onions. ?Horseradish. ?Spicy and acidic foods. These include peppers, chili powder, stephenson powder, vinegar, hot sauces, and BBQ sauce. ?[place] fruit juices and citrus fruits, such as oranges, bruce, and limes. ?Tomato-based foods. These include red sauce, chili, salsa, and pizza with red sauce. ?Fried and fatty foods. These include donuts, chinese fries, potato chips, and high-fat dressings. ?High-fat meats. These include hot dogs, rib eye steak, sausage, ham, and coffey. ?High-fat dairy items, such as whole milk, butter, and cream cheese. Eat small meals often. Avoid eating large meals. Avoid drinking large amounts of liquid with your meals. Avoid eating meals during the 2 3 hours before bedtime. Avoid lying down right after you eat. Do not exercise right after you eat. Lifestyle Do not smoke or use any products that contain nicotine or tobacco. If you need help quitting, ask your doctor. Try to lower your stress. If you need help doing this, ask your doctor. If you are overweight, lose an amount of weight that is healthy for you. Ask your doctor about a safe weight loss goal. General instructions Pay attention to any changes in your symptoms. Take bzfc-sjm-ptooruy and prescription medicines only as told by your doctor. Do not take aspirin, ibuprofen, or other NSAIDs unless your doctor says it is okay. Wear loose clothes. Do not wear anything tight around your waist. Raise (elevate) the head of your bed about 6 inches (15 cm). You may need to use a wedge to do this. Avoid bending over if this makes your symptoms worse. Keep all follow-up visits. Contact a doctor if: You have new symptoms. You lose weight and you do not know why. You have trouble swallowing or it hurts to swallow. You have wheezing or a cough that keeps happening. You have a hoarse voice. Your symptoms do not get better with treatment. Get help right away if: You have sudden pain in your arms, neck, jaw, teeth, or back. You suddenly feel sweaty, dizzy, or light-headed. You have chest pain or shortness of breath. You vomit and the vomit is green, yellow, or black, or it looks like blood or coffee grounds. You faint. Your poop (stool) is red, bloody, or black. You cannot swallow, drink, or eat. These symptoms may represent a serious problem that is an emergency. Do not wait to see if the symptoms will go away. Get medical help right away. Call your local emergency services (911 in the [place] Do not drive yourself to the hospital. Summary If a person has gastroesophageal reflux disease (GERD), food and stomach acid move back up into theesophagus and cause symptoms or problems such as damage to the esophagus. Treatment will depend on how bad your symptoms are. Follow a diet as told by your doctor. Take all medicines only as told by your doctor. This information is not intended to replace advice given to you by your health care provider. Make sure you discuss any questions you have with your health care provider. Document Revised: 08/21/2020 Document Reviewed: 08/21/2020 [employer] Patient Education 2023 [employer]. 05/12/2024 10:22:53 Hiatal Hernia Hiatal Hernia A hiatal hernia occurs when part of the stomach slides above the muscle that separates the abdomen from the chest (diaphragm). A person can be born with a hiatal hernia (congenital), or it may develop over time. In almost all cases of hiatal hernia, only the top part of the stomach pushes through the diaphragm. Many people have a hiatal hernia with no symptoms. The larger the hernia, the more likely it is that you will have symptoms. In some cases, a hiatal hernia allows stomach acid to flow back into the tube that carries food from your mouth to your stomach (esophagus). This may cause heartburn symptoms. The development of heartburn symptoms may mean that you have a condition called gastroesophageal reflux disease (GERD). What are the causes? This condition is caused by a weakness in the opening (hiatus) where the esophagus passes through the diaphragm to attach to the upper part of the stomach. A person may be born with a weakness in thehiatus, or a weakness can develop over time. What increases the risk? This condition is more likely to develop in: Older people. Age is a major risk factor for a hiatal hernia, especially if you are over the age of50. women. People who are overweight. People who have frequent constipation. What are the signs or symptoms? Symptoms of this condition usually develop in the form of GERD symptoms. Symptoms include: Heartburn. Upset stomach (indigestion). Trouble swallowing. Coughing or wheezing. Wheezing is making high-pitched whistling sounds when you breathe. Sore throat. Chest pain. Nausea and vomiting. How is this diagnosed? This condition may be diagnosed during testing for GERD. Tests that may be done include: X-rays of your stomach or chest. An upper gastrointestinal (GI) series. This is an X-ray exam of your GI tract that is taken after you swallow a chalky liquid that shows up clearly on the X-ray. Endoscopy. This is a procedure to look into your stomach using a thin, flexible tube that has a tiny camera and light on the end of it. How is this treated? This condition may be treated by: Dietary and lifestyle changes to help reduce GERD symptoms. Medicines. These may include: ?Xqdv-swl-bqfhowj antacids. ?Medicines that make your stomach empty more quickly. ?Medicines that block the production of stomach acid (H2 blockers). ?Stronger medicines to reduce stomach acid (proton pump inhibitors). Surgery to repair the hernia, if other treatments are not helping. If you have no symptoms, you may not need treatment. Follow these instructions at home: Lifestyle and activity Do not use any products that contain nicotine or tobacco. These products include cigarettes, chewing tobacco, and vaping devices, such as e-cigarettes. If you need help quitting, ask your health careprovider. Try to achieve and maintain a healthy body weight. Avoid putting pressure on your abdomen. Anything that puts pressure on your abdomen increases the amount of acid that may be pushed up into your esophagus. ?Avoid bending over, especially after eating. ?Raise the head of your bed by putting blocks under the legs. This keeps your head and esophagus higher than your stomach. ?Do not wear tight clothing around your chest or stomach. ?Try not to strain when having a bowel movement, when urinating, or when lifting heavy objects. Eating and drinking Avoid foods that can worsen GERD symptoms. These may include: ?Fatty foods, like fried foods. ?[place] fruits, like oranges or lemon. ?Other foods and drinks that contain acid, like orange juice or tomatoes. ?Spicy food. ?Chocolate. Eat frequent small meals instead of three large meals a day. This helps prevent your stomach from getting too full. ?Eat slowly. ?Do not lie down right after eating. ?Do not eat 1 2 hours before bed. Do not drink beverages with caffeine. These include cola, coffee, cocoa, and tea. Do not drink alcohol. General instructions Take uguh-nij-uiygwec and prescription medicines only as told by your health care provider. Keep all follow-up visits. Your health care provider will want to check that any new prescribed medicines are helping your symptoms. Contact a health care provider if: Your symptoms are not controlled with medicines or lifestyle changes. You are having trouble swallowing. You have coughing or wheezing that will not go away. Your pain is getting worse. Your pain spreads to your arms, neck, jaw, teeth, or back. You feel nauseous or you vomit. Get help right away if: You have shortness of breath. You vomit blood. You have bright red blood in your stools. You have black, tarry stools. These symptoms may be an emergency. Get help right away. Call 911. Do not wait to see if the symptoms will go away. Do not drive yourself to the hospital. Summary A hiatal hernia occurs when part of the stomach slides above the muscle that separates the abdomen from the chest. A person may be born with a weakness in the hiatus, or a weakness can develop over time. Symptoms of a hiatal hernia may include heartburn, trouble swallowing, or sore throat. Management of a hiatal hernia includes eating frequent small meals instead of three large meals a day. Get help right away if you vomit blood, have bright red blood in your stools, or have black, tarry stools. This information is not intended to replace advice given to you by your health care provider. Make sure you discuss any questions you have with your health care provider. Document Revised: 04/09/2022 Document Reviewed: 04/09/2022 [employer] Patient Education 2023 [employer]. 05/12/2024 10:11:27 Endoscopy, Care After Procedure [facility] ([facility]) Endoscopy Care After Procedure Please read the instructions outlined below and refer to this sheet in the next few weeks. These discharge instructions provide you with general information on caring [facility] Your doctor may also give you specific instructions. While your treatment has been planned according to the most current medical practices available, unavoidable complications occasionally occur. If you have any problems or questions after discharge, please call your doctor. ACTIVITY You may resume your regular activity but move at a slower pace for the next 24 hours. Take frequent rest periods for the next 24 hours. Walking will help expel (get rid of) the air and reduce the bloated feeling in your abdomen. No driving for 24 hours (because of the anesthesia (medicine) used during the test). You may shower. Do not sign any important legal documents or operate any machinery for 24 hours (because of the anesthesia used during the test). NUTRITION Drink plenty of fluids. You may resume your normal diet. Begin with a light meal and progress to your normal diet. Avoid alcoholic beverages for 24 hours or as instructed by your caregiver. MEDICATIONS You may resume your normal medications unless your caregiver tells you otherwise. WHAT YOU CAN EXPECT TODAY You may experience abdominal discomfort such as a feeling of fullness or gas pains. FOLLOW-UP Your doctor will discuss the results of your test with you. SEEK IMMEDIATE MEDICAL ATTENTION IF ANY OF THE FOLLOWING OCCUR: Excessive nausea (feeling sick to your stomach) and/or vomiting. Severe abdominal pain and distention (swelling). Trouble swallowing. Temperature over 100 F (37.8 C). Rectal bleeding or vomiting of blood. Document Released: 09/24/2004 Document Re-Released: 08/04/2006 ExitCare Patient Information 2009 [employer]. Follow Up Care 05/05/2024 14:47:33 With:Bernadine DEAN, Ruthie Ribeiro, [facility], [facility] Address: [address] [place] [address], [address] [place] [address]- [phone] When: Unknown Comments:Keep scheduled appointmentCall for any problems [facility] 03-19-2025 NotePatient Education - Text Endoscopy Care After Procedure Please read the instructions outlined below and refer to this sheet in the next few weeks. These discharge instructions provide you with general information on caring for [facility] Your doctor may also give you specific instructions. While your treatment has been planned according to the most current medical practices available, unavoidable complications occasionally occur. If you have any problems or questions after discharge, please call your doctor. ACTIVITY ??? You may resume your regular activity but move at a slower pace for the next 24 hours. ??? Take frequent rest periods for the next 24 hours. ??? Walking will help expel (get rid of) the air and reduce the bloated feeling in your abdomen. ??? No driving for 24 hours (because of the anesthesia (medicine) used during the test). ??? You may shower. ??? Do not sign any important legal documents or operate any machinery for 24 hours (because of theanesthesia used during the test). NUTRITION ??? Drink plenty of fluids. ??? You may resume your normal diet. ??? Begin with a light meal and progress to your normal diet. ??? Avoid alcoholic beverages for 24 hours or as instructed by your caregiver. MEDICATIONS ??? You may resume your normal medications unless your caregiver tells you otherwise. WHAT YOU CAN EXPECT TODAY ??? You may experience abdominal discomfort such as a feeling of fullness or ???gas??? pains. FOLLOW-UP ??? Your doctor will discuss the results of your test with you. seek immediate medical attention if any of the following occur: ??? Excessive nausea (feeling sick to your stomach) and/or vomiting. ??? Severe abdominal pain and distention (swelling). ??? Trouble swallowing. ??? Temperature over 100 F (37.8??? C). ??? Rectal bleeding or vomiting of blood. Document Released: 09/24/2004 Document Re-Released: 08/04/2006 ExitCare??? Patient Information ???2009 [employer]. Gastroenterology Gastroesophageal Reflux Disease, Adult Gastroesophageal reflux (EMELI) happens when acid from the stomach flows up into the tube that connects the mouth and the stomach (esophagus). Normally, food travels down the esophagus and stays in thestomach to be digested. With EMELI, food and stomach acid sometimes move back up into the esophagus. You may have a disease called gastroesophageal reflux disease (GERD) if the reflux: ??? Happens often. ??? Causes frequent or very bad symptoms. ??? Causes problems such as damage to the esophagus. When this happens, the esophagus becomes sore and swollen. Over time, GERD can make small holes (ulcers) in the lining of the esophagus. What are the causes? This condition is caused by a problem with the muscle between the esophagus and the stomach. When this muscle is weak or not normal, it does not close properly to keep food and acid from coming back up from the stomach. The muscle can be weak because of: ??? Tobacco use. ??? . ??? Having a certain type of hernia (hiatal hernia). ??? Alcohol use. ??? Certain foods and drinks, such as coffee, chocolate, onions, and peppermint. What increases the risk? Being overweight. ??? Having a disease that affects your connective tissue. ??? Taking NSAIDs, such a ibuprofen. What are the signs or symptoms? Heartburn. ??? Difficult or painful swallowing. ??? The feeling of having a lump in the throat. ??? A bitter taste in the mouth. ??? Bad breath. ??? Having a lot of saliva. ??? Having an upset or bloated stomach. ??? Burping. ??? Chest pain. Different conditions can cause chest pain. Make sure you see your doctor if you have chest pain. ??? Shortness of breath or wheezing. ??? A long-term cough or a cough at night. ??? Wearing away of the surface of teeth (tooth enamel). ??? Weight loss. How is this treated? Making changes to your diet. ??? Taking medicine. ??? Having surgery. Treatment will depend on how bad your symptoms are. Follow these instructions at home: Eating and drinking ??? Follow a diet as told by your doctor. You may need to avoid foods and drinks such as: ? Coffee and tea, with or without caffeine. ? Drinks that contain alcohol. ? Energy drinks and sports drinks. ? Bubbly (carbonated) drinks or sodas. ? Chocolate and cocoa. ? Peppermint and mint flavorings. ? Garlic and onions. ? Horseradish. ? Spicy and acidic foods. These include peppers, chili powder, stephenson powder, vinegar, hot sauces, and BBQ sauce. ? [place] fruit juices and citrus fruits, such as oranges, bruce, and limes. ? Tomato-based foods. These include red sauce, chili, salsa, and pizza with red sauce. ? Fried and fatty foods. These include donuts, chinese fries, potato chips, and high-fat dressings. ? High-fat meats. These include hot dogs, rib eye steak, sausage, ham, an (more content not included)...[facility] NoteProgress Note-Physician Patient: MJ MELGAR Age: 38 years Sex: Female : 1985 Associated Diagnoses: None Author: Maicol DEAN, Artis Adorno Preoperative Information Anesthesia history: Patient history: No prior anesthetic problems. Informed consent: Signed by patient. Re-evaluation prior to induction: Initial evaluation reviewed: No significant change. Review of Systems Respiratory: Negative except as documented in history of present illness. Cardiovascular: Negative except as documented in history of present illness. Health Status Allergies: Allergic Reactions (Selected) Severity Not Documented Amoxicillin- Anaphylaxis. HYDROmorphone- Anaphylaxis, eruption and dyspnea., Allergies (2) Active Severity Reaction amoxicillin Anaphylaxis HYDROmorphone Dyspnea, Anaphylaxis, Eruption Current medications: (Selected) Inpatient Medications Ordered Sodium Chloride 0.9% IV Melissa 1000 mL 1,000 mL: 1,000 mL, IV, 20 mL/hr, Routine, Start date 05/12/24 8:24:00 EDT, 50 hour(s), Total volume (mL): 1,000, 175.1 kg, 2.87, m2 Prescriptions Prescribed Questran 4 g/9 g oral powder: = 9 gram, Oral, BID, # 60 packet(s), Refills(s) 0, Pharmacy: [facility]/pharmacy #[id number], 169.7, cm, 05/05/24 14:21:00 EDT, Height/Length Dosing, 175.1, kg, 05/05/24 14:21:00 EDT, Weight Dosing omeprazole 40 mg Cap-DR: 40 mg = 1 cap(s), Oral, BID, # 180 cap(s), Refills(s) 0, Pharmacy: [facility]/pharmacy #[id number], 169.7, cm, 04/08/24 13:03:00 EST, Height/Length Dosing, 176, kg, 04/08/24 13:03:00 EST,Weight Dosing Documented Medications Documented Vitamin C: Oral, Daily, Refills(s) 0, Prophylaxis Vitamin D3: Oral, Daily, Refills(s) 0, Prophylaxis Zinc: Oral, Daily, Refills(s) 0, Prophylaxis magnesium sulfate: gm, Oral, Once, OTC, Refills(s) 0, Prophylaxis metformin 500 mg Tab: 500 mg = 1 tab(s), Oral, BID, Refills(s) 0, Blood glucose valsartan 320 mg Tab: 320 mg = 1 tab(s), Oral, Daily, Refills(s) 0, High blood pressure, Home Medications (8) Active magnesium sulfate , Oral, Once metformin 500 mg Tab 500 mg = 1 tab(s), Oral, BID omeprazole 40 mg Cap-DR 40 mg = 1 cap(s), Oral, BID Questran 4 g/9 g oral powder 9 gram, Oral, BID valsartan 320 mg Tab 320 mg = 1 tab(s), Oral, Daily Vitamin C , Oral, Daily Vitamin D3 , Oral, Daily Zinc , Oral, Daily , Medications (1) Active Scheduled: (0) Continuous: (1) Sodium Chloride 0.9% 1,000 mL 1,000 mL, IV, 20 mL/hr PRN: (0) Problem list: All Problems Benign hypertension (high blood pressure) / SNOMED CT 96172834 / Confirmed BMI 60.0-69.9, adult / SNOMED CT 159589169 / Confirmed Congestion of nasal sinus / SNOMED CT 007852499 / Confirmed GERD without esophagitis / SNOMED CT 2456130114 / Confirmed Leukocytosis (high white blood cell count) / SNOMED CT 975025275 / Confirmed Mixed anxiety and depressive disorder / SNOMED CT 619931498 / Confirmed Morbid obesity / SNOMED CT 476317144 / Confirmed Morbid obesity / SNOMED CT 131088350 / Confirmed Nonsmoker / SNOMED CT 68486096 / Confirmed Post-cholecystectomy syndrome / SNOMED CT 890534704 / Confirmed Prediabetes / SNOMED CT 9197853097 / Confirmed Tear of medial meniscus of knee / SNOMED CT 253298011 / Confirmed, Active Problems (12) Benign hypertension (high blood pressure) BMI 60.0-69.9, adult Congestion of nasal sinus GERD without esophagitis Leukocytosis (high white blood cell count) Mixed anxiety and depressive disorder Morbid obesity Morbid obesity Nonsmoker Post-cholecystectomy syndrome Prediabetes Tear of medial meniscus of knee Histories Past Medical History: No active or resolved past medical history items have been selected or recorded. Family History: Heart disease Mother Procedure history: Cholecystectomy ([id number]) in 2009 at 24 Years. Tonsillectomy ([id number]). Social History Social & Psychosocial Habits Tobacco 05/05/2024 Tobacco Use: Never (less than 100 in l Smokeless tobacco use: Never Concerns about tobacco use in household: No Smoking Cessation Yes . Physical Examination Vital Signs 05/12/2024 8:43 EDT Heart Rate Monitored 89 bpm SpO2 95 % 05/12/2024 8:43 EDT Temperature Temporal Artery 36 DegC LOW Respiratory Rate 20 br/min Systolic Blood Pressure 172 mmHg HI Diastolic Blood Pressure 85 mmHg Blood Pressure Location Left arm Vital Signs (last 24 hrs) Last Charted Temp Temporal L 36 DegC (MAY 12:43) Heart Rate Monitored 89 bpm (MAY 12:) SBP H 172 mmHg (MAY 12:) DBP 85 mmHg (MAY 12:) Weight 175.1 kg (MAY 12:) Airway: Mallampati classification: II (soft palate, fauces, uvula visible). Respiratory: Lungs are clear to auscultation, Respirations are non-labored. Cardiovascular: Regular rhythm. Review / Management Results review: No qualifying data available . Plan [place] [employer] Anesthesiologists (ASA) physical status classification: Cla (more content not included)...[facility] HospitalComment on above:Result Comment: Electronically Signed By: Maicol DEAN, Artis Adorno\.br\Date and Time Signed: 05/12/2508:15 [id number] NotePatient Education Nutrition BMI for Adults Body mass index (BMI) is a number found using a person's weight and height. BMI can help tell how much of a person's weight is made up of fat. BMI does not measure body fat directly. It is used instead of tests that directly measure body fat, which can be difficult and expensive. What are BMI measurements used for? BMI is useful to: ??? Find out if your weight puts you at higher risk for medical problems. ??? Help recommend changes, such as in diet and exercise. This can help you reach a healthy weight.BMI screening can be done again to see if these changes are working. How is BMI calculated? Your height and weight are measured. The BMI is found from those numbers. This can be done with U.S. or metric measurements. Note that charts and online BMI calculators are available to help you findyour BMI quickly and easily without doing these calculations. To calculate your BMI in U.S. measurements: 1. Measure your weight in pounds (lb). 2. Multiply the number of pounds by 703. ??? So, for an adult who weighs 150 lb, multiply that number by 703: 150 x 703, which equals 105,450. 3. Measure your height in inches. Then multiply that number by itself to get a measurement called inches squared. ??? So, for an adult who is 70 inches tall, the inches squared measurement is 70 inches x 70 inches, which equals 4,900 inches squared. 4. Divide the total from step 2 (number of lb x 703) by the total from step 3 (inches squared): 105,450 ? 4,900 = 21.5. This is your BMI. To calculate your BMI in metric measurements: 1. Measure your weight in kilograms (kg). ??? For this example, the weight is 70 kg. 2. Measure your height in meters (m). Then multiply that number by itself to get a measurement called meters squared. ??? So, for an adult who is 1.75 m tall, the meters squared measurement is 1.75 m x 1.75 m, whichequals 3.1 meters squared. 3. Divide the number of kilograms (your weight) by the meters squared number. In this example: 70 ?3.1 = 22.6. This is your BMI. What do the results mean? BMI charts are used to see if you are underweight, normal weight, overweight, or obese. The following guidelines will be used: ??? Underweight: BMI less than 18.5. ??? Normal weight: BMI between 18.5 and 24.9. ??? Overweight: BMI between 25 and 29.9. ??? Obese: BMI of 30 or above. BMI is a tool and cannot diagnose a condition. Talk with your health care provider about what your BMI means for you. Keep these notes in mind: ??? Weight includes fat and muscle. Someone with a muscular build, such as an athlete, may have a BMI that is higher than 24.9. In cases like these, BMI is not a correct measure of body fat. ??? If you have a BMI of 25 or higher, your provider may need to do more testing to find out if excess body fat is the cause. ??? BMI is measured the same way for males and females. Females usually have more body fat than males of the same height and weight. Where to find more information For more information about BMI, including tools to quickly find your BMI, go to: ??? Centers for Disease Control and Prevention: cdc.gov ??? [place] Heart Association: heart.org ??? National Heart, Lung, and Blood [place]: nhlbi.nih.gov This information is not intended to replace advice given to you by your health care provider. Make sure you discuss any questions you have with your health care provider. Document Revised: 10/31/2022 Document Reviewed: 10/24/2022 [employer] Patient Education ? 2023 [employer].[facility] 01-05-2024 History of Present illness Narrative* Larissa Lora NP - 01/05/2024 11:19 AM ESTAssociated Problem(s): Community acquired pneumonia Seen in ER on 12/17 for pneumonia- (Do not have ER report, will request) Was discharged with RX forZpak; Completed regimen 1 Week ago; States she feels worse now than she did two weeks ago. Still feels symptoms are persisting. Admits: Productive cough- white phlegm Runny nose Fatigue Headache Shortness of breath with exertion Denies: Sore throat Fever Ear aches Reports using rescue inhaler twice per wek since ER discharge. CXR ordered. * Larissa Lora NP - 01/01/2024 2:30 PM EST Images from the original note were not included. Subjective Patient ID: Mj Melgar is a 38 y.o. female who presents for Follow-up. HPI Started on Metformin one mnonth ago on 12/01 for prediabtes. Has actually gained 9 pounds sicne last OV. Seen in ER on 12/17 for pneumonia- (Do not have ER report, will request) Was discharged with RX forZpak; Completed regimen 1 Week ago; States she [...] light-headedness and headaches. Negative for dizziness, tremors, syncopeand weakness. Psychiatric/Behavioral: Negative for decreased concentration and suicidal ideas. The patient is notnervous/anxious. Hematological: Does not bruise/bleed easily. Endocrine: Negative [...] report, will request) Was discharged with RX forWaqarpak; Completed regimen 1 Week ago; States she [...] view CBC and differential documented in this [facility]11-07-2024 Instructions* Patient Instructions* Larissa Lora NP - 01/01/2024 2:30 PM [...] THE NEAREST EMERGENCY DEPARTMENT. documented in this [facility]10-08-2024 History of Present illness Narrative* Larissa Lora NP - 12/02/2023 3:19 PM EDTAssociated Problem(s): Depression with anxiety Currently taking Sertraline 100mg; Would like to wean off medication. Feels she no longer needs medication. Life stressors have improved./ Will order sertraline taper today. * Larissa Lora NP - 12/02/2023 3:18 PM EDTAssociated Problem(s): Morbid obesity (CMS/HCC) Is interested in [...] well as surgical options for weight loss. * Larissa Lora NP - 12/02/2023 3:18 PM EDTAssociated Problem(s): Prediabetes 6.2 last A1C Insurance denied Wegovy 3 months ago. Prt is agreeable today to trial Metformin 500 XL; * Larissa Lora NP - 12/02/2023 2:00 PM EDT Subjective Patient ID: Mj Melgar is a 38 y.o. female who [...] will discuss Adipex at next OV. Pending onhow pt tolerates metformin. Review of Systems Constitutional: [...] Neurological: Negative for dizziness, tremors, syncope, weakness, light- headedness and headaches. Psychiatric/Behavioral: Negative for decreased concentration and suicidal ideas. The patient is notnervous/anxious. Hematological: Does not bruise/bleed easily. Endocrine: Negative [...] List Items Addressed This Visit Primary hypertension ([facility]) - Primary Morbid obesity ([facility]) Is interested in weight loss. Initiated metformin [...] Orders Pulmonary Function Test documented in this encounterSt. [facility] [id number] Instructions* Patient Instructions* Larissa Lora NP - 12/02/2023 2:00 PM EDT Start metformin once daily. Have mammogram and pulmonary function testing completed. I will call with results. Referral sent to [facility] to establish care. If you do not hear from them by next week call my officefor contact info. documented in this encounterSt. Lukes [facility] Pe[facility] [id number] NotePROCEDURE: XR KNEE LT 3V HISTORY: Pain of left knee joint [...] Electronically authenticated by: ISRAEL GROSS Date: 2021-10-12 14:44[facility]Evaluation noteNo assessment information availableCleveland Clinic [facility] Work Phone: Evaluation note* Diagnosis Primary hypertension (CMS/HCC)- Primary Unspecified essential hypertension Morbid obesity (CMS/HCC) Morbid obesity Depression with anxiety Dysthymic disorder Prediabetes Other abnormal glucose Metabolic syndrome Dysmetabolic Syndrome X Screening for cervical cancer Screening for malignant neoplasm of the cervix Encounter for screening mammogram for malignant neoplasm of breast Dyspnea on exertion Other dyspnea and respiratory abnormality [facility]* Diagnosis Primary hypertension (CMS/HCC)- Primary Unspecified essential [...] (common cold) [facility] Diagnosis Primary hypertension (CMS/HCC)- Primary Unspecified essential [...] (common cold) [facility]* Diagnosis Primary hypertension (CMS/HCC)- Primary Unspecified essential hypertension Morbid obesity ([facility]/HCC) Morbid obesity Screening for hyperlipidemia Screening for lipoid disorders Screening for diabetes mellitus Depression with anxiety 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 Morbid obesity ([facility]/HCC)- Primary Morbid obesity Recurrent major depressive disorder, in full remission ([facility]) Primary hypertension ([facility]/HCC) Unspecified essential hypertension Gastro-esophageal reflux disease without esophagitis Esophageal reflux Prediabetes Other abnormal glucose Metabolic syndrome Dysmetabolic Syndrome X Primary hypertension (CMS/HCC)- Primary Unspecified essential hypertension Morbid obesity ([facility]/HCC) Morbid obesity Depression with anxiety Dysthymic disorder Prediabetes Other abnormal glucose Metabolic syndrome Dysmetabolic Syndrome X Screening for cervical cancer Screening for malignant neoplasm of the cervix Encounter for screening mammogram for malignant neoplasm of breast Dyspnea on exertion Other dyspnea and respiratory abnormality Prediabetes- Primary Other abnormal glucose Community acquired pneumonia, unspecified laterality Acute rhinitis Acute nasopharyngitis (common cold) Prediabetes Other abnormal glucose [facility]* Diagnosis Primary hypertension (CMS/HCC)- Primary Unspecified essential [...] laterality Acute rhinitis Acute nasopharyngitis (common cold) Primary hypertension (CMS/HCC) Unspecified essential hypertension documented [facility] this [facility] course Narrative No data available for this section [facility] Progress note No data available for this section [facility] Advance Directives No Advanced Directives Records Found [...] Dyspnea on exertion Larissa Lora NP [address] [place] [address] Referral ID Status Reason Start Date Expiration Date V isits Requested Visits Authorized [id number] Pending Review 12/02/2023 05/30/2024 1 1 Specialty Diagnoses / Procedures Referred By Radha hoover Referred To Contact Obstetrics and Gynecology Diagnoses Screening for cervical cancer Encounter for screening mammogram for malignant neoplasm of breast Procedures MS OFFICE/OUTPATIENT NEW HIGH MDM 60 MINUTES Larissa Lora NP [address] [place] [address] [address], [address] [place] [address] Referral ID Status Reason Start Date Expiration Date Visits Requested Visits Authorized [id number] Pending Review Specialty Services Required 12/02/2023 05/30/2024 1 1 Additional Source Comments INFORMATION SOURCE (unrecogn ized section and content) DATE CREATED AUTHOR 12/05/2021 [facility] DATE CREATED AUTHOR AUTHOR'S ORGANIZ ATION 10/26/2022 [facility] DATE CREATED AUTHOR AUTHOR'S ORGANIZ ATION 05/19/2024 [facility] DATE CREATED AUTHOR AUTHOR'S ORGANIZ ATION 06/12/2024 [facility] DATE CREATED AUTHOR AUTHOR'S ORGANIZ ATION 10/24/2024 [facility] DATE CREATED AUTHOR AUTHOR'S ORGANIZ ATION 11/12/2024 [facility] DATE CREATED AUTHOR AUTHOR'S ORGANIZ ATION 11/13/2024 [facility] DATE CREATED AUTHOR AUTHOR'S ORGANIZ ATION 11/14/2024 [facility] Goals (unrecognized section and content) Goals may be documented in a n alternate section No data available for this section Care Teams (unrecognized sec tion and content) Shirrer Relationship Specialty Start Date End Date Giles Lan MD [address] [place] [phone] PCP - General Family Medicine 10/07/23 Larissa Lora NP [address] [place] [address] Nurse Practitioner Family Medicine 10/07/23 Shirrer Relationship Specialty Start Date End Date Giles Lan MD [address] [place] [phone] PCP - General Family Medicine 10/07/23 Larissa Lora NP [address] [place] [address] Nurse Practitioner Family Medicine 10/07/23 Shirrer Relationship Specialty Start Date End Date Giles Lan MD [address] [place] [phone] PCP - General Family Medicine 10/07/23 Larissa Lora NP [address] [place] [address] Nurse Practitioner Family Medicine 10/07/23 Shirrer Relationship Specialty Start Date End Date Giles Lan MD [address] [place] [address] PCP - General Family Medicine 10/07/23 Larissa Lora NP [address] [place] [address] Nurse Practitioner Family Medicine 10/07/23 Shirrer Relationship Specialty Start Date End Date Giles Lan MD [address] [place] [phone] PCP - General Family Medicine 10/07/23 Larissa Lora NP [address] [place] [address] Nurse Practitioner Family Medicine 10/07/23 Shirrer Relationship Specialty Start Date End Date Giles Lan MD [address] [place] [address] PCP - General Family Medicine 10/07/23 Larissa Lora NP [address] [place] [phone] Nurse Practitioner Family Medicine 10/07/23 Shirrer Relationship Specialty Start Date End Date Giles Lan MD [address] [place] [phone] PCP - General Family Medicine 10/07/23 Larissa Lora NP [address] [place] [address] Nurse Practitioner Family Medicine 10/07/23 Shirrer Relationship Specialty Start Date End Date Giles Lan MD [address] [place] [phone] PCP - General Family Medicine 10/07/23 Larissa Lora NP [address] [place] [address] Nurse Practitioner Family Medicine 10/07/23 Reason for Visit (unrecogniz ed section and content) Reason Comments Follow-up Wants to wean off he r anti depressants and wants to talk about weight loss Reason Comments Follow-up Reason Comments Med Change Request Reason Comments Med Refill FOR RECORDS PERTAINING TO PATIENTS WHO ARE [...] BE BASED ON THE PRIMARY CLINICAL RECORDS. [employer] [facility]. provides no warranty or guarantee of the accuracy or completeness of information in this document.
[2024-11-18 19:26] LABS: SARS-CoV-2 Ag NEGATIVE (NEGATIVE)
[2024-11-18 20:25] VITALS: BP 167/133; PULSE 93; TEMP 37.7; O2SAT 95
--- NOTE | 2024-11-18 20:35 | PC.NURSE ---
this patient voices to me that she did not take her blood pressure medication to this morning. this patient does nit voices no headache, nausea or any other complaints
--- NOTE | 2024-11-18 21:43 | XR_ITS ---
The [address] [address] Patient Name: MJ SHAH MRN: [id number] date: 1985 Sex: F Assigned Patient Location: ER Current Patient Location: ER Accession/Order Number: [id number] Exam Date: 11/18/2024 22:20 Report Date: 11/18/2024 22:46 At the request of: JIM OVALLES MD Procedure: XR chest 2V PA AND LATERAL CHEST: CLINICAL HISTORY: cough COMPARISON: 02/12/2024 FINDINGS: Stable mildly prominent cardiomediastinal silhouette. No focal airspace opacity, effusion or pneumothorax. XR/XR chest 2V IMPRESSION: NO ACUTE CARDIOPULMONARY ABNORMALITY. Impression dictated by: Stan Whitney M.D. 11/18/2024 10:46 PM Dictation Location: [place] [address] Electronically authenticated by: [id number] Y Date: 11/18/2024 22:46
--- NOTE | 2024-11-18 21:43 | ED.URI1 ---
HPI - URI/Sore Throat General Chief Complaint: Upper Respiratory Infection Stated Complaint: SOB Time Seen by Provider: 11/18/24 21:35 Source: patient History of Present Illness HPI Narrative: past history of COVID19 2019. states she was in the hospital for one month. 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 Now presents with one day history of recurrent cough. with deep breath feels like her throat expands more than normal and it makes her cough and she coughs repeatedly. No fever. Worried she may have COVID19 again and came in Related Data Home Medications ?Medication ?Instructions ?Recorded ?Confirmed sertraline 100 mg tablet 100 mg PO DAILY 04/22/23 02/12/24 albuterol sulfate 90 mcg/actuation 2 puff inhalation Q4H PRN 02/12/24 02/12/24 aerosol inhaler shortness of breath or wheezing fluticasone propionate 50 2 spray intranasal DAILY 02/12/24 02/12/24 mcg/actuation nasal spray,suspension metformin 500 mg tablet,extended 500 mg PO QPM 02/12/24 02/12/24 release 24 hr omeprazole 40 mg capsule,delayed 40 mg PO DAILY 02/12/24 02/12/24 release valsartan 320 mg tablet 320 mg PO DAILY 02/12/24 02/12/24 Previous Rx's ?Medication ?Instructions ?Recorded levofloxacin 750 mg tablet 750 mg PO DAILY 7 days #7 tabs 02/12/24 Allergies Allergy/AdvReac Type Severity Reaction Status Date / Time amoxicillin Allergy Unknown Rash Verified 11/18/24 18:37 hydromorphone (From Dilaudid) Allergy Unknown dyspnea Verified 11/18/24 18:37 Review of Systems ROS Status of ROS 10 or more systems reviewed and unremarkable except as noted in history and below PFSH PFSH Social History Little interest or pleasure in doing things: not at all Feeling down, depressed, or hopeless: more than half the days Exam Constitutional Vital Signs, click to edit/add: Last Vital Signs Temp 99.9 F 11/18/24 20:25 Pulse 115 H 11/18/24 22:27 Resp 22 H 11/18/24 22:27 BP 180/98 H 11/18/24 21:51 Pulse Ox 91 L 11/18/24 22:27 O2 Del Method Room Air 11/18/24 22:27 Common normals: no apparent distress, average body habitus, oriented x3, no limitations, healthy appearing, alert and well nourished HENPR Common normals: normocephalic and head/scalp atraumatic Mouth: oral and palatal mucosa normal Eye Common normals: PERRL, EOMs intact bilaterally and conjunctivae normal Respiratory Common normals: normal respiratory effort, no retractions, no use of accessory muscles and clear to auscultation bilaterally Cardio Common normals: regular rate, regular rhythm, S1 normal heart sound and S2 normal heart sound GI Common normals: Normal to inspection, nondistended, normoactive bowel sounds present, soft to palpation and non-tender Extremity Common normals: normal to inspection and full ROM Neuro Common normals: oriented x3, CN's II-XII intact bilaterally, moves all extremities and no focal motor deficits Psych Appearance: grossly normal Course Vital Signs Vital signs: Vital Signs Temperature 99.2 F 11/18/24 18:37 Pulse Rate 93 H 11/18/24 18:37 Respiratory Rate 20 11/18/24 18:37 Blood Pressure 168/97 H 11/18/24 18:37 Pulse Oximetry 93 L 11/18/24 18:37 Oxygen Delivery Method Room Air 11/18/24 18:37 Temperature 99.9 F 11/18/24 20:25 Pulse Rate 115 H 11/18/24 22:27 Respiratory Rate 22 H 11/18/24 22:27 Blood Pressure 180/98 H 11/18/24 21:51 Pulse Oximetry 91 L 11/18/24 22:27 Oxygen Delivery Method Room Air 11/18/24 22:27 MDM - URI/Sore Throat MDM Narrative Medical decision making narrative: patient presents with cough. States with deep breath a sensation of her throat opening more and becoming irritated triggering a cough. Pharynx exam is normal. chest clear. she has past history of leukocytosis. States she has been to [facility] and no clear etiology to explain it. cxray here is normal. She was treated with duoneb and solumedrol and is now feeling better. WBC elevated at 23.7. BMP normal and swabs for COVID19 and influenza neg. patient discharged home Lab Data Labs: Lab Results 11/18/24 11/18/24 Range/Units 18:45 21:47 WBC 23.7 H (4.0-11.0) 10^3/uL RBC 5.75 H (4.20-5.40) 10^6/uL Hgb 14.5 (12.0-16.0) g/dL Hct 45.3 (36.0-48.0) % MCV 78.8 L (81.0-99.0) fL MCH 25.2 L (26.7-34.0) pg MCHC 32.0 (29.9-35.2) g/dL RDW 16.7 H (11.0-15.0) % Plt Count 245 (150-450) 10^3/uL MPV 11.6 (9.5-13.5) fL Neut % (Auto) 84.2 H (43.0-75.0) % Lymph % (Auto) 7.8 L (20.5-60.0) % [place] % (Auto) 4.0 (1.7-12.0) % Eos % (Auto) 3.2 (0.9-7.0) % Baso % (Auto) 0.3 (0.2-2.0) % Neut # (Auto) 20.0 H (1.4-6.5) 10^3/uL Lymph # (Auto) 1.9 (1.2-3.8) 10^3/uL [place] # (Auto) 1.0 H (0.3-0.8) 10^3/uL Eos # (Auto) 0.8 H (0.0-0.7) 10^3/uL Baso # (Auto) 0.1 (0.0-0.1) 10^3/uL Abs Immat Gran (auto) 0.12 H (0.00-0.03) 10^3/uL Imm/Tot Granulo (auto) 0.5 (0.0-0.5) % Sodium 137 (136-145) mmol/L Potassium 4.3 (3.5-5.1) mmol/L Chloride 103 (98-107) mmol/L Carbon Dioxide 24.7 (21.0-32.0) mmol/L Anion Gap 13.6 BUN 11.0 (7.0-18.0) mg/dL Creatinine 0.84 (0.55-1.02) mg/dL Est GFR ( Amer) >60 (>=60 mL/min/1.73m^2) Est GFR (Non-Af Amer) >60 (>=60 mL/min/1.73m^2) BUN/Creatinine Ratio 13.1 Glucose 104 (74-106) mg/dL Calcium 8.8 (8.5-10.1) mg/dL Influenza Type A Ag Negative Influenza Type B Ag Negative SARS-CoV-2 Ag (CV2AG) Negative (NEGATIVE) Streptococcus Screen Negative Imaging Data Chest x-ray: Radiologist's impression: ITS Impressions Chest X-Ray 11/18/24 21:43 IMPRESSION: NO ACUTE CARDIOPULMONARY ABNORMALITY. Impression dictated by: Stan Whitney M.D. 11/18/2024 10:46 PM Dictation Location[facility] Electronically authenticated by: [id number] Y Date: 11/18/2024 22:46 Discharge Plan Discharge Chief Complaint: Upper Respiratory Infection Clinical Impression: Leukocytosis, Upper respiratory infection Patient Disposition: Home, Self-Care Prescriptions / Home Meds: No Action albuterol sulfate 90 mcg/actuation HFA aerosol inhaler 2 puff INHALATION Q4H PRN (Reason: shortness of breath or wheezing) fluticasone propionate 50 mcg/actuation spray,suspension 2 spray INTRANASAL DAILY metformin 500 mg tablet extended release 24 hr 500 mg PO QPM valsartan 320 mg tablet 320 mg PO DAILY omeprazole 40 mg capsule,delayed release(DR/EC) 40 mg PO DAILY levofloxacin 750 mg tablet 750 mg PO DAILY 7 Days Qty: 7 0RF sertraline 100 mg tablet 100 mg PO DAILY Print Language: [place] Instructions: Upper Respiratory Infection (ED), Leukocytosis (ED) Additional Instructions: follow up with your doctor next week Referrals: ZENAIDA HERNANDEZ [Primary Care Provider] - 1 week
[2024-11-18 21:51] VITALS: BP 180/98
[2024-11-18] MEDS: METHYLPREDNISOLONE SOD SUCC PF 125 MG/2 ML VIAL IVP (22:13)
[2024-11-18 22:18] LABS: Hematocrit 45.3 % (36.0-48.0); Hemoglobin 14.5 g/dL (12.0-16.0); Immature Granulocytes Abs Auto 0.12 10^3/uL (0.00-0.03); Immature Granulocytes Pct Auto 0.5 % (0.0-0.5); Lymphocytes Absolute Auto 1.9 10^3/uL (1.2-3.8); Mean Corpuscular HGB Conc 32.0 g/dL (29.9-35.2); Mean Corpuscular Hemoglobin 25.2 pg (26.7-34.0); Mean Corpuscular Volume 78.8 fL (81.0-99.0); Platelet Count 245 10^3/uL (150-450); Red Blood Count 5.75 10^6/uL (4.20-5.40); White Blood Count 23.7 10^3/uL (4.0-11.0)
[2024-11-18] MEDS: IPRATROPIUM/ALBUTEROL SULFATE 3 ML AMPUL.NEB IH (22:26)
[2024-11-18 22:27] VITALS: PULSE 115; O2SAT 91
[2024-11-18 22:30] LABS: Anion Gap 13.6; Blood Urea Nitrogen 11.0 mg/dL (7.0-18.0); Calcium 8.8 mg/dL (8.5-10.1); Carbon Dioxide 24.7 mmol/L (21.0-32.0); Chloride 103 mmol/L (98-107); Estimated GFR (African America >60 (>=60 mL/min/1.73m^2); Estimated GFR (Non-African Ame >60 (>=60 mL/min/1.73m^2); Glucose 104 mg/dL (74-106); Potassium 4.3 mmol/L (3.5-5.1); Sodium 137 mmol/L (136-145)
== END 2024-11-18 23:55 | disposition home or self-care (01) ==
PROVIDERS: Emergency Medicine; Emergency Provider Internal Medicine
DX: J06.9 Acute upper respiratory infection, unspecified (principal); D72.829 Elevated white blood cell count, unspecified; Z86.16 Personal history of COVID-19; R50.9 Fever, unspecified
CPT/HCPCS: 36415; 71046; 80048; 85025; 87070; 87804; 87811; 87880; 94640; 96374; 99284; 99285; J2919